=== PATIENT | female | born 1960 | race Caucasian/White ===

== ENCOUNTER 2021-11-09 22:10 | Emergency (ER) | payer MEDICARE, MEDICAID, SELFPAY ==
[2021-11-09 22:52] VITALS: BP 128/81; PULSE 89; RESP 18; TEMP 36.8; O2SAT 98; BMI 33.2
[2021-11-10 03:00] LABS: Basophils # 0.1 10^3/uL (0.0-0.1); Basophils % 0.5 %; Eosinophils # 0.4 10^3/uL (0.0-0.8); Eosinophils % 2.9 %; Hematocrit 42.2 % (37.0-47.0); Hemoglobin 14.5 g/dL (11.5-15.3); Lymphocytes # 2.4 10^3/uL (0.8-4.8); Lymphocytes % 19.8 %; Mean Corpuscular HGB Conc 34.4 g/dL (30.0-36.0); Mean Corpuscular Hemoglobin 29.5 pg (28.0-34.0); Mean Corpuscular Volume 85.9 fl (81-99); Mean Platelet Volume 11.4 fL (7.4-10.4); Monocytes # 1.9 10^3/uL (0.2-0.9); Monocytes % 15.4 %; Neutrophils # 7.43 10^3/uL (1.8-7.7); Neutrophils % 60.6 %; Nucleated Red Blood Cells % 0 %; Platelet Count 199 10^3/cmm (130-400); Red Blood Count 4.91 10^6/uL (4.1-5.3); Red Cell Distribution Width 12.2 % (12.1-15.1); White Blood Count 12.3 10^3/uL (4.0-10.0)
[2021-11-10 03:03] LABS: Specific Gravity, Urine 1.005 (1.005-1.030); Urine Appearance Turbid (CLEAR); Urine Color Dark Yellow (Yellow); pH Urine 5 (5-7)
[2021-11-10] MEDS: ondansetron 2 mg/ML SDV 2 mL 4 MG IVP (03:03)
[2021-11-10] MEDS: sodium chloride 0.9% 1,000 ML 999 ML IV ×2 (03:03→04:03)
[2021-11-10 03:04] LABS: Add Urine Microscopic? YES; Bilirubin Urine 1+ (Negative); Blood Urine Neg (Negative); Glucose Urine UA Norm (Normal); Ketones Urine Negative (Negative); Leukocyte Esterase Urine 1+ (Negative); Nitrate Urine Negative (Negative); Protein Urine Neg (Negative); Urobilinogen Urine 4 mg/dL (Negative)
[2021-11-10 03:10] LABS: RBC Urine 0-4 /hpf (0-2); Squamous Epithelial Cell Urine TOO NUMEROUS TO CNT /hpf (0-5); WBC Urine 25-40 /hpf (0-5)
[2021-11-10 03:11] LABS: Add Urine Culture? No; Bacteria Urine 4+ /hpf
[2021-11-10 03:19] LABS: Alanine Aminotransferase 82 U/L (0-33); Albumin Level 4.5 g/dL (3.5-5.2); Alkaline Phosphatase 99 IU/L (35-105); Anion Gap 20.8 (5-19); Aspartate Amino Transferase 68 U/L (0-32); Blood Urea Nitrogen 17 mg/dL (6-20); C Reactive Protein 72.1 mg/L (0.0-4.9); Calcium 9.4 mg/dL (8.5-10.5); Carbon Dioxide 24 mmol/L (22-29); Chloride 90 mmol/L (98-107); Globulin 3.6 g/dL (1.3-4.6); Glomerular Filtration Rate 64.1 mL/min (90-130); Glucose 117 mg/dL (65-115); Lipase 23 U/L (13-60); Osmolality Calculated 277 mOsm/kg (285-295); Sodium 132 mmol/L (136-145); Total Bilirubin 0.6 mg/dL (0.15-1.2); Total Protein 8.1 g/dL (6.6-8.7)
[2021-11-10 03:20] LABS: Lactate (Lactic Acid level) 1.3 mmol/L (0.5-2.2)
[2021-11-10 03:21] LABS: Potassium 2.8 mmol/L (3.5-5.1)
[2021-11-10 03:25] LABS: Procalcitonin 0.58 ng/mL (0-0.5)
[2021-11-10] MEDS: potassium chloride ER 20 mEq Tablet 40 MEQ PO (03:31)
[2021-11-10] MEDS: potassium chloride premix 100 ML 50 MEQ IV (03:31)
--- NOTE | 2021-11-10 03:33 | W.ED.NAVMDI ---
HPI - Nausea/Vomiting/Diarrhea General: Chief complaint: Nausea/Vomiting/Diarrhea Stated complaint: Rash Time Seen by Provider: 11/10/21 02:38 History of Present Illness: HPI Narrative: 61-year-old female presenting with 6 days of nausea, vomiting, some diarrhea, and cough. She has had a headache and body aches as well. Fever on and off. She was tested as an outpatient for COVID-19 and tested negative a couple of days ago. She has not been able to hold down liquids. No overt belly pain. MD elicited complaint: nausea, vomiting, diarrhea and other Onset (ago): day(s) (6) Associated nausea: Yes Location of pain: Diffuse Quality: cramping Exacerbating factors: none Associated symtoms: Reports cough, decreased urine output, fevers/chills, headache(s), anorexia, myalgias and nausea; Denies chest pain, diaphoresis or dysuria Review of Systems Const: Reports: fever(s), chills and body aches; Denies: diaphoresis Card: Denies: chest pain Resp: Reports: non-productive cough; Denies: dyspnea or productive cough GI: Reports: nausea, vomiting and diarrhea : Denies: dysuria Neuro: Reports: headache(s) Physical Exam Const: GENERAL APPEARANCE: cooperative and ill appearing (mildly) HENMT: COMMON NORMALS: normocephalic HEAD & SCALP: normocephalic Eye: COMMON NORMALS: Equal, round and reactive pupils present and EOMs intact bilaterally PUPIL: Yes Equal, round and reactive pupils present Chest: COMMONS NORMALS: normal inspection of the chest Resp: COMMON NORMALS: normal respiratory effort, No retractions, No use of accessory muscles and clear to auscultation bilaterally AUSCULTATION: clear to auscultation bilaterally Cardio: COMMON NORMALS: regular rate and regular rhythm RATE: regular rate RHYTHM: regular rhythm GI: COMMON NORMALS: Normal to inspection, nondistended, normoactive bowel sounds present, Soft to palpation and non-tender PALPATION: Yes Soft to palpation Extremity: COMMON NORMALS: normal to inspection Course Vital Signs: Vital signs: Vital Signs Temperature 98.3 F 11/09/21 22:52 Pulse Rate 75 11/10/21 08:20 Respiratory Rate 16 11/10/21 08:20 Blood Pressure 119/67 01/24/22 08:20 Pulse Oximetry 96 11/10/21 08:20 MDM - Nausea/Vomiting/Diarrhea MDM Narrative Medical decision making narrative: Patient with vomiting, diarrhea. White blood cell count is 12.3, without significant left shift. Hemoglobin 14.5. Her potassium is 2.8. She is hypochloremic. Indicates vomiting. Potassium is replaced. No vomiting since she has been here. The petechial rash she has on the lower extremities is unclear. Her coagulations studies are normal. She will be placed on steroids for this. She is COVID-19 negative. Her urinalysis is contaminated. Lab Data Result diagrams: 11/10/21 02:48 11/10/21 02:48 Labs: Lab Results 11/10/21 11/10/21 11/10/21 02:48 02:48 02:48 WBC 12.3 10^3/uL H 10^3/uL (4.0-10.0) RBC 4.91 10^6/uL 10^6/uL (4.1-5.3) Hgb 14.5 g/dL g/dL (11.5-15.3) Hct 42.2 % % (37.0-47.0) MCV 85.9 fl fl (81-99) MCH 29.5 pg pg (28.0-34.0) MCHC 34.4 g/dL g/dL (30.0-36.0) RDW 12.2 % % (12.1-15.1) Plt Count 199 10^3/cmm 10^3/cmm (130-400) MPV 11.4 fL H fL (7.4-10.4) Neut % (Auto) 60.6 % % Lymph % (Auto) 19.8 % % [place] % (Auto) 15.4 % % Eos % (Auto) 2.9 % % Baso % (Auto) 0.5 % % Neut # (Auto) 7.43 10^3/uL 10^3/uL (1.8-7.7) Lymph # (Auto) 2.4 10^3/uL 10^3/uL (0.8-4.8) [place] # (Auto) 1.9 10^3/uL H 10^3/uL (0.2-0.9) Eos # (Auto) 0.4 10^3/uL 10^3/uL (0.0-0.8) Baso # (Auto) 0.1 10^3/uL 10^3/uL (0.0-0.1) Nucleated RBC % (auto) 0 % % Nucleated RBCs # 0.0 /100WBC /100WBC PT INR APTT Sodium 132 mmol/L L mmol/L (136-145) Potassium 2.8 mmol/L L* mmol/L (3.5-5.1) Chloride 90 mmol/L L mmol/L (98-107) Carbon Dioxide 24 mmol/L mmol/L (22-29) Anion Gap 20.8 H (5-19) BUN 17 mg/dL mg/dL (6-20) Creatinine 0.9 mg/dL mg/dL (0.5-0.9) GFR Calculation 64.1 mL/min L mL/min (90-130) Glucose 117 mg/dL H mg/dL (65-115) Calculated Osmolality 277 mOsm/kg L mOsm/kg (285-295) Lactate 1.3 mmol/L mmol/L (0.5-2.2) Calcium 9.4 mg/dL mg/dL (8.5-10.5) Total Bilirubin 0.6 mg/dL mg/dL (0.15-1.2) AST 68 U/L H U/L (0-32) ALT 82 U/L H U/L (0-33) Alkaline Phosphatase 99 IU/L IU/L (35-105) C-Reactive Protein 72.1 mg/L H mg/L (0.0-4.9) Total Protein 8.1 g/dL g/dL (6.6-8.7) Albumin 4.5 g/dL g/dL (3.5-5.2) Globulin 3.6 g/dL g/dL (1.3-4.6) Lipase 23 U/L U/L (13-60) Procalcitonin 0.58 ng/mL H ng/mL (0-0.5) Urine Color Urine Appearance Urine pH Ur Specific [place] Urine Protein Urine Glucose (UA) Urine Ketones Urine Blood Urine Nitrate Urine Bilirubin Urine Urobilinogen Ur Leukocyte Esterase Urine RBC Urine WBC Ur Squamous Epith Cells Amorphous Sediment Urine Bacteria Coronavirus 229E (PCR) SARS-CoV-2 (PCR) 11/10/21 11/10/21 11/10/21 02:48 02:48 03:02 WBC RBC Hgb Hct MCV MCH MCHC RDW Plt Count MPV Neut % (Auto) Lymph % (Auto) [place] % (Auto) Eos % (Auto) Baso % (Auto) Neut # (Auto) Lymph # (Auto) [place] # (Auto) Eos # (Auto) Baso # (Auto) Nucleated RBC % (auto) Nucleated RBCs # PT 13.20 SECONDS SECONDS (12.1-14.9) INR 0.97 (0.8-1.2) APTT 36.3 SECONDS SECONDS (23.9-36.7) Sodium Potassium Chloride Carbon Dioxide Anion Gap BUN Creatinine GFR Calculation Glucose Calculated Osmolality Lactate Calcium Total Bilirubin AST ALT Alkaline Phosphatase C-Reactive Protein Total Protein Albumin Globulin Lipase Procalcitonin Urine Color Dark yellow (Yellow) Urine Appearance Turbid (CLEAR) Urine pH 5 (5-7) Ur Specific [place] 1.005 (1.005-1.030) Urine Protein Neg (Negative) Urine Glucose (UA) Norm (Normal) Urine Ketones Negative (Negative) Urine Blood Neg (Negative) Urine Nitrate Negative (Negative) Urine Bilirubin 1+ H (Negative) Urine Urobilinogen 4 mg/dL H mg/dL (Negative) Ur Leukocyte Esterase 1+ H (Negative) Urine RBC 0-4 /hpf H /hpf (0-2) Urine WBC 25-40 /hpf H /hpf (0-5) Ur Squamous Epith Cells Too numerous to cnt /hpf H /hpf (0-5) Amorphous Sediment Not Reportable Urine Bacteria 4+ /hpf H /hpf (NONE) Coronavirus 229E (PCR) Not detected (NOT DETECT) SARS-CoV-2 (PCR) Not detected (NOT DETECT) Discharge Plan Discharge Patient Disposition: Home Clinical Impression: Gastroenteritis, Petechiae Condition: Stable Prescriptions: New Zofran 4 mg tablet 4 mg PO Q6H PRN (Reason: nausea and vomiting) Qty: 10 0RF Medrol (Philip) 4 mg tablets,dose pack See Rx Instructions .ROUTE .COMPLEX Qty: 21 0RF Rx Instructions: orally per package directions Discharge Orders: Discharge ED (Routine); Ordered 11/10/21 Ordered By: Seven Amaral Referrals: [facility], [Staff Physician] - 1-3 days Patient Instructions: Gastroenteritis (ED), Purp[place] (ED) Activity Restrictions/Additional Instructions: Return for vomiting liquids or medications despite treatment, worsening rash, blood in the stool, increasing abdominal pain, fever greater than 100, any other concerning symptoms. Coding Level of Care Code ED Hr Clerk for Chg Fwd Exam Comprehensive
[2021-11-10 05:48] LABS: INR 0.97 (0.8-1.2)
[2021-11-10 05:49] LABS: Partial Thromboplastin Time 36.3 SECONDS (23.9-36.7)
[2021-11-10 06:50] LABS: Adenovirus Not Detected (NOT DETECT); Chlamydia Pneumoniae Not Detected (NOT DETECT); Coronavirus 229E,HKU1,NL63,OC4 Not Detected (NOT DETECT); Human Metapneumovirus Not Detected (NOT DETECT); Human Rhinovirus/Enterovirus Not Detected (NOT DETECT); Influenza A Not Detected (NOT DETECT); Influenza A H1 Not Detected (NOT DETECT); Influenza A H1-2009 Not Detected (NOT DETECT); Influenza A H3 Not Detected (NOT DETECT); Influenza B Not Detected (NOT DETECT); Mycoplasma Pneumoniae Not Detected (NOT DETECT); Parainfluenza Virus Type 1 Not Detected (NOT DETECT); Parainfluenza Virus Type 2 Not Detected (NOT DETECT); Parainfluenza Virus Type 3 Not Detected (NOT DETECT); Parainfluenza Virus Type 4 Not Detected (NOT DETECT); Respiratory Syncytial Virus A Not Detected (NOT DETECT); Respiratory Syncytial Virus B Not Detected (NOT DETECT); SARS-COV-2 Not Detected (NOT DETECT)
--- NOTE | 2021-11-10 07:30 | PC.NURSE ---
WHILE AT DOORWAY PT IS RESTING QUIETLY WITH EYES CLOSED WITH GOOD CHEST RISE AND FALL.
[2021-11-10 08:20] VITALS: BP 119/67; PULSE 75; RESP 16; O2SAT 96
== END 2021-11-10 08:54 | disposition home or self-care (01) ==
PROVIDERS: Emergency Provider Emergency Medicine
DX: K52.9 Noninfective gastroenteritis and colitis, unspecified (principal); R23.3 Spontaneous ecchymoses; Z20.822 Contact with and (suspected) exposure to COVID-19
CPT/HCPCS: 80053; 81001; 83605; 83690; 84145; 85025; 85610; 85730; 86140; 87635; 96365; 96366; 96375; 99284; J2405; J2930; J3480; J7030

== ENCOUNTER 2021-11-14 09:28 | Inpatient (IN) | payer MEDICARE, MEDICAID, SELFPAY ==
[2021-11-14] VITALS (59 sets, daily range): BP systolic 77–129; BP diastolic 51–79; PULSE 75–112; RESP 14–28; TEMP 36.9–38.7; O2SAT 79–99; BMI 33.3
--- NOTE | 2021-11-14 10:22 | CT_ITS ---
WS: [id number] CT ABDOMEN AND PELVIS WITH CONTRAST HISTORY: Abdominal pain. TECHNIQUE: Imaging performed of the abdomen and pelvis with IV contrast. Single phase imaging of the abdomen. Coronal and sagittal reformats are submitted. All CT scans at [facility] use at [address] one of these dose optimization techniques: automated exposure control; mA and/or kV adjustment per patient size (includes targeted exams where dose is matched to clinical indication); or iterative re construction. IV CONTRAST: Omnipaque 300; 95 mL IV. Oral contrast: No DLP: 1680.55 mGy.cm COMPARISON: None. Lower thorax: Benign 11 mm granuloma at the RIGHT lung base. Normal size heart. Moderate-sized hiatal hernia. Liver/biliary system: Normal size liver. Portal vein is normal. No mass identified. There is free air adjacent to the liver. Gallbladder: Normally distended gallbladder. Cholelithiasis. Pancreas: Normal size pancreas and pancreatic duct. No adjacent inflammation. Spleen: Normal size spleen with granulomata. Adrenal glands: Normal. Right kidney: Normal. Left kidney: Mild cortical scarring in the lower pole. There is an exophytic low-attenuation mass wit h a maximum diameter of 1.2 cm. Hounsfield units are elevated. Aorta: Mild atherosclerosis with no aneurysm. Numerous foci of free air identified within the peritoneal cavity. Lymphadenopathy: None. Free fluid: There is small amount of free fluid in the pelvis. GI tract: Appendix is normal. Mild diffuse constipation and fecal retention. Numerous diverticula beg inning in the descending and sigmoid colon. There is marked wall thickening with narrowing of the lum en throughout the sigmoid. There are numerous diverticula. There is a focal inflammatory collection i n the distal sigmoid just to the RIGHT of the uterus. This collection contains air and fecal material . Suspect this is site of perforation and free air. Favor pelvic abscess measuring 3.3 x 5.6 cm. Seen on the coronal images is a defect within the RIGHT lateral wall of the sigmoid with contiguous fecal material and air. This leads into the suspected abscess in the pelvis. Abdominal wall: Unremarkable abdominal wall. No hernia. Pelvis: Minimally distended urinary bladder. Uterus is atrophic. Again noted is inflammatory mass con sistent with an abscess containing fecal material in the RIGHT pelvis as described in the GI portion of the report. Bones: Unremarkable. CT/CT abdomen pelvis w con* [id number] IMPRESSION: 1. Moderate amount of free intraperitoneal air. 2. Favor the free air is coming from a perforation involving the distal sigmo id. There is inflammatory collection in the RIGHT pelvis which is probably an a bscess containing fecal material from a colonic perforation. Defect within the RIGHT lateral wall of the sigmoid is suspected as the site of the perforation. This may all be secondary to diverticulitis but neoplasm also needs to be exclu ded. Surgical evaluation necessary. 3. Small hiatal hernia. 4. Indeterminate LEFT renal mass. Recommend follow-up three-phase renal mass C T protocol in 3-6 months. 5. Cholelithiasis without acute cholecystitis. Notified Dr. Curtis at 11/14/2021 11:26 AM.
--- NOTE | 2021-11-14 10:22 | XRR_ITS ---
PROCEDURE INFORMATION: Exam: XR Chest Exam date and time: 11/14/2021 10:22 AM Age: 61 years old Clinical indication: Shortness of breath; Patient HX: SOB x 2 days; Additional info: Hypotensive TECHNIQUE: Imaging protocol: XR of the chest. Views: 1 view. COMPARISON: No relevant prior studies available. FINDINGS: Lungs: No focal airspace disease. Pleural spaces: Unremarkable. No pleural effusion. No pneumothorax. Heart/Mediastinum: Cardiomediastinal silhouette is within normal limits. Bones/joints: Unremarkable. XR/XR chest 1V portable [id number] IMPRESSION: No acute cardiopulmonary abnormality.
--- NOTE | 2021-11-14 10:24 | W.ED.ABDPA2 ---
Documented by User: GEOVANNA Simon 11/14/21 12:43 HPI - Abdominal Pain General: Chief Complaint: Abdominal Pain Stated Complaint: Coming back for a Stomach Flu in alot of pain Time Seen by Provider: 11/14/21 10:15 History of Present Illness: Patient complains of abdominal discomfort is been going on few days and a rash on her lower extremities. Patient also complained about low blood pressure and diaphoresis today. MD elicited complaint: abdominal pain Location: RLQ and LLQ Associated Symptoms: Reports nausea, poor appetite and other (Rash); Denies chills and fever(s) Review of Systems Narrative: Patient took hydrocodone yesterday for pain Const: Denies: fever(s), chills or body aches Eyes: Denies: change in vision or blurry vision ENMT: Denies: throat pain or nasal congestion Card: Denies: chest pain or dyspnea on exertion Resp: Denies: dyspnea, productive cough or non-productive cough GI: Reports: abdominal pain, nausea and other (Rash) : Reports: urinary hesitancy Musc: Denies: extremity pain Skin/Breast: Reports: rash (Both lower extremities go up to about knee area) Neuro: Denies: headache(s) Psych: Denies: anxiety or depression Eduin/Lymph: Denies: easy bruising PFSH ED PFSH: Medical History (Updated 11/17/21 @ 06:26 by Wan Curtis DO) Cholelithiasis Diabetes Diverticulitis Diverticulosis Hyperlipidemia Hypertension Surgical History History of bilateral inguinal hernia repair History of tonsillectomy History of tympanoplasty L eardrum rupture repair Family History Father Cancer Colon cancer Social History (Updated 11/14/21 @ 12:51 by Johnathan Zambrano MD) Smoking and tobacco status: current every day smoker Alcohol intake: former Year of sobriety/quit date alcohol: 2021 Former alcohol use details: Drank about 1/2 pint of vodka daily up until early October 2021 Physical Exam Const: COMMON NORMALS: no acute distress, average body habitus and patient oriented x3 HENMT: COMMON NORMALS: normocephalic HEAD & SCALP: normal to inspection and normocephalic FACE & SINUS: normal facial exam Eye: COMMON NORMALS: conjunctivae normal GENERAL EYE: appearance normal, both eyes and all related structures CONJUNCTIVA: Yes conjunctivae normal Neck/C-Spine: COMMON NORMALS: no JVD Chest: COMMONS NORMALS: normal inspection of the chest Resp: COMMON NORMALS: normal respiratory effort and clear to auscultation bilaterally AUSCULTATION: clear to auscultation bilaterally Cardio: COMMON NORMALS: no JVD, regular rate and regular rhythm RATE: regular rate RHYTHM: regular rhythm GI: INSPECTION: Yes normal to inspection AUSCULTATION: Yes Hypoactive bowel sounds present PALPATION: Yes Tenderness to palpation present (GI) Details: LLQ and RLQ PERCUSSION: normal to percussion Extremity: COMMON NORMALS: normal to inspection and full ROM Neuro: COMMON NORMALS: patient oriented x3 Skin: OTHER: Scattered purpura type rash from the knees down nonblanching, patient is diaphoretic Course Vital Signs: Vital signs: Vital Signs Temperature 100.2 F H 11/17/21 04:01 Pulse Rate 91 11/17/21 05:00 Respiratory Rate 19 H 11/17/21 05:00 Blood Pressure 123/73 11/17/21 05:00 Pulse Oximetry 89 L 11/17/21 05:00 MDM - Abdominal Pain Medical Decision Making Report given to Dr. Curtis and care transferred to him. Lab Data : 11/16/21 09:48 11/16/21 09:48 Labs/Radiology: Radiology Impressions Abdomen/Pelvis CT 11/14/21 10:22 IMPRESSION: 1. Moderate amount of free intraperitoneal air. 2. Favor the free air is coming from a perforation involving the distal sigmoid. There is inflammatory collection in the RIGHT pelvis which is probably an abscess containing fecal material from a colonic perforation. Defect within the RIGHT lateral wall of the sigmoid is suspected as the site of the perforation. This may all be secondary to diverticulitis but neoplasm also needs to be excluded. Surgical evaluation necessary. 3. Small hiatal hernia. 4. Indeterminate LEFT renal mass. Recommend follow-up three-phase renal mass CT protocol in 3-6 months. 5. Cholelithiasis without acute cholecystitis. Notified Dr. Curtis at 11/14/2021 11:26 AM. Chest X-Ray 11/14/21 10:22 IMPRESSION: No acute cardiopulmonary abnormality. Laboratory Results WBC 20.6 10^3/uL (4.0-10.0) H 11/14/21 10:29 RBC 4.51 10^6/uL (4.1-5.3) 11/14/21 10:29 Hgb 13.6 g/dL (11.5-15.3) 11/14/21 10:29 Hct 40.3 % (37.0-47.0) 11/14/21 10:29 MCV 89.4 fl (81-99) 11/14/21 10:29 MCH 30.2 pg (28.0-34.0) 11/14/21 10: MCHC 33.7 g/dL (30.0-36.0) 11/14/21 10: RDW 13.0 % (12.1-15.1) 11/14/21 10:29 Plt Count 232 10^3/cmm (130-400) 11/14/21 10:29 MPV 11.2 fL (7.4-10.4) H 11/14/21 10:29 Neut % (Auto) 93.2 % 11/14/21 10:29 Lymph % (Auto) 2.1 % 11/14/21 10:29 [place] % (Auto) 2.2 % 11/14/21 10:29 Eos % (Auto) 0.0 % 11/14/21 10:29 Baso % (Auto) 0.6 % 11/14/21 10:29 Neut # (Auto) 19.21 10^3/uL (1.8-7.7) H 11/14/21 10:29 Lymph # (Auto) 0.4 10^3/uL (0.8-4.8) L 11/14/21 10:29 [place] # (Auto) 0.5 10^3/uL (0.2-0.9) 11/14/21 10:29 Eos # (Auto) 0.0 10^3/uL (0.0-0.8) 11/14/21 10:29 Baso # (Auto) 0.1 10^3/uL (0.0-0.1) 11/14/21 10:29 Nucleated RBC % (auto) 0 % 11/14/21 10:29 Nucleated RBCs # 0.0 /100WBC 11/14/21 10:29 PT 15.10 SECONDS (12.1-14.9) H 11/14/21 10:29 INR 1.15 (0.8-1.2) 11/14/21 10:29 Sodium 133 mmol/L (136-145) L 11/14/21 11:10 Potassium 2.6 mmol/L (3.5-5.1) L* 11/14/21 11:10 Chloride 94 mmol/L (98-107) L 11/14/21 11:10 Carbon Dioxide 19 mmol/L (22-29) L 11/14/21 11:10 Anion Gap 22.6 (5-19) H 11/14/21 11:10 BUN 11 mg/dL (6-20) 11/14/21 11:10 Creatinine 0.9 mg/dL (0.5-0.9) 11/14/21 11:10 GFR Calculation 64.1 mL/min (90-130) L 11/14/21 11:10 Glucose 159 mg/dL (65-115) H 11/14/21 11:10 Calculated Osmolality 279 mOsm/kg (285-295) L 11/14/21 11:10 Lactate 3.5 mmol/L (0.5-2.2) H 11/14/21 11:00 Calcium 7.8 mg/dL (8.5-10.5) L 11/14/21 11:10 Magnesium 1.5 mg/dL (1.7-2.3) L 11/14/21 11:10 Total Bilirubin 1.0 mg/dL (0.15-1.2) 11/14/21 11:10 AST 43 U/L (0-32) H 11/14/21 11:10 ALT 59 U/L (0-33) H 11/14/21 11:10 Alkaline Phosphatase 146 IU/L (35-105) H 11/14/21 11:10 C-Reactive Protein 169.3 mg/L (0.0-4.9) H 11/14/21 11:10 Total Protein 5.7 g/dL (6.6-8.7) L 11/14/21 11:10 Albumin 2.6 g/dL (3.5-5.2) L 11/14/21 11:10 Globulin 3.1 g/dL (1.3-4.6) 11/14/21 11:10 Lipase 10 U/L (13-60) L 11/14/21 11:10 Carcinoembryonic Ag 2.7 ng/mL (0.0-4.7) 11/14/21 11:10 Coronavirus 229E (PCR) Not detected (NOT DETECT) 11/14/21 11:28 Hepatitis A IgM Ab Non-reactive (Nonreactive) 11/14/21 11:10 Hep Bs Antigen Non-reactive (Nonreactive) 11/14/21 11:10 Hep B Core IgM Ab Non-reactive (Nonreactive) 11/14/21 11:10 Hepatitis C Antibody Reactive (Nonreactive) H 11/14/21 11:10 SARS-CoV-2 (PCR) Not detected (NOT DETECT) 11/14/21 11:28 Discharge Plan Discharge Patient Disposition: Admitted As Inpatient Admit Provider: Johnathan Zambrano Clinical Impression: Perforation of sigmoid colon due to diverticulitis, Pelvic abscess, Sepsis Condition: Stable Sign Out Sign Out Data: Patient Sign Out occurred on 11/14/21 at 11:00. Patient's care was discussed, and care was transferred from to Wan Curtis DO. Coding Level of Care Code ED Electrician Journeyman Wireman for Chg Fwd Exam Comprehensive Documented by User: Wan Curtis DO 11/17/21 06:26 HPI - Abdominal Pain General: Chief Complaint: Abdominal Pain Stated Complaint: Coming back for a Stomach Flu in alot of pain Time Seen by Provider: 11/14/21 10:15 History of Present Illness: Patient complains of abdominal discomfort is been going on few days and a rash on her lower extremities. Patient also complained about low blood pressure and diaphoresis today. 61-year-old female presents emergency room with complaints of what she describes as stomach flu. States it began about 10 days ago and progressively is worsening. She describes nausea initially had some vomiting but that is resolved she is no longer having a bowel movement she has not attempted to eat in over 24 hours. She has had a low-grade fever at home. She is also been short of breath mostly because it is painful to take of breath. She localizes the pain to the left lower quadrant and pelvic area. She does have some mild dysuria but has noted decreased urine output as well. PFSH ED PFSH: Medical History (Updated 11/17/21 @ 06:26 by Wan Curtis DO) Cholelithiasis Diabetes Diverticulitis Diverticulosis Hyperlipidemia Hypertension Surgical History History of bilateral inguinal hernia repair History of tonsillectomy History of tympanoplasty L eardrum rupture repair Family History Father Cancer Colon cancer Social History (Updated 11/14/21 @ 12:51 by Johnathan Zambrano MD) Smoking and tobacco status: current every day smoker Alcohol intake: former Year of sobriety/quit date alcohol: 2021 Former alcohol use details: Drank about 1/2 pint of vodka daily up until early October 2021 Physical Exam Narrative: EXAM NARRATIVE: Initial exam by PA. His notes reviewed. HEENT: Head normocephalic and atraumatic TMs oromucosa pink and moist Cardiovascular: Heart regular rate and rhythm no murmur gallop rub or click Respiratory: chest clear to auscultation all wilkinson no wheezes rhonchi or rales Abdomen: Bowel sounds diminished with mild peritoneal signs focus of pain in the left lower quadrant. Extremities no clubbing cyanosis or edema Course Vital Signs: Vital signs: Vital Signs Temperature 100.2 F H 11/17/21 04:01 Pulse Rate 91 11/17/21 05:00 Respiratory Rate 19 H 11/17/21 05:00 Blood Pressure 123/73 11/17/21 05:00 Pulse Oximetry 89 L 11/17/21 05:00 MDM - Abdominal Pain Medical Decision Making Report given to Dr. Curtis and care transferred to him. Labs imaging and EKG reviewed. Patient is old low-grade fever. CT shows free air in the abdomen with the development of an abscess. Discussed with Dr. Carrington as well as with Dr. Means. Also discussed with hospitalist will admit orders written Lab Data : 11/16/21 09:48 11/16/21 09:48 Labs/Radiology: Radiology Impressions Abdomen/Pelvis CT 11/14/21 10:22 IMPRESSION: 1. Moderate amount of free intraperitoneal air. 2. Favor the free air is coming from a perforation involving the distal sigmoid. There is inflammatory collection in the RIGHT pelvis which is probably an abscess containing fecal material from a colonic perforation. Defect within the RIGHT lateral wall of the sigmoid is suspected as the site of the perforation. This may all be secondary to diverticulitis but neoplasm also needs to be excluded. Surgical evaluation necessary. 3. Small hiatal hernia. 4. Indeterminate LEFT renal mass. Recommend follow-up three-phase renal mass CT protocol in 3-6 months. 5. Cholelithiasis without acute cholecystitis. Notified Dr. Curtis at 11/14/2021 11:26 AM. Chest X-Ray 11/14/21 10:22 IMPRESSION: No acute cardiopulmonary abnormality. Laboratory Results WBC 20.6 10^3/uL (4.0-10.0) H 11/14/21 10:29 RBC 4.51 10^6/uL (4.1-5.3) 11/14/21 10:29 Hgb 13.6 g/dL (11.5-15.3) 11/14/21 10:29 Hct 40.3 % (37.0-47.0) 11/14/21 10:29 MCV 89.4 fl (81-99) 11/14/21 10:29 MCH 30.2 pg (28.0-34.0) 11/14/21 10:29 MCHC 33.7 g/dL (30.0-36.0) 11/14/21 10:29 RDW 13.0 % (12.1-15.1) 11/14/21 10:29 Plt Count 232 10^3/cmm (130-400) 11/14/21 10:29 MPV 11.2 fL (7.4-10.4) H 11/14/21 10:29 Neut % (Auto) 93.2 % 11/14/21 10:29 Lymph % (Auto) 2.1 % 11/14/21 10:29 [place] % (Auto) 2.2 % 11/14/21 10:29 Eos % (Auto) 0.0 % 11/14/21 10:29 Baso % (Auto) 0.6 % 11/14/21 10:29 Neut # (Auto) 19.21 10^3/uL (1.8-7.7) H 11/14/21 10:29 Lymph # (Auto) 0.4 10^3/uL (0.8-4.8) L 11/14/21 10:29 [place] # (Auto) 0.5 10^3/uL (0.2-0.9) 11/14/21 10:29 Eos # (Auto) 0.0 10^3/uL (0.0-0.8) 11/14/21 10:29 Baso # (Auto) 0.1 10^3/uL (0.0-0.1) 11/14/21 10:29 Nucleated RBC % (auto) 0 % 11/14/21 10: Nucleated RBCs # 0.0 /100WBC 11/14/21 10: PT 15.10 SECONDS (12.1-14.9) H 11/14/21 10:29 INR 1.15 (0.8-1.2) 11/14/21 10:29 Sodium 133 mmol/L (136-145) L 11/14/21 11:10 Potassium 2.6 mmol/L (3.5-5.1) L* 11/14/21 11:10 Chloride 94 mmol/L (98-107) L 11/14/21 11:10 Carbon Dioxide 19 mmol/L (22-29) L 11/14/21 11:10 Anion Gap 22.6 (5-19) H 11/14/21 11:10 BUN 11 mg/dL (6-20) 11/14/21 11:10 Creatinine 0.9 mg/dL (0.5-0.9) 11/14/21 11:10 GFR Calculation 64.1 mL/min (90-130) L 11/14/21 11:10 Glucose 159 mg/dL (65-115) H 11/14/21 11:10 Calculated Osmolality 279 mOsm/kg (285-295) L 11/14/21 11:10 Lactate 3.5 mmol/L (0.5-2.2) H 11/14/21 11:00 Calcium 7.8 mg/dL (8.5-10.5) L 11/14/21 11:10 Magnesium 1.5 mg/dL (1.7-2.3) L 11/14/21 11:10 Total Bilirubin 1.0 mg/dL (0.15-1.2) 11/14/21 11:10 AST 43 U/L (0-32) H 11/14/21 11:10 ALT 59 U/L (0-33) H 11/14/21 11:10 Alkaline Phosphatase 146 IU/L (35-105) H 11/14/21 11:10 C-Reactive Protein 169.3 mg/L (0.0-4.9) H 11/14/21 11:10 Total Protein 5.7 g/dL (6.6-8.7) L 11/14/21 11:10 Albumin 2.6 g/dL (3.5-5.2) L 11/14/21 11:10 Globulin 3.1 g/dL (1.3-4.6) 11/14/21 11:10 Lipase 10 U/L (13-60) L 11/14/21 11:10 Carcinoembryonic Ag 2.7 ng/mL (0.0-4.7) 11/14/21 11:10 Coronavirus 229E (PCR) Not detected (NOT DETECT) 11/14/21 11:28 Hepatitis A IgM Ab Non-reactive (Nonreactive) 11/14/21 11:10 Hep Bs Antigen Non-reactive (Nonreactive) 11/14/21 11:10 Hep B Core IgM Ab Non-reactive (Nonreactive) 11/14/21 11:10 Hepatitis C Antibody Reactive (Nonreactive) H 11/14/21 11:10 SARS-CoV-2 (PCR) Not detected (NOT DETECT) 11/14/21 11:28 Discharge Plan Discharge Patient Disposition: Admitted As Inpatient Admit Provider: Johnathan Zambrano Clinical Impression: Perforation of sigmoid colon due to diverticulitis, Pelvic abscess, Sepsis Condition: Stable Sign Out Sign Out Data: Patient Sign Out occurred on 11/14/21 at 11:00. Patient's care was discussed, and care was transferred from to Wan Curtis DO. Coding Level of Care Code ED Electrician Journeyman Wireman for g Fwd Exam Comprehensive
[2021-11-14 10:36] LABS: Basophils # 0.1 10^3/uL (0.0-0.1); Basophils % 0.6 %; Hematocrit 40.3 % (37.0-47.0); Hemoglobin 13.6 g/dL (11.5-15.3); Lymphocytes # 0.4 10^3/uL (0.8-4.8); Lymphocytes % 2.1 %; Mean Corpuscular HGB Conc 33.7 g/dL (30.0-36.0); Mean Corpuscular Hemoglobin 30.2 pg (28.0-34.0); Mean Corpuscular Volume 89.4 fl (81-99); Mean Platelet Volume 11.2 fL (7.4-10.4); Monocytes # 0.5 10^3/uL (0.2-0.9); Monocytes % 2.2 %; Neutrophils # 19.21 10^3/uL (1.8-7.7); Neutrophils % 93.2 %; Nucleated Red Blood Cells % 0 %; Platelet Count 232 10^3/cmm (130-400); Red Blood Count 4.51 10^6/uL (4.1-5.3); White Blood Count 20.6 10^3/uL (4.0-10.0)
[2021-11-14] MEDS: iohexol 300 mg/mL 100 mL Btl IV (10:55)
[2021-11-14] MEDS: sodium chloride 0.9% 1,000 ML 999 ML IV ×2 (11:00→13:47)
[2021-11-14 11:20] LABS: INR 1.15 (0.8-1.2)
[2021-11-14 11:26] LABS: Lactate (Lactic Acid level) 3.5 mmol/L (0.5-2.2)
[2021-11-14] MEDS: ondansetron 2 mg/ML SDV 2 mL 4 MG IVP (11:35)
[2021-11-14] MEDS: ketorolac 30 mg/mL INJ IVP (11:39)
[2021-11-14 11:50] LABS: Alanine Aminotransferase 59 U/L (0-33); Albumin Level 2.6 g/dL (3.5-5.2); Alkaline Phosphatase 146 IU/L (35-105); Anion Gap 22.6 (5-19); Aspartate Amino Transferase 43 U/L (0-32); Blood Urea Nitrogen 11 mg/dL (6-20); C Reactive Protein 169.3 mg/L (0.0-4.9); Calcium 7.8 mg/dL (8.5-10.5); Carbon Dioxide 19 mmol/L (22-29); Chloride 94 mmol/L (98-107); Creatinine Clr Calc Pharmacy 74.8927; Globulin 3.1 g/dL (1.3-4.6); Glomerular Filtration Rate 64.1 mL/min (90-130); Glucose 159 mg/dL (65-115); Lipase 10 U/L (13-60); Osmolality Calculated 279 mOsm/kg (285-295); Sodium 133 mmol/L (136-145); Total Protein 5.7 g/dL (6.6-8.7)
[2021-11-14] MEDS: morphine 4 mg/mL SDV 1 mL 2 MG IVP (11:50)
[2021-11-14] MEDS: piperacillin-tazobactam 4.5 GM in sodium chloride 0.9% (plus) 50 ML IV (11:51)
--- NOTE | 2021-11-14 11:51 | PC.PHAR ---
PT STATES SHE TAKES CARE OF HER OWN MEDICATIONS-PT HAD RX FILLED FOR METFORMIN ER 500MG DAILY ON 10/13/21 90D/S AT [facility] AND ANOTHER RX FILLED AT [facility] ON 10/13/21 AND PICKED UP FOR PLAIN 500MG DAILY-PT STATES SHE IS UNSURE WHICH ONE SHE IS TAKING PT STATES SHE MAY BE TAKING BOTH BUT IS UNSURE
[2021-11-14 11:57] LABS: Potassium 2.6 mmol/L (3.5-5.1)
[2021-11-14] MEDS: lidocaine 1% 5 ML in potassium chloride premix 100 ML 25 ML IV ×2 (12:12→16:14)
--- NOTE | 2021-11-14 12:33 | P.CONIM_ITS ---
Providers/Reason For Consult Consulting Physician/Specialty*: General Surgery Quinten Mukherjee MD Reason for Consult*: Suspected complicated diverticulitis. Attending Physician: Raúl Zambrano MD Primary Care Provider: Pamela Saab MD History of Present Illness History of Present Illness Tangela Mckeon is a 61 year old female who says she began getting some abdominal cramping about 10 days ago. She came to the emergency room and apparently was diagnosed with gastroenteritis and sent home. She said her discomfort never did get better and ended up getting worse over the past 10 d ays. She says yesterday it really started getting bad. She said she has been having chills for about 3 days at home but has not taken her temperature. She has had some nausea but no vomiting. It sounds like she has been somewhat anorexic. She has not had a normal bowel movement for about 10 days. She has had some very small bowel movements in the interim and says she is still passing some flatus now. Because of her worsening abdominal pain the patient came to the emergency room again today and a CAT scan revealed evidence of probable perforated diverticular disease with a pelvic abscess. The patient says she has been diagnosed with diverticulitis a couple of times in the past. The last episode was around 6 years ago. She says she had a colonoscopy perhaps 8 years ago in [place] and no problems were found other than maybe diverticulosis. She does mention that her father has a history of colon cancer. Medications/Allergies Home Medications Medication Instructions Recorded Confirmed Last Taken Type ondansetron HCl 4 mg tablet 4 mg PO Q6H PRN #10 tab 11/10/21 11/14/21 Unknown Rx (Zofran) albuterol sulfate 90 mcg/actuation 2 puff INHALATION Q4H PRN 11/14/21 11/14/21 Unknown History aerosol inhaler amlodipine 10 mg tablet 10 mg PO QAM 11/14/21 11/14/21 11/14/21 09:00 History atorvastatin 10 mg tablet 10 mg PO QAM 11/14/21 11/14/21 Unknown History buspirone 30 mg tablet 30 mg PO QAM 11/14/21 11/14/21 Unknown History cyanocobalamin (vitamin B-12) 250 250 mcg PO DAILY 11/14/21 11/14/21 Unknown History mcg tablet (Vitamin B-12) metformin 500 mg tablet 500 mg PO DAILY 11/14/21 11/14/21 Unknown History metformin 500 mg tablet,extended 500 mg PO DAILY 11/14/21 11/14/21 Unknown History release 24 hr methylprednisolone 4 mg tablets in See Rx Instructions .ROUTE .COMPLEX 11/14/21 11/14/21 11/14/21 History a dose pack (Timetricrol (Philip)) omeprazole 40 mg capsule,delayed 40 mg PO QAM 11/14/21 11/14/21 Unknown History release triamterene 37.5 1 cap PO BID 11/14/21 11/14/21 11/14/21 09:00 History mg-hydrochlorothiazide 25 mg capsule Allergies Allergy/AdvReac Type Severity Reaction Status Date / Time doxycycline Allergy ALGY-Anaphy Verified 11/14/21 10:06 laxis levofloxacin [From Levaquin] Allergy ALGY-Anaphy Verified 11/14/21 10:06 laxis Current Medications Generic Name Dose Route Start Last Admin Trade Name Freq PRN Reason Stop Dose Admin Lidocaine HCl 5 ml/ Potassium 105 mls @ 25 mls/hr 11/14/21 13:00 11/14/21 12:12 Chloride IV 11/14/21 20:59 25 mls/hr Q4H [id number] Administration PFSH Acute PFSH: Medical History (Updated 11/14/21 @ 12:44 by Quinten Mukherjee MD) Cholelithiasis Diabetes Diverticulitis Hypertension Surgical History (Updated 11/14/21 @ 12:35 by Quinten Mukherjee MD) History of bilateral inguinal hernia repair History of tonsillectomy History of tympanoplasty L eardrum rupture repair Family History (Updated 11/14/21 @ 12:35 by Quinten Mukherjee MD) Father Cancer Colon cancer Social History (Updated 11/14/21 @ 12:36 by Quinten Mukherjee MD) Smoking and tobacco status: never smoked Alcohol intake: former Year of sobriety/quit date alcohol: 2021 Former alcohol use details: Drank about 1/2 pint of vodka daily up until early October 2021 Vitals/I&O/Wt Last Vital Signs Temp 98.4 F 11/14/21 10:06 Pulse 83 11/14/21 12:26 Resp 14 11/14/21 12:26 BP 101/63 11/14/21 12:26 Pulse Ox 95 11/14/21 12:26 11/13/21 11/14/21 11/14/21 22:59 06:59 14:59 Intake Total 1050 / 1050 Balance 1050 / 1050 Weight last 48 hrs Weight 200 lb Physical Exam Narrative: EXAM NARRATIVE: The patient was encountered in her room in the emergency department. She does not appear to be in any acute distress. The pupils are equal. No carotid bruits are heard. The lungs are clear anteriorly. The heart is regular. The abdomen is moderately obese but does reveal some bowel sounds and is soft. The patient does have moderate tenderness diffusely across the lower abdomen. No obvious masses are palpated. The extremities reveal no edema but she does have a pink macular punctate rash across both lower legs diffusely. Neurologically the patient appears to be grossly intact. Data : 11/14/21 10:29 11/14/21 11:10 CT Abd/Pel: Radiologist's impression: CT abdomen/pelvis 11/14/2021 IMPRESSION: ? 1.? Moderate amount of free intraperitoneal air. 2.? Favor the free air is coming from a perforation? involving the distal sigmoid. There is inflammatory collection in the RIGHT pelvis which is probably an abscess containing fecal material from a colonic perforation. Defect within the RIGHT lateral wall of the sigmoid is suspected as the site of the perforation. This may all be secondary to diverticulitis but neoplasm also needs to be excluded. Surgical evaluation necessary. 3.? Small hiatal hernia. 4.? Indeterminate LEFT renal mass. Recommend follow-up three-phase renal mass CT protocol in 3-6 months. 5.? Cholelithiasis without acute cholecystitis. A&P Assessment and plan (1) Perforation of sigmoid colon due to diverticulitis: CT reviewed. I agree with the assessment of an inflammatory process in the pelvis but is difficult for me to tell how much of this area is actually abscess versus just inflammatory change. The patient certainly does have some tenderness on exam and has a leukocytosis. The moderate amount of free air as read by the radiologist seems to be a little bit of a generous estimate in my mind. I have discussed the patient's situation with her in some detail. I told her that if we make the assumption this is from diverticulitis, the treatment options are to hit her hard with antibiotics and hope that she experiences some improvement versus going to the operating room and exploring the area with probable plans for a sigmoid colectomy and colostomy formation. Currently the patient seems to be fairly stable. She would like to try to avoid a colostomy if at all possible, understandably. She would like to try some antibiotics first just to see if she experiences any improvement and if she does not then she seems to be willing to go to the operating room. Continue IV antibiotics. Close observation. N.p.o. Check a serum CEA level. Replace potassium. Status: Acute Consult Attestations Medical Necessity Statement: See admitting service's notation. Coding Level of Care Code Acute Artisan Plasterer for Cristy Donovan Diagnoses Perforation of sigmoid colon due to diverticulitis K57.20
--- NOTE | 2021-11-14 12:47 | PM.HP ---
Providers/Chief Complaint Admitting Physician: Johnathan Sun Chief Complaint: Coming back for a Stomach Flu in alot of pain History of Present Illness Tangela Mckeon is a 61 year old female that presents with history of abdominal pain for the last 10 days. She states has been achy, and has had some nausea with it. No real vomiting. Has not been having stools in the last couple of days. Eating less, drinking less. She was seen in the emergency department on November 10, for 6 days of nausea vomiting and diarrhea were described. At that point she was diagnosed with gastroenteritis and petechiae. She was given Medrol and some Zofran. Since that time she had continued discomfort that is worsened. She has had chills with no documented fever. She denies any blood in her stool or black or tarry stools. Last colonoscopy was around 8 years ago where a polyp was removed. She reports shortly after she had an abscess, where she stayed in the hospital for 3 days. She has known diverticulosis. In the emergency department she got some Zosyn, and a blood culture. She also received several fluid boluses for hypotension. Review of Systems General: Reports: 10 or more systems reviewed and unremarkable except in HPI and below Const: Reports: chills; Denies: fever(s) Eyes: Denies: change in vision ENMT: Denies: throat pain Card: Denies: chest pain Resp: Denies: dyspnea GI: Reports: abdominal pain and nausea; Denies: hematochezia or melena : Denies: flank pain Musc: Denies: neck pain Skin/Breast: Reports: rash Neuro: Denies: headache(s) Psych: Denies: anxiety Endo: Denies: polyuria Eduin/Lymph: Denies: easy bruising All/Imm: Denies: urticaria Medications/Allergies Home Medications Medication Instructions Recorded Confirmed Last Taken Type ondansetron HCl 4 mg tablet 4 mg PO Q6H PRN #10 tab 11/10/21 11/14/21 Unknown Rx (Zofran) albuterol sulfate 90 mcg/actuation 2 puff INHALATION Q4H PRN 11/14/21 11/14/21 Unknown History aerosol inhaler amlodipine 10 mg tablet 10 mg PO QAM 11/14/21 11/14/21 11/14/21 09:00 History atorvastatin 10 mg tablet 10 mg PO QAM 11/14/21 11/14/21 Unknown History buspirone 30 mg tablet 30 mg PO QAM 11/14/21 11/14/21 Unknown History cyanocobalamin (vitamin B-12) 250 250 mcg PO DAILY 11/14/21 11/14/21 Unknown History mcg tablet (Vitamin B-12) metformin 500 mg tablet 500 mg PO DAILY 11/14/21 11/14/21 Unknown History metformin 500 mg tablet,extended 500 mg PO DAILY 11/14/21 11/14/21 Unknown History release 24 hr methylprednisolone 4 mg tablets in See Rx Instructions .ROUTE .COMPLEX 11/14/21 11/14/21 11/14/21 History a dose pack (Medrol (Philip)) omeprazole 40 mg capsule,delayed 40 mg PO QAM 11/14/21 11/14/21 Unknown History release triamterene 37.5 1 cap PO BID 11/14/21 11/14/21 11/14/21 09:00 History mg-hydrochlorothiazide 25 mg capsule Allergies Allergy/AdvReac Type Severity Reaction Status Date / Time doxycycline Allergy ALGY-Anaphy Verified 11/14/21 13:00 laxis levofloxacin [From Levaquin] Allergy ALGY-Anaphy Verified 11/14/21 13:00 laxis PFSH Acute PFSH: Medical History (Updated 11/14/21 @ 13:00 by Johnathan Zambrano MD) Cholelithiasis Diabetes Diverticulitis Diverticulosis Hyperlipidemia Hypertension Surgical History History of bilateral inguinal hernia repair History of tonsillectomy History of tympanoplasty L eardrum rupture repair Family History Father Cancer Colon cancer Social History (Updated 11/14/21 @ 12:51 by Johnathan Zambrano MD) Smoking and tobacco status: current every day smoker Alcohol intake: former Year of sobriety/quit date alcohol: 2021 Former alcohol use details: Drank about 1/2 pint of vodka daily up until early October 2021 Vitals/I&O/Wt Last Vital Signs Temp 98.4 F 11/14/21 10:06 Pulse 83 11/14/21 12:26 Resp 14 11/14/21 12:26 BP 101/63 01/28/22 12:26 Pulse Ox 95 11/14/21 12:26 11/13/21 11/14/21 11/14/21 22:59 06:59 14:59 Intake Total 1050 / 1050 Balance 1050 / 1050 Weight last 48 hrs Weight 90.718 kg Physical Exam Narrative: EXAM NARRATIVE: General exam is a white female, reports pain is better after having morphine HEENT: Pupils equally round. Oropharynx clear. Neck is supple, no lymphadenopathy or thyromegaly Cardiovascular regular rate and rhythm, no murmur Lungs clear no wheezing or crackles Abdomen is soft. Tenderness is present. General tenderness is noted. Hypoactive bowel sounds. No obvious organomegaly. exam deferred Extremities no cyanosis clubbing or edema, cap refill brisk Skin with what appears to be a small petechial rash with red macules as well lower extremities below the knee only. Family reports this is fading. Neuro no focal deficits Sepsis: Is patient septic: Yes Focused sepsis exam performed: Yes Data : 11/14/21 10:29 11/14/21 11:10 Other Labs: LFTs demonstrated elevated AST of 43, ALT of 59, alk phos of 146. Albumin 2.6 Lactate 3.5 Calcium 7.8 Glucose 159 INR 1.15 Chest x-ray no infiltrate CT demonstrated moderate amount of free intraperitoneal air, inflammatory collection right pelvis possible abscess and concern of perforation of sigmoid. Indeterminate left renal mass, small hiatal hernia, cholelithiasis without cholecystitis. A&P Assessment and plan (1) Perforation of sigmoid colon due to diverticulitis: Free air noted on CT scan. Likely has perforated sigmoid colon with diverticulitis and abscess. Malignancy not excluded. CEA ordered per surgery Appreciate surgical consultation Secondary to severity of presentation will continue Zosyn and add vancomycin Await cultures May need surgical intervention. Surgery following closely currently. Morphine for pain N.p.o. Lactate elevated on admission. Presentation with elevated white count, hypotension, source of abscess, all consistent with sepsis. Reflex lactate has been triggered. She has received 1 L of fluid since arrival. We will give her 1 another liter. Blood pressure does seem to be responding and systolic is over 100. As she seems to be responding to fluid boluses she will be placed on maintenance fluids after this, but receive another bolus if hypotension is noted. As concern of elevation for ischemia of colon also exist will repeat lactate tomorrow. This was present on admission. Status: Acute (2) Pelvic abscess: See notations above. Likely diverticular abscess Status: Acute (3) Hypotension: Fluid resuscitated in the emergency department Continue fluids Norepinephrine if needed Status: Acute (4) Hypokalemia: Supplement potassium Check magnesium Status: Acute (5) Alcohol use: Significant alcohol use prior to coming in Thiamine given Ativan as needed If any significant withdrawal will need to institute CIWA protocol Status: Acute Plan Transaminitis. May be secondary to alcohol. Check hepatitis panel. Type 2 diabetes. Sliding scale insulin. Mild as she is n.p.o. History of hypertension. Hold medications currently she is hypotensive History of reflux. Protonix IV Hyperlipidemia Full code Heparin for DVT prophylaxis Attestations Medical Necessity Statement*: Will need greater than 2 midnight stay for evaluation and treatment of hypertension, perforated sigmoid diverticulum viscus, pelvic abscess with likely diverticulitis. Coding Level of Care Code Acute Freight Representative for [facility] Diagnoses Perforation of sigmoid colon due to diverticulitis K57.20 Pelvic abscess Hypotension I95.9 Hypokalemia E87.6 Alcohol use Z72.89 Comment Greater than 35 minutes spent in evaluation and treatment
--- NOTE | 2021-11-14 12:57 | ECG_ITS ---
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[id number] Requested By: Johnathan Scott Order Number: [id number] Reading MD: [employer] Measurements Intervals [place] Rate: 78 P: 29 SD: 169 QRS: -3 QRSD: 106 T: 20 QT: 387 QTc: 441 Interpretive Statements SINUS RHYTHM LOW QRS VOLTAGE IN PRECORDIAL LEADS [QRS DEFLECTION < 1.0 mV IN CHEST LEADS] POSSIBLE ANTERIOR MYOCARDIAL INFARCTION , OF INDETERMINATE AGE [30 ms Q WAVE IN V3/V4, OR R < 0.2 mV IN V4] No previous ECG available for comparison Electronically Signed On 11-15-2021 17:47:22 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
[2021-11-14 13:05] LABS: Magnesium 1.5 mg/dL (1.7-2.3)
[2021-11-14 13:15] LABS: Glucose Point of Care 201 mg/dL (70-110)
[2021-11-14 13:48] LABS: Adenovirus Not Detected (NOT DETECT); Chlamydia Pneumoniae Not Detected (NOT DETECT); Coronavirus 229E,HKU1,NL63,OC4 Not Detected (NOT DETECT); Human Metapneumovirus Not Detected (NOT DETECT); Human Rhinovirus/Enterovirus Not Detected (NOT DETECT); Influenza A Not Detected (NOT DETECT); Influenza A H1 Not Detected (NOT DETECT); Influenza A H1-2009 Not Detected (NOT DETECT); Influenza A H3 Not Detected (NOT DETECT); Influenza B Not Detected (NOT DETECT); Mycoplasma Pneumoniae Not Detected (NOT DETECT); Parainfluenza Virus Type 1 Not Detected (NOT DETECT); Parainfluenza Virus Type 2 Not Detected (NOT DETECT); Parainfluenza Virus Type 3 Not Detected (NOT DETECT); Parainfluenza Virus Type 4 Not Detected (NOT DETECT); Respiratory Syncytial Virus A Not Detected (NOT DETECT); Respiratory Syncytial Virus B Not Detected (NOT DETECT); SARS-COV-2 Not Detected (NOT DETECT)
[2021-11-14 13:56] LABS: Carcinoembryonic Antigen 2.7 ng/mL (0.0-4.7)
--- NOTE | 2021-11-14 14:02 | PC.NURSE ---
ATTEMPTED REPORT AT 0953
[2021-11-14 14:23] LABS: Bilirubin Urine Neg (Negative); Blood Urine Neg (Negative); Glucose Urine UA Norm (Normal); Ketones Urine Negative (Negative); Leukocyte Esterase Urine Negative (Negative); Nitrate Urine Negative (Negative); Protein Urine Trace (Negative); Urine Appearance Clear (CLEAR); Urine Color Yellow (Yellow); Urobilinogen Urine 1 mg/dL (Negative); pH Urine 7 (5-7)
[2021-11-14 14:24] LABS: Add Urine Culture? No; RBC Urine 0-4 /hpf (0-2); WBC Urine 0-4 /hpf (0-5)
[2021-11-14 15:22] LABS: Hepatitis B Core IgM Non-Reactive (Nonreactive); Hepatitis B Surface Antigen Non-Reactive (Nonreactive)
[2021-11-14 15:51] LABS: Hepatitis A Antibody IgM Non-Reactive (Nonreactive); Hepatitis C Virus Antibody Reactive (Nonreactive)
[2021-11-14] MEDS: vancomycin 1,500 MG/300 ML PIGGYBACK 200 MG IV (16:09)
[2021-11-14] MEDS: sodium chlor 0.9% + KCl 20 mEq 20 MEQ/1,000 ML BAG 100 MEQ IV (16:09)
--- NOTE | 2021-11-14 16:34 | PC.NURSE ---
1520 Pt admitted to ICU from ER. Pt able to ambulate from gurney to bed without assist. AAOx4, VSS. Answers all questions appropriately. Makes all needs known. Assessment completed as charted. C/o abd pain 03/27. SCDS placed on pt per orders. PIV to L AC with IVF and potassium infusing. Pt able to get up and use BSC with minimal assist. HOB elevated, CLWR. Will monitor.
[2021-11-14] MEDS: morphine 4 mg/mL SDV 1 mL IVP ×2 (16:50→21:05)
[2021-11-14] MEDS: heparin 5,000 unit/mL INJ 1 mL 5000 UNIT SUBCUT (17:23)
[2021-11-14] MEDS: insulin lispro 100 unit/1 mL SUBCUT (17:29)
[2021-11-14 17:39] LABS: Glucose Point of Care 200 mg/dL (70-110)
[2021-11-14] MEDS: piperacillin-tazobactam 3.375 GM in sodium chloride 0.9% (plus) 50 ML IV (17:47)
--- NOTE | 2021-11-14 17:55 | PC.NURSE ---
Pt resting in bed talking with boyfriend. Denies any needs, VSS. Makes all needs known. Uses BSC with minimal assist. IVF infusing per orders. Will monitor.
[2021-11-14 20:09] LABS: Glucose Point of Care 134 mg/dL (70-110)
--- NOTE | 2021-11-14 22:00 | PC.NURSE ---
Addendum entered by Meaghan Smith RN 11/14/21 23:18: Additionally, patient's oxygen saturation mid-high 80s on room air. Nasal cannula placed on patient at 3 L, oxygen saturation increased to 95% and maintaining. Original Note: Physician Communication On assessment, patient pale and shaking. Oral temperature 101.6F and HR ranging from 124-144. Dr. Weber notified of vitals; Order received for IV acetaminophen 1000 mg IV once and to alert him if fever does not break.
[2021-11-14] MEDS: acetaminophen 1,000 MG/100 ML PIGGYBACK 400 MG IV (23:03)
[2021-11-15] VITALS (55 sets, daily range): BP systolic 75–156; BP diastolic 48–102; PULSE 61–119; RESP 15–32; TEMP 36.8–37.1; O2SAT 75–95; BMI 32.1
[2021-11-15] MEDS: piperacillin-tazobactam 3.375 GM in sodium chloride 0.9% (plus) 50 ML IV ×3 (02:29→17:09)
[2021-11-15] MEDS: sodium chlor 0.9% + KCl 20 mEq 20 MEQ/1,000 ML BAG 100 MEQ IV ×2 (03:18→14:30)
[2021-11-15] MEDS: heparin 5,000 unit/mL INJ 1 mL 5000 UNIT SUBCUT ×2 (05:49→17:09)
[2021-11-15] MEDS: morphine 4 mg/mL SDV 1 mL IVP ×3 (05:49→21:17)
[2021-11-15 05:55] LABS: Basophils # 0.2 10^3/uL (0.0-0.1); Basophils % 0.8 %; Hematocrit 35.4 % (37.0-47.0); Hemoglobin 11.5 g/dL (11.5-15.3); Lymphocytes # 0.9 10^3/uL (0.8-4.8); Lymphocytes % 4.1 %; Mean Corpuscular HGB Conc 32.5 g/dL (30.0-36.0); Mean Corpuscular Hemoglobin 29.9 pg (28.0-34.0); Mean Corpuscular Volume 92.2 fl (81-99); Mean Platelet Volume 12.3 fL (7.4-10.4); Monocytes # 0.9 10^3/uL (0.2-0.9); Monocytes % 4.2 %; Neutrophils # 19.77 10^3/uL (1.8-7.7); Nucleated Red Blood Cells % 0 %; Platelet Count 180 10^3/cmm (130-400); Red Blood Count 3.84 10^6/uL (4.1-5.3); Red Cell Distribution Width 13.2 % (12.1-15.1)
[2021-11-15 06:26] LABS: Alanine Aminotransferase 57 U/L (0-33); Albumin Level 2.8 g/dL (3.5-5.2); Alkaline Phosphatase 103 IU/L (35-105); Anion Gap 18.2 (5-19); Aspartate Amino Transferase 43 U/L (0-32); Blood Urea Nitrogen 11 mg/dL (6-20); Calcium 8.4 mg/dL (8.5-10.5); Carbon Dioxide 20 mmol/L (22-29); Chloride 100 mmol/L (98-107); Glomerular Filtration Rate 126.3 mL/min (90-130); Glucose 184 mg/dL (65-115); Magnesium 1.9 mg/dL (1.7-2.3); Osmolality Calculated 284 mOsm/kg (285-295); Potassium 3.2 mmol/L (3.5-5.1); Sodium 135 mmol/L (136-145); Total Bilirubin 0.9 mg/dL (0.15-1.2); Total Protein 5.8 g/dL (6.6-8.7)
[2021-11-15 06:27] LABS: Lactate (Lactic Acid level) 1.7 mmol/L (0.5-2.2)
[2021-11-15 07:18] LABS: Glucose Point of Care 163 mg/dL (70-110)
[2021-11-15] MEDS: levalbuterol 0.63 mg/3 mL Neb INHALATION (07:45)
--- NOTE | 2021-11-15 07:59 | P.PN_ITS ---
Subjective Subjective: Interval history: The patient says she feels better today. She continues to pass some flatus. The patient apparently is refusing her breathing treatments. Vitals/I&O/Wt Last Vital Signs Temp 98.6 F 11/15/21 04:01 Pulse 84 11/15/21 07:40 Resp 16 11/15/21 07:40 BP 103/75 11/15/21 06:00 Pulse Ox 95 11/15/21 07:40 11/14/21 11/15/21 11/15/21 22:59 06:59 14:59 Intake Total 1555.833 / 3811.069 1205.236 / 3811.069 50 / 50 Output Total 475 / 875 400 / 875 Balance 1080.833 / 2936.069 805.236 / 2936.069 50 / 50 Weight last 48 hrs Weight 192 lb 14.4 oz Weight 200 lb 6 oz Weight 200 lb Physical Exam 2 Narrative: EXAM NARRATIVE: The patient ran a temperature of 101 degrees before midnight last night but has otherwise been afebrile. Blood pressure remains soft on minimal Levophed. Bowel sounds remain present. The patient seems less tender to me on exam today, both in intensity of discomfort and the area of her tenderness in the lower abdomen also seems to be smaller. Data : 11/15/21 05:00 11/15/21 05:00 Other Labs: Laboratory Tests 11/14/21 11:10 Carcinoembryonic Ag 2.7 Micro: Microbiology 11/14/21 12:27 Blood Culture - Preliminary Blood SPECIMEN COLLECTED 11/14/21 12:27 Blood Culture - Preliminary Blood SPECIMEN COLLECTED A&P Assessment and plan (1) Perforation of sigmoid colon due to diverticulitis: Presentation CT reviewed. I agree with the assessment of an inflammatory proc ess in the pelvis but is difficult for me to tell how much of this area is actually abscess versus just inflammatory change. The moderate amount of free air as read by the radiologist on the presentation CAT scan seems to be a little bit of a generous estimate in my mind. The patient has opted for medical management, at least to start. We had a discussion this morning regarding the patient's persistent mild hypotension, the persistent leukocytosis, etc. Subjectively, she is feeling better and I have to say her exam on palpation is not so concerning to me today. I made her aware that she still is not out of the bro. She understands. Since she is feeling better she would like to continue doing what we are doing. She says if she absolutely has to have a colostomy, she would be willing but obviously would like to try to avoid it. Continue current management for now. Status: Acute Attestations Medical Necessity Statement*: See admitting service's notation. Coding Level of Care Code Acute Assistant Professor Of Dietetics for [facility] Diagnoses Perforation of sigmoid colon due to diverticulitis K57.20
[2021-11-15] MEDS: pantoprazole 40 mg SDV IVP (08:22)
[2021-11-15] MEDS: insulin lispro 100 unit/1 mL SUBCUT (08:22)
--- NOTE | 2021-11-15 08:54 | P.PN_ITS ---
Subjective Subjective: Interval history: She states that she feels better this morning. She is continuing to pass flatus. She claims that her abdomen feels better. Medications: Reviewed: Yes Medication Review Details: She continues to be on Zosyn and vancomycin for her peritonitis. Vitals/I&O/Wt Last Vital Signs Temp 98.3 F 11/15/21 08:00 Pulse 86 11/15/21 08:00 Resp 22 H 11/15/21 08:00 BP 103/70 11/15/21 08:00 Pulse Ox 92 11/15/21 08:00 11/14/21 11/15/21 11/15/21 22:59 06:59 14:59 Intake Total 1555.833 / 2605.833 1205.236 / 3811.069 66.637 / 66.637 Output Total 475 / 475 400 / 875 250 / 250 Balance 1080.833 / 2130.833 805.236 / 2936.069 -183.363 / -183.363 Weight last 48 hrs Weight 192 lb 14.4 oz Weight 200 lb 6 oz Weight 200 lb Physical Exam Narrative: EXAM NARRATIVE: She is resting comfortably in bed Neck/C-Spine: COMMON NORMALS: no JVD Resp: COMMON NORMALS: normal respiratory effort, No retractions, No use of accessory muscles, clear to auscultation bilaterally and percussion normal AUSCULTATION: clear to auscultation bilaterally PERCUSSION: percussion normal Cardio: COMMON NORMALS: no JVD, regular rate, regular rhythm, S1 normal heart sound present, S2 normal heart sound present, No gallops present (Cardio), No clicks present (Cardio), No murmurs present (Cardio), No rub (Cardio) and Peripheral pulses 2+ throughout RATE: regular rate RHYTHM: regular rhythm HEART SOUNDS: S1 normal heart sound present and S2 normal heart sound present PERIPHERAL PULSES: Peripheral pulses 2+ throughout GI: OTHER: Her abdomen is fairly soft with bowel sounds. She does have some left lower quadrant pain tenderness. She reports this to be less. Data : 11/15/21 05:00 11/15/21 05:00 Micro: Microbiology 11/14/21 12:27 Blood Culture - Preliminary Blood SPECIMEN COLLECTED 11/14/21 12:27 Blood Culture - Preliminary Blood SPECIMEN COLLECTED A&P Assessment and plan (1) Alcohol use: She exhibits no sign of alcohol withdrawal at this point. Status: Acute (2) Perforation of sigmoid colon due to diverticulitis: She continues to improve with medical management only. Her blood pressure still a bit soft, and her white count is still fairly high. Status: Acute Attestations Medical Necessity Statement*: She still needs to be in the hospital for IV antibiotics Coding Level of Care Code Acute Tire Spotter for [facility] Diagnoses Alcohol use Z72.89 Perforation of sigmoid colon due to diverticulitis K57.20
[2021-11-15] MEDS: vancomycin 1,500 MG/300 ML PIGGYBACK 200 MG IV (09:53)
[2021-11-15 11:51] LABS: Glucose Point of Care 112 mg/dL (70-110)
[2021-11-15 16:39] LABS: Glucose Point of Care 103 mg/dL (70-110)
--- NOTE | 2021-11-15 17:54 | PC.NURSE ---
Pt resting in bed. VSS. AAOX4, makes all needs known. O2@2LNC d/t occasional desats. C/O mild to moderate abd pain intermittently. Able to get up to BSC without assistance. ABT infusing per orders. Levophed titrated off this AM. Denies any needs at this time. Will monitor.
[2021-11-15 20:08] LABS: Glucose Point of Care 100 mg/dL (70-110)
[2021-11-16] VITALS (49 sets, daily range): BP systolic 103–150; BP diastolic 64–99; PULSE 88–114; RESP 14–25; TEMP 37.4–38.6; O2SAT 86–95; BMI 33.7
[2021-11-16] MEDS: morphine 4 mg/mL SDV 1 mL IVP ×4 (02:41→21:25)
[2021-11-16] MEDS: piperacillin-tazobactam 3.375 GM in sodium chloride 0.9% (plus) 50 ML IV ×3 (02:42→18:37)
[2021-11-16 04:16] LABS: Vancomycin Trough 4.1 ug/mL (10-15)
[2021-11-16] MEDS: vancomycin 1,500 MG/300 ML PIGGYBACK 200 MG IV ×2 (04:35→15:36)
--- NOTE | 2021-11-16 04:49 | PC.NURSE ---
Shift Note Frequent safety and comfort rounds continue. Orders and/or nursing care completed as indicated. Patient monitored for response to intervention and treatment(s). Education provided includes oxygen and treatment goals. Patient verbalized understanding of teaching. Patient remains on 2LNC while sleeping due to decreased O2 sats. Ambulates to bedside commode without assistance. No wounds noted at this time but patient has a noticeable rash to bilateral lower legs. Vancomycin, NS with KCL, and Zosyn are infusing per protocol, please see MAR for infusion rates. Will continue to monitor.
[2021-11-16 08:44] LABS: Glucose Point of Care 88 mg/dL (70-110)
[2021-11-16 08:48] LABS: HEP C RNA Viral Load Quant <1.18 NOT DETECTED Log IU/mL (NOT DETECTED); HEP C RNA Viral Load Quant <15 NOT DETECTED IU/mL (NOT DETECTED)
[2021-11-16] MEDS: pantoprazole 40 mg SDV IVP (08:54)
[2021-11-16 10:12] LABS: Basophils # 0.1 10^3/uL (0.0-0.1); Basophils % 0.5 %; Eosinophils # 0.1 10^3/uL (0.0-0.8); Eosinophils % 0.3 %; Hematocrit 33.8 % (37.0-47.0); Hemoglobin 10.9 g/dL (11.5-15.3); Lymphocytes # 0.8 10^3/uL (0.8-4.8); Lymphocytes % 5.2 %; Mean Corpuscular HGB Conc 32.2 g/dL (30.0-36.0); Mean Corpuscular Hemoglobin 29.3 pg (28.0-34.0); Mean Corpuscular Volume 90.9 fl (81-99); Mean Platelet Volume 12.5 fL (7.4-10.4); Monocytes # 0.5 10^3/uL (0.2-0.9); Monocytes % 3.3 %; Neutrophils # 12.98 10^3/uL (1.8-7.7); Neutrophils % 88.7 %; Nucleated Red Blood Cells % 0 %; Platelet Count 129 10^3/cmm (130-400); Red Blood Count 3.72 10^6/uL (4.1-5.3); Red Cell Distribution Width 13.8 % (12.1-15.1); White Blood Count 14.7 10^3/uL (4.0-10.0)
--- NOTE | 2021-11-16 10:14 | PM.PN ---
Subjective Subjective: Interval history: The patient tells me that she is uncomfortable when she gets up. She is passing more flatus. She seems like she is anxious to get out of the hospital. Vitals/I&O/Wt Last Vital Signs Temp 100.8 F H 11/16/21 04:00 Pulse 92 11/16/21 08:22 Resp 23 H 11/16/21 08:54 BP 133/73 11/16/21 06:00 Pulse Ox 93 11/16/21 08:54 11/15/21 11/16/21 11/16/21 22:59 06:59 14:59 Intake Total 50 / 2466.637 1000 / 2466.637 Output Total 475 / 1125 400 / 1125 Balance -425 / 1341.637 600 / 1341.637 Weight last 48 hrs Weight 202 lb 8 oz Weight 192 lb 14.4 oz Weight 200 lb 6 oz Physical Exam Narrative: EXAM NARRATIVE: The patient was running a low-grade fever this morning. Her hemodynamics seem more stable. Blood pressure improved. Urine output appears adequate. Bowel sounds are improved. The patient has only mild tenderness remaining on my exam. Data : 11/16/21 09:48 11/15/21 05:00 Micro: Microbiology 11/14/21 12:27 Blood Culture - Preliminary Blood NEGATIVE TO DATE 11/14/21 12:27 Blood Culture - Preliminary Blood NEGATIVE TO DATE A&P Assessment and plan (1) Perforation of sigmoid colon due to diverticulitis: Presentation CT reviewed. I agree with the assessment of an inflammatory process in the pelvis but is difficult for me to tell how much of this area is actually abscess versus just inflammatory change. The moderate amount of free air as read by the radiologist on the presentation CAT scan seems to be a little bit of a generous estimate in my mind. The patient has opted for medical management, at least to start. Objectively, the patient seems to be improved. Hemodynamics are more stable and her white blood cell count is defervescing. Her exam also seems improved. She seems somewhat anxious about trying get out of the hospital, however. I have to wonder if she may be starting to show some subjective signs/symptoms of alcohol withdrawal. Status: Acute Attestations Medical Necessity Statement*: See admitting service's notation. Coding Level of Care Code Acute Reserve Officer for [facility] Diagnoses Perforation of sigmoid colon due to diverticulitis K57.20
[2021-11-16] MEDS: sodium chlor 0.9% + KCl 20 mEq 20 MEQ/1,000 ML BAG 100 MEQ IV ×3 (10:37→20:51)
--- NOTE | 2021-11-16 10:39 | P.PN_ITS ---
Subjective Subjective: Interval history: She feels pretty good. Her abdomen is minimally tender. Her blood pressure is okay Vitals/I&O/Wt Last Vital Signs Temp 100.8 F H 11/16/21 04:00 Pulse 92 11/16/21 08:22 Resp 23 H 11/16/21 08:54 BP 133/73 11/16/21 06:00 Pulse Ox 93 11/16/21 08:54 11/15/21 11/16/21 11/16/21 22:59 06:59 14:59 Intake Total 50 / 9973.839 2214 / 2466.637 1000 / 1000 Output Total 475 / 725 400 / 1125 Balance -425 / 741.637 600 / 2990.555 5709 / 1000 Weight last 48 hrs Weight 202 lb 8 oz Weight 192 lb 14.4 oz Weight 200 lb 6 oz Physical Exam Narrative: EXAM NARRATIVE: She is in absolutely no distress Resp: COMMON NORMALS: normal respiratory effort, No retractions, No use of accessory muscles, clear to auscultation bilaterally and percussion normal AUSCULTATION: clear to auscultation bilaterally PERCUSSION: percussion normal GI: OTHER: She is decent bowel sound. She is very minimally tender. Data : 11/16/21 09:48 11/15/21 05:00 Micro: Microbiology 11/14/21 12:27 Blood Culture - Preliminary Blood NEGATIVE TO DATE 11/14/21 12:27 Blood Culture - Preliminary Blood NEGATIVE TO DATE A&P Assessment and plan (1) Alcohol use: No signs of withdrawal at this point. Status: Acute (2) Pelvic abscess: Clinically improving. I will defer to Dr. Mukherjee when she can go home on p.o. antibiotics. I will transfer her out of the intensive care unit Status: Acute (3) Perforation of sigmoid colon due to diverticulitis: Status: Acute Attestations Medical Necessity Statement*: Is quite possible that she will go home in the next day or so. Coding Level of Care Code Acute Early Interventionist for Cristy Donovan Diagnoses Alcohol use Z72.89 Pelvic abscess Perforation of sigmoid colon due to diverticulitis K57.20
[2021-11-16 10:41] LABS: Alanine Aminotransferase 42 U/L (0-33); Albumin Level 2.6 g/dL (3.5-5.2); Alkaline Phosphatase 110 IU/L (35-105); Anion Gap 12.2 (5-19); Aspartate Amino Transferase 36 U/L (0-32); Blood Urea Nitrogen 10 mg/dL (6-20); Calcium 8.1 mg/dL (8.5-10.5); Carbon Dioxide 24 mmol/L (22-29); Chloride 104 mmol/L (98-107); Globulin 3.5 g/dL (1.3-4.6); Glomerular Filtration Rate 163.4 mL/min (90-130); Glucose 96 mg/dL (65-115); Osmolality Calculated 283 mOsm/kg (285-295); Potassium 3.2 mmol/L (3.5-5.1); Sodium 137 mmol/L (136-145); Total Bilirubin 0.8 mg/dL (0.15-1.2); Total Protein 6.1 g/dL (6.6-8.7)
[2021-11-16 11:47] LABS: Glucose Point of Care 89 mg/dL (70-110)
[2021-11-16] MEDS: ondansetron 2 mg/ML SDV 2 mL 4 MG IVP (15:36)
[2021-11-16 18:09] LABS: Glucose Point of Care 93 mg/dL (70-110)
[2021-11-16] MEDS: heparin 5,000 unit/mL INJ 1 mL 5000 UNIT SUBCUT (18:38)
[2021-11-16 21:23] LABS: Glucose Point of Care 87 mg/dL (70-110)
[2021-11-17] VITALS (55 sets, daily range): BP systolic 82–144; BP diastolic 46–99; PULSE 67–105; RESP 16–28; TEMP 37.6–37.9; O2SAT 88–100; BMI 26.2
[2021-11-17] MEDS: piperacillin-tazobactam 3.375 GM in sodium chloride 0.9% (plus) 50 ML IV ×3 (02:06→17:39)
[2021-11-17] MEDS: morphine 4 mg/mL SDV 1 mL IVP ×2 (02:51→07:16)
[2021-11-17] MEDS: vancomycin 1,500 MG/300 ML PIGGYBACK 200 MG IV ×2 (05:16→19:43)
[2021-11-17] MEDS: heparin 5,000 unit/mL INJ 1 mL 5000 UNIT SUBCUT ×2 (05:16→17:39)
[2021-11-17 06:18] LABS: Basophils # 0.1 10^3/uL (0.0-0.1); Basophils % 0.6 %; Eosinophils % 0.2 %; Hematocrit 33.6 % (37.0-47.0); Hemoglobin 10.9 g/dL (11.5-15.3); Lymphocytes # 1.3 10^3/uL (0.8-4.8); Lymphocytes % 7.6 %; Mean Corpuscular HGB Conc 32.4 g/dL (30.0-36.0); Mean Corpuscular Hemoglobin 29.5 pg (28.0-34.0); Mean Corpuscular Volume 90.8 fl (81-99); Mean Platelet Volume 12.1 fL (7.4-10.4); Monocytes # 0.9 10^3/uL (0.2-0.9); Neutrophils # 14.54 10^3/uL (1.8-7.7); Neutrophils % 84.8 %; Nucleated Red Blood Cells % 0 %; Platelet Count 149 10^3/cmm (130-400); Red Cell Distribution Width 14.1 % (12.1-15.1); White Blood Count 17.1 10^3/uL (4.0-10.0)
[2021-11-17 06:43] LABS: Anion Gap 16.4 (5-19); Blood Urea Nitrogen 11 mg/dL (6-20); Calcium 7.9 mg/dL (8.5-10.5); Carbon Dioxide 22 mmol/L (22-29); Chloride 100 mmol/L (98-107); Creatinine Clr Calc Pharmacy 150.1179; Glomerular Filtration Rate 163.4 mL/min (90-130); Glucose 96 mg/dL (65-115); Osmolality Calculated 279 mOsm/kg (285-295); Potassium 3.4 mmol/L (3.5-5.1); Sodium 135 mmol/L (136-145)
--- NOTE | 2021-11-17 06:53 | PC.NURSE ---
Shift Note Frequent safety and comfort rounds continue. Orders and/or nursing care completed as indicated. Patient monitored for response to intervention and treatment(s). Education provided includes medications. Patient verbalized understanding of teaching. Patient remains on room air, alert and oriented x4, and uses the bedside commode with assistance. She had 475 mls of urine out overnight. Patient reported pain in the abdomen overnight PRN medication was administered. No wounds noted at this time. Will continue to monitor.
[2021-11-17] MEDS: sodium chlor 0.9% + KCl 20 mEq 20 MEQ/1,000 ML BAG 100 MEQ IV ×2 (07:24→17:39)
--- NOTE | 2021-11-17 07:35 | CT_ITS ---
WS: [id number] CT ABDOMEN PELVIS TECHNIQUE: Noncontrast CT of the abdomen and contrast-enhanced CT of the abdomen and pelvis with serina nal and sagittal reformatted images. CLINICAL INFORMATION: Follow-up complicated sigmoid diverticulitis COMPARISON: November 14, 2021 DLP: 3446.[address] scans at [facility] use at least one of these dose optimization techniques: automated e xposure control; mA and/or kV adjustment per patient size (includes targeted exams where dose is matc hed to clinical indication); or iterative reconstruction. FINDINGS: Again seen are findings of complex acute diverticulitis with suspected sigmoid abscess. Collection ad jacent to the right aspect of the colon not significantly changed since the prior examination measuri ng approximately 4.7 x 5.1 x 2.9 CM. This is inseparable from the wall of the sigmoid colon. Perforat ed neoplasm should be excluded. Overall this is not significantly changed in appearance. Small amount of free fluid in the pelvis. Moderate amount of free intraperitoneal air appears progressed compared to the prior examination. Scattered locules of free intraperitoneal air in the left lower quadrant a nd layering under the diaphragm. New additional fluid collection with air-fluid level in the left lower pelvis cul-de-sac likely devel oping infection/abscess measuring 4.5 x 3.8 cm. A few dilated loops of fluid-filled small bowel in the midabdomen with air-fluid levels likely due to adynamic ileus. Mild mesenteric edema. Small amount of fluid in the pericolic gutters with mild body wall anasarca. Diffuse fatty infiltration of the liver. Cholelithiasis. Normal portal vein and splen ic vein. Normal spleen. Small esophageal hiatal hernia. Slight bibasilar atelectasis. Trace pleural f luid. Adrenal glands are normal. No hydronephrosis in either kidney. Normal caliber abdominal aorta. Stable 1.5 cm left renal cortical lesion. CT/CT abdomen pelvis wo/w [id number] IMPRESSION: 1. Again seen is complicated sigmoid diverticulitis with suspected sigmoid per foration and suspected adjacent abscess. Abscess measures 5.1 x 2.9 cm not sign ificantly changed compared to previous. 2. New additional fluid collection in the left lower pelvis cul-de-sac measuri ng 3.8 x 4.5 cm suspicious for additional developing area of infection/abscess 3. Progressed moderate free intraperitoneal air. 4. Bibasilar atelectasis with trace pleural fluid. 5. Dense cholelithiasis. 6. No other significant changes compared to previous. Discussed with Quinten Mukherjee MD at 11/17/2021 10:30 AM. Discussed with Raúl Zambrano M.D. 11/17/2021 10:31 AM
--- NOTE | 2021-11-17 07:36 | PM.PN ---
Subjective Subjective: Interval history: The patient still has some abdominal pain when she is moving around. She continues the pass flatus. Vitals/I&O/Wt Last Vital Signs Temp 100.2 F H 11/17/21 04:01 Pulse 93 11/17/21 06:00 Resp 28 H 11/17/21 07:16 BP 129/84 11/17/21 06:00 Pulse Ox 93 11/17/21 07:16 11/16/21 11/17/21 11/17/21 22:59 06:59 14:59 Intake Total 1350 / 4150 1750 / 4150 Output Total 400 / 1675 475 / 1675 100 / 100 Balance 950 / 2475 1275 / 2475 -100 / -100 Weight last 48 hrs Weight 157 lb 9.6 oz Weight 202 lb 8 oz Physical Exam Narrative: EXAM NARRATIVE: Bowel sounds are present. The patient still has some very mild lower abdominal tenderness on exam. Data : 11/17/21 05:41 11/17/21 05:41 A&P Assessment and plan (1) Perforation of sigmoid colon due to diverticulitis: The patient still has some pain when she moves around. Her white blood cell count bumped back up again. I am going repeat her abdominal CAT scan did see how things are looking. Further treatment will be based on the results. Status: Acute Attestations Medical Necessity Statement*: See admitting service's notation. Coding Level of Care Code Acute Customer Account Technician for Cristy Donovan Diagnoses Perforation of sigmoid colon due to diverticulitis K57.20
[2021-11-17 07:53] LABS: Glucose Point of Care 98 mg/dL (70-110)
--- NOTE | 2021-11-17 08:48 | PC.SOCIAL ---
IMM UPDATED IMM dated and initialed and copy given to patient
[2021-11-17] MEDS: lidocaine 1% 5 ML in potassium chloride premix 100 ML 50 ML IV (08:53)
[2021-11-17] MEDS: pantoprazole 40 mg SDV IVP (08:54)
--- NOTE | 2021-11-17 09:22 | PC.CHAP ---
Pastoral Care Encounter/Spiritual Assessment Type of Contact [] Declined driving teacher visit [] Patient/Family/Request visit [] Outpatient visit [] Follow-up visit [] Physician referral [] Code/Alert [x] Routine visit [] Staff referral [] Actively dying [] Patient sleeping [] Family support [] [] Out of room [] Palliative care [] [x] Receiving care in room [] Pre-surgical visit [] Trauma [] Long length of stay [x] ICU visit [] Other: Relational/Emotional Strength [] Patient feels connected with others/family/visitors/staff [] Distress [] Loneliness/isolation [] Abandonment Spirituality of Patient [] Person of Charo [] Attends Orthodox of their Charo [] Believes in Prayer [] Reads Bible or Orthodoxy materials [] There are Spiritual issues to be addressed Rehabilitation Manager Interventions [x] Prayer [] Active listening [] Non-anxious presence [] Spiritual/emotional support [] Crisis/trauma care [] Spiritual counseling [] Bereavement support [] Provided bereavement packet [] Provided Bible/devotional materials [] Provided toy/stuffed animal, coloring book to patient or family member [] Provided Communion [] Anointing/[place] [] Salvation [x] Completed spiritual assessment [] Other: Impact on Illness or Injury [] Angry [] Fearful [] Anxious [] Often cries [] Exhaustion [] Unable to work [] Unable to attend anabaptist [] Unable to walk/stand [] Unable to read [] Unable to drive [] Unable to eat/drink [] Unable to sleep [] Unable to be with family [] Patient intubated [] Other: Summary Time spent with patient
[2021-11-17] MEDS: iohexol 300 mg/mL 50 mL Btl IV (09:59)
[2021-11-17] MEDS: iohexol 300 mg/mL 100 mL Btl IV (09:59)
--- NOTE | 2021-11-17 10:15 | P.PN_ITS ---
Subjective Subjective: Interval history: Tangela reports her abdomen hurts more this morning. She had a significant temperature last night. She is still requiring some morphine for pain. She is passing some gas. Medications: Reviewed: Yes Medication Review Details: She continues to be on Zosyn and vancomycin for her peritonitis. Vitals/I&O/Wt Last Vital Signs Temp 100.2 F H 11/17/21 09:00 Pulse 96 11/17/21 09:00 Resp 19 H 11/17/21 09:00 BP 112/80 11/17/21 09:00 Pulse Ox 90 11/17/21 09:00 11/16/21 11/17/21 11/17/21 22:59 06:59 14:59 Intake Total 1350 / 2400 1750 / 4150 Output Total 400 / 1200 475 / 1675 100 / 100 Balance 950 / 1200 1275 / 2475 -100 / -100 Weight last 48 hrs Weight 71.486 kg Weight 91.852 kg Physical Exam Narrative: EXAM NARRATIVE: General exam appears to have some discomfort Neck is supple Cardiovascular regular rate and rhythm without murmur Lungs clear Abdomen slight distention. Hypoactive bowel sounds. Extremities no cyanosis clubbing or edema Data : 11/17/21 05:41 11/17/21 05:41 A&P Assessment and plan (1) Perforation of sigmoid colon due to diverticulitis: Free air noted on CT scan. Likely has perforated sigmoid colon with diverticulitis and abscess. Malignancy not excluded. CEA ordered per surgery. This was normal Appreciate surgical consultation Continue Zosyn and vancomycin Blood cultures negative to date May need surgical intervention. Surgery following closely currently. Secondary to recurrent fever last night, increasing white blood cell count CT abdomen and pelvis ordered to be repeated. Morphine for pain N.p.o. Sepsis, resolved Continue hydration Status: Acute (2) Pelvic abscess: See notations above. Likely diverticular abscess Status: Acute (3) Hypotension: Resolved Status: Acute (4) Hypokalemia: Supplement IV as she is n.p.o. Status: Acute (5) Alcohol use: Significant alcohol use prior to coming in Thiamine given Ativan as needed If any significant withdrawal will need to institute CIWA protocol. No obvious evidence for withdrawal currently. Status: Acute Plan Transaminitis. May be secondary to alcohol. Check hepatitis panel. Hepatitis C was positive. However, PCR HCVRNA not detected Type 2 diabetes. Sliding scale insulin. Mild as she is n.p.o. History of hypertension. Hold medications currently History of reflux. Protonix IV Hyperlipidemia. N.p.o. currently Full code Heparin for DVT prophylaxis Attestations Medical Necessity Statement*: Needs continued hospitalization for IV antibiotics secondary to colonic perforation and abscess. Coding Level of Care Code Acute Envelope Folding Machine Operator for g Fwd Diagnoses Perforation of sigmoid colon due to diverticulitis K57.20 Pelvic abscess Hypotension I95.9 Hypokalemia E87.6 Alcohol use Z72.89
[2021-11-17 11:34] LABS: Glucose Point of Care 105 mg/dL (70-110)
[2021-11-17] MEDS: lanolin oint 7 gm 1 APPLIC TOPICAL (12:15)
--- NOTE | 2021-11-17 12:35 | ANES.PREANE2 ---
Pre-Anesthetic Assessment Height/Weight: Height 1.65 m Weight 71.486 kg Temp Pulse Resp BP Pulse Ox 100.2 F H 96 19 H 112/80 90 11/17/21 09:00 11/17/21 09:00 11/17/21 09:00 11/17/21 09:00 11/17/21 09:00 Preop Diagnosis: ruptured diverticulum Operation Date: 11/17/21 13:00 Proposed Procedures p Pierre's Procedure(Not Applicable) - Quinten Mukherjee MD s Sigmoid Colectomy(Not Applicable) - Quinten Mukherjee MD Familial anesthetic complications: None Was Clonidine taken within 24 hours: N/A Last intake: MN Social Alcohol and Tobacco Severe alcoholism Exam alert, oriented x 3, clear to auscultation bilaterally and regular rate & rhythm Airway Submandibular: within normal limits Cervical ROM: within normal limits Mallampati: Class II Dentition: chipped History/ROS No significant history except as noted and No significant complaints Pulmonary Chronic Obstructive Pulmonary Disease and Shortness of Breath CV/HEM Hypertension None reported Hepatic None reported GI Gastroesophageal Reflux Disease Metabolic Diabetes Mellitus [facility] None reported Neuropsych Anxiety Anesthetic Plan ASA status: 3E Anesthesia: Anesthesia Evaluation and General Risk of > 500 ml blood loss (7ml/kg in children): No Medications/Allergies Home Medications Medication Instructions Recorded Confirmed Last Taken Type ondansetron HCl 4 mg tablet 4 mg PO Q6H PRN #10 tab 11/10/21 11/14/21 Unknown Rx (Zofran) albuterol sulfate 90 mcg/actuation 2 puff INHALATION Q4H PRN 11/14/21 11/14/21 Unknown History aerosol inhaler amlodipine 10 mg tablet 10 mg PO QAM 11/14/21 11/14/21 11/14/21 09:00 History atorvastatin 10 mg tablet 10 mg PO QAM 11/14/21 11/14/21 Unknown History buspirone 30 mg tablet 30 mg PO QAM 11/14/21 11/14/21 Unknown History cyanocobalamin (vitamin B-12) 250 250 mcg PO DAILY 11/14/21 11/14/21 Unknown History mcg tablet (Vitamin B-12) metformin 500 mg tablet 500 mg PO DAILY 11/14/21 11/14/21 Unknown History metformin 500 mg tablet,extended 500 mg PO DAILY 11/14/21 11/14/21 Unknown History release 24 hr methylprednisolone 4 mg tablets in See Rx Instructions .ROUTE .COMPLEX 11/14/21 11/14/21 11/14/21 History a dose pack (Medrol (Philip)) omeprazole 40 mg capsule,delayed 40 mg PO QAM 11/14/21 11/14/21 Unknown History release triamterene 37.5 1 cap PO BID 11/14/21 11/14/21 11/14/21 09:00 History mg-hydrochlorothiazide 25 mg capsule Allergies Allergy/AdvReac Type Severity Reaction Status Date / Time doxycycline Allergy ALGY-Anaphy Verified 11/14/21 13:00 laxis levofloxacin [From Levaquin] Allergy ALGY-Anaphy Verified 11/14/21 13:00 laxis Current Medications Generic Name Dose Route Start Last Admin Trade Name Freq PRN Reason Stop Dose Admin Heparin Sodium (Porcine) 5,000 unit 11/14/21 18:00 11/17/21 05:16 Heparin 5,000 Unit/Ml Inj 1 Ml SUBCUT 5,000 unit Q12H FAROOQ Administration Norepinephrine Bitartrate 4 mg 254 mls @ 0 mls/hr 11/14/21 12:00 11/16/21 05:33 / Dextrose IV Infused .Q0M FAROOQ Titration Protocol Per Protocol Piperacillin Sod/Tazobactam 50 mls @ 12.5 mls/hr 11/14/21 18:00 11/17/21 11:11 Sod 3.375 gm/ Sodium Chloride IV 12.5 mls/hr Q8H FAROOQ Administration Protocol Potassium Chloride/Sodium Chloride 20 meq in 1,000 mls @ 100 mls/hr 11/14/21 15:36 11/17/21 07:24 Sodium Chlor 0.9% + Kcl 20 Meq IV 100 mls/hr .Q10H FAROOQ Administration Vancomycin/PEG/NADA/Lysine/Water 1,500 mg in 300 mls @ 200 mls/hr 11/16/21 16:30 11/17/21 06:46 Vancocin IV Infused Q12H FAROOQ Infusion Insulin Human Lispro 0 unit 11/14/21 18:00 11/17/21 11:37 Insulin Lispro 100 Unit/1 Ml SUBCUT Not Given WM&BEDTIME FAROOQ Protocol Lanolin 1 applic 11/17/21 11:45 11/17/21 12:15 Lanolin Oint 7 Gm TOPICAL 1 applic PRN PRN Administration DRYNESS Levalbuterol HCl 0.63 mg 11/14/21 16:00 11/16/21 20:09 Levalbuterol 0.63 Mg/3 Ml Neb INHALATION Not Given Q4H.RESPIRATORY FAROOQ Morphine Sulfate 2 - 4 mg 11/14/21 15:36 11/17/21 07:16 Morphine 4 Mg/Ml Sdv 1 Ml IVP 4 mg Q4H PRN Administration SEVERE PAIN Ondansetron HCl 4 mg 11/14/21 15:36 11/16/21 15:36 Ondansetron 2 Mg/Ml Sdv 2 Ml IVP 4 mg Q4H PRN Administration NAUSEA AND VOMITING Pantoprazole Sodium 40 mg 11/15/21 09:00 11/17/21 08:54 Pantoprazole 40 Mg Sdv IVP 40 mg DAILY FAROOQ Administration Thiamine HCl 100 mg 11/15/21 09:00 11/17/21 08:54 Thiamine 100 Mg/Ml Sdv IVP 100 mg Q24H FAROOQ Administration PFSH Anesthesia Medical History (Updated 11/17/21 @ 06:26 by Wan Curtis DO) Cholelithiasis Diabetes Diverticulitis Diverticulosis Hyperlipidemia Hypertension Surgical History History of bilateral inguinal hernia repair History of tonsillectomy History of tympanoplasty L eardrum rupture repair Family History Father Cancer Colon cancer Social History (Updated 11/14/21 @ 12:51 by Johnathan Zambrano MD) Smoking and tobacco status: current every day smoker Alcohol intake: former Year of sobriety/quit date alcohol: 2021 Former alcohol use details: Drank about 1/2 pint of vodka daily up until early October 2021 Data Anesthesia : 11/17/21 05:41 11/17/21 05:41 Short CBC 11/16/21 11/17/21 Range/Units 09:48 05:41 WBC 14.7 H 17.1 H (4.0-10.0) 10^3/uL Hgb 10.9 L 10.9 L (11.5-15.3) g/dL Hct 33.8 L 33.6 L (37.0-47.0) % MCV 90.9 90.8 (81-99) fl Plt Count 129 L 149 (130-400) 10^3/cmm Neut % (Auto) 88.7 84.8 % Neut # (Auto) 12.98 H 14.54 H (1.8-7.7) 10^3/uL BMP 11/16/21 11/17/21 09:48 05:41 Sodium 137 135 L Potassium 3.2 L 3.4 L Chloride 104 100 Carbon Dioxide 24 22 BUN 10 11 Creatinine 0.4 L 0.4 L Glucose 96 96 Calcium 8.1 L 7.9 L Liver Function 11/16/21 Range/Units 09:48 Total Bilirubin 0.8 (0.15-1.2) mg/dL AST 36 H (0-32) U/L ALT 42 H (0-33) U/L Alkaline Phosphatase 110 H (35-105) IU/L Albumin 2.6 L (3.5-5.2) g/dL Cardiac Studies: No Data to Display
[2021-11-17] MEDS: metroNIDAZOLE IV 500 MG/100 ML PREMIX 100 MG IV (13:16)
--- NOTE | 2021-11-17 15:11 | PM.OP ---
Operative Report Date of procedure: November 17, 2021 Pre-op diagnosis: Preop Diagnosis Perforated sigmoid diverticulitis, failed medical management. Post-op diagnosis: Same. Procedure done: Exploratory laparotomy with distal sigmoid colectomy, incidental appendectomy, and colostomy formation. Specimens removed/disposition: See below. Pathology: 1. Distal sigmoid colon, staple line on proximal end, distal end open. 2. Appendix (incidental). 3. Intra-abdominal cultures of peritoneal fluid. Surgeon: General Surgery Quinten Mukherjee MD Estimated blood loss: 100 mL. Findings: The patient had inflammatory changes in the pelvis and an abscess that was situated primarily anteriorly into the right side of the colon. Procedure: The patient was brought in the operating room and was placed in a supine position on the operating room table. General endotracheal anesthesia was induced. A Redd catheter was inserted by nursing and a nasogastric tube was passed by anesthesia. The abdomen was prepped and draped in a sterile fashion. A midline incision was carried out from a level just above the umbilicus down towards the pubis. Cautery was used to divide the subcutaneous tissue and the midline fascia was opened. The peritoneal cavity was entered. Some cloudy fluid was immediately noted in the peritoneal cavity. Both aerobic and anaerobic cultures of the fluid in the pelvis were taken. Palpation revealed firm inflammatory changes at the distal sigmoid colon. There was quite a bit of inflammatory peel on the small bowel where the patient's bowel was trying to contain the perforation. The small bowel was somewhat distended and the contents were manipulated proximally into the stomach where they were suctioned out with a nasogastric tube and ordered a get more working space. The nasogastric tube was confirmed be in good position in the gastric lumen by palpation. The Bookwalter retractor was then used for exposure. The sigmoid colon was divided proximal to the diseased segment in the pelvis. The Voyant energy device was used to partially divide the colonic mesentery and then the proximal end of the sigmoid was tucked up underneath the retractors. The distal sigmoid was then grasped with a Juice clamp. The Voyant was used to divide the mesentery posteriorly into the presacral space. Dissection was carried out between the bladder and the distal sigmoid colon and an abscess cavity was entered. This seemed to extend to the right side into the pelvis. All of the material was suctioned out. The colon was then easily divided distal to the area of perforation with a pair of curved Salguero scissors and the specimen was removed with the staple line still intact proximally and the colon open on the distal end. The distal stump was then closed with a running suture of 0 Vicryl. The pelvis was extensively irrigated. The appendix was identified and appeared normal. The mesoappendix was divided using the Voyant energy device and then two separate ties of 2-0 Vicryl were placed at the appendiceal base. The appendix was excised and the mucosa at the stump was briefly cauterized. The abdomen was then extensively irrigated with saline in all quadrants until the irrigant all returned clear. The proximal sigmoid colon had been slightly mobilized by incising the peritoneal reflection up towards the descending colon. This allowed enough laxity that the colostomy could be formed. A circular piece of skin was removed from the left side of the abdominal wall after it was grasped with an Allis clamp. Cautery was used to remove some of the subcutaneous fat with the skin red cliff. The anterior rectus sheath was identified and a cruciate incision was carried out with cautery. The underlying rectus muscle was divided bluntly and the posterior rectus sheath was opened with a finger after a hemostat was used to break through. The opening was dilated with some fingers and then the mid sigmoid colon at the staple line was brought out through the site with a Juice clamp. The colon was sutured at the anterior rectus fascia with several sutures of 0 Vicryl. A final round of irrigation was carried out in the abdomen. A 19 Citizen [place] fluted Sam drain was placed into the pelvis and was brought out through a separate stab incision in the right lower quadrant. The drain was sewn in place at the skin with a suture of 2-0 silk. The small bowel was returned to the pelvis and the omentum was brought over the bowel. The midline fascia was then closed using a running looped suture of #1 PDS. The subcutaneous tissue was extensively irrigated and the skin was approximated loosely with skin chayo. The staple line on the mid sigmoid colon at the stoma site was then removed using a pair of Salguero scissors. The colostomy was matured using multiple interrupted sutures of 3-0 Vicryl. After the stoma was matured some surgical lube was applied at the stoma and a finger was easily passed through the lumen all the way into the peritoneal cavity. The stoma was clearly viable. A colostomy appliance was applied over the site and a midline dressing was applied. The patient was taken to the recovery area in stable condition postoperatively.
--- NOTE | 2021-11-17 15:40 | XRR_ITS ---
PROCEDURE INFORMATION: Exam: XR Chest Exam date and time: 11/17/2021 3:40 PM Age: 61 years old Clinical indication: Other: Aspiration TECHNIQUE: Imaging protocol: XR of the chest. Views: 1 view. COMPARISON: CR XR chest 1V portable [id number] 11/14/2021 10:29 AM FINDINGS: Tubes, catheters and devices: Endotracheal tube tip in place 2.1 cm above the jalyn. Lungs: Mild pulmonary vascular congestion. Right hilar to lower lobe atelectasis versus minimal infiltrate. Pleural spaces: Unremarkable. No pleural effusion. No pneumothorax. Heart/Mediastinum: Cardiomegaly. Bones/joints: Unremarkable. XR/XR chest 1V portable [id number] IMPRESSION: 1. Endotracheal tube tip in place 2.1 cm above the jalyn. 2. Cardiomegaly. 3. Mild pulmonary vascular congestion. 4. Right hilar to lower lobe atelectasis versus minimal infiltrate.
--- NOTE | 2021-11-17 16:08 | PM.MISC ---
Miscellaneous Note Purpose of Documentation: Aspiration Note: Upon removal of drapes, we noted green bilious fluid in ETT. ETT Suction catheter utilized until no return of bile. Limited fiberoptic bronch performed. Bile noted along tracheal surfaces, no clear evidence of bile seen in lungs. Suctioned applied during extubation to help clear trachea of any contents. Patient was placed on simple mask. However, she de-satted to upper 80s and was tachypneic, complaining of respiratory distress, and was visibly struggling using accessory muscles of inspiration. Therefore patient was reintubated. Lungs CTR upon reintubation. CXR ordered upon arrival in ICU for baseline.
[2021-11-17 17:17] LABS: Glucose Point of Care 138 mg/dL (70-110)
--- NOTE | 2021-11-17 17:34 | PC.NURSE ---
Confirm order with Dr. Mukherjee to give Heparin [address] Mukherjee confirmed yes, to give ordered dose.
[2021-11-17 18:16] LABS: ABG PCO2 30.8 mmHg (35-45); ABG PH Result 7.35 (7.35-7.45); Base Excess ABG -7.4 mmol/L (-2.0-2.0); Blood Gas Allen Test Pos; Blood Gas Operator Identificat PE; Blood Gas Sample Site Radial, right; Blood Gas Sample Type Arterial; HCO3 ABG 17.2 mmol/L (22-26); Oxygen Device VENT
[2021-11-17 18:17] LABS: Blood Gas Tidal Volume 0.45
[2021-11-17 18:23] LABS: Vancomycin Trough 6.7 ug/mL (10-15)
[2021-11-17 18:33] LABS: Anion Gap 16.9 (5-19); Blood Urea Nitrogen 11 mg/dL (6-20); Calcium 7.5 mg/dL (8.5-10.5); Carbon Dioxide 16 mmol/L (22-29); Chloride 106 mmol/L (98-107); Glomerular Filtration Rate 126.3 mL/min (90-130); Glucose 129 mg/dL (65-115); Magnesium 1.7 mg/dL (1.7-2.3); Osmolality Calculated 281 mOsm/kg (285-295); Potassium 3.9 mmol/L (3.5-5.1); Sodium 135 mmol/L (136-145); Thyroid Stimulating Hormone 0.59 uIU/mL (0.27-4.20)
[2021-11-17] MEDS: propofol 1,000 MG/100 ML INJ 21.45 MG IV (19:00)
--- NOTE | 2021-11-17 19:52 | PC.NURSE ---
[address] Zambrano. Discussed elevated temp, labs, and heart rhythm with multiple PVCs. Orders to replace potassium. 1715 Patient returned from surgery. Dr. Zambrano at bedside. Reviewed vital signs, heart rhythm, labs and plan of care. Orders for chest x ray and repeat labs.
[2021-11-17] MEDS: ipratropium-albuterol 3 mL Neb INHALATION (20:10)
[2021-11-17 20:58] LABS: Glucose Point of Care 132 mg/dL (70-110)
[2021-11-17] MEDS: propofol 1,000 MG/100 ML INJ 25.74 MG IV (23:56)
[2021-11-18] VITALS (51 sets, daily range): BP systolic 78–117; BP diastolic 43–69; PULSE 63–95; RESP 11–20; TEMP 36.9–38; O2SAT 93–100; BMI 36.4
[2021-11-18] MEDS: piperacillin-tazobactam 3.375 GM in sodium chloride 0.9% (plus) 50 ML IV ×3 (02:08→17:26)
[2021-11-18] MEDS: ipratropium-albuterol 3 mL Neb INHALATION ×3 (03:35→14:25)
[2021-11-18] MEDS: propofol 1,000 MG/100 ML INJ 25.74 MG IV (03:36)
[2021-11-18] MEDS: vancomycin 1,250 MG/250 ML PIGGYBACK 250 MG IV ×3 (03:37→20:45)
[2021-11-18 03:38] LABS: Basophils # 0.1 10^3/uL (0.0-0.1); Basophils % 0.4 %; Eosinophils % 0.2 %; Hematocrit 27.6 % (37.0-47.0); Hemoglobin 8.6 g/dL (11.5-15.3); Lymphocytes % 7.8 %; Mean Corpuscular HGB Conc 31.2 g/dL (30.0-36.0); Mean Corpuscular Hemoglobin 29.1 pg (28.0-34.0); Mean Corpuscular Volume 93.2 fl (81-99); Mean Platelet Volume 12.5 fL (7.4-10.4); Monocytes # 0.6 10^3/uL (0.2-0.9); Monocytes % 4.5 %; Neutrophils # 10.58 10^3/uL (1.8-7.7); Neutrophils % 85.6 %; Nucleated Red Blood Cells % 0 %; Platelet Count 112 10^3/cmm (130-400); Red Blood Count 2.96 10^6/uL (4.1-5.3); Red Cell Distribution Width 14.8 % (12.1-15.1); White Blood Count 12.4 10^3/uL (4.0-10.0)
[2021-11-18 04:02] LABS: Alanine Aminotransferase 18 U/L (0-33); Albumin Level 1.9 g/dL (3.5-5.2); Alkaline Phosphatase 80 IU/L (35-105); Blood Urea Nitrogen 10 mg/dL (6-20); Calcium 6.6 mg/dL (8.5-10.5); Carbon Dioxide 16 mmol/L (22-29); Chloride 108 mmol/L (98-107); Globulin 2.8 g/dL (1.3-4.6); Glomerular Filtration Rate 227.7 mL/min (90-130); Glucose 149 mg/dL (65-115); Osmolality Calculated 280 mOsm/kg (285-295); Sodium 134 mmol/L (136-145); Total Bilirubin 0.7 mg/dL (0.15-1.2); Total Protein 4.7 g/dL (6.6-8.7)
[2021-11-18 04:04] LABS: Anion Gap 14.2 (5-19); Potassium 4.2 mmol/L (3.5-5.1)
[2021-11-18 04:05] LABS: Aspartate Amino Transferase 22 U/L (0-32)
[2021-11-18] MEDS: sodium chlor 0.9% + KCl 20 mEq 20 MEQ/1,000 ML BAG 100 MEQ IV ×2 (04:27→14:36)
[2021-11-18] MEDS: heparin 5,000 unit/mL INJ 1 mL 5000 UNIT SUBCUT ×2 (05:12→17:26)
[2021-11-18 05:50] LABS: ABG PCO2 30.5 mmHg (35-45); ABG PH Result 7.39 (7.35-7.45); Arterial Blood Gas Hematocrit 28.3 % (37-47); Base Excess ABG -5.8 mmol/L (-2.0-2.0); Blood Gas Allen Test Pos; Blood Gas Sample Site Radial, right; Blood Gas Sample Type Arterial; Blood Gas Tidal Volume 0.45; HCO3 ABG 18.4 mmol/L (22-26); Oxygen Device VENT; PO2 ABG 69.8 mmHg (80.0-100.0)
--- NOTE | 2021-11-18 06:00 | USCV_ITS ---
Tangela Mckeon Age: 61 Gender: F : 1960 Exam Date: 11/18/2021 06:39 Ordering Phys: Johnathan Zambrano MD Technologist: RYANN Exam Location: [facility] [place] Indication: ARRHYTHMIA BP: 84 / 56 HR: 71 Rhythm: Sinus Technical Quality: Technically difficult study MEASUREMENTS (Male / Female) Normal Values 2D ECHO LV Diastolic Diameter PLAX 3.4 cm 4.2 - 5.9 / 3.9 - 5.3 cm LV Systolic Diameter PLAX 2.4 cm IVS Diastolic Thickness 1.2 cm 0.6 - 1.0 / 0.6 - 0.9 cm IVS Systolic Thickness 1.6 cm LVPW Diastolic Thickness 1.2 cm 0.6 - 1.0 / 0.6 - 0.9 cm LVPW Systolic Thickness 1.5 cm LVOT Diameter 2.0 cm LV Ejection Fraction 2D Teich 58.8 % LV Ejection Fraction MOD 2C 58.2 % LV Ejection Fraction 2C AL 56.2 % LA Diameter 3.7 cm Aorta at Sinotubular Diameter 2.6 cm M-MODE Aortic Annulus Diameter 3.2 cm LA Ao Ratio MM 1.3 MV E Point Septal Separation 0.7 cm DOPPLER AV Peak Velocity 119.0 cm/s LVOT Peak Velocity 89.0 cm/s AV Area Cont Eq vti 2.8 cm squared AV Area Cont Eq pk 2.4 cm squared MV Area PHT 3.1 cm squared Mitral E to A Ratio 0.8 MV E' Velocity 49.5 cm/s Mitral E to MV E' Ratio 10.3 Mitral E to LV E' Lateral Ratio 8.5 Mitral E to LV E' Septal Ratio 13.2 TR Peak Velocity 323.3 cm/s TR Peak Gradient 41.8 mmHg TV Peak E Velocity 45.0 cm/s PV Peak Velocity 87.0 cm/s RV Acceleration Time 0.2 s RV Ejection Time 0.4 s RV AcT/ET 0.4 FINDINGS Left Ventricle Normal left ventricular size. LV systolic function is normal with EF of 55-60%. No regional wall motion abnormalities. Grade 1 diastolic dysfunction Right Ventricle The right ventricle is normal in size and function. Right Atrium The right atrium is normal in size. Left Atrium Grossly normal in size Mitral Valve Structurally normal mitral valve without significant stenosis or prolapse. There is trace mitral regurgitation. Aortic Valve Structurally normal aortic valve without significant sclerosis or stenosis. There is no aortic regurgitation. Tricuspid Valve Structurally normal tricuspid valve without significant stenosis. Mild regurgitation. Insufficient TR jet to calculate RVSP Pulmonic Valve Structurally normal pulmonic valve without significant stenosis. There is no pulmonic regurgitation. Pericardium Normal pericardium without effusion. Aorta Mildly dilated asecnding aorta CONCLUSIONS LV systolic function is normal with EF of 55-60% Grade 1 diastolic dysfunction Trace mitral regurgitation Mild tricuspid regurgitation Midlly dilated ascending aorta No comparison studies are available Herrera Al MD (Electronically Signed) Final Date: 18 November 2021 14:08 S
--- NOTE | 2021-11-18 06:09 | PC.NURSE ---
Shift Note Frequent safety and comfort rounds continue. Orders and/or nursing care completed as indicated. Patient monitored for response to intervention and treatment(s). Education provided includes ventilator settings and sedation medications. Patient needs reinforcement teaching. Patient had an uneventful shift. Remains on the ventilator settings as follows; FiO2-35%, VT-450, rate-16, PEEP-6. Redd catheter drained 1050 mls of urine and MARY drain had 35 mls bright red blood out overnight. Fentanyl, Propofol, NS with KCL, and Zosyn are infusing per protocol please see MAR for infusion rates. NG tube is hooked to low intermittent wall suction. Patient has a rash noted to bilateral lower legs, no other skin issues noted. Will continue to monitor.
--- NOTE | 2021-11-18 07:00 | XRR_ITS ---
PROCEDURE INFORMATION: Exam: XR Chest Exam date and time: 11/18/2021 7:00 AM Age: 61 years old Clinical indication: Dyspnea; Patient HX: Intubated; Additional info: Resp failure TECHNIQUE: Imaging protocol: XR of the chest. Views: 1 view. COMPARISON: CR (CHEST, ) 11/17/2021 5:27 PM FINDINGS: Tubes, catheters and devices: There is an endotracheal tube with its tip 1.8 cm above the jalyn. This should be pulled back 2 cm. Lungs: Low lung volumes with atelectasis at the lung bases. There is dense consolidation at the left lung base. Pleural spaces: Probable moderate left pleural effusion. No pneumothoraces. Heart/Mediastinum: Stable cardiomegaly. There is atherosclerotic calcification in the aortic arch. Bones/joints: Unremarkable. XR/XR chest 1V portable [id number] IMPRESSION: Left lower lung consolidation and probable effusion. Endotracheal tube 1.8 cm above the jalyn should be pulled back 2 cm.
--- NOTE | 2021-11-18 07:18 | P.PN_ITS ---
Subjective Subjective: Interval history: Patient remains intubated following surgery yesterday. It is suspected she may have aspirated a small amount of bile during induction. Vitals/I&O/Wt Last Vital Signs Temp 100.4 F H 11/18/21 04:00 Pulse 75 11/18/21 06:00 Resp 18 11/18/21 06:09 BP 90/56 11/18/21 06:00 Pulse Ox 93 11/18/21 06:09 11/17/21 11/18/21 11/18/21 22:59 06:59 14:59 Intake Total 1461.277 / 3272.373 1496.096 / 3272.373 Output Total 90 / 1490 1100 / 1490 Balance 1371.277 / 1782.373 396.096 / 1782.373 Weight last 48 hrs Weight 219 lb 3 oz Weight 157 lb 9.6 oz Physical Exam Narrative: EXAM NARRATIVE: Bowel sounds are infrequent. The stoma is somewhat hemorrhagic but appears viable. Urinary Catheter Management: Redd: Cath Placed During This Visit: yes Reason for Continuing Indwelling Catheter: Accurate Measurement of Urinary Output in Critically Ill Patients Urinary Catheter Date of Insertion: 11/17/21 Urinary Catheter Time of Insertion: 13:10 Data : 11/18/21 02:53 11/18/21 02:53 A&P Assessment and plan (1) Perforation of sigmoid colon due to diverticulitis: Status post exploratory laparotomy with Pierre procedure on 11/17/2021. Status: Acute Attestations Medical Necessity Statement*: See admitting service's notation. Coding Level of Care Code Acute Business Process Coordinator for Cristy Donovan Diagnoses Perforation of sigmoid colon due to diverticulitis K57.20
[2021-11-18] MEDS: propofol 1,000 MG/100 ML INJ 21.6 MG IV (07:48)
[2021-11-18 08:51] LABS: Glucose Point of Care 152 mg/dL (70-110)
[2021-11-18] MEDS: pantoprazole 40 mg SDV IVP (09:37)
--- NOTE | 2021-11-18 11:22 | PC.RESP ---
RT Shift Note Frequent safety and respiratory rounds continue. Orders completed as indicated. Patient monitored pre and post treatments throughout shift. Patient [Did.] tolerate treatments appropriately. Condition [.DidNotChange]. Patient and/or technical support representative educated on respiratory treatment and medications. Patient and/or technical support representative [unable to comprehend]. Will continue to monitor patient progress.
[2021-11-18 11:25] LABS: Glucose Point of Care 146 mg/dL (70-110)
[2021-11-18] MEDS: propofol 1,000 MG/100 ML INJ 8.58 MG IV (12:53)
[2021-11-18] MEDS: ketorolac 30 mg/mL INJ IVP ×2 (13:22→23:23)
--- NOTE | 2021-11-18 13:37 | PM.PN ---
Subjective Subjective: Interval history: Tangela was sedated on the ventilator when I saw her earlier. There was concern of possible aspiration of bile yesterday following surgery. She has done well overnight, and currently she is awakening on the ventilator and able to follow directions. Medications: Reviewed: Yes Vitals/I&O/Wt Last Vital Signs Temp 98.5 F 11/18/21 11:00 Pulse 77 11/18/21 12:00 Resp 16 11/18/21 10:30 BP 96/57 11/18/21 12:00 Pulse Ox 97 11/18/21 12:00 11/17/21 11/18/21 11/18/21 22:59 06:59 14:59 Intake Total 1461.277 / 5735.900 0463.096 / 3272.373 301.350 / 301.350 Output Total 90 / 390 1100 / 1490 Balance 1371.277 / 1386.277 396.096 / 1782.373 301.350 / 301.350 Weight last 48 hrs Weight 99.422 kg Weight 71.486 kg Physical Exam Narrative: EXAM NARRATIVE: General exam sedated on ventilator. FiO2 35%, PEEP 6 Neck is supple Cardiovascular regular rate and rhythm without murmur Lungs clear Abdomen slight distention. Hypoactive bowel sounds. Extremities no cyanosis clubbing or edema Urinary Catheter Management: Redd: Cath Placed During This Visit: yes Reason for Continuing Indwelling Catheter: Accurate Measurement of Urinary Output in Critically Ill Patients Urinary Catheter Date of Insertion: 11/17/21 Urinary Catheter Time of Insertion: 13:10 Data : 11/18/21 02:53 11/18/21 02:53 Micro: Microbiology 11/17/21 13:32 Gram Stain - Final Abdomen Abscess Culture - Preliminary A&P Assessment and plan (1) Perforation of sigmoid colon due to diverticulitis: Free air noted on CT scan. Likely has perforated sigmoid colon with diverticulitis and abscess. Malignancy not excluded. CEA ordered per surgery. This was normal Appreciate surgical consultation Continue Zosyn and vancomycin Blood cultures negative to date Repeat CT performed November 17 with worsening. She was taken to the OR and received a colostomy, drainage of abscess fluid collections. Following surgery, concern of bile aspiration so was kept on the ventilator. Probable extubation today. Morphine for pain N.p.o. Sepsis, resolved Now postoperative day #1 status post exploratory laparotomy, distal sigmoid colectomy, incidental appendectomy, colostomy formation Status: Acute (2) Pelvic abscess: See notations above. Likely diverticular abscess Status: Acute (3) Hypotension: Resolved Status: Acute (4) Hypokalemia: Resolved Status: Acute (5) Alcohol use: Significant alcohol use prior to coming in Thiamine given Ativan as needed If any significant withdrawal will need to institute CIWA protocol. No obvious evidence for withdrawal currently. Status: Acute Plan Transaminitis. May be secondary to alcohol. Check hepatitis panel. Hepatitis C was positive. However, PCR HCVRNA not detected Type 2 diabetes. Sliding scale insulin. Mild as she is n.p.o. History of hypertension. Hold medications currently History of reflux. Protonix IV Hyperlipidemia. N.p.o. currently Full code Heparin for DVT prophylaxis Attestations Medical Necessity Statement*: Needs continued hospitalization secondary to ventilator status, postoperative exploratory laparotomy for colostomy Critical Care Time: The high probability of a clinically significant, sudden or life threatening deterioration of the patient's [GI, respiratory system(s) required my full and direct attention, intervention and personal management. The critical care time is as shown. This time is in addition to time spent performing any reported procedures but includes the following: [x] Data and vital sign review and interpretation [x] Patient assessment, examination and intervention [x] Documentation [x] Medication orders and management Critical Care Time (min): 33 Coding Level of Care Code Acute Director Dental Services for Cristy Fwd Diagnoses Perforation of sigmoid colon due to diverticulitis K57.20 Pelvic abscess Hypotension I95.9 Hypokalemia E87.6 Alcohol use Z72.89
--- NOTE | 2021-11-18 14:43 | PC.NURSE ---
Attempted to call Lamine Burrows listed contact for rounding. No answer and no voicemail is set up.
[2021-11-18] MEDS: FUROsemide 10 mg/mL SDV 4mL 40 MG IVP (15:42)
[2021-11-18] MEDS: morphine 4 mg/mL SDV 1 mL IVP (15:43)
[2021-11-18 17:14] LABS: Glucose Point of Care 145 mg/dL (70-110)
[2021-11-18 21:19] LABS: Glucose Point of Care 140 mg/dL (70-110)
[2021-11-19] VITALS (43 sets, daily range): BP systolic 95–139; BP diastolic 59–96; PULSE 67–99; RESP 14–24; TEMP 36.7–37.3; O2SAT 89–98; BMI 35.5
[2021-11-19] MEDS: sodium chlor 0.9% + KCl 20 mEq 20 MEQ/1,000 ML BAG 100 MEQ IV ×3 (00:09→23:25)
--- NOTE | 2021-11-19 02:31 | PC.NURSE ---
Addendum entered by Caitie Cuba RN 11/19/21 03:10: Witnessed waste Original Note: Waste Fentanyl Wasted 70 mls Fentanyl with CARI Blood.
[2021-11-19] MEDS: piperacillin-tazobactam 3.375 GM in sodium chloride 0.9% (plus) 50 ML IV ×3 (02:53→17:55)
[2021-11-19] MEDS: vancomycin 1,250 MG/250 ML PIGGYBACK 250 MG IV (02:53)
[2021-11-19 03:58] LABS: Basophils # 0.1 10^3/uL (0.0-0.1); Basophils % 0.3 %; Eosinophils # 0.1 10^3/uL (0.0-0.8); Eosinophils % 0.4 %; Hemoglobin 8.4 g/dL (11.5-15.3); Lymphocytes # 1.6 10^3/uL (0.8-4.8); Lymphocytes % 10.4 %; Mean Corpuscular HGB Conc 32.3 g/dL (30.0-36.0); Mean Corpuscular Hemoglobin 29.5 pg (28.0-34.0); Mean Corpuscular Volume 91.2 fl (81-99); Mean Platelet Volume 11.9 fL (7.4-10.4); Monocytes # 0.7 10^3/uL (0.2-0.9); Monocytes % 4.5 %; Neutrophils # 12.17 10^3/uL (1.8-7.7); Neutrophils % 79.7 %; Nucleated Red Blood Cells % 0 %; Platelet Count 168 10^3/cmm (130-400); Red Blood Count 2.85 10^6/uL (4.1-5.3); Red Cell Distribution Width 14.6 % (12.1-15.1); White Blood Count 15.3 10^3/uL (4.0-10.0)
[2021-11-19 04:27] LABS: Blood Urea Nitrogen 9 mg/dL (6-20); Carbon Dioxide 21 mmol/L (22-29); Chloride 109 mmol/L (98-107); Glomerular Filtration Rate 227.7 mL/min (90-130); Glucose 114 mg/dL (65-115); Osmolality Calculated 290 mOsm/kg (285-295); Sodium 140 mmol/L (136-145)
[2021-11-19 04:44] LABS: Anion Gap 13.8 (5-19); Potassium 3.8 mmol/L (3.5-5.1)
[2021-11-19] MEDS: morphine 4 mg/mL SDV 1 mL IVP (05:24)
[2021-11-19] MEDS: heparin 5,000 unit/mL INJ 1 mL 5000 UNIT SUBCUT ×2 (05:24→17:54)
[2021-11-19 05:38] LABS: Vancomycin Trough 33.3 ug/mL (10-15)
--- NOTE | 2021-11-19 06:23 | P.PN_ITS ---
Subjective Subjective: Interval history: The patient is now extubated. She says she is sore but is otherwise doing well. Vitals/I&O/Wt Last Vital Signs Temp 99.2 F 11/19/21 04:00 Pulse 85 11/19/21 04:00 Resp 24 H 11/19/21 05:24 BP 107/67 11/19/21 04:00 Pulse Ox 98 11/19/21 04:00 11/18/21 11/18/21 11/19/21 14:59 22:59 06:59 Intake Total 1352.351 / 3324.518 567.167 / 3324.518 1405 / 3324.518 Output Total 1690 / 3045 1355 / 3045 Balance 1352.351 / 279.518 -1122.833 / 279.518 50 / 279.518 Weight last 48 hrs Weight 219 lb 3 oz Physical Exam Narrative: EXAM NARRATIVE: Hemodynamics are improved. The nasogastric tube has minimal output. The midline incision looks good. She has a small amount of stool in the colostomy bag. The stoma itself looks very dark in color; it is hard tell if this is clot or if it is lacking some blood flow. As long as the colon is getting reasonable blood flow at and below the fascial level this should be okay. Urinary Catheter Management: Redd: Cath Placed During This Visit: yes Reason for Continuing Indwelling Catheter: Accurate Measurement of Urinary Output in Critically Ill Patients Urinary Catheter Date of Insertion: 11/17/21 Urinary Catheter Time of Insertion: 13:10 Data : 11/18/21 02:53 11/19/21 03:38 Micro: Microbiology 11/17/21 13:32 Gram Stain - Final Abdomen Anaerobic Culture - Preliminary Abscess Culture - Preliminary A&P Assessment and plan (1) Perforation of sigmoid colon due to diverticulitis: Status post exploratory laparotomy with Pierre procedure on 11/17/2021. Remove NG tube. Consistent carbohydrate clear liquid diet. Continue to watch stoma. Up in chair. Leave Redd for now. The patient appears to be mobilizing fluid. Status: Acute Attestations Medical Necessity Statement*: See admitting service's notation. Coding Level of Care Code Acute Personnel Research Scientist for Cristy Donovan Diagnoses Perforation of sigmoid colon due to diverticulitis K57.20
[2021-11-19 06:26] LABS: Slide Review Slide Review Perform
--- NOTE | 2021-11-19 07:20 | PC.NURSE ---
Shift Note Frequent safety and comfort rounds continue. Orders and/or nursing care completed as indicated. Patient monitored for response to intervention and treatment(s). Education provided includes medication and NG tube. Patient verbalizes understanding of teaching. Patient oriented to self but needs frequent orientation to surroundings. Redd catheter drained 1350 mls of urine overnight. MARY drain had 5 mls out. NS with KCL and Zosyn are infusing please see MAR for infusion rates. Patient had several reports of pain overnight, PRN medication was administered. Will continue to monitor.
--- NOTE | 2021-11-19 09:11 | PC.CHAP ---
Pastoral Care Encounter/Spiritual Assessment Type of Contact [] Declined clinical lab technologist visit [] Patient/Family/Request visit [] Outpatient visit [] Follow-up visit [] Physician referral [] Code/Alert [x] Routine visit [] Staff referral [] Actively dying [] Patient sleeping [] Family support [] [] Out of room [] Palliative care [] [x] Receiving care in room [] Pre-surgical visit [] Trauma [] Long length of stay [x] ICU visit [] Other: Relational/Emotional Strength [] Patient feels connected with others/family/visitors/staff [] Distress [] Loneliness/isolation [] Abandonment Spirituality of Patient [] Person of Charo [] Attends Pentecostal of their Charo [] Believes in Prayer [] Reads Bible or Hinduism materials [] There are Spiritual issues to be addressed Editor Managing Newspaper Interventions [x] Prayer [] Active listening [] Non-anxious presence [] Spiritual/emotional support [] Crisis/trauma care [] Spiritual counseling [] Bereavement support [] Provided bereavement packet [] Provided Bible/devotional materials [] Provided toy/stuffed animal, coloring book to patient or family member [] Provided Communion [] Anointing/[place] [] Salvation [x] Completed spiritual assessment [] Other: Impact on Illness or Injury [] Angry [] Fearful [] Anxious [] Often cries [] Exhaustion [] Unable to work [] Unable to attend rastafari [] Unable to walk/stand [] Unable to read [] Unable to drive [] Unable to eat/drink [] Unable to sleep [] Unable to be with family [] Patient intubated [] Other: Summary Time spent with patient
[2021-11-19 09:43] LABS: Glucose Point of Care 106 mg/dL (70-110)
[2021-11-19] MEDS: pantoprazole 40 mg SDV IVP (10:26)
[2021-11-19] MEDS: ondansetron 2 mg/ML SDV 2 mL 4 MG IVP (10:32)
--- NOTE | 2021-11-19 11:06 | PM.PN ---
Subjective Subjective: Interval history: Did well after extubation yesterday. No specific complaints other than a little sore today. Medications: Reviewed: Yes Medication Review Details: She continues to be on Zosyn and vancomycin for her peritonitis. Vitals/I&O/Wt Last Vital Signs Temp 99.2 F 11/19/21 04:00 Pulse 93 11/19/21 07:47 Resp 16 11/19/21 07:47 BP 131/76 11/19/21 06:00 Pulse Ox 96 11/19/21 07:47 11/18/21 11/19/21 11/19/21 22:59 06:59 14:59 Intake Total 567.167 / 4588.385 8214 / 3374.518 1000 / 1000 Output Total 1690 / 1690 1355 / 3045 Balance -1122.833 / 229.518 100 / 630.771 1501 / 1000 Weight last 48 hrs Weight 96.842 kg Weight 99.422 kg Physical Exam Narrative: EXAM NARRATIVE: General exam no distress on 2 L Neck is supple Cardiovascular regular rate and rhythm without murmur Lungs clear Abdomen hypoactive bowel sounds. Ostomy dusky. Extremities no cyanosis clubbing or edema Urinary Catheter Management: Redd: Cath Placed During This Visit: yes Reason for Continuing Indwelling Catheter: Accurate Measurement of Urinary Output in Critically Ill Patients Urinary Catheter Date of Insertion: 11/17/21 Urinary Catheter Time of Insertion: 13:10 Data : 11/19/21 03:38 11/19/21 03:38 Micro: Microbiology 11/17/21 13:32 Gram Stain - Final Abdomen Anaerobic Culture - Preliminary Abscess Culture - Preliminary A&P Assessment and plan (1) Perforation of sigmoid colon due to diverticulitis: Free air noted on CT scan. Likely has perforated sigmoid colon with diverticulitis and abscess. Malignancy not excluded. CEA ordered per surgery. This was normal Appreciate surgical consultation Continue Zosyn and vancomycin Blood cultures negative to date. Cultures of peritoneal fluid from surgery pending. Repeat CT performed November 17 with worsening. She was taken to the OR and received a colostomy, drainage of abscess fluid collections. Following surgery, concern of bile aspiration so was kept on the ventilator. She was extubated without complication. Left lower lobe atelectasis versus infiltrate was noted. Morphine for pain N.p.o. except ice chips. Surgery has removed with her NG Sepsis, resolved Now postoperative day #2 status post exploratory laparotomy, distal sigmoid colectomy, incidental appendectomy, colostomy formation Reduce fluids slightly Status: Acute (2) Pelvic abscess: See notations above. Likely diverticular abscess Status: Acute (3) Hypotension: Resolved Status: Acute (4) Hypokalemia: Resolved Status: Acute (5) Alcohol use: Significant alcohol use prior to coming in Thiamine given No significant withdrawal has been noted. Status: Acute Plan Transaminitis. May be secondary to alcohol. Check hepatitis panel. Hepatitis C was positive. However, PCR HCVRNA not detected Type 2 diabetes. Sliding scale insulin. Mild as she is n.p.o. History of hypertension. Hold medications currently History of reflux. Protonix IV Hyperlipidemia. N.p.o. currently Full code Heparin for DVT prophylaxis Attestations Medical Necessity Statement*: Needs continued hospitalization for IV antibiotics and close monitoring following colostomy, for resumption of bowel activity. Coding Level of Care Code Acute Boat Outboard Engine Mechanic for [facility] Fwd Diagnoses Perforation of sigmoid colon due to diverticulitis K57.20 Pelvic abscess Hypotension I95.9 Hypokalemia E87.6 Alcohol use Z72.89
[2021-11-19 11:39] LABS: Glucose Point of Care 98 mg/dL (70-110)
--- NOTE | 2021-11-19 12:33 | PC.SOCIAL ---
IMM update IMM updated with patient. Verbalized an understanding. Copy PG 2 provided. Initialled, dated, timed, and placed in chart.
[2021-11-19] MEDS: vancomycin 1,500 MG/300 ML PIGGYBACK 200 MG IV ×2 (13:48→20:55)
[2021-11-19 17:13] LABS: Glucose Point of Care 108 mg/dL (70-110)
[2021-11-19] MEDS: ketorolac 30 mg/mL INJ IVP (17:53)
--- NOTE | 2021-11-19 18:19 | PC.NURSE ---
Right lower abdomen MARY drain output 12ml.
--- NOTE | 2021-11-19 19:52 | PC.NURSE ---
Upon emptying cholostomy bag, pt appears upset about bag's appearance and smell. Gave pt encouragement and education. Pt requires additional teaching and care instruction.
[2021-11-19 21:03] LABS: Glucose Point of Care 142 mg/dL (70-110)
[2021-11-20] VITALS (30 sets, daily range): BP systolic 101–148; BP diastolic 65–89; PULSE 68–96; RESP 14–26; TEMP 36.7–36.9; O2SAT 89–96; BMI 35.9
[2021-11-20] MEDS: ketorolac 30 mg/mL INJ IVP ×2 (00:03→18:58)
[2021-11-20] MEDS: piperacillin-tazobactam 3.375 GM in sodium chloride 0.9% (plus) 50 ML IV ×3 (02:52→18:32)
[2021-11-20] MEDS: vancomycin 1,500 MG/300 ML PIGGYBACK 200 MG IV ×3 (03:54→22:38)
[2021-11-20] MEDS: heparin 5,000 unit/mL INJ 1 mL 5000 UNIT SUBCUT ×2 (05:18→18:32)
[2021-11-20] MEDS: BuSPIRONE 10 mg Tablet 30 MG PO (05:19)
[2021-11-20] MEDS: atorvastatin 40 mg Tablet 10 MG PO (05:19)
[2021-11-20] MEDS: morphine 4 mg/mL SDV 1 mL IVP ×2 (05:25→21:49)
[2021-11-20 05:35] LABS: Blood Urea Nitrogen 4 mg/dL (6-20); Calcium 7.4 mg/dL (8.5-10.5); Carbon Dioxide 21 mmol/L (22-29); Chloride 105 mmol/L (98-107); Glomerular Filtration Rate 363.6 mL/min (90-130); Glucose 130 mg/dL (65-115); Osmolality Calculated 285 mOsm/kg (285-295); Sodium 138 mmol/L (136-145)
[2021-11-20 05:47] LABS: Anion Gap 15.3 (5-19); Potassium 3.3 mmol/L (3.5-5.1)
[2021-11-20 06:39] LABS: Mean Corpuscular Hemoglobin 29.4 pg (28.0-34.0); Mean Corpuscular Volume 91.9 fl (81-99); Mean Platelet Volume 11.2 fL (7.4-10.4); Platelet Count 239 10^3/cmm (130-400); Red Blood Count 2.72 10^6/uL (4.1-5.3); Red Cell Distribution Width 14.6 % (12.1-15.1); White Blood Count 13.4 10^3/uL (4.0-10.0)
[2021-11-20 07:19] LABS: Slide Review Slide Review Perform
[2021-11-20 07:21] LABS: Absolute Eosinophils 0.2 10^3/cmm (0.0-0.7); Absolute Segmented Neutrophil 8.3 10/cmm (1.6-7.1); Band Neutrophils Absolute 2.8 10^3/cmm (0.0-1.2); Eosinophils 2 %; Lymphocytes 9 %; Monocytes Absolute 0.3 10^3/cmm (0.1-0.6); Segmented Neutrophils 62 %; Total Cells Counted 100 (0-100)
[2021-11-20 07:22] LABS: Absolute Neutrophil 11.1 10^3/cmm (1.4-6.5); Platelet Estimate Normal (Normal); Toxic Vacuolation TRACE
[2021-11-20 07:23] LABS: Lymphocytes Absolute 1.2 10^3/cmm (1.2-3.4)
[2021-11-20] MEDS: lidocaine 1% 5 ML in potassium chloride premix 100 ML 25 ML IV (07:29)
--- NOTE | 2021-11-20 07:38 | P.PN_ITS ---
Subjective Subjective: Interval history: Tangela reports she feels okay. Little bit nauseated this morning but no vomiting. Reports she has stool in her ostomy. Medications: Reviewed: Yes Medication Review Details: She continues to be on Zosyn and vancomycin for her peritonitis. Vitals/I&O/Wt Last Vital Signs Temp 98.4 F 11/20/21 03:30 Pulse 68 11/20/21 07:35 Resp 15 11/20/21 07:35 BP 121/71 11/20/21 05:30 Pulse Ox 93 11/20/21 07:35 11/19/21 11/20/21 11/20/21 22:59 06:59 14:59 Intake Total 2130 / 3300 500 / 3800 Output Total 1400 / 2250 1150 / 3400 Balance 730 / 1050 -650 / 400 Weight last 48 hrs Weight 97.976 kg Weight 96.842 kg Physical Exam Narrative: EXAM NARRATIVE: General exam no distress Neck is supple Cardiovascular regular rate and rhythm without murmur Lungs clear Abdomen hypoactive bowel sounds. Ostomy dark Extremities no cyanosis clubbing or edema Urinary Catheter Management: Redd: Cath Placed During This Visit: yes Reason for Continuing Indwelling Catheter: Accurate Measurement of Urinary Output in Critically Ill Patients Urinary Catheter Date of Insertion: 11/17/21 Urinary Catheter Time of Insertion: 13:10 Data : 11/20/21 06:04 11/20/21 04:37 Micro: Microbiology 11/17/21 13:32 Gram Stain - Final Abdomen Anaerobic Culture - Preliminary Abscess Culture - Preliminary Gram Negative Rods 11/14/21 12:27 Blood Culture - Final Blood NO GROWTH AFTER 5 DAYS 11/14/21 12:27 Blood Culture - Final Blood NO GROWTH AFTER 5 DAYS A&P Assessment and plan (1) Perforation of sigmoid colon due to diverticulitis: Free air noted on CT scan. Likely has perforated sigmoid colon with diverticulitis and abscess. Malignancy not excluded. CEA ordered per surgery. This was normal Appreciate surgical consultation Continue Zosyn and vancomycin Blood cultures negative to date. Cultures of peritoneal fluid from surgery pend ing, but growing gram-negative flynn Repeat CT performed November 17 with worsening. She was taken to the OR and received a colostomy, drainage of abscess fluid collections. Following surgery, concern of bile aspiration so was kept on the ventilator. She was extubated without complication. Left lower lobe atelectasis versus infiltrate was noted. Morphine for pain Clear liquid diet has now been started Sepsis, resolved Now postoperative day #3 status post exploratory laparotomy, distal sigmoid co lectomy, incidental appendectomy, colostomy formation Status: Acute (2) Pelvic abscess: See notations above. Likely diverticular abscess Status: Acute (3) Hypotension: Resolved Status: Acute (4) Hypokalemia: Resolved Status: Acute (5) Alcohol use: Significant alcohol use prior to coming in Thiamine given No significant withdrawal has been noted. Status: Acute Plan Postoperative acute blood loss anemia. Currently stable Transaminitis. May be secondary to alcohol. Check hepatitis panel. Hepatitis C was positive. However, PCR HCVRNA not detected Type 2 diabetes. Sliding scale insulin, mild History of hypertension. Hold medications currently History of reflux. Protonix IV Hyperlipidemia. Full code Heparin for DVT prophylaxis Attestations Medical Necessity Statement*: Needs continued hospitalization for close monitoring of ostomy site, advancement of diet. Coding Level of Care Code Acute Outreach Representative for g Fwd Diagnoses Perforation of sigmoid colon due to diverticulitis K57.20 Pelvic abscess Hypotension I95.9 Hypokalemia E87.6 Alcohol use Z72.89
[2021-11-20 07:45] LABS: Glucose Point of Care 120 mg/dL (70-110)
--- NOTE | 2021-11-20 08:10 | P.PN_ITS ---
Subjective Subjective: Interval history: The patient says she is feeling fairly well. She seems anxious to go home. She is tolerating clear liquids but does not have much of an appetite yet. Vitals/I&O/Wt Last Vital Signs Temp 98.4 F 11/20/21 03:30 Pulse 68 11/20/21 07:35 Resp 15 11/20/21 07:35 BP 121/71 11/20/21 05:30 Pulse Ox 93 11/20/21 07:35 11/19/21 11/20/21 11/20/21 22:59 06:59 14:59 Intake Total 2130 / 3800 500 / 3800 50 / 50 Output Total 1400 / 3400 1150 / 3400 150 / 150 Balance 730 / 400 -650 / 400 -100 / -100 Weight last 48 hrs Weight 216 lb Weight 213 lb 8 oz Physical Exam Narrative: EXAM NARRATIVE: The incision looks good. The stoma remains quite dusky in appearance but seems the be functioning well. Urinary Catheter Management: Redd: Cath Placed During This Visit: yes Reason for Continuing Indwelling Catheter: Accurate Measurement of Urinary Output in Critically Ill Patients Urinary Catheter Date of Insertion: 11/17/21 Urinary Catheter Time of Insertion: 13:10 Data : 11/20/21 06:04 11/20/21 04:37 Micro: Microbiology 11/17/21 13:32 Gram Stain - Final Abdomen Anaerobic Culture - Preliminary Abscess Culture - Preliminary Gram Negative Rods 11/14/21 12:27 Blood Culture - Final Blood NO GROWTH AFTER 5 DAYS 11/14/21 12:27 Blood Culture - Final Blood NO GROWTH AFTER 5 DAYS A&P Assessment and plan (1) Perforation of sigmoid colon due to diverticulitis: Status post exploratory laparotomy with Pierre procedure on 11/17/2021. Continue clear liquids until the patient's appetite improves. Oral pain medication. Continued keep an eye on the stoma. Again, as long as the colon has good blood flow up to the level of the fascia this should be okay. Status: Acute Attestations Medical Necessity Statement*: See admitting service's notation. Coding Level of Care Code Acute Computer Repair Engineer for Cristy Donovan Diagnoses Perforation of sigmoid colon due to diverticulitis K57.20
--- NOTE | 2021-11-20 09:42 | PC.CHAP ---
Pastoral Care Encounter/Spiritual Assessment Type of Contact [] Declined wood drill operator visit [] Patient/Family/Request visit [] Outpatient visit [] Follow-up visit [] Physician referral [] Code/Alert [x] Routine visit [] Staff referral [] Actively dying [x] Patient sleeping [] Family support [] [] Out of room [] Palliative care [] [] Receiving care in room [] Pre-surgical visit [] Trauma [] Long length of stay [x] ICU visit [] Other: Relational/Emotional Strength [] Patient feels connected with others/family/visitors/staff [] Distress [] Loneliness/isolation [] Abandonment Spirituality of Patient [] Person of Charo [] Attends Lutheran of their Charo [] Believes in Prayer [] Reads Bible or Taoist materials [] There are Spiritual issues to be addressed Supervisor Communications [employer] Signals Interventions [x] Prayer [] Active listening [] Non-anxious presence [] Spiritual/emotional support [] Crisis/trauma care [] Spiritual counseling [] Bereavement support [] Provided bereavement packet [] Provided Bible/devotional materials [] Provided toy/stuffed animal, coloring book to patient or family member [] Provided Communion [] Anointing/[place] [] Salvation [x] Completed spiritual assessment [] Other: Impact on Illness or Injury [] Angry [] Fearful [] Anxious [] Often cries [] Exhaustion [] Unable to work [] Unable to attend congregation [] Unable to walk/stand [] Unable to read [] Unable to drive [] Unable to eat/drink [] Unable to sleep [] Unable to be with family [] Patient intubated [] Other: Summary Time spent with patient
[2021-11-20] MEDS: thiamine 100 mg Tablet PO (10:13)
[2021-11-20] MEDS: pantoprazole DR 40 mg Tablet PO (10:13)
[2021-11-20 11:22] LABS: Glucose Point of Care 116 mg/dL (70-110)
[2021-11-20] MEDS: HYDROcodone-acetaminophen 5-325 mg Tablet PO ×2 (11:24→18:28)
[2021-11-20 11:41] LABS: Vancomycin Trough 12.3 ug/mL (10-15)
[2021-11-20] MEDS: sodium chlor 0.9% + KCl 20 mEq 20 MEQ/1,000 ML BAG 75 MEQ IV (12:40)
[2021-11-20 17:40] LABS: Glucose Point of Care 124 mg/dL (70-110)
--- NOTE | 2021-11-20 19:45 | PC.NURSE ---
1914- Report called to CARI Dailey 1942- Patient transported upstairs via wheelchair to room 259-1. All belongings (including phone, personalized living manager nurse, glasses, purse with contents, duffel bag with contents) sent with the patient. When we arrived in her new room, patient assisted to the bsc and then to bed. Patient tolerated activity and transport well.
[2021-11-20 21:27] LABS: Glucose Point of Care 103 mg/dL (70-110)
[2021-11-21] VITALS (11 sets, daily range): BP systolic 112–144; BP diastolic 76–85; PULSE 85–96; RESP 16–20; TEMP 36.6–37.8; O2SAT 88–95
[2021-11-21] MEDS: piperacillin-tazobactam 3.375 GM in sodium chloride 0.9% (plus) 50 ML IV ×3 (01:33→18:33)
[2021-11-21] MEDS: morphine 4 mg/mL SDV 1 mL IVP ×3 (02:36→23:33)
[2021-11-21] MEDS: atorvastatin 40 mg Tablet 10 MG PO (06:07)
[2021-11-21] MEDS: BuSPIRONE 10 mg Tablet 30 MG PO (06:08)
[2021-11-21] MEDS: heparin 5,000 unit/mL INJ 1 mL 5000 UNIT SUBCUT ×2 (06:09→18:34)
[2021-11-21] MEDS: vancomycin 1,500 MG/300 ML PIGGYBACK 200 MG IV ×2 (06:15→16:35)
--- NOTE | 2021-11-21 06:40 | P.PN_ITS ---
Subjective Subjective: Interval history: The patient says she feels well. She would like contrite eat some solid food. Vitals/I&O/Wt Last Vital Signs Temp 100.0 F H 11/21/21 04:00 Pulse 88 11/21/21 04:00 Resp 16 11/21/21 06:33 BP 123/79 11/21/21 04:00 Pulse Ox 92 11/21/21 04:00 11/20/21 11/20/21 11/21/21 14:59 22:59 06:59 Intake Total 1533.75 / 2583.75 650 / 2583.75 400 / 2583.75 Output Total 150 / 3230 3000 / 3230 80 / 3230 Balance 1383.75 / -646.25 -2350 / -646.25 320 / -646.25 Weight last 48 hrs Weight 216 lb Physical Exam Narrative: EXAM NARRATIVE: Patient has a low-grade fever this morning. Her hemodynamics appear stable. No new labs available yet. Bowel sounds are present. The stoma was examined with a test tube and light and it appears to be viable just below the surface. Urinary Catheter Management: Redd: Cath Placed During This Visit: yes, but has since been removed by the nurse Reason for Continuing Indwelling Catheter: Decision to DC Catheter Urinary Catheter Date of Insertion: 11/17/21 Urinary Catheter Time of Insertion: 13:10 Date Urinary Catheter Removed: 11/20/21 Time Urinary Catheter Discontinued: 18:47 Data : 11/20/21 06:04 11/20/21 04:37 Micro: Microbiology 11/17/21 13:32 Gram Stain - Final Abdomen Anaerobic Culture - Preliminary Abscess Culture - Final Escherichia coli Peritoneal fluid growing pansensitive E. coli. A&P Assessment and plan (1) Perforation of sigmoid colon due to diverticulitis: Status post exploratory laparotomy with Pierre procedure on 11/17/2021. Consistent carbohydrate diet. Status: Acute Attestations Medical Necessity Statement*: See admitting service's notation. Coding Level of Care Code Acute Clothing And Textiles Teacher for Cristy Donovan Diagnoses Perforation of sigmoid colon due to diverticulitis K57.20
[2021-11-21 06:49] LABS: Glucose Point of Care 107 mg/dL (70-110)
[2021-11-21 06:59] LABS: Basophils # 0.1 10^3/uL (0.0-0.1); Basophils % 0.3 %; Eosinophils # 0.1 10^3/uL (0.0-0.8); Eosinophils % 0.7 %; Hematocrit 25.1 % (37.0-47.0); Lymphocytes # 1.8 10^3/uL (0.8-4.8); Lymphocytes % 10.8 %; Mean Corpuscular HGB Conc 31.9 g/dL (30.0-36.0); Mean Corpuscular Hemoglobin 29.3 pg (28.0-34.0); Mean Corpuscular Volume 91.9 fl (81-99); Mean Platelet Volume 10.9 fL (7.4-10.4); Monocytes # 0.9 10^3/uL (0.2-0.9); Monocytes % 5.1 %; Neutrophils # 12.94 10^3/uL (1.8-7.7); Neutrophils % 77.1 %; Nucleated Red Blood Cells % 0 %; Platelet Count 318 10^3/cmm (130-400); Red Blood Count 2.73 10^6/uL (4.1-5.3); Red Cell Distribution Width 14.4 % (12.1-15.1); White Blood Count 16.8 10^3/uL (4.0-10.0)
[2021-11-21 07:15] LABS: Alanine Aminotransferase 21 U/L (0-33); Albumin Level 2.4 g/dL (3.5-5.2); Alkaline Phosphatase 70 IU/L (35-105); Anion Gap 16.1 (5-19); Aspartate Amino Transferase 26 U/L (0-32); Blood Urea Nitrogen 3 mg/dL (6-20); Calcium 7.6 mg/dL (8.5-10.5); Carbon Dioxide 22 mmol/L (22-29); Chloride 101 mmol/L (98-107); Globulin 2.6 g/dL (1.3-4.6); Glomerular Filtration Rate 363.6 mL/min (90-130); Glucose 94 mg/dL (65-115); Magnesium 1.3 mg/dL (1.7-2.3); Osmolality Calculated 278 mOsm/kg (285-295); Potassium 3.1 mmol/L (3.5-5.1); Sodium 136 mmol/L (136-145); Total Bilirubin 0.6 mg/dL (0.15-1.2)
[2021-11-21 07:48] LABS: Slide Review Slide Review Perform
[2021-11-21] MEDS: pantoprazole DR 40 mg Tablet PO (08:20)
[2021-11-21] MEDS: thiamine 100 mg Tablet PO (08:20)
[2021-11-21] MEDS: magnesium sulfate premix 2 GM/50 ML PIGGYBACK IV (08:43)
[2021-11-21] MEDS: potassium chloride ER 20 mEq Tablet 40 MEQ PO (08:43)
--- NOTE | 2021-11-21 08:51 | PC.SOCIAL ---
IMM UPDATED IMM dated and initialed and copy given to patient
[2021-11-21] MEDS: lidocaine 1% 5 ML in potassium chloride premix 100 ML 25 ML IV (09:03)
--- NOTE | 2021-11-21 10:49 | P.PN_ITS ---
Subjective Subjective: Interval history: Tangela feels like she is doing okay. No chest discomfort. Breathing is okay. Medications: Reviewed: Yes Medication Review Details: She continues to be on Zosyn and vancomycin for her peritonitis. Vitals/I&O/Wt Last Vital Signs Temp 100.0 F H 11/21/21 04:00 Pulse 93 11/21/21 08:00 Resp 20 H 11/21/21 08:00 BP 123/79 11/21/21 04:00 Pulse Ox 91 11/21/21 08:00 11/20/21 11/21/21 11/21/21 22:59 06:59 14:59 Intake Total 650 / 2183.75 400 / 2583.75 350 / 350 Output Total 3000 / 3150 80 / 3230 Balance -2350 / -966.25 320 / -646.25 350 / 350 Weight last 48 hrs Weight 97.976 kg Physical Exam Narrative: EXAM NARRATIVE: General exam no distress Neck is supple Cardiovascular regular rate and rhythm without murmur Lungs clear Abdomen hypoactive bowel sounds. Ostomy dark. Quite a bit of stool in her bag. Extremities no cyanosis clubbing or edema Urinary Catheter Management: Redd: Cath Placed During This Visit: yes, but has since been removed by the nurse Reason for Continuing Indwelling Catheter: Decision to DC Catheter Urinary Catheter Date of Insertion: 11/17/21 Urinary Catheter Time of Insertion: 13:10 Date Urinary Catheter Removed: 11/20/21 Time Urinary Catheter Discontinued: 18:47 Data : 11/21/21 06:21 11/21/21 06:21 Micro: Microbiology 11/17/21 13:32 Gram Stain - Final Abdomen Anaerobic Culture - Preliminary Abscess Culture - Final Escherichia coli A&P Assessment and plan (1) Perforation of sigmoid colon due to diverticulitis: Free air noted on CT scan. Likely has perforated sigmoid colon with diverticulitis and abscess. Malignancy not excluded. CEA ordered per surgery. This was normal Appreciate surgical consultation Continue Zosyn and vancomycin Blood cultures negative to date. Cultures of peritoneal fluid from surgery grew E. coli Repeat CT performed November 17 with worsening. She was taken to the OR and received a colostomy, drainage of abscess fluid collections. Following surgery, concern of bile aspiration so was kept on the ventilator. S he was extubated without complication. Left lower lobe atelectasis versus infiltrate was noted. Vancomycin and Zosyn continued. Morphine for pain Diet has been advanced, which she is tolerating Sepsis, resolved Now postoperative day #4 status post exploratory laparotomy, distal sigmoid colectomy, incidental appendectomy, colostomy formation Complains of weakness. Add physical therapy consultation. She has good oral intake. Discontinue fluids White blood cell count slightly higher. Repeat CBC tomorrow. If worsening, or any respiratory symptoms consider urinalysis, chest x-ray Status: Acute (2) Pelvic abscess: See notations above. Likely diverticular abscess Status: Acute (3) Hypotension: Resolved Status: Acute (4) Hypokalemia: Resolved Status: Acute (5) Alcohol use: Significant alcohol use prior to coming in Thiamine given No significant withdrawal has been noted. Status: Acute Plan Postoperative acute blood loss anemia. Currently stable Hypokalemia, supplement Hypomagnesemia, supplement Transaminitis. May be secondary to alcohol. Check hepatitis panel. Hepatitis C was positive. However, PCR HCVRNA not detected Type 2 diabetes. Sliding scale insulin, mild History of hypertension. Hold medications currently History of reflux. Protonix IV Hyperlipidemia. 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
[2021-11-21 12:20] LABS: Glucose Point of Care 158 mg/dL (70-110)
[2021-11-21] MEDS: insulin lispro 100 unit/1 mL SUBCUT ×2 (12:31→21:43)
[2021-11-21] MEDS: HYDROcodone-acetaminophen 5-325 mg Tablet PO (16:35)
[2021-11-21 21:40] LABS: Glucose Point of Care 164 mg/dL (70-110)
[2021-11-22 01:52] LABS: Basophils # 0.1 10^3/uL (0.0-0.1); Basophils % 0.3 %; Eosinophils # 0.2 10^3/uL (0.0-0.8); Eosinophils % 1.2 %; Hematocrit 25.6 % (37.0-47.0); Hemoglobin 8.2 g/dL (11.5-15.3); Lymphocytes % 12.8 %; Mean Corpuscular Hemoglobin 29.4 pg (28.0-34.0); Mean Corpuscular Volume 91.8 fl (81-99); Mean Platelet Volume 10.4 fL (7.4-10.4); Monocytes # 0.9 10^3/uL (0.2-0.9); Monocytes % 5.7 %; Neutrophils # 11.77 10^3/uL (1.8-7.7); Neutrophils % 74.1 %; Nucleated Red Blood Cells % 0 %; Platelet Count 392 10^3/cmm (130-400); Red Blood Count 2.79 10^6/uL (4.1-5.3); Red Cell Distribution Width 14.6 % (12.1-15.1); White Blood Count 15.9 10^3/uL (4.0-10.0)
[2021-11-22 02:20] LABS: Alanine Aminotransferase 18 U/L (0-33); Aspartate Amino Transferase 23 U/L (0-32); Blood Urea Nitrogen 3 mg/dL (6-20); Calcium 7.5 mg/dL (8.5-10.5); Carbon Dioxide 26 mmol/L (22-29); Chloride 102 mmol/L (98-107); Glomerular Filtration Rate 227.7 mL/min (90-130); Glucose 111 mg/dL (65-115); Magnesium 1.7 mg/dL (1.7-2.3); Osmolality Calculated 285 mOsm/kg (285-295); Sodium 139 mmol/L (136-145); Total Bilirubin 0.5 mg/dL (0.15-1.2); Total Protein 5.9 g/dL (6.6-8.7)
[2021-11-22 02:21] LABS: Albumin Level 2.5 g/dL (3.5-5.2); Alkaline Phosphatase 80 IU/L (35-105); Globulin 3.4 g/dL (1.3-4.6)
[2021-11-22 02:26] LABS: Procalcitonin 0.24 ng/mL (0-0.5)
[2021-11-22] MEDS: vancomycin 1,500 MG/300 ML PIGGYBACK 200 MG IV (02:26)
[2021-11-22 02:36] LABS: Slide Review Slide Review Perform
[2021-11-22] MEDS: piperacillin-tazobactam 3.375 GM in sodium chloride 0.9% (plus) 50 ML IV (03:55)
[2021-11-22] MEDS: HYDROcodone-acetaminophen 5-325 mg Tablet PO (04:01)
[2021-11-22 04:22] VITALS: BP 144/85; PULSE 90; RESP 20; TEMP 36.7; O2SAT 95
[2021-11-22] MEDS: BuSPIRONE 10 mg Tablet 30 MG PO (05:47)
[2021-11-22] MEDS: atorvastatin 40 mg Tablet 10 MG PO (05:47)
[2021-11-22] MEDS: heparin 5,000 unit/mL INJ 1 mL 5000 UNIT SUBCUT (05:47)
[2021-11-22 06:00] VITALS: PULSE 63
[2021-11-22 06:50] LABS: Glucose Point of Care 106 mg/dL (70-110)
[2021-11-22 08:00] VITALS: BP 124/74; PULSE 84; RESP 16; TEMP 36.9; O2SAT 94
[2021-11-22] MEDS: potassium chloride ER 20 mEq Tablet 40 MEQ PO (08:08)
[2021-11-22] MEDS: pantoprazole DR 40 mg Tablet PO (08:08)
[2021-11-22 08:33] LABS: Lactate (Lactic Acid level) 0.8 mmol/L (0.5-2.2)
[2021-11-22 08:38] LABS: Magnesium 1.7 mg/dL (1.7-2.3)
--- NOTE | 2021-11-22 08:47 | PM.PN ---
Subjective Subjective: Interval history: The patient says she feels well. She is tolerating solid food and is anxious to go home. Vitals/I&O/Wt Last Vital Signs Temp 98.4 F 11/22/21 08:00 Pulse 84 11/22/21 08:00 Resp 16 11/22/21 08:00 BP 124/74 11/22/21 08:00 Pulse Ox 94 11/22/21 08:00 11/21/21 11/22/21 11/22/21 22:59 06:59 14:59 Intake Total 300 / 2555 750 / 2555 50 / 50 Output Total 1340 / 3293 1953 / 3293 Balance -1040 / -738 -1203 / -738 50 / 50 Weight last 48 hrs Weight 220 lb Physical Exam Narrative: EXAM NARRATIVE: Bowel sounds are present. The stoma still appears dark to me but perhaps less though; and almost seems the have areas of pink coloration as I scrape some stool off of it. The Sam drain has had minimal serous output over the last 24 hours. This was removed and the site was dressed. Urinary Catheter Management: Redd: Cath Placed During This Visit: yes, but has since been removed by the nurse Reason for Continuing Indwelling Catheter: Decision to DC Catheter Urinary Catheter Date of Insertion: 11/17/21 Urinary Catheter Time of Insertion: 13:10 Date Urinary Catheter Removed: 11/20/21 Time Urinary Catheter Discontinued: 18:47 Data : 11/22/21 01:35 11/22/21 01:35 Micro: Microbiology 11/17/21 13:32 Gram Stain - Final Abdomen Anaerobic Culture - Preliminary Abscess Culture - Final Escherichia coli A&P Assessment and plan (1) Perforation of sigmoid colon due to diverticulitis: Status post exploratory laparotomy with Pierre procedure on 11/17/2021. The patient appears to be doing fairly well. I discussed her persistently elevated white blood cell count, the duskiness of her stoma, etc. I told her that I understand her desire did get out of the hospital, but she is going to have to keep a close eye on the stoma and let us know if there are any issues with abdominal pain, etc. I told her that we would keep her on some antibiotics as an outpatient. I will make arrangements for her to follow-up in my office. Status: Acute Attestations Medical Necessity Statement*: See admitting service's notation. 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
[2021-11-22 08:48] VITALS: PULSE 84; RESP 16; O2SAT 95
[2021-11-22 11:04] LABS: Adenovirus Not Detected (NOT DETECT); Chlamydia Pneumoniae Not Detected (NOT DETECT); Coronavirus 229E,HKU1,NL63,OC4 Not Detected (NOT DETECT); Human Metapneumovirus Not Detected (NOT DETECT); Human Rhinovirus/Enterovirus Not Detected (NOT DETECT); Influenza A Not Detected (NOT DETECT); Influenza A H1 Not Detected (NOT DETECT); Influenza A H1-2009 Not Detected (NOT DETECT); Influenza A H3 Not Detected (NOT DETECT); Influenza B Not Detected (NOT DETECT); Mycoplasma Pneumoniae Not Detected (NOT DETECT); Parainfluenza Virus Type 1 Not Detected (NOT DETECT); Parainfluenza Virus Type 2 Not Detected (NOT DETECT); Parainfluenza Virus Type 3 Not Detected (NOT DETECT); Parainfluenza Virus Type 4 Not Detected (NOT DETECT); Respiratory Syncytial Virus A Not Detected (NOT DETECT); Respiratory Syncytial Virus B Not Detected (NOT DETECT); SARS-COV-2 Not Detected (NOT DETECT)
[2021-11-22 11:15] LABS: Glucose Point of Care 150 mg/dL (70-110)
[2021-11-22 11:28] VITALS: BP 124/73; PULSE 84; RESP 16; TEMP 36.7; O2SAT 94
--- NOTE | 2021-11-22 12:42 | PM.DCS ---
Discharge Providers Date of Admission: 11/14/21 12:04 Date of Discharge: November 22, 2021 Attending Provider at Admission: Johnathan Zambrano MD Attending Provider at Discharge: Kathie Shah MD Diagnoses at Discharge Discharge Diagnosis (1) Perforation of sigmoid colon due to diverticulitis: Status: Acute Reason for Visit Reason for Visit: Coming back for a Stomach Flu in alot of pain Hospital Course Hospital Course Admitting note by Dr. Zambrano Tangela Mckeon is a 61 year old female that presents with history of abdominal pain for the last 10 days.? She states has been achy, and has had some nausea with it.? No real vomiting.? Has not been having stools in the last couple of days.? Eating less, drinking less.? She was seen in the emergency department on November 10, for 6 days of nausea vomiting and diarrhea were described.? At that point she was diagnosed with gastroenteritis and petechiae.? She was given Medrol and some Zofran.? Since that time she had continued discomfort that is worsened.? She has had chills with no documented fever.? She denies any blood in her stool or black or tarry stools.? Last colonoscopy was around 8 years ago where a polyp was removed.? She reports shortly after she had an abscess, where she stayed in the hospital for 3 days.? She has known diverticulosis. In the emergency department she got some Zosyn, and a blood culture.? She also received several fluid boluses for hypotension. Hospital course 11/17 exploratory laparotomy with distal sigmoid colectomy, abscess drainage, incidental appendectomy with colostomy, she was kept on ventilator for about 24 hours after the surgery for concern related to aspiration of bile. She was extubated on 11/18, did well after that, she was kept on vancomycin and Zosyn, blood cultures negative, she has persistent leukocytosis however remained afebrile, she'll be discharged on Augmentin after Dr. Mukherjee's evaluation today, colostomy care provided, will also arrange home health services for her colostomy care on Wednesday. Will provide her with supplies for next 2 to 3 days. Nurse updated. Her stoma has dark dusky appearance, Dr. Mukherjee will like to see her in next 7 days, patient instructed to keep an eye on it as well she is very motivated and eager to return home today. I will add folic acid and thiamine because of her alcohol abuse history. Opioids prescribed by Dr. Mukherjee as well. Electrolytes were replenished during this hospitalization White count at the time of discharge 15.9 hemoglobin 8.2, potassium 3.0, magnesium 1.7 specimen which was sent from the OR showed E. coli pansensitive Physical Exam Narrative: EXAM NARRATIVE: Patient was resting comfortably Poor attention span Nonfocal neuro exam Abdomen soft Active drainage of liquid stool content Stoma does not show any necrotic signs however dusky color noticed Nontender abdomen Awake and alert patient Alert oriented to time place and person Breathing well on room air Urinary Catheter Management: Redd: Cath Placed During This Visit: yes, but has since been removed by the nurse Reason for Continuing Indwelling Catheter: Decision to DC Catheter Urinary Catheter Date of Insertion: 11/17/21 Urinary Catheter Time of Insertion: 13:10 Date Urinary Catheter Removed: 11/20/21 Time Urinary Catheter Discontinued: 18:47 Discharge Data Studies Completed and Pending Completed Studies During Hospitalization Category Date Time Status CT abdomen pelvis w con* [id number] Stat Cat Scan 11/14/21 10:[address] abdomen pelvis wo/w [id number] Routine Cat Scan 11/17/21 07:35 Completed XR chest 1V portable [id number] Routine Exams 11/18/21 07:00 Completed XR chest 1V portable [id number] Stat Exams 11/17/21 15:40 Completed XR chest 1V portable [id number] Urgent Exams 11/14/21 10:22 Completed CV. echo complete* [id number] Routine Ultrasound 11/18/21 06:00 Completed Pending at discharge Category Date Time Status Abscess Culture and Gram Stain Routine Lab 11/17/21 13:32 Results Anaerobic Culture Routine Lab 11/17/21 13:32 Results Pathology: Surgical [PTH] Routine Pth 11/17/21 17:00 Received Radiology Impressions Abdomen/Pelvis CT 11/17/21 07:35 IMPRESSION: 1. Again seen is complicated sigmoid diverticulitis with suspected sigmoid perforation and suspected adjacent abscess. Abscess measures 5.1 x 2.9 cm not significantly changed compared to previous. 2. New additional fluid collection in the left lower pelvis cul-de-sac measuring 3.8 x 4.5 cm suspicious for additional developing area of infection/abscess 3. Progressed moderate free intraperitoneal air. 4. Bibasilar atelectasis with trace pleural fluid. 5. Dense cholelithiasis. 6. No other significant changes compared to previous. Discussed with Quinten Mukherjee MD at 11/17/2021 10:30 AM. Discussed with Raúl Zambrano M.D. 11/17/2021 10:31 AM Chest X-Ray 11/18/21 07:00 IMPRESSION: Left lower lung consolidation and probable effusion. Endotracheal tube 1.8 cm above the jalyn should be pulled back 2 cm. Laboratory Results WBC 15.9 10^3/uL (4.0-10.0) H 11/22/21 01:35 Corrected WBC Cancelled 11/20/21 04:37 RBC 2.79 10^6/uL (4.1-5.3) L 11/22/21 01:35 Hgb 8.2 g/dL (11.5-15.3) L 11/22/21 01:35 Hct 25.6 % (37.0-47.0) L 11/22/21 01:35 MCV 91.8 fl (81-99) 11/22/21 01:35 MCH 29.4 pg (28.0-34.0) 11/22/21 01:35 MCHC 32.0 g/dL (30.0-36.0) 11/22/21 01:35 RDW 14.6 % (12.1-15.1) 11/22/21 01:35 Plt Count 392 10^3/cmm (130-400) 11/22/21 01:35 MPV 10.4 fL (7.4-10.4) 11/22/21 01:35 Gran % Cancelled 11/20/21 04:37 Neut % (Auto) 74.1 % 11/22/21 01:35 Lymph % (Auto) 12.8 % 11/22/21 01:35 [place] % (Auto) 5.7 % 11/22/21 01:35 Eos % (Auto) 1.2 % 11/22/21 01:35 Baso % (Auto) 0.3 % 11/22/21 01:35 Neut # (Auto) 11.77 10^3/uL (1.8-7.7) H 11/22/21 01:35 Lymph # (Auto) 2.0 10^3/uL (0.8-4.8) 11/22/21 01:35 [place] # (Auto) 0.9 10^3/uL (0.2-0.9) 11/22/21 01:35 Eos # (Auto) 0.2 10^3/uL (0.0-0.8) 11/22/21 01:35 Baso # (Auto) 0.1 10^3/uL (0.0-0.1) 11/22/21 01:35 Absolute Gran (auto) Cancelled 11/20/21 04:37 Nucleated RBC % (auto) 0 % 11/22/21 01:35 Total Counted 100 (0-100) 11/20/21 06:04 Atypical Lymphs % 0.0 % (0-5) 11/20/21 06:04 Absolute Neutrophils 11.1 10^3/cmm (1.4-6.5) H 11/20/21 06:04 Segmented Neutrophils 62 % 11/20/21 06:04 Abs Segm Neuts (Man) 8.3 10/cmm (1.6-7.1) H 11/20/21 06:04 Band Neutrophils 21.0 % 11/20/21 06:04 Abs Band Neuts (Man) 2.8 10^3/cmm (0.0-1.2) H 11/20/21 06:04 Absolute Lymphocytes 1.2 10^3/cmm (1.2-3.4) 11/20/21 06:04 Lymphocytes (Manual) 9 % 11/20/21 06:04 Monocytes (Manual) 2.0 % 11/20/21 06:04 Absolute Monocytes 0.3 10^3/cmm (0.1-0.6) 11/20/21 06:04 Eosinophils (Manual) 2 % 11/20/21 06:04 Absolute Eosinophils 0.2 10^3/cmm (0.0-0.7) 11/20/21 06:04 Basophils (Manual) 0.0 % 11/20/21 06:04 Absolute Basophils 0.0 10^3/cmm (0.0-0.2) 11/20/21 06:04 Metamyelocytes 2.0 % 11/20/21 06:04 Myelocytes 2.0 % 11/20/21 06:04 Nucleated RBCs # 0.0 /100WBC 11/22/21 01:35 Toxic Vacuolation Trace 11/20/21 06:04 Platelet Estimate Normal (Normal) 11/20/21 06:04 PT 15.10 SECONDS (12.1-14.9) H 11/14/21 10:29 INR 1.15 (0.8-1.2) 11/14/21 10:29 Specimen Type Arterial 11/18/21 04:00 Sample Site Radial, right 11/18/21 04:00 ABG pH 7.39 (7.35-7.45) 11/18/21 04:00 ABG pCO2 30.5 mmHg (35-45) L 11/18/21 04:00 ABG pO2 69.8 mmHg (80.0-100.0) L 11/18/21 04:00 ABG HCO3 18.4 mmol/L (22-26) L 11/18/21 04:00 ABG Base Excess -5.8 mmol/L (-2.0-2.0) L 11/18/21 04:00 Maikol Test Pos 11/18/21 04:00 Hematocrit 28.3 % (37-47) L 11/18/21 04:00 O2 Delivery Device Vent 11/18/21 04:00 FiO2 35.0 % 11/18/21 04:00 Tidal Volume 0.45 11/18/21 04:00 PEEP 6.0 cmH20 11/18/21 04:00 Soaking Pits Supervisor ID [email or web address] 11/18/21 04:00 Sodium 139 mmol/L (136-145) 11/22/21 01:35 Potassium 3.0 mmol/L (3.5-5.1) L 11/22/21 01:35 Chloride 102 mmol/L (98-107) 11/22/21 01:35 Carbon Dioxide 26 mmol/L (22-29) 11/22/21 01:35 Anion Gap 14.0 (5-19) 11/22/21 01:35 BUN 3 mg/dL (6-20) L 11/22/21 01:35 Creatinine 0.3 mg/dL (0.5-0.9) L 11/22/21 01:35 GFR Calculation 227.7 mL/min (90-130) H 11/22/21 01:35 Glucose 111 mg/dL (65-115) 11/22/21 01:35 POC Glucose 150 mg/dL (70-110) H 11/22/21 11:05 Calculated Osmolality 285 mOsm/kg (285-295) 11/22/21 01:35 Lactate 0.8 mmol/L (0.5-2.2) 11/22/21 07:55 Calcium 7.5 mg/dL (8.5-10.5) L 11/22/21 01:35 Magnesium 1.7 mg/dL (1.7-2.3) 11/22/21 07:55 Total Bilirubin 0.5 mg/dL (0.15-1.2) 11/22/21 01:35 AST 23 U/L (0-32) 11/22/21 01:35 ALT 18 U/L (0-33) 11/22/21 01:35 Alkaline Phosphatase 80 IU/L (35-105) 11/22/21 01:35 C-Reactive Protein 169.3 mg/L (0.0-4.9) H 11/14/21 11:10 Total Protein 5.9 g/dL (6.6-8.7) L 11/22/21 01:35 Albumin 2.5 g/dL (3.5-5.2) L 11/22/21 01:35 Globulin 3.4 g/dL (1.3-4.6) 11/22/21 01:35 Lipase 10 U/L (13-60) L 11/14/21 11:10 Carcinoembryonic Ag 2.7 ng/mL (0.0-4.7) 11/14/21 11:10 Procalcitonin 0.24 ng/mL (0-0.5) 11/22/21 01:35 Procalcitonin Cancelled 11/22/21 01:35 TSH 0.59 uIU/mL (0.27-4.20) 11/17/21 17:40 Urine Color Yellow (Yellow) 11/14/21 13:50 Urine Appearance Clear (CLEAR) 11/14/21 13:50 Urine pH 7 (5-7) 11/14/21 13:50 Ur Specific [place] 1.000 (1.005-1.030) L 11/14/21 13:50 Urine Protein Trace (Negative) 11/14/21 13:50 Urine Glucose (UA) Norm (Normal) 11/14/21 13:50 Urine Ketones Negative (Negative) 11/14/21 13:50 Urine Blood Neg (Negative) 11/14/21 13:50 Urine Nitrate Negative (Negative) 11/14/21 13:50 Urine Bilirubin Neg (Negative) 11/14/21 13:50 Urine Urobilinogen 1 mg/dL (Negative) H 11/14/21 13:50 Ur Leukocyte Esterase Negative (Negative) 11/14/21 13:50 Ur Microscopic Indic Cancelled 11/14/21 13:50 Urine RBC 0-4 /hpf (0-2) H 11/14/21 13:50 Urine WBC 0-4 /hpf (0-5) H 11/14/21 13:50 Ur Squamous Epith Cells 5-10 /hpf (0-5) H 11/14/21 13:50 Amorphous Sediment Not Reportable 11/14/21 13:50 Urine Bacteria None /hpf (NONE) 11/14/21 13:50 Vancomycin Trough 12.0 ug/mL (10-15) 11/22/21 01:35 Coronavirus 229E (PCR) Not detected (NOT DETECT) 11/22/21 08:15 Hepatitis A IgM Ab Non-reactive (Nonreactive) 11/14/21 11:10 Hep Bs Antigen Non-reactive (Nonreactive) 11/14/21 11:10 Hep B Core IgM Ab Non-reactive (Nonreactive) 11/14/21 11:10 Hepatitis C Antibody Reactive (Nonreactive) H 11/14/21 11:10 HCV RNA (PCR) IUs/ml <1.18 not detected Log IU/mL (NOT DETECTED) 11/14/21 15:51 HCV RNA (PCR) IU log10 <15 not detected IU/mL (NOT DETECTED) 11/14/21 15:51 SARS-CoV-2 (PCR) Not detected (NOT DETECT) 11/22/21 08:15 Vitals Last Vital Signs Temp 98.1 F 11/22/21 11:28 Pulse 84 11/22/21 11:28 Resp 16 11/22/21 11:28 BP 124/73 11/22/21 11:28 Pulse Ox 94 11/22/21 11:28 Discharge Plan Discharge Patient Disposition: Home Condition: Stable Prescriptions: New hydrocodone-acetaminophen 5-325 mg tablet 1 - 2 tab PO Q5H PRN (Reason: pain) Qty: 30 0RF Augmentin 875-125 mg tablet 1 tab PO BID Qty: 15 0RF Vitamin B-1 (mononitrate) 100 mg Tablet 100 mg PO DAILY Qty: 30 0RF folic acid 1 mg tablet 1 mg PO DAILY Qty: 30 0RF potassium chloride 10 mEq capsule, extended release 10 meq PO DAILY Qty: 30 1RF magnesium 200 mg tablet 200 mg PO DAILY Qty: 30 3RF Continued ondansetron HCl [Zofran] 4 mg tablet 4 mg PO Q6H PRN (Reason: nausea and vomiting) Qty: 10 0RF metformin 500 mg tablet 500 mg PO DAILY 0RF Rx Instructions: RX FILLED 11/13/21 NOT PICKED UP YET RX LAST PICKED UP 10/13/21 PT STATES SHE IS UNSURE IF SHE IS TAKING THIS PLAIN OR IF SHE IS TAKING THE ER FILLED ON 10/13/21 90D/S atorvastatin 10 mg tablet 10 mg PO QAM 0RF Vitamin B-12 250 mcg Tablet 250 mcg PO DAILY 0RF omeprazole 40 mg capsule,delayed release(DR/EC) 40 mg PO QAM 0RF triamterene-hydrochlorothiazid 37.5-25 mg capsule 1 cap PO BID 0RF amlodipine 10 mg tablet 10 mg PO QAM 0RF buspirone 30 mg tablet 30 mg PO QAM 0RF albuterol sulfate 90 mcg/actuation HFA aerosol inhaler 2 puff INHALATION Q4H PRN (Reason: Shortness Of Breath) 0RF metformin 500 mg tablet extended release 24 hr 500 mg PO DAILY 0RF Rx Instructions: RX FILLED 10/13/21 90D/S PT STATES SHE IS UNSURE IF SHE IS TAKING THE ER OR THE PLAIN PT STATES SHE MAYBE TAKING BOTH Medrol (Philip) 4 mg tablets,dose pack See Rx Instructions .ROUTE .COMPLEX 0RF Rx Instructions: orally per package directions Discharge Orders: Discharge Order (Routine); Ordered 11/22/21 Ordered By: Kathie Shah Referrals: Quinten Mukherjee MD [Physician] - 7-10 days (Nursing: Please have the patient / family call Dr. Mukherjee's office on Wednesday ([phone]) and make an appointment for the patient to be seen in 7-10 days.) Discharge Diet: Advance as tolerated Discharge Activity: Limit activity as instructed Patient Instructions: Opioid Safety Activity Restrictions/Additional Instructions: 1. Appointment to see Dr. Mukherjee in 7? days as above. 2. May shower at home as discussed. 4. [place] 5/325 1-2 tablets by mouth every 5 hours as needed for pain. #30, no refills. 4. Augmenting 875/125 1 tablet by mouth twice daily until gone. #15, no refills. No lifting over 20 pounds, no repetitive bending or twisting, no strenuous pushing / pulling or other heavy activity. Ambulate regularly. May go up and down steps if needed. Discharge Attestations Time Spent in Discharge Care*: less than 30 min Quality Metrics Clinical Quality Measures [ No reported AMI, CVA or VTE this stay] Coding Level of Care Code Acute g FW DC note Diagnoses Perforation of sigmoid colon due to diverticulitis K57.20
--- NOTE | 2021-11-22 15:24 | PC.NURSE ---
PT STATED I WILL GET HOME HEALTH WHEN I GET OUT OF HERE, I WILL CALL MY INSURANCE AND GET IT ALL SET UP. PT WAS EDUC AND DEMONSTRATED CHANGING HER COLOSTOMY APPLIANCE.
[2021-11-22 15:30] VITALS: BP 124/73; PULSE 84; RESP 16; TEMP 36.7; O2SAT 94
== END 2021-11-22 15:05 | disposition home health service (06) | DRG 853 ==
LOC: ER 11:43 → ICU 14:01 → MEDSURG 11-20 20:35
PROVIDERS: Internal Medicine; Nurse Practitioner Family; Surgery; Admitting Provider Internal Medicine; Emergency Provider Family Medicine; Visit Provider Internal Medicine
PROC: 0DBN0ZZ Excision of Sigmoid Colon, Open Approach (ICD-10-PCS; CPT 44143; principal; 2021-11-17 13:00)
PROC: 0DBN0ZZ Excision of Sigmoid Colon, Open Approach (ICD-10-PCS; 2021-11-17 13:00)
PROC: 0DBN0ZZ Excision of Sigmoid Colon, Open Approach (ICD-10-PCS; CPT 44950; 2021-11-17 13:00)
DX: A41.9 Sepsis, unspecified organism (principal); K65.9 Peritonitis, unspecified; K57.20 Diverticulitis of large intestine with perforation and abscess without bleeding; D62 Acute posthemorrhagic anemia; E11.9 Type 2 diabetes mellitus without complications; E78.5 Hyperlipidemia, unspecified; I10 Essential (primary) hypertension; F17.210 Nicotine dependence, cigarettes, uncomplicated; F10.10 Alcohol abuse, uncomplicated; I95.9 Hypotension, unspecified; E87.6 Hypokalemia; B19.20 Unspecified viral hepatitis C without hepatic coma; E83.42 Hypomagnesemia
CPT/HCPCS: 36415; 36416; 36600; 51702; 71045; 74177; 74178; 80048; 80053; 80074; 80202; 81001; 82378; 82803; 82962; 83605; 83690; 83735; 84145; 84443; 85007; 85025; 85610; 86140; 87040; 87070; 87075; 87077; 87186; 87205; 87522; 87635; 88304; 88309; 93005; 93306; 94002; 94003; 94640; 94799; 96365; 96366; 96367; 96372; 96375; 97110; 97161; 97530; 99285; A4570; C9113; J0330; J0690; J1100; J1644; J1815; J1885; J1940; J2250; J2270; J2370; J2405; J2543; J2704; J2710; J3010; J3370; J3411; J3475; J3480; J3490; J7030; J7050; J7614; P9041; Q9967; S0030

== ENCOUNTER 2021-12-06 12:04 | Inpatient (IN) | payer MEDICARE, MEDICAID, SELFPAY ==
[2021-12-06] VITALS (13 sets, daily range): BP systolic 89–119; BP diastolic 67–84; PULSE 94–116; RESP 13–20; TEMP 36.3–37.4; O2SAT 91–98; BMI 29.0
--- NOTE | 2021-12-06 13:58 | W.ED.WOUNDLC ---
HPI - Wound/Laceration General: Chief Complaint: Wound/Laceration Stated Complaint: Ad[place]omen Situation Time Seen by Provider: 12/06/21 12:40 Source: patient and family Mode of arrival: ambulatory Limitations: no limitations History of Present Illness: This patient is approximately 1 month out from a colon resection with a diverting colostomy which the patient states is due to diverticulitis. She was sent to the emergency department by her home health nurse who was concerned about the appearance of her incision today. Apparently there was some bleeding and drainage from the incision. Patient states she is not any fevers or chills and has been eating and drinking normally. She states she has been emptying her colostomy bag approximately once daily. There is been no change in the effluent from her colostomy. Associated symptoms: Denies chills or fever(s) Review of Systems Const: Denies: fever(s), chills or body aches Eyes: Denies: change in vision ENMT: Denies: throat pain or odynophagia Card: Denies: chest pain, palpitations or irregular heart rhythm Resp: Denies: dyspnea, productive cough or non-productive cough : Denies: flank pain, difficulty voiding or dysuria Skin/Breast: Denies: rash, pruritus or erythema Neuro: Denies: headache(s), numbness in extremities or weakness in extremities Endo: Denies: polyuria or polydipsia Eduin/Lymph: Denies: easy bruising or easy bleeding PFS ED PFSH: Medical History Alcohol use Cholelithiasis Diabetes Diverticulitis Diverticulosis Hyperlipidemia Hypertension Hypokalemia Hypotension Pelvic abscess Perforation of sigmoid colon due to diverticulitis Surgical History History of bilateral inguinal hernia repair History of tonsillectomy History of tympanoplasty L eardrum rupture repair Family History Father Cancer Colon cancer Social History Smoking and tobacco status: current every day smoker Alcohol intake: former Year of sobriety/quit date alcohol: 2021 Former alcohol use details: Drank about 1/2 pint of vodka daily up until early October 2021 Current occupation: Pt on disability for 2.5 years due to fallen arches. Physical Exam Narrative: EXAM NARRATIVE: Patient is alert cooperative makes good eye contact. Const: COMMON NORMALS: no acute distress and patient oriented x3 HENMT: COMMON NORMALS: normocephalic, atraumatic and Normal external nose present HEAD & SCALP: normocephalic and atraumatic NOSE: Normal external nose present MOUTH: Normal oral and palatal mucosa present Eye: COMMON NORMALS: Equal, round and reactive pupils present, EOMs intact bilaterally and no scleral icterus PUPIL: Yes Equal, round and reactive pupils present Neck/C-Spine: COMMON NORMALS: full ROM, no lymphadenopathy and no JVD Lymph: LYMPHATIC: no lymphadenopathy noted Chest: COMMONS NORMALS: normal inspection of the chest Resp: COMMON NORMALS: normal respiratory effort, No retractions and clear to auscultation bilaterally AUSCULTATION: clear to auscultation bilaterally Cardio: COMMON NORMALS: no JVD, regular rate, regular rhythm and No murmurs present (Cardio) RATE: regular rate RHYTHM: regular rhythm GI: OTHER: Abdominal examination reveals a ostomy to the left paramedian region with ostomy apparatus and appliance in situ. Drinking normally without any evidence of bleeding or other abnormal color effluent. Midline surgical incision below the umbilicus is notable that it has an area of wound separation in the midportion of the wound which measures approximately 3 to 4 cm in length. It appears to extend down into the subcutaneous fat but not past the fat. There is some serosanguineous and somewhat purulent appearing drainage. No erythema. No active bleeding. I removed the appliance from her stoma and it has an atypical appearance to my eye. The it appears that there is a significant breakdown of the bowel skin interface. Back/Pelvis: COMMON NORMALS: thoracic and lumbar spine normal to inspection and no thoracic nor lumbar tenderness Extremity: COMMON NORMALS: normal to inspection, full ROM, no joint enlargement and no pedal edema Neuro: COMMON NORMALS: patient oriented x3, no focal motor deficits and no sensory deficits noted Course ED course: The patient CT scan and was reviewed. She does have leukocytosis as well as some other minor electrolyte abnormalities. I have some asiya discussions with the patient regarding her ability to care for self and was not left with a reassuring feeling that she would be able to care for this wound at home and I am concerned there would continue to deteriorate and become progressive problem. I think the best plan of care at this point is to admit her to the hospital, get wound culture, start IV antibiotics and have the inpatient team do aggressive wound management and teaching for this patient. The patient acknowledged this and was agreeable to the plan. Consultations: Consultation #1: I talked with Dr. Kendall briefly reviewed the case. He asked me to call Dr. Mukherjee first to ensure that he did not want to see this patient. We will going proceed with imaging at this time. Time: 14:15 Consultation #2: I was able to speak with Dr. Mukherjee. He said that he would be happy to be involved in her care after her imaging was done. Time: : Consultation #3: Spoke with hospitalist, Dr. Muniz as well as Dr. Mukherjee again. The patient will be admitted to surgery service with medicine consultation Time: 17:00 Vital Signs: Vital signs: Vital Signs Temperature 99.4 F 12/06/21 12:31 Pulse Rate 116 H 12/06/21 12:31 Respiratory Rate 18 12/06/21 12:31 Blood Pressure 119/76 12/06/21 12:31 Pulse Oximetry 98 12/06/21 12:31 MDM - Wound/Laceration Medical Decision Making Patient with comorbidities of diabetes as well as concerned about ability to properly treat her wound effectively at home in addition she has a leukocytosis today with a history of changing wound appearance and concerns about possible developing infection. No evidence of abscess or other concerns on CT scan at this time. Both general surgery and hospitalist service was consulted and agreed with the plan. Lab Data : 12/06/21 14:21 12/06/21 14:21 Radiology Impressions Abdomen/Pelvis CT 12/06/21 14:17 IMPRESSION: 1. Recent placement of a diverting left lower abdominal colostomy with some peristomal fat herniation. There is soft tissue inflammation and trace fluid surrounding the ostomy without a walled-off fluid collection/abscess. 2. Cholelithiasis. Laboratory Results WBC 16.7 10^3/uL (4.0-10.0) H 12/06/21 14:21 RBC 3.53 10^6/uL (4.1-5.3) L 12/06/21 14:21 Hgb 10.1 g/dL (11.5-15.3) L 12/06/21 14:21 Hct 31.6 % (37.0-47.0) L 12/06/21 14:21 MCV 89.5 fl (81-99) 12/06/21 14:21 MCH 28.6 pg (28.0-34.0) 12/06/21 14:21 MCHC 32.0 g/dL (30.0-36.0) 12/06/21 14:21 RDW 13.9 % (12.1-15.1) 12/06/21 14:21 Plt Count 483 10^3/cmm (130-400) H 12/06/21 14:21 MPV 10.3 fL (7.4-10.4) 12/06/21 14:21 Neut % (Auto) 78.6 % 12/06/21 14:21 Lymph % (Auto) 11.0 % 12/06/21 14:21 [place] % (Auto) 9.3 % 12/06/21 14:21 Eos % (Auto) 0.8 % 12/06/21 14:21 Baso % (Auto) 0.3 % 12/06/21 14:21 Neut # (Auto) 12.24 10^3/uL (1.8-7.7) H 12/06/21 14:21 Lymph # (Auto) 1.8 10^3/uL (0.8-4.8) 12/06/21 14:21 [place] # (Auto) 1.6 10^3/uL (0.2-0.9) H 12/06/21 14:21 Eos # (Auto) 0.1 10^3/uL (0.0-0.8) 12/06/21 14:21 Baso # (Auto) 0.1 10^3/uL (0.0-0.1) 12/06/21 14: Nucleated RBC % (auto) 0 % 12/06/21 14: Nucleated RBCs # 0.0 /100WBC 12/06/21 14:21 Sodium 128 mmol/L (136-145) L 12/06/21 14:21 Potassium 3.6 mmol/L (3.5-5.1) 12/06/21 14:21 Chloride 90 mmol/L (98-107) L 12/06/21 14:21 Carbon Dioxide 23 mmol/L (22-29) 12/06/21 14:21 Anion Gap 18.6 (5-19) 12/06/21 14:21 BUN 15 mg/dL (6-20) 12/06/21 14:21 Creatinine 0.6 mg/dL (0.5-0.9) 12/06/21 14:21 GFR Calculation 102.3 mL/min (90-130) 12/06/21 14:21 Glucose 145 mg/dL (65-115) H 12/06/21 14:21 Calculated Osmolality 269 mOsm/kg (285-295) L 12/06/21 14:21 Calcium 9.8 mg/dL (8.5-10.5) 12/06/21 14:21 Total Bilirubin 0.4 mg/dL (0.15-1.2) 12/06/21 14:21 AST 93 U/L (0-32) H 12/06/21 14:21 ALT 62 U/L (0-33) H 12/06/21 14:21 Alkaline Phosphatase 117 IU/L (35-105) H 12/06/21 14:21 Total Protein 8.0 g/dL (6.6-8.7) 12/06/21 14:21 Albumin 3.7 g/dL (3.5-5.2) 12/06/21 14:21 Globulin 4.3 g/dL (1.3-4.6) 12/06/21 14:21 SARS-CoV-2 Ag (Rapid) Negative (Negative) 12/06/21 14:29 Discharge Plan Discharge Patient Disposition: Admitted As Inpatient Clinical Impression: Postoperative wound dehiscence, Diabetes, Hyponatremia Condition: Stable Coding Level of Care Code ED [place] [employer] Buffer for Chg Fwd Exam Comprehensive
--- NOTE | 2021-12-06 14:17 | CTR_ITS ---
PROCEDURE INFORMATION: Exam: CT Abdomen And Pelvis With Contrast Exam date and time: 12/06/2021 2:17 PM Age: 61 years old Clinical indication: Abdominal pain; Localized; Lower; Prior surgery; Surgery date: <1 month; Surgery type: Colostomy. Bowel is coming out of the whole; Additional info: Post op wound TECHNIQUE: Imaging protocol: Computed tomography of the abdomen and pelvis with contrast. Radiation optimization: All CT scans at this facility use at least one of these dose optimization techniques: automated exposure control; mA and/or kV adjustment per patient size (includes targeted exams where dose is matched to clinical indication); or iterative reconstruction. Contrast material: OMNI 300; Contrast volume: 95 ml; Contrast route: INTRAVENOUS (IV); COMPARISON: CT abdomen pelvis wo/w [id number] 11/17/2021 9:44 AM RADIATION DOSE METRICS: Total DLP (mGy-cm): 1799.56 FINDINGS: Lungs: Calcified granuloma at the posterior right lung base. Liver: Normal. No mass. Gallbladder and bile ducts: Gallstone filled gallbladder. No wall thickening or distention. No ductal dilation. Pancreas: Normal. No ductal dilation. Spleen: A few punctate calcified granulomas noted. No splenomegaly. Adrenal glands: Normal. No mass. Kidneys and ureters: 1.7 cm simple exophytic cyst noted along the mid/lower aspect of the left kidney. No hydronephrosis. Stomach and bowel: Left lower abdominal colostomy noted. No obstruction. Colonic diverticula noted within the descending colon. Appendix: No evidence of appendicitis. Intraperitoneal space: Unremarkable. No free air. No significant fluid collection. Vasculature: Unremarkable. No abdominal aortic aneurysm. Lymph nodes: Unremarkable. No enlarged lymph nodes. Urinary bladder: Unremarkable as visualized. Reproductive: Unremarkable as visualized. Bones/joints: No acute fracture. Soft tissues: Diverting left lower abdominal colostomy noted with some peristomal fat herniation. Soft tissue inflammation and trace fluid noted surrounding the ostomy. No walled-off fluid collection/abscess is appreciated. Trace air within the midline incision noted. CT/CT abdomen pelvis w con* [id number] IMPRESSION: 1. Recent placement of a diverting left lower abdominal colostomy with some peristomal fat herniation. There is soft tissue inflammation and trace fluid surrounding the ostomy without a walled-off fluid collection/abscess. 2. Cholelithiasis.
[2021-12-06 14:34] LABS: Basophils # 0.1 10^3/uL (0.0-0.1); Basophils % 0.3 %; Eosinophils # 0.1 10^3/uL (0.0-0.8); Eosinophils % 0.8 %; Hematocrit 31.6 % (37.0-47.0); Hemoglobin 10.1 g/dL (11.5-15.3); Lymphocytes # 1.8 10^3/uL (0.8-4.8); Mean Corpuscular Hemoglobin 28.6 pg (28.0-34.0); Mean Corpuscular Volume 89.5 fl (81-99); Mean Platelet Volume 10.3 fL (7.4-10.4); Monocytes # 1.6 10^3/uL (0.2-0.9); Monocytes % 9.3 %; Neutrophils # 12.24 10^3/uL (1.8-7.7); Nucleated Red Blood Cells % 0 %; Platelet Count 483 10^3/cmm (130-400); Red Blood Count 3.53 10^6/uL (4.1-5.3); Red Cell Distribution Width 13.9 % (12.1-15.1); White Blood Count 16.7 10^3/uL (4.0-10.0)
[2021-12-06 14:45] LABS: Neutrophils % 78.6 %
[2021-12-06] MEDS: iohexol 300 mg/mL 100 mL Btl IV (14:46)
[2021-12-06 14:54] LABS: Alanine Aminotransferase 62 U/L (0-33); Albumin Level 3.7 g/dL (3.5-5.2); Alkaline Phosphatase 117 IU/L (35-105); Anion Gap 18.6 (5-19); Aspartate Amino Transferase 93 U/L (0-32); Blood Urea Nitrogen 15 mg/dL (6-20); Calcium 9.8 mg/dL (8.5-10.5); Carbon Dioxide 23 mmol/L (22-29); Chloride 90 mmol/L (98-107); Globulin 4.3 g/dL (1.3-4.6); Glomerular Filtration Rate 102.3 mL/min (90-130); Glucose 145 mg/dL (65-115); Osmolality Calculated 269 mOsm/kg (285-295); Potassium 3.6 mmol/L (3.5-5.1); Sodium 128 mmol/L (136-145); Total Bilirubin 0.4 mg/dL (0.15-1.2)
[2021-12-06 15:04] LABS: SARS Covid-2 Antigen Negative (Negative)
--- NOTE | 2021-12-06 17:07 | PM.CONSULT ---
Providers/Reason For Consult Consulting Physician/Specialty*: MD Te[facility]/ Internal Medicine Reason for Consult*: Medical co-morbidities Requesting Physician: ER Physician Primary Care Provider: Ingrid Santiago MD History of Present Illness History of Present Illness Tangela Mckeon is a 61 year old female with past medical history of hypertension, type 2 diabetes mellitus who was recently discharged 2 weeks ago when she was admitted for perforated diverticulitis abscess. During that hospitalization on 11/17 she underwent exploratory laparotomy with distal sigmoid colectomy, abscess drainage, incidental appendectomy with colostomy, she was kept on ventilator for about 24 hours after the surgery for concern related to aspiration of bile.? She was extubated on 11/18, did well after that, she was kept on vancomycin and Zosyn, blood cultures negative, she has persistent leukocytosis however remained afebrile, and so was discharged on Augmentin. On review of culture results patient's abdominal cultures grew E. coli which was pansensitive. She was sent into the ER today by her home health nurse with concerns on how her surgical incision looked. As per the patient her surgical wound has been having on and off bleeding and drainage which on occasion has been foul-smelling and purulent as well. Patient denies any subjective feels of fever but does agree with occasional chills. States her appetite has been appropriate and at her baseline. States she was draining the ostomy bag at least once a day. Denies any change in the drainage through the ostomy tube. In the ER she was found to be having a low-grade fever of 99.4 with a tachycardia of 116 with labs showing leukocytosis, hyponatremia. CT abdomen was done with results as below. Medicine was consulted to take care of medical comorbidities. In ER Tylenol patient has received IV Zosyn. Review of Systems General: Reports: 10 or more systems reviewed and unremarkable except in HPI and below Const: Denies: fever(s), chills, body aches, change in appetite, change in weight, malaise, night sweats, diaphoresis, change in sleep pattern, daytime sleepiness or snoring Eyes: Denies: change in vision, blurry vision, photophobia, eye discomfort or eye discharge ENMT: Denies: throat pain, enlarged tonsils, hoarseness, mouth pain, oral sores, dry mouth, tinnitus, nasal congestion or post nasal drip Card: Denies: chest pain, palpitations, irregular heart rhythm, edema, swelling of feet/ankles, lightheadedness, syncope, pre-syncope, dyspnea on exertion, orthopnea, leg pain with exertion or acrocyanosis Resp: Denies: dyspnea, productive cough, non-productive cough, wheezing, stridor, pain on inspiration, change in phlegm color, hemoptysis or chest congestion GI: Denies: abdominal pain, nausea, vomiting, hematemesis, coffee ground emesis, dysphagia, heartburn, diarrhea, constipation, bloating, GI cramping, change in bowel habits, pain on defecation, hematochezia or melena : Denies: flank pain, dysuria, urinary frequency, urinary urgency, urinary hesitancy, nocturia or hematuria Musc: Denies: neck pain, back pain, extremity pain, joint pain, joint swelling, joint redness, joint stiffness or limited range of motion Neuro: Denies: headache(s), numbness in extremities, weakness in extremities, sensory changes, lack of coordination, difficulty walking, frequent falls, dizziness, vertigo, confusion, Slurred speech present, difficulty communicating thoughts or seizure-like activity Psych: Denies: anxiety, depression, mood swings, panic attacks, hopelessness or irritability Endo: Denies: polyuria, polydipsia, tired all the time, cold intolerance, excessive sweating, flushing or heat intolerance Eduin/Lymph: Denies: easy bruising or easy bleeding All/Imm: Denies: tongue swelling, facial swelling or acute wheezing Medications/Allergies Home Medications Medication Instructions Recorded Confirmed Last Taken Type albuterol sulfate 90 mcg/actuation 2 puff INHALATION Q4H PRN 11/14/21 12/06/21 Unknown History aerosol inhaler amlodipine 10 mg tablet 10 mg PO DAILY 11/14/21 12/06/21 12/05/21 History atorvastatin 10 mg tablet 10 mg PO DAILY 11/14/21 12/06/21 12/05/21 History buspirone 30 mg tablet 30 mg PO QAM 11/14/21 12/06/21 12/05/21 History cyanocobalamin (vitamin B-12) 250 250 mcg PO DAILY 11/14/21 12/06/21 12/05/21 History mcg tablet (Vitamin B-12) metformin 500 mg tablet 500 mg PO DAILY 11/14/21 12/06/21 Unknown History omeprazole 40 mg capsule,delayed 40 mg PO DAILY 11/14/21 12/06/21 12/05/21 History release triamterene 37.5 1 cap PO BID 11/14/21 12/06/21 12/05/21 History mg-hydrochlorothiazide 25 mg capsule potassium chloride 10 mEq 10 meq PO DAILY #30 cap 11/22/21 12/06/21 12/05/21 Rx capsule,extended release trazodone 100 mg tablet 100 mg PO BEDTIME 12/06/21 12/06/21 12/05/21 History Allergies Allergy/AdvReac Type Severity Reaction Status Date / Time doxycycline Allergy ALGY-Anaphy Verified 12/06/21 12:31 laxis levofloxacin [From Levaquin] Allergy ALGY-Anaphy Verified 12/06/21 12:31 laxis PFSH Acute PFSH: Medical History Alcohol use Cholelithiasis Colostomy in place Diabetes Diverticulitis Diverticulosis Hyperlipidemia Hypertension Hypokalemia Pelvic abscess Perforation of sigmoid colon due to diverticulitis Surgical History H/O exploratory laparotomy History of bilateral inguinal hernia repair History of tonsillectomy History of tympanoplasty L eardrum rupture repair Status post colectomy Family History Father Cancer Colon cancer Social History Smoking and tobacco status: current every day smoker Alcohol intake: current Alcohol type: hard liquor Alcohol use comment: [place] Current occupation: Pt on disability for 2.5 years due to fallen arches. Vitals/I&O/Wt Last Vital Signs Temp 99.4 F 12/06/21 12:31 Pulse 116 H 12/06/21 12:31 Resp 18 12/06/21 12:31 BP 119/76 12/06/21 12:31 Pulse Ox 98 12/06/21 12:31 Weight last 48 hrs Weight 79.152 kg Physical Exam Narrative: General: No acute distress, AO x3 HEENT: PERRLA, pupils bilaterally equal and reactive Chest: Normal vesicular breath sounds, no added sounds, equal good air entry bilaterally CVS: S1-S2 regular, no murmurs, no tachycardia, no gallops, no rubs Abdomen: Soft, nontender, no organomegaly, bowel sounds present but sluggish Saturated bandage over the lower midline wound. Upon removing this she has probably a 4 cm opening at the incision with fluid that does appear do be somewhat purulent and it is somewhat malodorous, as well. Neuro: No focal deficits, no facial deformity, AO x3, power 5/5 in all limbs Data : 12/06/21 14:21 12/06/21 14:21 Other Labs: Radiology Impressions Abdomen/Pelvis CT 12/06/21 14:17 IMPRESSION: 1. Recent placement of a diverting left lower abdominal colostomy with some peristomal fat herniation. There is soft tissue inflammation and trace fluid surrounding the ostomy without a walled-off fluid collection/abscess. 2. Cholelithiasis. Laboratory Results WBC 16.7 10^3/uL (4.0-10.0) H 12/06/21 14:21 RBC 3.53 10^6/uL (4.1-5.3) L 12/06/21 14:21 Hgb 10.1 g/dL (11.5-15.3) L 12/06/21 14:21 Hct 31.6 % (37.0-47.0) L 12/06/21 14:21 MCV 89.5 fl (81-99) 12/06/21 14:21 MCH 28.6 pg (28.0-34.0) 12/06/21 14:21 MCHC 32.0 g/dL (30.0-36.0) 12/06/21 14:21 RDW 13.9 % (12.1-15.1) 12/06/21 14:21 Plt Count 483 10^3/cmm (130-400) H 12/06/21 14:21 MPV 10.3 fL (7.4-10.4) 12/06/21 14:21 Neut % (Auto) 78.6 % 12/06/21 14:21 Lymph % (Auto) 11.0 % 12/06/21 14:21 [place] % (Auto) 9.3 % 12/06/21 14:21 Eos % (Auto) 0.8 % 12/06/21 14:21 Baso % (Auto) 0.3 % 12/06/21 14:21 Neut # (Auto) 12.24 10^3/uL (1.8-7.7) H 12/06/21 14:21 Lymph # (Auto) 1.8 10^3/uL (0.8-4.8) 12/06/21 14:21 [place] # (Auto) 1.6 10^3/uL (0.2-0.9) H 12/06/21 14:21 Eos # (Auto) 0.1 10^3/uL (0.0-0.8) 12/06/21 14:21 Baso # (Auto) 0.1 10^3/uL (0.0-0.1) 12/06/21 14:21 Nucleated RBC % (auto) 0 % 12/06/21 14:21 Nucleated RBCs # 0.0 /100WBC 12/06/21 14:21 Sodium 128 mmol/L (136-145) L 12/06/21 14:21 Potassium 3.6 mmol/L (3.5-5.1) 12/06/21 14:21 Chloride 90 mmol/L (98-107) L 12/06/21 14:21 Carbon Dioxide 23 mmol/L (22-29) 12/06/21 14:21 Anion Gap 18.6 (5-19) 12/06/21 14:21 BUN 15 mg/dL (6-20) 12/06/21 14:21 Creatinine 0.6 mg/dL (0.5-0.9) 12/06/21 14:21 GFR Calculation 102.3 mL/min (90-130) 12/06/21 14:21 Glucose 145 mg/dL (65-115) H 12/06/21 14:21 Calculated Osmolality 269 mOsm/kg (285-295) L 12/06/21 14:21 Calcium 9.8 mg/dL (8.5-10.5) 12/06/21 14:21 Total Bilirubin 0.4 mg/dL (0.15-1.2) 12/06/21 14:21 AST 93 U/L (0-32) H 12/06/21 14:21 ALT 62 U/L (0-33) H 12/06/21 14:21 Alkaline Phosphatase 117 IU/L (35-105) H 12/06/21 14:21 Total Protein 8.0 g/dL (6.6-8.7) 12/06/21 14:21 Albumin 3.7 g/dL (3.5-5.2) 12/06/21 14:21 Globulin 4.3 g/dL (1.3-4.6) 12/06/21 14:21 SARS-CoV-2 Ag (Rapid) Negative (Negative) 12/06/21 14:29 A&P Assessment and plan (1) Postoperative wound infection: Status: Acute (2) Colostomy in place: Status: Acute (3) Diabetes: Status: Acute Plan 61-year-old female with recent discharge from the hospital post exploratory laparotomy and sigmoid resection with colostomy for 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 Sepsis: Present on admission. Ruled in with tachycardia, leukocytosis, low-grade fever. Lactate pending. Check blood culture, local wound culture, urinalysis, urine culture, procalcitonin, MRSA swab. Previous cultures from recent OR positive for E. coli which was pansensitive and anaerobes. For now start patient on vancomycin and Zosyn. Will de-escalate antibiotics as per culture results. Keep mean arterial pressure over 65. For now start patient on normal saline at 75 cc/h. Wound dehiscence: Treatment of a possible infection as above. Surgical correction as per surgical team. Local wound care as per surgical team. [place] 5 mg every 8 hours as needed for pain. Anticoagulation, diet as per surgical team. Hyponatremia: Check urinalysis, urine lites. Most likely secondary to excessive fluid loss from surgical wound and ostomy. IV fluids as above. We will monitor BMP daily for now. Type 2 diabetes mellitus: Insulin sliding scale. Stop OHA's. Check HbA1c. When able to eat will start on carb consistent diet. Hypertension: Goal blood pressure less than 140/90 mmHg. Continue with home dose of amlodipine. Check iron panel, TSH, lipid panel, A1c. Full code. SCDs for DVT prophylaxis. Pharmacological prophylaxis as per surgical team. Out of bed to chair. Protonix for PUD prophylaxis Consult Attestations Medical Necessity Statement: Needs admission most likely for more than 2 midnights for wound dehiscence with recent history of colostomy, sepsis Time Spent in Patient Care: Greater than 35 minutes Coding Level of Care Code Acute Disc Pad Plate Filler for Chg Fwd Diagnoses Colostomy in place Z93.3 Diabetes E11.9 Postoperative wound infection T81.49XA
--- NOTE | 2021-12-06 17:28 | PM.HP ---
Providers/Chief Complaint Admitting Physician: General Surgery Quinten Mukherjee MD Primary Care Provider: Ingrid Santiago MD Chief Complaint: Abdominal wound History of Present Illness Tangela Mckeon is a 61 year old female who underwent a Pierre procedure nearly 3 weeks ago following failed medical management of perforated sigmoid diverticulitis. Her colostomy was dusky and probably somewhat necrotic above the level of the fascia postoperatively but appeared to remain viable up to that point and has not required revision up to this point. She did have somewhat of a mild persistent leukocytosis after growing pansensitive E. coli from her peritoneal fluid during her hospitalization so she was eventually discharged on Augmentin. Arrangements for home health were made. The patient apparently was visited by home health several days later and told them that she did not need their help. I just found out about this 4 days ago when I saw her in the office. At that time she had separation of the lower aspect of her wound and had some serosanguineous drainage which was not being tended to. I cleaned the wound and packed it in the office and we made arrangements for home health to start seeing her again on a daily basis. She says the first time they came back was today and after seeing the open wound the home health care nurse sent the patient to the emergency department. The drainage was described to be more purulent than what I saw several days ago. The patient has diabetes; when I asked her if she been checking her blood sugars herself at home, she told me that she has no way to do that. The patient says she has not been running fevers. She is having some difficulty with her colostomy, as she doesn't have any help at home (after sending home health away) and continues to drink alcohol, smoke cigarettes, and has overall somewhat poor hygiene. A CAT scan was done in the emergency department to day which did not reveal any obvious intraperitoneal problems, but arrangements were made for the patient to be admitted for treatment for a probable wound infection. Review of Systems General: Reports: 10 or more systems reviewed and unremarkable except in HPI and below Const: Denies: fever(s) GI: Reports: abdominal pain Medications/Allergies Home Medications Medication Instructions Recorded Confirmed Last Taken Type albuterol sulfate 90 mcg/actuation 2 puff INHALATION Q4H PRN 11/14/21 12/06/21 Unknown History aerosol inhaler amlodipine 10 mg tablet 10 mg PO DAILY 11/14/21 12/06/21 12/05/21 History atorvastatin 10 mg tablet 10 mg PO DAILY 11/14/21 12/06/21 12/05/21 History buspirone 30 mg tablet 30 mg PO QAM 11/14/21 12/06/21 12/05/21 History cyanocobalamin (vitamin B-12) 250 250 mcg PO DAILY 11/14/21 12/06/21 12/05/21 History mcg tablet (Vitamin B-12) metformin 500 mg tablet 500 mg PO DAILY 11/14/21 12/06/21 Unknown History omeprazole 40 mg capsule,delayed 40 mg PO DAILY 11/14/21 12/06/21 12/05/21 History release triamterene 37.5 1 cap PO BID 11/14/21 12/06/21 12/05/21 History mg-hydrochlorothiazide 25 mg capsule potassium chloride 10 mEq 10 meq PO DAILY #30 cap 11/22/21 12/06/21 12/05/21 Rx capsule,extended release trazodone 100 mg tablet 100 mg PO BEDTIME 12/06/21 12/06/21 12/05/21 History Allergies Allergy/AdvReac Type Severity Reaction Status Date / Time doxycycline Allergy ALGY-Anaphy Verified 12/06/21 12:31 laxis levofloxacin [From Levaquin] Allergy ALGY-Anaphy Verified 12/06/21 12:31 laxis PFSH Acute PFSH: Medical History Alcohol use Cholelithiasis Colostomy in place Diabetes Diverticulitis Diverticulosis Hyperlipidemia Hypertension Hypokalemia Pelvic abscess Perforation of sigmoid colon due to diverticulitis Surgical History H/O exploratory laparotomy History of bilateral inguinal hernia repair History of tonsillectomy History of tympanoplasty L eardrum rupture repair Status post colectomy Family History Father Cancer Colon cancer Social History (Updated 12/06/21 @ 17:36 by Quinten Mukherjee MD) Smoking and tobacco status: current every day smoker Alcohol intake: current Alcohol type: hard liquor Alcohol use comment: Sendy Current occupation: Pt on disability for 2.5 years due to fallen arches. Vitals/I&O/Wt Last Vital Signs Temp 99.4 F 12/06/21 12:31 Pulse 116 H 12/06/21 12:31 Resp 18 12/06/21 12:31 BP 119/76 12/06/21 12:31 Pulse Ox 98 12/06/21 12:31 Weight last 48 hrs Weight 174 lb 8 oz Physical Exam Narrative: The patient was encountered in her room in the emergency department. She does not appear to be in any distress. The pupils are equal. The lungs seem clear anteriorly. The heart is regular. The abdomen is obese. The colostomy bag is in place in the left lower quadrant. The patient has a somewhat saturated bandage over the lower midline wound. Upon removing this she has probably a 4 cm opening at the incision with fluid that does appear do be somewhat purulent and it is somewhat malodorous, as well. The extremities reveal no edema. Neurologically the patient appears to be grossly intact. Data : 12/06/21 14:21 12/06/21 14:21 CT Abd/Pel: Radiologist's impression: CT abdomen/pelvis December 06 2021 impression: IMPRESSION: 1. Recent placement of a diverting left lower abdominal colostomy with some peristomal fat herniation. There is soft tissue inflammation and trace fluid surrounding the ostomy without a walled-off fluid collection/abscess. 2. Cholelithiasis. A&P Assessment and plan (1) Postoperative wound infection: The patient's wound does appear do be infected. I told her that I think she needs a be in the hospital given the fact that she is having difficulty trying a deal with this by herself at home. It does not help that she discontinued home health at her own discretion after only one visit. She has multiple risk factors including alcohol and ongoing tobacco use, obesity, poor hygiene, diabetes, etc. The patient is agreeable with the being in the hospital for at least a short time. I am going make arrangements to go irrigate the wound out today so that we can get ahead of this sooner than later. I will likely be discussing placement with her in the next couple of days, as I don't think she is going do do well at home by herself. Status: Acute Attestations Medical Necessity Statement*: Based on my medical assessment, presenting symptoms, medical accuity and consideration of surgical therapy, I expect this patient will require treatment in the hospital for a period spanning at least 2 midnights. Coding Level of Care Code Acute Senior Sales Manager for Cristy Donovan Diagnoses Postoperative wound infection T81.49XA
--- NOTE | 2021-12-06 18:07 | ANES.PREANE2 ---
Pre-Anesthetic Assessment Height/Weight: Height 1.65 m Weight 79.152 kg Temp Pulse Resp BP Pulse Ox 99.4 F 116 H 18 119/76 98 12/06/21 12:31 12/06/21 12:31 12/06/21 12:31 12/06/21 12:31 12/06/21 12:31 Preop Diagnosis: ruptured diverticulum Familial anesthetic complications: None Was Beta Mike taken within 24 hours: N/A Was Clonidine taken within 24 hours: N/A Social No alcohol and No tobacco Exam alert, oriented x 3, clear to auscultation bilaterally and regular rate & rhythm Airway Submandibular: within normal limits Cervical ROM: within normal limits Mallampati: Class II Dentition: chipped History/ROS No significant complaints Pulmonary Exertional Dyspnea CV/HEM Hypertension and None reported TTE 11/2021 CONCLUSIONS ?LV systolic function is normal with EF of 55-60% ?Grade 1 diastolic dysfunction ?Trace mitral regurgitation ?Mild tricuspid regurgitation ?Midlly dilated ascending aorta ?No comparison studies are available Hepatic Elevated LFTS ETOH abuse GI Gastroesophageal Reflux Disease Metabolic Diabetes Mellitus [facility] Post op wound dehiscence Neuropsych None reported Anesthetic Plan ASA status: 3 Anesthesia: Anesthesia Evaluation and General Other: We discussed risk and benefits of general anesthesia including PONV, sore throat (sometimes severe), corneal abrasion, positioning and peripheral nerve injuries, life threatening allergic reaction, post operative ICU admission requiring prolonged intubation, stroke, heart attack, , and rare incidences of recall. Patient consents to proceed with general anesthesia. Plan RSI, GETA, awake extubation Risk of > 500 ml blood loss (7ml/kg in children): No Other Pertinent Information Bile aspiration with prior anesthetic. Medications/Allergies Home Medications Medication Instructions Recorded Confirmed Last Taken Type albuterol sulfate 90 mcg/actuation 2 puff INHALATION Q4H PRN 11/14/21 12/06/21 Unknown History aerosol inhaler amlodipine 10 mg tablet 10 mg PO DAILY 11/14/21 12/06/21 12/05/21 History atorvastatin 10 mg tablet 10 mg PO DAILY 11/14/21 12/06/21 12/05/21 History buspirone 30 mg tablet 30 mg PO QAM 11/14/21 12/06/21 12/05/21 History cyanocobalamin (vitamin B-12) 250 250 mcg PO DAILY 01/12/06/21 12/05/21 History mcg tablet (Vitamin B-12) metformin 500 mg tablet 500 mg PO DAILY 11/14/21 12/06/21 Unknown History omeprazole 40 mg capsule,delayed 40 mg PO DAILY 11/14/21 12/06/21 12/05/21 History release triamterene 37.5 1 cap PO BID 11/14/21 12/06/21 12/05/21 History mg-hydrochlorothiazide 25 mg capsule potassium chloride 10 mEq 10 meq PO DAILY #30 cap 11/22/21 12/06/21 12/05/21 Rx capsule,extended release trazodone 100 mg tablet 100 mg PO BEDTIME 12/06/21 12/06/21 12/05/21 History Allergies Allergy/AdvReac Type Severity Reaction Status Date / Time doxycycline Allergy ALGY-Anaphy Verified 12/06/21 12:31 laxis levofloxacin [From Levaquin] Allergy ALGY-Anaphy Verified 12/06/21 12:31 laxis [facility] Anesthesia Medical History Alcohol use Cholelithiasis Colostomy in place Diabetes Diverticulitis Diverticulosis Hyperlipidemia Hypertension Hypokalemia Pelvic abscess Perforation of sigmoid colon due to diverticulitis Surgical History H/O exploratory laparotomy History of bilateral inguinal hernia repair History of tonsillectomy History of tympanoplasty L eardrum rupture repair Status post colectomy Family History Father Cancer Colon cancer Social History Smoking and tobacco status: current every day smoker Alcohol intake: current Alcohol type: hard liquor Alcohol use comment: Sendy Current occupation: Pt on disability for 2.5 years due to fallen arches. Data Anesthesia : 12/06/21 14:21 12/06/21 14:21 Short CBC 12/06/21 Range/Units 14:21 WBC 16.7 H (4.0-10.0) 10^3/uL Hgb 10.1 L (11.5-15.3) g/dL Hct 31.6 L (37.0-47.0) % MCV 89.5 (81-99) fl Plt Count 483 H (130-400) 10^3/cmm Neut % (Auto) 78.6 % Neut # (Auto) 12.24 H (1.8-7.7) 10^3/uL BMP 12/06/21 14:21 Sodium 128 L Potassium 3.6 Chloride 90 L Carbon Dioxide 23 BUN 15 Creatinine 0.6 Glucose 145 H Calcium 9.8 Liver Function 12/06/21 Range/Units 14:21 Total Bilirubin 0.4 (0.15-1.2) mg/dL AST 93 H (0-32) U/L ALT 62 H (0-33) U/L Alkaline Phosphatase 117 H (35-105) IU/L Albumin 3.7 (3.5-5.2) g/dL COVID Results 12/06/21 14:29 SARS-CoV-2 Ag (Rapid) Negative Cardiac Studies: Echocardiogram 11/18/21
[2021-12-06 18:09] LABS: Add Urine Microscopic? YES; Bilirubin Urine Neg (Negative); Blood Urine 3+ (Negative); Glucose Urine UA Norm (Normal); Ketones Urine Negative (Negative); Leukocyte Esterase Urine 1+ (Negative); Nitrate Urine Negative (Negative); Protein Urine Trace (Negative); Urine Appearance Clear (CLEAR); Urine Color Yellow (Yellow); Urobilinogen Urine Norm (Negative); pH Urine 7 (5-7)
[2021-12-06 18:13] LABS: Bacteria Urine TRACE /hpf; Mucus Urine TRACE /hpf; RBC Urine 0-4 /hpf (0-2); Squamous Epithelial Cell Urine 0-4 /hpf (0-5)
[2021-12-06 18:14] LABS: Add Urine Culture? Yes
[2021-12-06] MEDS: piperacillin-tazobactam 3.375 GM in sodium chloride 0.9% (plus) 50 ML IV (18:37)
[2021-12-06] MEDS: vancomycin 1,250 MG/250 ML PIGGYBACK 250 MG IV (18:58)
--- NOTE | 2021-12-06 19:06 | PM.OP ---
Operative Report Date of procedure: December 06, 2021 Pre-op diagnosis: Preop Diagnosis postoperative abdominal wound infection. Post-op diagnosis: Same. Procedure done: Wound irrigation. Attention to colostomy. Specimens removed/disposition: Aerobic and anaerobic cultures of lower midline wound (see dictation). Surgeon: General Surgery Quinten Mukherjee MD Estimated blood loss: Less than 5 mL. Complications: None. Brief History: This is a 61-year-old white female who underwent a Pierre procedure nearly 3 weeks ago. She was sent home on some oral antibiotics. Home health was arranged, but she apparently told them that she did not need them the, after their first visit. Her wound started breaking down and was draining some serosanguineous fluid earlier this week. I found out that she had canceled her home health and reinstituted it. The home health care nurse just came for the first time again today and thought the wound looks somewhat purulent and so she sent the patient to the emergency department. A CAT scan showed no problems in the peritoneal cavity, but clinically she has a lower midline wound infection. Procedure: The patient was brought in the operating room and was placed in a supine position on the operating room table. General endotracheal anesthesia was induced. The colostomy bag was removed and the abdomen was prepped and draped in a sterile fashion. The Pulsavac irrigation system was used to irrigate the open wound at the inferior aspect of the midline incision. This measured about 3 to 4 cm in greatest diameter vertically. After irrigation had already begun, I began the wonder if the wound cultures that I had asked for in the emergency department had been done. Some aerobic and anaerobic cultures were taken of the wound by myself in the operating room, but as mentioned, irrigation had already significantly begun. By finger dissection the wound seemed a track superiorly on top of the fascia. A significant fluid collection was never found. The wound was packed with Kerlix. A superficial dressing was applied. Attention was then directed towards the colostomy. It was known that some of the tissue had necrosed postoperatively and pulled away from the edges but the colostomy was able be cleaned up nicely so that I could get a good look at its condition. The colon was still viable but had pulled away from almost every edge. The tissue was fairly good, however, and so to keep the colostomy open and hopefully obliterate some of the space between the skin and the colon, several sutures of to 0 Vicryl were placed on the inferior aspect and brought some of the redundant colon back to the skin edge. A new appliance was placed. The patient was subsequently taken to the recovery room in stable condition postoperatively.
--- NOTE | 2021-12-06 19:08 | ANE.PACU2 ---
Inpatient post-anesthesia follow up: Vital signs: Temperature 99.4 F Pulse Rate 106 Respiratory Rate 13 Blood Pressure 115/81 Pulse Oximetry 93 Oxygen Delivery Me thod Room Air Oxygen Flow Rate Fraction of Inspir ed Oxygen
[2021-12-06 19:59] LABS: Glucose Point of Care 135 mg/dL (70-110)
[2021-12-06] MEDS: sodium chloride 0.9% 1,000 ML 75 ML IV (20:16)
[2021-12-06] MEDS: pantoprazole 40 mg SDV IVP (20:24)
[2021-12-06] MEDS: trazodone 100 mg Tablet PO (20:24)
[2021-12-06] MEDS: ondansetron 2 mg/ML SDV 2 mL 4 MG IVP (20:24)
[2021-12-06 21:20] LABS: Lactic Sepsis W/Reflex 1.6 mmol/L (0.5-2.2)
[2021-12-06 21:31] LABS: Thyroid Stimulating Hormone 0.69 uIU/mL (0.27-4.20)
[2021-12-06 21:42] LABS: Iron 28 ug/dL (37-145)
[2021-12-06 21:48] LABS: Percent Saturation 11.5 % (20-50); Total Iron Binding Capacity 242 mcg/dl; Unsaturated Iron Binding 214 ug/dL (112-347)
[2021-12-06 23:55] LABS: Glucose Point of Care 140 mg/dL (70-110)
[2021-12-07] VITALS (11 sets, daily range): BP systolic 103–124; BP diastolic 65–79; PULSE 82–99; RESP 16–18; TEMP 36.6–37.9; O2SAT 93–95
[2021-12-07] MEDS: piperacillin-tazobactam 3.375 GM in sodium chloride 0.9% (plus) 50 ML IV ×3 (03:00→19:33)
[2021-12-07] MEDS: lanolin oint 7 gm 1 APPLIC TOPICAL (03:14)
[2021-12-07] MEDS: HYDROcodone-acetaminophen 5-325 mg Tablet 1 TAB PO ×3 (04:11→20:33)
[2021-12-07 05:00] LABS: Basophils % 0.3 %; Eosinophils # 0.3 10^3/uL (0.0-0.8); Eosinophils % 2.3 %; Hematocrit 28.3 % (37.0-47.0); Hemoglobin 8.6 g/dL (11.5-15.3); Lymphocytes # 2.2 10^3/uL (0.8-4.8); Lymphocytes % 18.7 %; Mean Corpuscular HGB Conc 30.4 g/dL (30.0-36.0); Mean Corpuscular Hemoglobin 28.3 pg (28.0-34.0); Mean Corpuscular Volume 93.1 fl (81-99); Mean Platelet Volume 10.1 fL (7.4-10.4); Monocytes # 1.5 10^3/uL (0.2-0.9); Monocytes % 12.2 %; Neutrophils # 7.07 10^3/uL (1.8-7.7); Neutrophils % 59.4 %; Nucleated Red Blood Cells % 0.2 %; Platelet Count 433 10^3/cmm (130-400); Red Blood Count 3.04 10^6/uL (4.1-5.3); Red Cell Distribution Width 14.2 % (12.1-15.1); White Blood Count 11.9 10^3/uL (4.0-10.0)
[2021-12-07 05:15] LABS: Alanine Aminotransferase 51 U/L (0-33); Alkaline Phosphatase 104 IU/L (35-105); Anion Gap 15.3 (5-19); Aspartate Amino Transferase 64 U/L (0-32); Blood Urea Nitrogen 11 mg/dL (6-20); Calcium 8.9 mg/dL (8.5-10.5); Carbon Dioxide 22 mmol/L (22-29); Chloride 96 mmol/L (98-107); Chol HDL Ratio 4.77 mg/dL (0.0-4.40); Cholesterol 124 mg/dL (0-200); Globulin 4.3 g/dL (1.3-4.6); Glomerular Filtration Rate 126.3 mL/min (90-130); Glucose 135 mg/dL (65-115); HDL Cholesterol 26 mg/dL (60-100); LDL Cholesterol Calculated 61 mg/dL (50-129); LDL HDL Ratio 2.35 RATIO (0.00-3.22); Magnesium 1.9 mg/dL (1.7-2.3); Osmolality Calculated 271 mOsm/kg (285-295); Phosphorus 3.4 mg/dL (2.5-4.5); Potassium 3.3 mmol/L (3.5-5.1); Sodium 130 mmol/L (136-145); Total Bilirubin 0.3 mg/dL (0.15-1.2); Total Protein 7.3 g/dL (6.6-8.7); Triglycerides 185 mg/dL (0-150)
[2021-12-07 05:20] LABS: Estmated Average Glucose 120; Hemoglobin A1C 5.8 % (4.0-6.0)
[2021-12-07 05:32] LABS: Slide Review Slide Review Perform
[2021-12-07] MEDS: BuSPIRONE 10 mg Tablet 30 MG PO (05:39)
[2021-12-07] MEDS: vancomycin 1,250 MG/250 ML PIGGYBACK 250 MG IV ×2 (05:39→18:12)
[2021-12-07] MEDS: sodium chloride 0.9% 1,000 ML 75 ML IV (05:40)
[2021-12-07 06:36] LABS: Glucose Point of Care 130 mg/dL (70-110)
--- NOTE | 2021-12-07 07:47 | ANE.PACU2 ---
Inpatient post-anesthesia follow up: Airway intact: Yes Vital signs: Temperature 98.2 F Pulse Rate 82 Respiratory Rate 17 Blood Pressure 103/70 Pulse Oximetry 94 Oxygen Delivery Me thod Room Air Oxygen Flow Rate 6 Fraction of Inspir ed Oxygen Hydration adequate: Yes Nausea and vomiting: No Pain level: 1 Mental status: Baseline
--- NOTE | 2021-12-07 09:19 | P.PN_ITS ---
Subjective Subjective: The patient says her abdomen already feels better today. She admits that she will not able to take care of this herself at home, as already evidenced by the last several weeks. She states she would be willing to go to a different facility for further convalescence/rehabilitation, if needed. I have already asked case management to get involved in her case. Vitals/I&O/Wt Last Vital Signs Temp 98.9 F 12/07/21 08:00 Pulse 95 12/07/21 08:58 Resp 18 12/07/21 08:58 BP 109/65 12/07/21 08:00 Pulse Ox 94 12/07/21 08:58 12/06/21 12/07/21 12/07/21 22:59 06:59 14:59 Intake Total 660 / 1615 955 / 1615 290 / 290 Output Total 5 / 405 400 / 405 Balance 655 / 1210 555 / 1210 290 / 290 Weight last 48 hrs Weight 174 lb 8 oz Physical Exam Narrative: The patient is afebrile. The colostomy is functioning. The wound packing was removed and the nurses getting ready repacked the wound. Data : 12/07/21 04:17 12/07/21 04:17 Micro: Microbiology 12/06/21 17:44 Bacterial Antigens - Final Urine Kidney 12/06/21 20:55 Blood Culture - Preliminary Blood SPECIMEN COLLECTED 12/06/21 20:55 Blood Culture - Preliminary Blood SPECIMEN COLLECTED A&P Assessment and plan (1) Postoperative wound infection: Status post wound exploration/irrigation and attention to colostomy on to 2021. I could not appreciate an obvious connection between the retracted colostomy and the patient's midline wound at the time of exploration, but this remains a p ossibility if the colon has not affixed itself to the muscular layer well. We will have to see how the midline wound does with local wound care. In the interim, the patient says she is willing to go to a different facility while this continues to heal, if necessary. It is clear that she is not going be able do this herself at home without a tremendous amount of help, and she says the home health care nurses only told her they could come once or twice a week previously. I already asked case management get involved as of yesterday. Status: Acute Attestations Medical Necessity Statement*: The patient requires continued inpatient care for intravenous antibiotics and wound care for now. Coding Level of Care Code Acute Organ Pipe Finisher for [facility] Fwd Diagnoses Postoperative wound infection T81.49XA
[2021-12-07] MEDS: atorvastatin 40 mg Tablet 20 MG PO (09:41)
[2021-12-07] MEDS: amlodipine 10 mg Tablet PO (09:41)
[2021-12-07] MEDS: heparin 5,000 unit/mL INJ 1 mL 5000 UNIT SUBCUT ×2 (10:14→20:34)
[2021-12-07] MEDS: potassium chloride ER 20 mEq Tablet 40 MEQ PO (11:29)
[2021-12-07 11:49] LABS: Glucose Point of Care 207 mg/dL (70-110)
[2021-12-07] MEDS: insulin lispro 100 unit/1 mL SUBCUT ×2 (12:08→20:34)
--- NOTE | 2021-12-07 12:29 | P.PN_ITS ---
Subjective Subjective: No acute events overnight. Today morning on examination patient sitting comfortably in bed. Yesterday evening patient underwent wound irrigation, attention to colostomy in OR with surgical team. Patient tolerated the procedure well. Overnight has remained hemodynamically stable and afebrile. Continues to remain on room air. Continues to pass stool through stoma. Vitals/I&O/Wt Last Vital Signs Temp 99.2 F 12/07/21 11:27 Pulse 89 12/07/21 11:27 Resp 18 12/07/21 11:27 BP 110/69 12/07/21 11:27 Pulse Ox 95 12/07/21 11:27 12/06/21 12/07/21 12/07/21 22:59 06:59 14:59 Intake Total 660 / 660 955 / 1615 290 / 290 Output Total 5 / 5 400 / 405 Balance 655 / 655 555 / 1210 290 / 290 Weight last 48 hrs Weight 79.152 kg Physical Exam Narrative: General: No acute distress, AO x3 HEENT: PERRLA, pupils bilaterally equal and reactive Chest: Normal vesicular breath sounds, no added sounds, equal good air entry bilaterally CVS: S1-S2 regular, no murmurs, no tachycardia, no gallops, no rubs Abdomen: Soft, nontender, no organomegaly, bowel sounds present but sluggish Surgical dressing present. Clear and clean. Neuro: No focal deficits, no facial deformity, AO x3, power 5/5 in all limbs Data : 12/07/21 04:17 12/07/21 04:17 Micro: Microbiology 12/06/21 20:00 MRSA Culture - Final Nose 12/06/21 18:45 Gram Stain - Final Abdomen 12/06/21 17:44 Bacterial Antigens - Final Urine Kidney 12/06/21 20:55 Blood Culture - Preliminary Blood SPECIMEN COLLECTED 12/06/21 20:55 Blood Culture - Preliminary Blood SPECIMEN COLLECTED A&P Assessment and plan (1) Postoperative wound infection: Status: Acute (2) Colostomy in place: Status: Acute (3) Diabetes: Status: Acute Plan 61-year-old female with recent discharge from the hospital post exploratory laparotomy and sigmoid resection with colostomy for 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 Sepsis: Present on admission. Ruled in with tachycardia, leukocytosis, low-grade fever. Resolving. Follow-up culture results. For now continue with vancomycin and Zosyn. Previous cultures from recent OR positive for E. coli which was pansensitive and anaerobes. Keep mean artery pressure over 65. As patient is tolerating oral diet well will stop IV fluids. Wound dehiscence: Post wound irrigation day 0. [place] 5 mg every 8 hours as needed for pain. Started on diet and anticoagulation as per surgical team. Hyponatremia: Resolving. Most likely secondary to excessive fluid loss from surgical wound and ostomy. IV fluids as above. We will monitor BMP daily for now. Type 2 diabetes mellitus: HbA1c 5.8. Carb consistent diet. Insulin sliding scale at low-dose protocol. Hypertension: Goal blood pressure less than 140/90 mmHg. Continue with home dose of amlodipine. Continue other chronic oral medications. Start on oral iron supplementation. Full code. SCDs for DVT prophylaxis. Heparin for DVT prophylaxis. Out of bed to chair. Protonix for PUD prophylaxis. Replete potassium. Case management consult. Patient would require placement to SNF as it seems she is unable to take care of herself at home leading to wound dehiscence in view of recent expiratory laparotomy for pelvic abscess. Attestations Medical Necessity Statement*: As per primary team Time Spent in Patient Care: 16 - 35 minutes Coding Level of Care Code Acute Audio Visual Director for Cristy Donovan Diagnoses Postoperative wound infection T81.49XA Colostomy in place Z93.3 Diabetes E11.9
--- NOTE | 2021-12-07 16:48 | PC.NURSE ---
positive blood culture messaged to Dr. Reagan, repeat blood cultures ordered.
[2021-12-07 17:12] LABS: Glucose Point of Care 115 mg/dL (70-110)
[2021-12-07] MEDS: pantoprazole 40 mg SDV IVP (18:00)
[2021-12-07] MEDS: ferrous gluconate 324 mg Tablet PO (18:00)
[2021-12-07 19:45] LABS: Glucose Point of Care 171 mg/dL (70-110)
[2021-12-07] MEDS: trazodone 100 mg Tablet PO (20:34)
[2021-12-08] VITALS (10 sets, daily range): BP systolic 109–128; BP diastolic 71–78; PULSE 90–101; RESP 13–18; TEMP 36.6–37.4; O2SAT 89–95
[2021-12-08] MEDS: piperacillin-tazobactam 3.375 GM in sodium chloride 0.9% (plus) 50 ML IV ×2 (02:05→11:23)
[2021-12-08] MEDS: BuSPIRONE 10 mg Tablet 30 MG PO (05:45)
[2021-12-08] MEDS: vancomycin 1,250 MG/250 ML PIGGYBACK 250 MG IV (05:46)
[2021-12-08 06:30] LABS: Glucose Point of Care 131 mg/dL (70-110)
[2021-12-08] MEDS: heparin 5,000 unit/mL INJ 1 mL 5000 UNIT SUBCUT ×2 (08:23→20:18)
[2021-12-08] MEDS: amlodipine 10 mg Tablet PO (08:23)
[2021-12-08] MEDS: ferrous gluconate 324 mg Tablet PO ×2 (08:23→17:47)
[2021-12-08] MEDS: atorvastatin 40 mg Tablet 20 MG PO (08:23)
[2021-12-08 11:07] LABS: Hematocrit 26.5 % (37.0-47.0); Hemoglobin 8.2 g/dL (11.5-15.3); Mean Corpuscular HGB Conc 30.9 g/dL (30.0-36.0); Mean Corpuscular Hemoglobin 28.6 pg (28.0-34.0); Mean Corpuscular Volume 92.3 fl (81-99); Mean Platelet Volume 9.7 fL (7.4-10.4); Platelet Count 382 10^3/cmm (130-400); Red Blood Count 2.87 10^6/uL (4.1-5.3); Red Cell Distribution Width 13.9 % (12.1-15.1); White Blood Count 11.7 10^3/uL (4.0-10.0)
[2021-12-08 11:26] LABS: Glucose Point of Care 133 mg/dL (70-110)
[2021-12-08 11:39] LABS: Slide Review Slide Review Perform
[2021-12-08 11:43] LABS: Absolute Eosinophils 0.3 10^3/cmm (0.0-0.7); Absolute Neutrophil 8.8 10^3/cmm (1.4-6.5); Absolute Segmented Neutrophil 7.3 10/cmm (1.6-7.1); Band Neutrophils Absolute 1.5 10^3/cmm (0.0-1.2); Eosinophils 3 %; Lymphocytes 17 %; Monocytes Absolute 0.2 10^3/cmm (0.1-0.6); Platelet Estimate Normal (Normal); Segmented Neutrophils 62 %; Total Cells Counted 100 (0-100)
--- NOTE | 2021-12-08 12:26 | PM.PN ---
Subjective Subjective: The patient says she feels well. She tells me her colostomy bag got so full last night that it fell off when she got up to go the bathroom. Vitals/I&O/Wt Last Vital Signs Temp 99.3 F 12/08/21 04:00 Pulse 94 12/08/21 11:45 Resp 13 12/08/21 11:45 BP 124/76 12/08/21 11:45 Pulse Ox 94 12/08/21 11:45 12/07/21 12/08/21 12/08/21 22:59 06:59 14:59 Intake Total 780 / 2205 350 / 2205 Output Total 370 / 870 500 / 870 200 / 200 Balance 410 / 1335 -150 / 1335 -200 / -200 Weight last 48 hrs Weight 174 lb 8 oz Physical Exam Narrative: The patient's bandage has a little bit of dark brown saturation at the very bottom. As I remove this the packing does not seem to have the same material on it, however. Data : 12/08/21 10:53 12/07/21 04:17 Micro: Microbiology 12/06/21 20:55 Blood Culture - Preliminary Blood Staphylococcus sp coag neg 12/06/21 20:55 Blood Culture - Preliminary Blood 12/06/21 18:45 Gram Stain - Final Abdomen Wound Culture - Preliminary Gram Negative Rods Gram Negative Rods#2 12/06/21 17:28 Wound Culture - Preliminary Abdomen Gram Negative Rods Gram Negative Rods#2 12/06/21 17:44 Urine Culture - Final Urine,Clean Catch 12/08/21 04:44 Blood Culture - Preliminary Blood SPECIMEN COLLECTED 12/08/21 04:40 Blood Culture - Preliminary Blood SPECIMEN COLLECTED 12/06/21 20:00 MRSA Culture - Final Nose 12/06/21 17:44 Bacterial Antigens - Final Urine Kidney A&P Assessment and plan (1) Postoperative wound infection: Status post wound exploration/irrigation and attention to colostomy on to 2021. The patient has some dark brown saturation of the inferior portion of the dressing over her midline wound. Her packing does not seem that show the same discoloration, and with her colostomy mishap last night, I am not sure what the make of this. I am concerned that she may have some type of fistulous tract through the subcutaneous tissue at her colostomy that is contributing to this wound. I told her that because it is difficult for me to tell what's going on here with any certainty today, I am going to reevaluate this tomorrow. If she does have a fistula, unfortunately she is going have to have a revision of her colostomy done or this will never heal, and she cannot continue to deal with this until a time when she could consider a colostomy takedown. She seems to understand. Status: Acute Attestations Medical Necessity Statement*: Patient requires continued inpatient care for intravenous antibiotics and wound care until placement can be established. Coding Level of Care Code Acute Dispatcher Automobile Rental for Cristy Donovan Diagnoses Postoperative wound infection T81.49XA
[2021-12-08] MEDS: vancomycin 1,000 MG in sodium chloride 0.9% 250 ML 250 MG IV ×2 (14:52→21:16)
--- NOTE | 2021-12-08 16:09 | P.PN_ITS ---
Subjective Subjective: No acute events overnight. On examination today patient is lying comfortably in bed. Asking for dressing to be changed. On examination patient dressing in the inferior region is brownish in color. States overnight her colostomy bag also hold back when she woke up it fell off. Has remained hem odynamically stable, on room air. T-max last 24 hours 100.3 Fahrenheit Vitals/I&O/Wt Last Vital Signs Temp 98.9 F 12/08/21 16:00 Pulse 93 12/08/21 16:00 Resp 15 12/08/21 16:00 BP 122/73 12/08/21 16:00 Pulse Ox 95 12/08/21 16:00 12/08/21 12/08/21 12/08/21 06:59 14:59 22:59 Intake Total 350 / 2205 50 / 50 Output Total 500 / 870 200 / 200 Balance -150 / 1335 -200 / -200 50 / -150 Physical Exam Narrative: General: No acute distress, AO x3 HEENT: PERRLA, pupils bilaterally equal and reactive Chest: Normal vesicular breath sounds, no added sounds, equal good air entry bilaterally CVS: S1-S2 regular, no murmurs, no tachycardia, no gallops, no rubs Abdomen: Soft, nontender, no organomegaly, bowel sounds present but sluggish Surgical dressing present. Brownish discoloration in the inferior region. Colostomy present with fecal material in colostomy bag Neuro: No focal deficits, no facial deformity, AO x3, power 5/5 in all limbs Data : 12/08/21 10:53 12/07/21 04:17 Micro: Microbiology 12/06/21 18:45 Gram Stain - Final Abdomen Anaerobic Culture - Preliminary Wound Culture - Preliminary Gram Negative Rods Gram Negative Rods#2 12/06/21 20:55 Blood Culture - Preliminary Blood Staphylococcus sp coag neg 12/06/21 20:55 Blood Culture - Preliminary Blood 12/06/21 17:28 Wound Culture - Preliminary Abdomen Gram Negative Rods Gram Negative Rods#2 12/06/21 17:44 Urine Culture - Final Urine,Clean Catch 12/08/21 04:44 Blood Culture - Preliminary Blood SPECIMEN COLLECTED 12/08/21 04:40 Blood Culture - Preliminary Blood SPECIMEN COLLECTED 12/06/21 20:00 MRSA Culture - Final Nose A&P Assessment and plan (1) Postoperative wound infection: Status: Acute (2) Colostomy in place: Status: Acute (3) Diabetes: Status: Acute Plan 61-year-old female with recent discharge from the hospital post exploratory laparotomy and sigmoid resection with colostomy for 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 Sepsis: Present on admission. Ruled in with tachycardia, leukocytosis, low-grade fever. Resolving. Wound culture results growing gram-negative rods. For now continue with vancomycin. MRSA negative. Given to different creatinine gram-negative rods in wound culture and persistent leukocytosis when few spikes of fever for now we will switch from Zosyn to imipenem for better pseudomonal coverage. Previous cultures from recent OR positive for E. coli which was pansensitive and anaerobes. Keep mean artery pressure over 65. Coag negative bacteremia: 1 out of 4 bottles from admission positive. Most like ly contaminant. Repeat blood cultures sent today. Patient already on vancomycin. If repeat blood cultures remain negative can stop vancomycin as MRSA is also negative. Wound dehiscence/surgical wound infection: Post wound irrigation day 1. [place] 5 mg every 8 hours as needed for pain. Started on diet and anticoagulation as per surgical team. Dressing change as per surgical team. Hyponatremia: Resolving. Most likely secondary to excessive fluid loss from surgical wound and ostomy. IV fluids as above. We will monitor BMP daily for now. Type 2 diabetes mellitus: HbA1c 5.8. Carb consistent diet. Insulin sliding scale at low-dose protocol. Hypertension: Goal blood pressure less than 140/90 mmHg. Continue with home dose of amlodipine. Continue other chronic oral medications. Start on oral iron supplementation. Full code. SCDs for DVT prophylaxis. Heparin for DVT prophylaxis. Out of bed to chair. Protonix for PUD prophylaxis. Replete potassium. Case management consult. Patient would require placement to SNF as it seems she is unable to take care of herself at home leading to wound dehiscence in view of recent expiratory laparotomy for pelvic abscess. Attestations Medical Necessity Statement*: Needs further hospitalization for management of sepsis with antibiotics, possible repeat or revision of colostomy in setting of wound dehiscence from surgical wound infection, coag negative bacteremia Time Spent in Patient Care: Greater than 35 minutes Coding Level of Care Code Acute Client Experience Consultant for [facility] Fwd Diagnoses Postoperative wound infection T81.49XA Colostomy in place Z93.3 Diabetes E11.9
[2021-12-08] MEDS: pantoprazole 40 mg SDV IVP (16:52)
[2021-12-08 17:00] LABS: Glucose Point of Care 130 mg/dL (70-110)
[2021-12-08] MEDS: trazodone 100 mg Tablet PO (20:18)
[2021-12-08 20:30] LABS: Glucose Point of Care 149 mg/dL (70-110)
[2021-12-09] VITALS (17 sets, daily range): BP systolic 116–142; BP diastolic 75–86; PULSE 83–100; RESP 14–18; TEMP 36.6–37.8; O2SAT 91–97
[2021-12-09] MEDS: vancomycin 1,000 MG in sodium chloride 0.9% 250 ML 250 MG IV ×3 (04:52→21:19)
[2021-12-09] MEDS: BuSPIRONE 10 mg Tablet 30 MG PO (04:53)
[2021-12-09 05:41] LABS: Basophils # 0.1 10^3/uL (0.0-0.1); Basophils % 0.7 %; Eosinophils # 0.4 10^3/uL (0.0-0.8); Eosinophils % 4.6 %; Hemoglobin 7.8 g/dL (11.5-15.3); Lymphocytes # 1.9 10^3/uL (0.8-4.8); Mean Corpuscular Hemoglobin 28.8 pg (28.0-34.0); Mean Corpuscular Volume 95.9 fl (81-99); Mean Platelet Volume 9.9 fL (7.4-10.4); Monocytes # 0.9 10^3/uL (0.2-0.9); Monocytes % 11.5 %; Neutrophils # 4.16 10^3/uL (1.8-7.7); Neutrophils % 51.5 %; Nucleated Red Blood Cells % 0 %; Platelet Count 402 10^3/cmm (130-400); Red Blood Count 2.71 10^6/uL (4.1-5.3); Red Cell Distribution Width 14.1 % (12.1-15.1); White Blood Count 8.1 10^3/uL (4.0-10.0)
[2021-12-09 05:55] LABS: Alanine Aminotransferase 45 U/L (0-33); Albumin Level 2.8 g/dL (3.5-5.2); Alkaline Phosphatase 93 IU/L (35-105); Anion Gap 14.1 (5-19); Aspartate Amino Transferase 54 U/L (0-32); Blood Urea Nitrogen 4 mg/dL (6-20); Calcium 8.4 mg/dL (8.5-10.5); Carbon Dioxide 24 mmol/L (22-29); Chloride 103 mmol/L (98-107); Globulin 3.6 g/dL (1.3-4.6); Glomerular Filtration Rate 227.7 mL/min (90-130); Glucose 138 mg/dL (65-115); Osmolality Calculated 285 mOsm/kg (285-295); Potassium 3.1 mmol/L (3.5-5.1); Sodium 138 mmol/L (136-145); Total Bilirubin 0.2 mg/dL (0.15-1.2); Total Protein 6.4 g/dL (6.6-8.7)
[2021-12-09 05:57] LABS: Slide Review Slide Review Perform
[2021-12-09 06:25] LABS: Glucose Point of Care 195 mg/dL (70-110)
--- NOTE | 2021-12-09 07:40 | PM.PN ---
Subjective Subjective: The patient continues to feel well. Her only complaint this morning is a dry mouth. Vitals/I&O/Wt Last Vital Signs Temp 98.1 F 12/09/21 07:29 Pulse 83 12/09/21 07:35 Resp 16 12/09/21 07:35 BP 125/76 12/09/21 07:29 Pulse Ox 93 12/09/21 07:35 12/08/21 12/09/21 12/09/21 22:59 06:59 14:59 Intake Total 800 / 1250 450 / 1250 Output Total 500 / 700 Balance 800 / 550 -50 / 550 Physical Exam Narrative: The patient's wound packing is light brown in color. Data : 12/09/21 04:30 12/09/21 04:30 Micro: Microbiology 12/08/21 04:44 Blood Culture - Preliminary Blood NEGATIVE TO DATE 12/08/21 04:40 Blood Culture - Preliminary Blood NEGATIVE TO DATE 12/06/21 18:45 Gram Stain - Final Abdomen Anaerobic Culture - Preliminary Wound Culture - Preliminary Gram Negative Rods Gram Negative Rods#2 12/06/21 20:55 Blood Culture - Preliminary Blood Staphylococcus sp coag neg 12/06/21 20:55 Blood Culture - Preliminary Blood 12/06/21 17:28 Wound Culture - Preliminary Abdomen Gram Negative Rods Gram Negative Rods#2 12/06/21 17:44 Urine Culture - Final Urine,Clean Catch A&P Assessment and plan (1) Postoperative wound infection: Status post wound exploration/irrigation and attention to colostomy on12/06/2021. I am convinced that the patient does have a subcutaneous fistula from the stoma site to the midline wound. I made her aware this will likely never heal by itself unless the colostomy is revised. We also discussed her ongoing anemia and a blood transfusion and make sure she has adequate oxygen carrying capacity given the fact that her stoma became ischemic after the last operation. She seems agreeable to all of the above. I am going arrange a colostomy revision for tomorrow morning. Status: Acute Attestations Medical Necessity Statement*: Patient retires continued inpatient care pending further surgery tomorrow. Coding Level of Care Code Acute Cloth Desizing Range Operator Chief for [facility] Diagnoses Postoperative wound infection T81.49XA
--- NOTE | 2021-12-09 08:28 | PC.SOCIAL ---
IMM update IMM updated with patient. Verbalized an understanding. Copy Pg 2 provided. Initialled, dated, timed, and placed in chart.
[2021-12-09] MEDS: insulin lispro 100 unit/1 mL SUBCUT ×2 (08:59→13:22)
[2021-12-09] MEDS: amlodipine 10 mg Tablet PO (09:00)
[2021-12-09] MEDS: atorvastatin 40 mg Tablet 20 MG PO (09:00)
[2021-12-09] MEDS: ferrous gluconate 324 mg Tablet PO ×2 (09:00→17:27)
[2021-12-09 11:01] LABS: Glucose Point of Care 172 mg/dL (70-110)
--- NOTE | 2021-12-09 11:57 | PC.OT ---
OT EVALUATION HELD PER PATIENT REQUEST; WOULD LIKE TO WAIT UNTIL AFTER SURGERY. SURGERY SCHEDULED FOR TOMORROW MORNING.
--- NOTE | 2021-12-09 13:06 | PM.PN ---
Subjective Subjective: No acute vents overnight. Patient has remained hemodynamically stable and afebrile. Continues to have occasional drainage of possibly feculent material from the surgical incision. Possibility of fistulization from stoma. Plan for OR for colostomy revision tomorrow. Vitals/I&O/Wt Last Vital Signs Temp 98.2 F 12/09/21 12:49 Pulse 99 12/09/21 12:49 Resp 16 12/09/21 12:49 BP 135/76 12/09/21 12:49 Pulse Ox 97 12/09/21 12:49 12/08/21 12/09/21 12/09/21 22:59 06:59 14:59 Intake Total 800 / 800 450 / 1250 520 / 520 Output Total 500 / 700 Balance 800 / 600 -50 / 550 520 / 520 Physical Exam Narrative: General: No acute distress, AO x3, anxious and occasionally tearful regarding surgery tomorrow. HEENT: PERRLA, pupils bilaterally equal and reactive Chest: Normal vesicular breath sounds, no added sounds, equal good air entry bilaterally CVS: S1-S2 regular, no murmurs, no tachycardia, no gallops, no rubs Abdomen: Soft, nontender, no organomegaly, bowel sounds present but sluggish Surgical dressing present. Surgical dressing and clear today. Change today morning. Colostomy present with fecal material in colostomy bag Neuro: No focal deficits, no facial deformity, AO x3, power 5/5 in all limbs Data : 12/09/21 04:30 12/09/21 04:30 Micro: Microbiology 12/06/21 17:28 Wound Culture - Preliminary Abdomen Escherichia coli Proteus mirabilis 12/06/21 20:55 Blood Culture - Preliminary Blood Staphylococcus hominis 12/06/21 18:45 Gram Stain - Final Abdomen Anaerobic Culture - Preliminary Wound Culture - Preliminary Gram Negative Rods Gram Negative Rods#2 12/08/21 04:44 Blood Culture - Preliminary Blood NEGATIVE TO DATE 12/08/21 04:40 Blood Culture - Preliminary Blood NEGATIVE TO DATE 12/06/21 20:55 Blood Culture - Preliminary Blood 12/06/21 17:44 Urine Culture - Final Urine,Clean Catch A&P Assessment and plan (1) Postoperative wound infection: Status: Acute (2) Colostomy in place: Status: Acute (3) Diabetes: Status: Acute Plan 61-year-old female with recent discharge from the hospital post exploratory laparotomy and sigmoid resection with colostomy for 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 Sepsis: Resolved. Present on admission. Ruled in with tachycardia, leukocytosis, low-grade fever. Wound culture results growing E. coli and Proteus. For now continue with vancomycin. Switch from imipenem to ceftriaxone. Previous cultures from recent OR positive for E. coli which was pansensitive and anaerobes. Keep mean artery pressure over 65. Staph hominis bacteremia: 1 out of 4 bottles from admission positive. Most likely contaminant. Repeat blood cultures so far negative. If repeat blood cultures remain negative can stop vancomycin as MRSA is also negative. Wound dehiscence/surgical wound infection: Post wound irrigation day 2. [place] 5 mg every 8 hours as needed for pain. Possibility of fistulization between the surgical wound and colostomy. Plan for colostomy revision tomorrow. Anticoagulation diet as per surgical team. Anemia: Baseline hemoglobin around 8. Currently 7.8. Iron deficiency anemia. Continue with oral iron supplementation. Transfusion ordered by surgical team. Hyponatremia: Resolved. Most likely secondary to excessive fluid loss from surgical wound and ostomy. IV fluids as above. We will monitor BMP daily for now. Type 2 diabetes mellitus: HbA1c 5.8. Carb consistent diet. Insulin sliding scale at low-dose protocol. Hypertension: Goal blood pressure less than 140/90 mmHg. Continue with home dose of amlodipine. Continue other chronic oral medications. Start on oral iron supplementation. Full code. SCDs for DVT prophylaxis. Heparin for DVT prophylaxis. Out of bed to chair. Protonix for PUD prophylaxis. Replete potassium. Case management consult. Patient would require placement to SNF as it seems she is unable to take care of herself at home leading to wound dehiscence in view of recent expiratory laparotomy for pelvic abscess. Attestations Medical Necessity Statement*: Requires further hospitalization for wound VAC and secondary to surgical wound infection, fistulization, need for colostomy revision Time Spent in Patient Care: Greater than 35 minutes Coding Level of Care Code Acute [employer] Planner for [facility] Diagnoses Postoperative wound infection T81.49XA Colostomy in place Z93.3 Diabetes E11.9
[2021-12-09] MEDS: sodium chloride 0.9% (100 ml) 100 ML (13:51)
[2021-12-09] MEDS: acetaminophen 325 mg Tablet 650 MG PO (14:14)
[2021-12-09] MEDS: diphenhydrAMINE 25 mg Capsule PO (14:21)
[2021-12-09] MEDS: cefTRIAXone 1,000 MG in sodium chloride 0.9% (plus) 50 ML 100 MG IV (15:53)
[2021-12-09 17:16] LABS: Glucose Point of Care 111 mg/dL (70-110)
[2021-12-09] MEDS: pantoprazole 40 mg SDV IVP (17:25)
[2021-12-09 20:30] LABS: Glucose Point of Care 148 mg/dL (70-110)
[2021-12-09] MEDS: trazodone 100 mg Tablet PO (20:42)
[2021-12-09 21:04] LABS: Vancomycin Trough 15.6 ug/mL (10-15)
[2021-12-10] VITALS (25 sets, daily range): BP systolic 108–132; BP diastolic 68–81; PULSE 69–101; RESP 13–92; TEMP 36.2–37.7; O2SAT 90–98
--- NOTE | 2021-12-10 02:26 | PC.NURSE ---
Packing changed and completed chlorhexidine bath in preperation for surgery.
[2021-12-10 05:12] LABS: Basophils # 0.1 10^3/uL (0.0-0.1); Basophils % 0.9 %; Eosinophils # 0.4 10^3/uL (0.0-0.8); Eosinophils % 3.5 %; Hematocrit 28.7 % (37.0-47.0); Hemoglobin 9.5 g/dL (11.5-15.3); Lymphocytes # 2.3 10^3/uL (0.8-4.8); Lymphocytes % 20.5 %; Mean Corpuscular HGB Conc 33.1 g/dL (30.0-36.0); Mean Corpuscular Hemoglobin 29.3 pg (28.0-34.0); Mean Corpuscular Volume 88.6 fl (81-99); Mean Platelet Volume 9.8 fL (7.4-10.4); Monocytes % 9.1 %; Neutrophils # 6.55 10^3/uL (1.8-7.7); Neutrophils % 59.4 %; Nucleated Red Blood Cells % 0 %; Platelet Count 361 10^3/cmm (130-400); Red Blood Count 3.24 10^6/uL (4.1-5.3); Red Cell Distribution Width 13.8 % (12.1-15.1); White Blood Count 11.1 10^3/uL (4.0-10.0)
[2021-12-10] MEDS: vancomycin 1,000 MG in sodium chloride 0.9% 250 ML 250 MG IV ×3 (05:18→22:11)
[2021-12-10 05:24] LABS: Slide Review Slide Review Perform
[2021-12-10 05:27] LABS: Alanine Aminotransferase 41 U/L (0-33); Albumin Level 2.9 g/dL (3.5-5.2); Alkaline Phosphatase 128 IU/L (35-105); Anion Gap 15.3 (5-19); Aspartate Amino Transferase 50 U/L (0-32); Blood Urea Nitrogen 3 mg/dL (6-20); Calcium 8.8 mg/dL (8.5-10.5); Carbon Dioxide 27 mmol/L (22-29); Chloride 100 mmol/L (98-107); Globulin 3.5 g/dL (1.3-4.6); Glomerular Filtration Rate 163.4 mL/min (90-130); Glucose 111 mg/dL (65-115); Osmolality Calculated 285 mOsm/kg (285-295); Potassium 3.3 mmol/L (3.5-5.1); Sodium 139 mmol/L (136-145); Total Bilirubin 0.3 mg/dL (0.15-1.2); Total Protein 6.4 g/dL (6.6-8.7)
[2021-12-10 06:45] LABS: Glucose Point of Care 145 mg/dL (70-110)
--- NOTE | 2021-12-10 07:18 | PM.PN ---
Subjective Subjective: The patient has no complaints this morning. She says she is ready for proceed with surgery. Surgical plans and details were once again gone over. Vitals/I&O/Wt Last Vital Signs Temp 99.0 F 12/10/21 04:00 Pulse 86 12/10/21 04:00 Resp 17 12/10/21 04:00 BP 120/78 12/10/21 04:00 Pulse Ox 93 12/10/21 04:00 12/09/21 12/10/21 12/10/21 22:59 06:59 14:59 Intake Total 890 / 1900 Output Total 150 / 1390 1240 / 1390 Balance 740 / 510 -1240 / 510 Physical Exam Narrative: No significant change. Data : 12/10/21 04:30 12/10/21 04:30 Micro: Microbiology 12/06/21 18:45 Gram Stain - Final Abdomen Anaerobic Culture - Preliminary Wound Culture - Preliminary Gram Negative Rods Gram Negative Rods#2 12/06/21 17:28 Wound Culture - Preliminary Abdomen Escherichia coli Proteus mirabilis 12/06/21 20:55 Blood Culture - Preliminary Blood Staphylococcus hominis 12/08/21 04:44 Blood Culture - Preliminary Blood NEGATIVE TO DATE 12/08/21 04:40 Blood Culture - Preliminary Blood NEGATIVE TO DATE A&P Assessment and plan (1) Postoperative wound infection: Status post wound exploration/irrigation and attention to colostomy on 12/06/2021. It has been discovered that the patient has a subcutaneous fistula between the ostomy site and her midline wound. Colostomy revision planned for today. Status: Acute Attestations Medical Necessity Statement*: Patient requires continued inpatient care. Colostomy revision planned for today. Coding Level of Care Code Acute Human Intelligence for [facility] Diagnoses Postoperative wound infection T81.49XA
--- NOTE | 2021-12-10 07:58 | ANES.PREANE2 ---
Pre-Anesthetic Assessment Height/Weight: Height 1.65 m Weight 79.152 kg Temp Pulse Resp BP Pulse Ox 98.3 F 90 18 131/81 93 12/10/21 07:18 12/10/21 07:30 12/10/21 07:30 12/10/21 07:18 12/10/21 07:49 Preop Diagnosis: ruptured diverticulum Operation Date: 12/06/21 18:25 Proposed Procedures p Incision And Drainage(Not Applicable) - Quinten Mukherjee MD Operation Date: 12/10/21 08:30 Proposed Procedures p Colostomy Revision(Not Applicable) - Quinten Mukherjee MD Familial anesthetic complications: aspiration Was Beta Mike taken within 24 hours: N/A Was Clonidine taken within 24 hours: N/A Last intake: Intake Last Solid Date 12/10/21 Last Solid Time 23:30 Social Alcohol and No alcohol Exam alert, oriented x 3, clear to auscultation bilaterally and regular rate & rhythm Airway Mallampati: Class II Dentition: chipped and other (multiple missing) Pulmonary Exertional Dyspnea CV/HEM Anemia and Hypertension Metabolic Diabetes Mellitus ETOH abuse Anesthetic Plan ASA status: 4 Anesthesia: General Other: RSI for hx aspiration upon induction with first anesthesia and for large gastric volume (OG placed for suction) while adequately NPO with second anesthetic Risk of > 500 ml blood loss (7ml/kg in children): No Medications/Allergies Home Medications Medication Instructions Recorded Confirmed Last Taken Type albuterol sulfate 90 mcg/actuation 2 puff INHALATION Q4H PRN 11/14/21 12/06/21 Unknown History aerosol inhaler amlodipine 10 mg tablet 10 mg PO DAILY 11/14/21 12/06/21 12/05/21 History atorvastatin 10 mg tablet 10 mg PO DAILY 11/14/21 12/06/21 12/05/21 History buspirone 30 mg tablet 30 mg PO QAM 11/14/21 12/06/21 12/05/21 History cyanocobalamin (vitamin B-12) 250 250 mcg PO DAILY 11/14/21 12/06/21 12/05/21 History mcg tablet (Vitamin B-12) metformin 500 mg tablet 500 mg PO DAILY 11/14/21 12/06/21 Unknown History omeprazole 40 mg capsule,delayed 40 mg PO DAILY 11/14/21 12/06/21 12/05/21 History release triamterene 37.5 1 cap PO BID 11/14/21 12/06/21 12/05/21 History mg-hydrochlorothiazide 25 mg capsule potassium chloride 10 mEq 10 meq PO DAILY #30 cap 11/22/21 12/06/21 12/05/21 Rx capsule,extended release trazodone 100 mg tablet 100 mg PO BEDTIME 12/06/21 12/06/21 12/05/21 History Allergies Allergy/AdvReac Type Severity Reaction Status Date / Time doxycycline Allergy ALGY-Anaphy Verified 12/06/21 12:31 laxis levofloxacin [From Levaquin] Allergy ALGY-Anaphy Verified 12/06/21 12:31 laxis Current Medications Generic Name Dose Route Start Last Admin Trade Name Freq PRN Reason Stop Dose Admin Acetaminophen 650 mg 12/06/21 16:59 12/09/21 14:14 Acetaminophen 325 Mg Tablet PO 650 mg Q6H PRN Administration Mild/Mod Pain Or Temp >/= 101 Hydrocodone Bitart/Acetaminophen 1 tab 12/06/21 17:31 12/07/21 20:33 Hydrocodone-Acetaminophen 5-325 Mg Tablet PO 1 tab Q8H PRN Administration MODERATE PAIN Amlodipine Besylate 10 mg 12/07/21 09:00 12/09/21 09:00 Amlodipine 10 Mg Tablet PO 10 mg DAILY FAROOQ Administration Atorvastatin Calcium 20 mg 12/07/21 09:00 12/09/21 09:00 Atorvastatin 40 Mg Tablet PO 20 mg DAILY FAROOQ Administration Buspirone HCl 30 mg 12/07/21 06:00 12/10/21 05:19 Buspirone 10 Mg Tablet PO Not Given QAM FAROOQ Ferrous Gluconate 324 mg 12/07/21 18:00 12/09/21 17:27 Ferrous Gluconate 324 Mg Tablet PO 324 mg BIDWM FAROOQ Administration Vancomycin HCl 1,000 mg/ 250 mls @ 250 mls/hr 12/08/21 14:00 12/10/21 05:18 Sodium Chloride IV 250 mls/hr Q8H FAROOQ Administration Ceftriaxone Sodium 1,000 mg/ 50 mls @ 100 mls/hr 12/09/21 13:30 12/09/21 16:43 Sodium Chloride IV Infused Q24H FAROOQ Infusion Protocol Insulin Human Lispro 0 unit 12/07/21 18:00 12/09/21 20:41 Insulin Lispro 100 Unit/1 Ml SUBCUT Not Given WM&BEDTIME FAROOQ Protocol Lanolin 1 applic 12/07/21 02:42 12/07/21 03:14 Lanolin Oint 7 Gm TOPICAL 1 tube PRN PRN Administration DRYNESS Non-Formulary Medication 250 mcg 12/07/21 09:00 12/09/21 09:02 Cyanocobalamin (Vitamin B-12) [Vitamin B-12] PO Not Given DAILY FAROOQ Ondansetron HCl 4 mg 12/06/21 16:59 12/06/21 20:24 Ondansetron 2 Mg/Ml Sdv 2 Ml IVP 4 mg Q8H PRN Administration vomiting, or N/V if npo Pantoprazole Sodium 40 mg 12/06/21 17:00 12/09/21 17:25 Pantoprazole 40 Mg Sdv IVP 40 mg Q24H FAROOQ Administration Trazodone HCl 100 mg 12/06/21 21:00 12/09/21 20:42 Trazodone 100 Mg Tablet PO 100 mg BEDTIME FAROOQ Administration PFSH Anesthesia Medical History Alcohol use Cholelithiasis Colostomy in place Diabetes Diverticulitis Diverticulosis Hyperlipidemia Hypertension Hypokalemia Pelvic abscess Perforation of sigmoid colon due to diverticulitis Surgical History H/O exploratory laparotomy History of bilateral inguinal hernia repair History of tonsillectomy History of tympanoplasty L eardrum rupture repair Status post colectomy Family History Father Cancer Colon cancer Social History Smoking and tobacco status: current every day smoker Alcohol intake: current Alcohol type: hard liquor Alcohol use comment: [employer] Current occupation: Pt on disability for 2.5 years due to fallen arches. Data Anesthesia : 12/10/21 04:30 12/10/21 04:30 Short CBC 12/08/21 12/09/21 12/10/21 Range/Units 10:53 04:30 04:30 WBC 11.7 H 8.1 11.1 H (4.0-10.0) 10^3/uL Hgb 8.2 L 7.8 L 9.5 L (11.5-15.3) g/dL Hct 26.5 L 26.0 L 28.7 L (37.0-47.0) % MCV 92.3 95.9 88.6 D (81-99) fl Plt Count 382 402 H 361 (130-400) 10^3/cmm Neut % (Auto) 51.5 59.4 % Neut # (Auto) 4.16 6.55 (1.8-7.7) 10^3/uL BMP 12/09/21 12/10/21 04:30 04:30 Sodium 138 139 Potassium 3.1 L 3.3 L Chloride 103 100 Carbon Dioxide 24 27 BUN 4 L 3 L Creatinine 0.3 L 0.4 L Glucose 138 H 111 Calcium 8.4 L 8.8 Liver Function 12/09/21 12/10/21 Range/Units 04:30 04:30 Total Bilirubin 0.2 0.3 (0.15-1.2) mg/dL AST 54 H 50 H (0-32) U/L ALT 45 H 41 H (0-33) U/L Alkaline Phosphatase 93 128 H (35-105) IU/L Albumin 2.8 L 2.9 L (3.5-5.2) g/dL Blood Bank 12/09/21 09:30 Blood Type O Positive Rho(D) Type Positive Antibody Screen Negative Microbiology 12/06/21 18:45 Gram Stain - Final Abdomen Anaerobic Culture - Preliminary Wound Culture - Preliminary Gram Negative Rods Gram Negative Rods#2 12/06/21 17:28 Wound Culture - Preliminary Abdomen Escherichia coli Proteus mirabilis 12/06/21 20:55 Blood Culture - Preliminary Blood Staphylococcus hominis 12/08/21 04:44 Blood Culture - Preliminary Blood NEGATIVE TO DATE 12/08/21 04:40 Blood Culture - Preliminary Blood NEGATIVE TO DATE Cardiac Studies: Echocardiogram 11/18/21
[2021-12-10] MEDS: sodium chloride 0.9% 1,000 ML 30 ML IV (08:47)
--- NOTE | 2021-12-10 11:12 | PM.OP ---
Operative Report Date of procedure: December 10, 2021 Pre-op diagnosis: 1. Subcutaneous fistula from colostomy site to midline wound. 2. Cholelithiasis, mildly elevated LFTs. Post-op diagnosis: Same. Procedure done: 1. Laparotomy with repositioning of colostomy. 2. Cholecystectomy. Specimens removed/disposition: Gallbladder. Surgeon: General Surgery Quinten Mukherjee MD Anesthesia: General Estimated blood loss: 150 IV fluids: 1000 Complications: None. Brief History: This is a 61-year-old white female who underwent a Pierre procedure little over 3 weeks ago for a ruptured sigmoid diverticulum that failed medical management. Postoperatively she had some retraction of her colostomy and came back in several weeks later with a midline wound infection. She was taken of the operating room where this was irrigated out. Upon doing dressing changes subsequently it became apparent that the patient had a subcutaneous fistula from her retracted stoma site to the midline wound. Procedure: The patient was brought in the operating room and was placed in a supine position on the operating room table. General endotracheal anesthesia was induced. A Redd catheter was inserted by nursing. The retracted colostomy was closed with a pursestring suture of Vicryl. The abdomen was prepped and draped in a sterile fashion. A midline incision was carried out from the mid epigastrium down along the previous incision. Eventually the entire previous midline incision was opened all the way down to where the open wound had been formed by the fistula. Cautery was used to divide the subcutaneous tissue, the midline fascia, and the peritoneal cavity was entered. The patient had some light adhesions which were taken down to get exposure to the entire abdomen. The retracted colostomy site was then transversely elliptically excised. Cautery was used to free the colon and the surrounding tissue from the surrounding abdominal wall and eventually the colon was completely freed from the abdominal wall. JJ 55 stapler was used to remove the retracted end of the stoma. The colon was further mobilized proximally by incising the peritoneal reflection laterally. The LigaSure was used to divide some loose mesenteric attachments so that the colon had plenty of room to be used for a colostomy a little bit more superiorly. The posterior rectus sheath at the previous colostomy site was closed from within using a running suture of #1 PDS. The anterior rectus sheath was closed from the anterior direction using the same, irrigated in between. The previous subcutaneous fistulous tract was debrided using cautery. The entire abdomen and subcutaneous layers were then extensively irrigated with saline. Palpation around the upper abdomen revealed that the patient had some very large gallstones in the gallbladder. Upon inspection the gallbladder had some adhesions to it, although these appeared do be chronic. The patient had some mildly elevated LFTs preoperatively and it was decided the go ahead and perform an open cholecystectomy given the findings. The Bookwalter retractor was used for exposure. The gallbladder was grasped with a ring forceps and cautery was used to divide the adhesions to the gallbladder including those loose adhesions to the duodenum. A right angle clamp was used to dissect the tissue in the infundibular region and eventually the cystic duct and cystic artery were identified. These were clipped with a laparoscopic clipper and the gallbladder was then removed. Inspection of the liver bed revealed no ongoing bleeding, bile leaks, etc. Attention was directed back to reformation of the colostomy. An Allis clamp was used to grasp some skin in the left upper quadrant. Cautery was used to excise a circular piece of skin and was also used to remove some of the subcutaneous tissue with the skin. Dissection was carried out to the anterior rectus sheath which was opened with a cruciate incision. A hemostat was used to penetrate the rectus muscle and the posterior rectus sheath and the hole was dilated with some fingers. The closed end of the proximal sigmoid colon was then easily brought out through the incision. This was sutured at the posterior rectus sheath with a couple sutures of 3-0 Vicryl. A final look around the abdomen revealed no ongoing problems. A final round of irrigation was carried out. The midline fascia was then closed using a running looped suture of #1 PDS. Some wide internal retention sutures of #1 PDS were also used in the midline closure. The subcutaneous tissue was extensively irrigated and then the midline incision and at the previous colostomy site at the skin were closed with widely spaced vertical mattress sutures of to 2-0 nylon. The close incisions were covered with a sterile towel and then attention was directed towards maturation of the colostomy. The staple line on the colon was removed using a pair of Salguero scissors. There was excellent blood flow to the colon. The colon was attached to the anterior rectus sheath with several sutures of 3-0 Vicryl and then the colostomy was matured using multiple sutures of 3-0 Vicryl. A colostomy appliance was placed over the new stoma. A sterile dressing was placed over the closed incisions. The patient was eventually taken to the recovery area in stable condition postoperatively.
--- NOTE | 2021-12-10 11:39 | P.PN_ITS ---
Subjective Subjective: No current overnight. Patient has remained medically stable and afebrile. Plan for OR today for colostomy revision for possible fistulization between colostomy and laparotomy wound. Received monitor blood transfusion yesterday. Vitals/I&O/Wt Last Vital Signs Temp 97.6 F 12/10/21 08:02 Pulse 94 12/10/21 08:02 Resp 15 12/10/21 08:02 BP 109/77 12/10/21 08:02 Pulse Ox 93 12/10/21 08:02 12/09/21 12/10/21 12/10/21 22:59 06:59 14:59 Intake Total 890 / 1900 1060 / 1060 Output Total 150 / 150 1240 / 1390 Balance 740 / 1750 -1240 / 510 1060 / 1060 Physical Exam Narrative: General: No acute distress, AO x3, anxious and occasionally tearful regarding surgery tomorrow. HEENT: PERRLA, pupils bilaterally equal and reactive Chest: Normal vesicular breath sounds, no added sounds, equal good air entry bilaterally CVS: S1-S2 regular, no murmurs, no tachycardia, no gallops, no rubs Abdomen: Soft, nontender, no organomegaly, bowel sounds present but sluggish Surgical dressing present. Surgical dressing and clear today. Change today morning. Colostomy present with fecal material in colostomy bag Neuro: No focal deficits, no facial deformity, AO x3, power 5/5 in all limbs Urinary Catheter Management: Redd: Cath Placed During This Visit: yes Urinary Catheter Date of Insertion: 12/10/21 Urinary Catheter Time of Insertion: 08:45 Data : 12/10/21 04:30 12/10/21 04:30 Micro: Microbiology 12/06/21 18:45 Gram Stain - Final Abdomen Anaerobic Culture - Preliminary Wound Culture - Final Escherichia coli Proteus mirabilis 12/06/21 17:28 Wound Culture - Final Abdomen Escherichia coli Proteus mirabilis 12/06/21 20:55 Blood Culture - Preliminary Blood Staphylococcus hominis A&P Assessment and plan (1) Postoperative wound infection: Status: Acute (2) Colostomy in place: Status: Acute (3) Diabetes: Status: Acute Plan 61-year-old female with recent discharge from the hospital post exploratory laparotomy and sigmoid resection with colostomy for 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 Staph hominis bacteremia: 1 out of 4 bottles from admission positive. Most likely contaminant. Repeat blood cultures so far negative. If repeat blood cultures remain negative can stop vancomycin as MRSA is also negative. Wound dehiscence/surgical wound infection: Post wound irrigation day 3. Plan for colostomy revision today. Wound culture results growing E. coli and Proteus. For now continue with vancomycin and ceftriaxone. Will stop vancomycin once repeat blood culture sent on 12/08 come back negative. [place] 5 mg every 8 hours as needed for pain. Anticoagulation diet as per surgical team. Anemia: Baseline hemoglobin around 8. Hemoglobin up appropriately. Post monitor blood transfusion. Iron deficiency anemia. Continue with oral iron supplementation. Hyponatremia: Resolved. Most likely secondary to excessive fluid loss from surgical wound and ostomy. IV fluids as above. We will monitor BMP daily for now. Type 2 diabetes mellitus: HbA1c 5.8. Carb consistent diet. Insulin sliding scale at low-dose protocol. Hypertension: Goal blood pressure less than 140/90 mmHg. Continue with home dose of amlodipine. Continue other chronic oral medications. Start on oral iron supplementation. Full code. SCDs for DVT prophylaxis. Heparin for DVT prophylaxis. Out of bed to chair. Protonix for PUD prophylaxis. Replete potassium. Case management consult. Patient would require placement to SNF as it seems she is unable to take care of herself at home leading to wound dehiscence in view of recent expiratory laparotomy for pelvic abscess. Attestations Medical Necessity Statement*: As per primary team. Time Spent in Patient Care: Greater than 35 minutes Coding Level of Care Code Acute Interventional Pain Physician for Crist[facility] Diagnoses Postoperative wound infection T81.49XA Colostomy in place Z93.3 Diabetes E11.9
[2021-12-10] MEDS: meperidine 50 mg/mL INJ 12.5 MG IVP (11:40)
--- NOTE | 2021-12-10 12:56 | ANE.PACU2 ---
Inpatient post-anesthesia follow up: Airway intact: Yes Vital signs: Temperature 97.2 F Pulse Rate 80 Respiratory Rate 18 Blood Pressure 118/72 Pulse Oximetry 98 Oxygen Delivery Me thod Room Air Oxygen Flow Rate 6 Fraction of Inspir ed Oxygen Hydration adequate: Yes Nausea and vomiting: No Pain level: 1 Mental status: Baseline
[2021-12-10] MEDS: morphine 4 mg/mL SDV 1 mL IVP ×2 (15:27→20:14)
[2021-12-10] MEDS: cefTRIAXone 1,000 MG in sodium chloride 0.9% (plus) 50 ML 50 MG IV (15:41)
[2021-12-10] MEDS: sodium chlor 0.9% + KCl 20 mEq 20 MEQ/1,000 ML BAG 100 MEQ IV (15:42)
[2021-12-10] MEDS: BuSPIRONE 10 mg Tablet 30 MG PO (15:50)
[2021-12-10] MEDS: amlodipine 10 mg Tablet PO (15:50)
[2021-12-10] MEDS: atorvastatin 40 mg Tablet 20 MG PO (15:50)
[2021-12-10] MEDS: ketorolac 30 mg/mL INJ 15 MG IVP (15:59)
[2021-12-10 16:56] LABS: Glucose Point of Care 184 mg/dL (70-110)
[2021-12-10] MEDS: insulin lispro 100 unit/1 mL SUBCUT ×2 (18:22→22:05)
[2021-12-10] MEDS: pantoprazole 40 mg SDV IVP (18:22)
[2021-12-10 21:09] LABS: Glucose Point of Care 141 mg/dL (70-110)
[2021-12-10] MEDS: trazodone 100 mg Tablet PO (22:06)
[2021-12-11] VITALS (8 sets, daily range): BP systolic 110–117; BP diastolic 71–77; PULSE 87–94; RESP 15–22; TEMP 36.6–37.3; O2SAT 90–95
[2021-12-11] MEDS: ketorolac 30 mg/mL INJ 15 MG IVP (00:17)
[2021-12-11] MEDS: heparin 5,000 unit/mL INJ 1 mL 5000 UNIT SUBCUT ×2 (01:24→14:10)
[2021-12-11] MEDS: sodium chlor 0.9% + KCl 20 mEq 20 MEQ/1,000 ML BAG 100 MEQ IV ×3 (01:25→21:25)
[2021-12-11] MEDS: morphine 4 mg/mL SDV 1 mL IVP (01:35)
[2021-12-11 02:54] LABS: Basophils # 0.1 10^3/uL (0.0-0.1); Basophils % 0.4 %; Hematocrit 26.2 % (37.0-47.0); Hemoglobin 8.5 g/dL (11.5-15.3); Lymphocytes # 1.6 10^3/uL (0.8-4.8); Lymphocytes % 6.5 %; Mean Corpuscular HGB Conc 32.4 g/dL (30.0-36.0); Mean Corpuscular Volume 89.4 fl (81-99); Mean Platelet Volume 9.9 fL (7.4-10.4); Monocytes # 1.4 10^3/uL (0.2-0.9); Monocytes % 5.9 %; Neutrophils # 20.55 10^3/uL (1.8-7.7); Neutrophils % 84.9 %; Nucleated Red Blood Cells % 0 %; Platelet Count 322 10^3/cmm (130-400); Red Blood Count 2.93 10^6/uL (4.1-5.3); Red Cell Distribution Width 14.3 % (12.1-15.1); White Blood Count 24.2 10^3/uL (4.0-10.0)
[2021-12-11 03:17] LABS: Alanine Aminotransferase 35 U/L (0-33); Albumin Level 2.8 g/dL (3.5-5.2); Alkaline Phosphatase 70 IU/L (35-105); Anion Gap 15.1 (5-19); Aspartate Amino Transferase 44 U/L (0-32); Blood Urea Nitrogen 5 mg/dL (6-20); Calcium 7.9 mg/dL (8.5-10.5); Carbon Dioxide 24 mmol/L (22-29); Chloride 104 mmol/L (98-107); Globulin 3.3 g/dL (1.3-4.6); Glomerular Filtration Rate 163.4 mL/min (90-130); Glucose 112 mg/dL (65-115); Osmolality Calculated 288 mOsm/kg (285-295); Potassium 3.1 mmol/L (3.5-5.1); Sodium 140 mmol/L (136-145); Total Bilirubin 0.4 mg/dL (0.15-1.2); Total Protein 6.1 g/dL (6.6-8.7)
[2021-12-11 06:32] LABS: Glucose Point of Care 162 mg/dL (70-110)
[2021-12-11] MEDS: vancomycin 1,000 MG in sodium chloride 0.9% 250 ML 250 MG IV ×3 (06:53→22:07)
--- NOTE | 2021-12-11 06:53 | PM.PN ---
Subjective Subjective: The patient says she feels surprisingly well this morning. Her colostomy is already functioning (she passed flatus through her stoma while I was talking her this morning). She is not really hungry as yet, but would like to sip on some liquids. Vitals/I&O/Wt Last Vital Signs Temp 98.4 F 12/11/21 03:51 Pulse 92 12/11/21 03:51 Resp 17 12/11/21 03:51 BP 114/71 12/11/21 03:51 Pulse Ox 90 12/11/21 03:51 12/10/21 12/10/21 12/11/21 14:59 22:59 06:59 Intake Total 2360 / 3991.667 300 / 3991.667 1331.667 / 3991.667 Output Total 150 / 1700 850 / 1700 700 / 1700 Balance 2210 / 2291.667 -550 / 2291.667 631.667 / 2291.667 Weight last 48 hrs Weight 188 lb Physical Exam Narrative: The patient has some bowel dressings are intact. The stoma is clearly viable. Urinary Catheter Management: Redd: Cath Placed During This Visit: yes Reason for Continuing Indwelling Catheter: Other Urinary Catheter Date of Insertion: 12/10/21 Urinary Catheter Time of Insertion: 08:45 Data : 12/11/21 01:45 12/11/21 01:45 Micro: Microbiology 12/06/21 18:45 Gram Stain - Final Abdomen Anaerobic Culture - Preliminary Bacteroides distasonis Bacteroides thetaiotaomicron Wound Culture - Final Escherichia coli Proteus mirabilis 12/06/21 20:55 Blood Culture - Preliminary Blood Staphylococcus hominis 12/06/21 20:55 Blood Culture - Preliminary Blood Staphylococcus hominis 12/06/21 17:28 Wound Culture - Final Abdomen Escherichia coli Proteus mirabilis A&P Assessment and plan (1) Postoperative wound infection: Status post colostomy revision subcutaneous fistula and cholecystectomy on 12/10/2021. Up in chair today. Consistent carbohydrate clear liquids. Suspect the patient's white count is reactive from her surgery yesterday. Continue antibiotics. Status: Acute Attestations Medical Necessity Statement*: Patient requires continued inpatient care following revision of colostomy. Coding Level of Care Code Acute Manufacturer'S Service Representative for [facility] Diagnoses Postoperative wound infection T81.49XA
[2021-12-11] MEDS: HYDROcodone-acetaminophen 5-325 mg Tablet PO ×4 (08:19→22:41)
[2021-12-11] MEDS: atorvastatin 40 mg Tablet 20 MG PO (08:19)
[2021-12-11] MEDS: ferrous gluconate 324 mg Tablet PO ×2 (08:21→18:21)
[2021-12-11] MEDS: amlodipine 10 mg Tablet PO (08:22)
[2021-12-11] MEDS: insulin lispro 100 unit/1 mL SUBCUT (08:27)
[2021-12-11] MEDS: BuSPIRONE 10 mg Tablet 30 MG PO (08:45)
[2021-12-11 11:38] LABS: Glucose Point of Care 118 mg/dL (70-110)
[2021-12-11] MEDS: potassium chloride ER 20 mEq Tablet 40 MEQ PO (11:38)
[2021-12-11] MEDS: piperacillin-tazobactam 3.375 GM in sodium chloride 0.9% (plus) 50 ML IV ×2 (11:38→18:18)
--- NOTE | 2021-12-11 11:46 | PM.PN ---
Subjective Subjective: No events overnight. Underwent ORIF today. Tolerated well. Today morning states she is feeling a lot better. Passing flatus to self stoma. Working well with physical therapy. Has remained afebrile and hemodynamically stable. Vitals/I&O/Wt Last Vital Signs Temp 99.2 F 12/11/21 08:00 Pulse 88 12/11/21 08:00 Resp 15 12/11/21 08:00 BP 116/75 12/11/21 08:00 Pulse Ox 91 12/11/21 08:00 12/10/21 12/11/21 12/11/21 22:59 06:59 14:59 Intake Total 300 / 2660 1331.667 / 3991.667 1250 / 1250 Output Total 850 / 1000 700 / 1700 Balance -550 / 1660 631.667 / 2291.667 1250 / 1250 Weight last 48 hrs Weight 85.275 kg Physical Exam Narrative: General: No acute distress, AO x3, in good spirits. HEENT: PERRLA, pupils bilaterally equal and reactive Chest: Normal vesicular breath sounds, no added sounds, equal good air entry bilaterally CVS: S1-S2 regular, no murmurs, no tachycardia, no gallops, no rubs Abdomen: Soft, nontender, no organomegaly, bowel sounds present but sluggish Surgical dressing clean and clear. Neuro: No focal deficits, no facial deformity, AO x3, power 5/5 in all limbs Urinary Catheter Management: Redd: Cath Placed During This Visit: yes Reason for Continuing Indwelling Catheter: Other Urinary Catheter Date of Insertion: 12/10/21 Urinary Catheter Time of Insertion: 08:45 Data : 12/11/21 01:45 12/11/21 01:45 Micro: Microbiology 12/06/21 18:45 Gram Stain - Final Abdomen Anaerobic Culture - Preliminary Bacteroides distasonis Bacteroides thetaiotaomicron Wound Culture - Final Escherichia coli Proteus mirabilis 12/06/21 20:55 Blood Culture - Preliminary Blood Staphylococcus hominis 12/06/21 20:55 Blood Culture - Preliminary Blood Staphylococcus hominis 12/06/21 17:28 Wound Culture - Final Abdomen Escherichia coli Proteus mirabilis A&P Assessment and plan (1) Postoperative wound infection: Status: Acute (2) Colostomy in place: Status: Acute (3) Diabetes: Status: Acute Plan 61-year-old female with recent discharge from the hospital post exploratory laparotomy and sigmoid resection with colostomy for 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 Staph hominis bacteremia: 2 out of 4 bottles from admission positive. Most likely contaminant. Repeat blood cultures so far negative. If repeat blood cultures remain negative can stop vancomycin as MRSA is also negative. Wound dehiscence/surgical wound infection: Post wound irrigation day 3. Plan for colostomy revision today. Wound culture results growing E. coli and Proteus. Patient does have mild leukocytosis today. Could be reactive secondary to surgery yesterday. For now we will switch over to Zosyn. Continue with vancomycin. [place] 5 mg every 8 hours as needed for pain. Anticoagulation diet as per surgical team. Anemia: Baseline hemoglobin around 8. Hemoglobin up appropriately. Post monitor blood transfusion. Iron deficiency anemia. Continue with oral iron supplementation. Hyponatremia: Resolved. Most likely secondary to excessive fluid loss from surgical wound and ostomy. IV fluids as above. We will monitor BMP daily for now. Type 2 diabetes mellitus: HbA1c 5.8. Carb consistent diet. Insulin sliding scale at low-dose protocol. Hypertension: Goal blood pressure less than 140/90 mmHg. Continue with home dose of amlodipine. Continue other chronic oral medications. Start on oral iron supplementation. Full code. SCDs for DVT prophylaxis. Heparin for DVT prophylaxis. Out of bed to chair. Protonix for PUD prophylaxis. Replete potassium. Case management consult. Patient would require placement to SNF as it seems she is unable to take care of herself at home leading to wound dehiscence in view of recent expiratory laparotomy for pelvic abscess. Attestations Medical Necessity Statement*: As per primary team. Awaiting placement to long term. Time Spent in Patient Care: Greater than 35 minutes Coding Level of Care Code Acute Auto Travel Counselor for [facility] [employer] Diagnoses Postoperative wound infection T81.49XA Colostomy in place Z93.3 Diabetes E11.9
--- NOTE | 2021-12-11 12:31 | PC.SOCIAL ---
IMM Updated Updated pt on IMM. No questions voiced. Provided pt a copy. Initialed, dated, & timed copy in chart.
--- NOTE | 2021-12-11 16:11 | PC.RESP ---
Patient refusing all treatments and IS from respiratory, states they make her more sob.
[2021-12-11 17:31] LABS: Glucose Point of Care 123 mg/dL (70-110)
[2021-12-11] MEDS: pantoprazole 40 mg SDV IVP (18:19)
[2021-12-11] MEDS: trazodone 100 mg Tablet PO (21:25)
[2021-12-11 21:32] LABS: Glucose Point of Care 96 mg/dL (70-110)
[2021-12-12] VITALS (9 sets, daily range): BP systolic 107–129; BP diastolic 72–81; PULSE 90–105; RESP 16–20; TEMP 36.8–37.3; O2SAT 90–93
[2021-12-12] MEDS: heparin 5,000 unit/mL INJ 1 mL 5000 UNIT SUBCUT (01:53)
[2021-12-12] MEDS: piperacillin-tazobactam 3.375 GM in sodium chloride 0.9% (plus) 50 ML IV ×2 (01:53→17:56)
[2021-12-12] MEDS: BuSPIRONE 10 mg Tablet 30 MG PO (05:58)
[2021-12-12] MEDS: vancomycin 1,000 MG in sodium chloride 0.9% 250 ML 250 MG IV ×2 (05:58→17:48)
[2021-12-12] MEDS: HYDROcodone-acetaminophen 5-325 mg Tablet PO ×4 (06:03→22:02)
[2021-12-12 06:12] LABS: Glucose Point of Care 140 mg/dL (70-110)
[2021-12-12 07:34] LABS: Basophils # 0.1 10^3/uL (0.0-0.1); Basophils % 0.3 %; Eosinophils # 0.2 10^3/uL (0.0-0.8); Eosinophils % 1.2 %; Hematocrit 26.2 % (37.0-47.0); Hemoglobin 7.8 g/dL (11.5-15.3); Lymphocytes # 1.6 10^3/uL (0.8-4.8); Lymphocytes % 10.5 %; Mean Corpuscular HGB Conc 29.8 g/dL (30.0-36.0); Mean Corpuscular Hemoglobin 28.7 pg (28.0-34.0); Mean Corpuscular Volume 96.3 fl (81-99); Mean Platelet Volume 9.6 fL (7.4-10.4); Monocytes % 6.2 %; Neutrophils # 12.24 10^3/uL (1.8-7.7); Neutrophils % 80.1 %; Nucleated Red Blood Cells % 0 %; Platelet Count 288 10^3/cmm (130-400); Red Blood Count 2.72 10^6/uL (4.1-5.3); Red Cell Distribution Width 14.8 % (12.1-15.1); White Blood Count 15.3 10^3/uL (4.0-10.0)
[2021-12-12 07:56] LABS: Anion Gap 13.2 (5-19); Blood Urea Nitrogen 5 mg/dL (6-20); Calcium 8.1 mg/dL (8.5-10.5); Carbon Dioxide 22 mmol/L (22-29); Chloride 105 mmol/L (98-107); Glomerular Filtration Rate 163.4 mL/min (90-130); Glucose 99 mg/dL (65-115); Osmolality Calculated 281 mOsm/kg (285-295); Potassium 3.2 mmol/L (3.5-5.1); Sodium 137 mmol/L (136-145)
--- NOTE | 2021-12-12 08:35 | PM.PN ---
Subjective Subjective: The patient's feeling well. She says she is starting get a little bit of an appetite back. She has been up ambulating. Vitals/I&O/Wt Last Vital Signs Temp 98.2 F 12/12/21 04:00 Pulse 95 12/12/21 08:24 Resp 16 12/12/21 08:24 BP 129/80 12/12/21 04:00 Pulse Ox 93 12/12/21 08:24 12/11/21 12/12/21 12/12/21 22:59 06:59 14:59 Intake Total 1383 / 3943 1070 / 3943 250 / 250 Output Total 200 / 200 Balance 1383 / 3743 870 / 3743 250 / 250 Weight last 48 hrs Weight 193 lb 8 oz Weight 188 lb Physical Exam Narrative: The patient's new colostomy is clearly viable but somewhat edematous. The dressings were all still intact. I am going to leave these on until tomorrow. There is no saturation. Urinary Catheter Management: Redd: Cath Placed During This Visit: yes Reason for Continuing Indwelling Catheter: Other Urinary Catheter Date of Insertion: 12/10/21 Urinary Catheter Time of Insertion: 08:45 Data : 12/12/21 07:22 12/12/21 07:22 Micro: Microbiology 12/06/21 18:45 Gram Stain - Final Abdomen Anaerobic Culture - Preliminary Bacteroides distasonis Bacteroides thetaiotaomicron Wound Culture - Final Escherichia coli Proteus mirabilis A&P Assessment and plan (1) Postoperative wound infection: Status post colostomy revision subcutaneous fistula and cholecystectomy on 12/10/2021. Continue liquid diet for now. I like the see the colostomy edema decreased slightly before we push solid food. The patient is not terribly hungry at the moment anyway. Status: Acute Attestations Medical Necessity Statement*: Patient requires continued inpatient care following colostomy revision. Case management is still working on placement. Coding Level of Care Code Acute Mortgage Loan Reviewer for Cristy Donovan Diagnoses Postoperative wound infection T81.49XA
[2021-12-12] MEDS: sodium chlor 0.9% + KCl 20 mEq 20 MEQ/1,000 ML BAG 100 MEQ IV ×2 (08:58→17:51)
[2021-12-12] MEDS: ferrous gluconate 324 mg Tablet PO ×2 (09:02→17:59)
[2021-12-12] MEDS: amlodipine 10 mg Tablet PO (09:02)
[2021-12-12] MEDS: atorvastatin 40 mg Tablet 20 MG PO (09:02)
[2021-12-12] MEDS: lidocaine 1% 5 ML in potassium chloride premix 100 ML 25 ML IV (09:04)
[2021-12-12 11:26] LABS: Glucose Point of Care 94 mg/dL (70-110)
--- NOTE | 2021-12-12 12:52 | P.PN_ITS ---
Subjective Subjective: No events overnight. Feels better, WBC count is trending down, hemoglobin has also trended down to 7.8, No active bleeding, serum potassium was 3.2 today. She was complaining of some abdominal pain. Medications: Medication Review Details: Generic Name Dose Route Start Last Admin Trade Name Freq PRN Reason Stop Dose Admin Acetaminophen 650 mg 12/06/21 16:59 12/09/21 14:14 Acetaminophen 32 5 Mg Tablet PO 650 mg Q6H PRN Administration Mild/Mod Pain Or Temp >/= 101 Hydrocodone Bitart /Acetaminophen 1 - 2 tab 12/11/21 06:51 12/12/21 09:45 Hydrocodone-Acet aminophen 5-325 Mg Tablet PO 1 tab Q4H PRN Administration MODERATE TO SEVER E PAIN Amlodipine Besylat e 10 mg 12/07/21 09:00 12/12/21 09:02 Amlodipine 10 Mg Tablet PO 10 mg DAILY FAROOQ Administration Atorvastatin Calci um 20 mg 12/07/21 09:00 12/12/21 09:02 Atorvastatin 40 Mg Tablet PO 20 mg DAILY FAROOQ Administration Buspirone HCl 30 mg 12/11/21 09:00 12/12/21 05:58 Buspirone 10 Mg Tablet PO 30 mg QAM FAROOQ Administration Ferrous Gluconate 324 mg 12/07/21 18:00 12/12/21 09:02 Ferrous Gluconat e 324 Mg Tablet PO 324 mg BIDWM FAROOQ Administration Vancomycin HCl 1,0 00 mg/ 250 mls @ 250 mls /hr 12/08/21 14:00 12/12/21 07:17 Sodium Chloride IV Infused Q8H FAROOQ Infusion Potassium Chloride /Sodium Chloride 20 meq in 1,000 m ls @ 100 mls/hr 12/10/21 12:33 12/12/21 08:59 Sodium Chlor 0.9 % + Kcl 20 Meq IV 0 mls/hr .Q10H FAROOQ Infusion Piperacillin Sod/T azobactam 50 mls @ 12.5 mls /hr 12/11/21 10:30 12/12/21 06:09 Sod 3.375 gm/ So dium Chloride IV Infused Q8H FAROOQ Infusion Insulin Human Lisp ro 0 unit 12/07/21 18:00 12/12/21 13:10 Insulin Lispro 1 00 Unit/1 Ml SUBCUT Not Given WM&BEDTIME [facility] Protocol Ketorolac Trometha mine 15 mg 12/10/21 12:33 12/11/21 00:17 Ketorolac 30 Mg/ Ml Inj IVP 12/15/21 12:32 15 mg Q6H PRN Administration MODERATE PAIN Lanolin 1 applic 12/07/21 02:42 12/07/21 03:14 Lanolin Oint 7 G m TOPICAL 1 tube PRN PRN Administration DRYNESS Levalbuterol HCl 0.63 mg 12/10/21 12:33 12/12/21 15:07 Levalbuterol 0.6 3 Mg/3 Ml Neb INHALATION Not Given Q4H.RESPIRATORY S CH Morphine Sulfate 2 - 4 mg 12/10/21 12:33 12/11/21 01:35 Morphine 4 Mg/Ml Sdv 1 Ml IVP 4 mg Q4H PRN Administration SEVERE PAIN Non-Formulary Medi cation 250 mcg 12/07/21 09:00 12/12/21 09:20 Cyanocobalamin ( Vitamin B-12) [Vit duong B-12] PO Not Given DAILY [facility] Pantoprazole Sodiu m 40 mg 12/06/21 17:00 12/11/21 18:19 Pantoprazole 40 Mg Sdv IVP 40 mg Q24H FAROOQ Administration Trazodone HCl 100 mg 12/06/21 21:00 12/11/21 21:25 Trazodone 100 Mg Tablet PO 100 mg BEDTIME FAROOQ Administration Vitals/I&O/Wt Last Vital Signs Temp 98.8 F 12/12/21 12:00 Pulse 96 12/12/21 12:00 Resp 18 12/12/21 12:00 BP 117/74 12/12/21 12:00 Pulse Ox 93 12/12/21 12:00 12/11/21 12/12/21 12/12/21 22:59 06:59 14:59 Intake Total 1383 / 2873 1070 / 3943 780.000 / 780.000 Output Total 200 / 200 Balance 1383 / 2873 870 / 3743 780.000 / 780.000 Weight last 48 hrs Weight 87.77 kg Weight 85.275 kg Physical Exam Const: COMMON NORMALS: patient oriented x3 HENMT: COMMON NORMALS: normocephalic and atraumatic HEAD & SCALP: normocephalic and atraumatic Eye: COMMON NORMALS: no scleral icterus GENERAL EYE: appearance normal, both eyes and all related structures Chest: COMMONS NORMALS: normal inspection of the chest and normal palpation of entire chest wall CHEST: Yes Symmetrical chest wall rise Resp: COMMON NORMALS: normal respiratory effort, No retractions, No use of accessory muscles and clear to auscultation bilaterally EFFORT & INSPECTION: Yes symmetric chest movement AUSCULTATION: clear to auscultation bilaterally Cardio: COMMON NORMALS: regular rate, regular rhythm, S1 normal heart sound present, S2 normal heart sound present, No gallops present (Cardio), No murmurs present (Cardio), No rub (Cardio) and Peripheral pulses 2+ throughout RATE: regular rate RHYTHM: regular rhythm HEART SOUNDS: S1 normal heart sound present and S2 normal heart sound present PERIPHERAL PULSES: Peripheral pulses 2+ throughout GI: COMMON NORMALS: Normal to inspection, nondistended, normoactive bowel sounds present, Soft to palpation, non-tender, No hepatosplenomegaly present and no masses AUSCULTATION: Yes normoactive bowel sounds PALPATION: Yes Soft to palpation and Yes No hepatosplenomegaly present RECTAL EXAM: deferred OTHER: Colostomy site clean and intact Extremity: COMMON NORMALS: no clubbing, cyanosis or edema and no pedal edema Neuro: COMMON NORMALS: patient oriented x3 Urinary Catheter Management: Redd: Cath Placed During This Visit: yes Reason for Continuing Indwelling Catheter: Other Urinary Catheter Date of Insertion: 12/10/21 Urinary Catheter Time of Insertion: 08:45 Data : 12/12/21 07:22 12/12/21 07:22 Micro: Microbiology 12/06/21 18:45 Gram Stain - Final Abdomen Anaerobic Culture - Preliminary Bacteroides distasonis Bacteroides thetaiotaomicron Wound Culture - Final Escherichia coli Proteus mirabilis 12/06/21 20:55 Blood Culture - Final Blood Staphylococcus hominis 12/06/21 20:55 Blood Culture - Final Blood Staphylococcus hominis A&P Assessment and plan (1) Postoperative wound infection: Status: Acute (2) Colostomy in place: Status: Acute (3) Diabetes: Status: Acute Plan 61-year-old female with recent discharge from the hospital post exploratory laparotomy and sigmoid resection with colostomy for 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 Staph hominis bacteremia: 2 out of 4 bottles from admission positive. Most likely contaminant. Repeat blood cultures so far negative. If repeat blood cultures remain negative can stop vancomycin as MRSA is also negative. Wound dehiscence/surgical wound infection: Post wound irrigation day 3. Plan for colostomy revision today. Wound culture results growing E. coli and Proteus. Patient does have mild leukocytosis today. Could be reactive secondary to surgery yesterday. For now we will switch over to Zosyn. Continue with vancomycin. [place] 5 mg every 8 hours as needed for pain. Anticoagulation diet as per surgical team. Anemia: Baseline hemoglobin around 8. Hemoglobin up appropriately. Post monitor blood transfusion. Iron deficiency anemia. Continue with oral iron supplementation. Hyponatremia: Resolved. Most likely secondary to excessive fluid loss from surgical wound and ostomy. IV fluids as above. We will monitor BMP daily for now. Type 2 diabetes mellitus: HbA1c 5.8. Carb consistent diet. Insulin sliding scale at low-dose protocol. Hypertension: Goal blood pressure less than 140/90 mmHg. Continue with home dose of amlodipine. Continue other chronic oral medications. Start on oral iron supplementation. Full code. SCDs for DVT prophylaxis. Heparin for DVT prophylaxis. Out of bed to chair. Protonix for PUD prophylaxis. Replete potassium. Case management consult. Patient would require placement to SNF as it seems she is unable to take care of herself at home leading to wound dehiscence in view of recent expiratory laparotomy for pelvic abscess. Attestations Medical Necessity Statement*: Per primary team. Coding Level of Care Code Acute Tree Expert for Cristy Fwd Exam Comprehensive Diagnoses Postoperative wound infection T81.49XA Colostomy in place Z93.3 Diabetes E11.9
--- NOTE | 2021-12-12 15:30 | PC.OT ---
OT tx attempted at this time. Pt has IV potassium running and refuses to move as she reports it villanueva if I move . Therapist demonstrating LE dressing devices (scalloper and sock aide) to pt. Pt is agreeable to participate in hands on training with devices tomorrow.
[2021-12-12 17:25] LABS: Glucose Point of Care 88 mg/dL (70-110)
[2021-12-12] MEDS: pantoprazole 40 mg SDV IVP (18:07)
[2021-12-12 20:45] LABS: Glucose Point of Care 150 mg/dL (70-110)
--- NOTE | 2021-12-12 21:38 | PC.NURSE ---
Vancomycin trough 27 /pharmacist notified/ instructed to hold 2200 dose.
[2021-12-12] MEDS: trazodone 100 mg Tablet PO (22:02)
[2021-12-12] MEDS: insulin lispro 100 unit/1 mL SUBCUT (22:03)
[2021-12-13] VITALS (9 sets, daily range): BP systolic 116–143; BP diastolic 72–84; PULSE 89–106; RESP 16–19; TEMP 36.7–37.6; O2SAT 91–96
[2021-12-13] MEDS: vancomycin 1,000 MG in sodium chloride 0.9% 250 ML 250 MG IV (01:41)
[2021-12-13] MEDS: piperacillin-tazobactam 3.375 GM in sodium chloride 0.9% (plus) 50 ML IV ×3 (02:30→17:48)
[2021-12-13] MEDS: BuSPIRONE 10 mg Tablet 30 MG PO (05:59)
[2021-12-13] MEDS: HYDROcodone-acetaminophen 5-325 mg Tablet PO ×3 (06:08→20:33)
[2021-12-13 06:22] LABS: Basophils % 0.2 %; Eosinophils # 0.2 10^3/uL (0.0-0.8); Eosinophils % 1.6 %; Hematocrit 25.9 % (37.0-47.0); Lymphocytes # 1.8 10^3/uL (0.8-4.8); Lymphocytes % 13.1 %; Mean Corpuscular HGB Conc 30.9 g/dL (30.0-36.0); Mean Corpuscular Hemoglobin 28.8 pg (28.0-34.0); Mean Corpuscular Volume 93.2 fl (81-99); Mean Platelet Volume 9.5 fL (7.4-10.4); Monocytes # 0.9 10^3/uL (0.2-0.9); Monocytes % 6.4 %; Neutrophils # 10.63 10^3/uL (1.8-7.7); Neutrophils % 77.7 %; Nucleated Red Blood Cells % 0 %; Platelet Count 316 10^3/cmm (130-400); Red Blood Count 2.78 10^6/uL (4.1-5.3); Red Cell Distribution Width 14.6 % (12.1-15.1); White Blood Count 13.7 10^3/uL (4.0-10.0)
[2021-12-13 06:35] LABS: Glucose Point of Care 104 mg/dL (70-110)
[2021-12-13 06:55] LABS: Anion Gap 15.1 (5-19); Blood Urea Nitrogen 4 mg/dL (6-20); Calcium 8.3 mg/dL (8.5-10.5); Carbon Dioxide 23 mmol/L (22-29); Chloride 104 mmol/L (98-107); Glomerular Filtration Rate 126.3 mL/min (90-130); Glucose 100 mg/dL (65-115); Osmolality Calculated 285 mOsm/kg (285-295); Potassium 3.1 mmol/L (3.5-5.1); Sodium 139 mmol/L (136-145)
--- NOTE | 2021-12-13 08:36 | P.PN_ITS ---
Subjective Subjective: The patient has no complaints this morning. Her IV apparently went bad and they have been trying the restart another one, however. She got hungry last night and wanted to eat some solid food so I started a low residue diet. She is tolerating that well. Vitals/I&O/Wt Last Vital Signs Temp 98.6 F 12/13/21 07:54 Pulse 89 12/13/21 07:54 Resp 16 12/13/21 07:54 BP 119/72 12/13/21 07:54 Pulse Ox 93 12/13/21 07:54 12/12/21 12/13/21 12/13/21 22:59 06:59 14:59 Intake Total 300 / 2315.000 650 / 2315.000 Output Total 1100 / 1950 850 / 1950 Balance -800 / 365.000 -200 / 365.000 Weight last 48 hrs Weight 193 lb 8 oz Physical Exam Narrative: The patient remains afebrile. The dressings were removed. I closed the skin with some fairly wide spaced nylon sutures and she has a little bit of serous fluid coming out of a few areas, but otherwise the wound looks good. The wounds were redressed. She actually has some solid stool in her colostomy bag but the stoma remains somewhat edematous. Urinary Catheter Management: Redd: Cath Placed During This Visit: yes Reason for Continuing Indwelling Catheter: Other Urinary Catheter Date of Insertion: 12/10/21 Urinary Catheter Time of Insertion: 08:45 Data : 12/13/21 05:47 12/13/21 05:47 Micro: Microbiology 12/08/21 04:44 Blood Culture - Final Blood NO GROWTH AFTER 5 DAYS 12/08/21 04:40 Blood Culture - Final Blood NO GROWTH AFTER 5 DAYS 12/06/21 18:45 Gram Stain - Final Abdomen Anaerobic Culture - Preliminary Bacteroides distasonis Bacteroides thetaiotaomicron Wound Culture - Final Escherichia coli Proteus mirabilis 12/06/21 20:55 Blood Culture - Final Blood Staphylococcus hominis 12/06/21 20:55 Blood Culture - Final Blood Staphylococcus hominis A&P Assessment and plan (1) Postoperative wound infection: Status post colostomy revision subcutaneous fistula and cholecystectomy on 12/10/2021. The patient is tolerating a low residue diet. Awaiting SNF placement. Continue IV antibiotics for now. Remove Redd catheter. Continue activity. Status: Acute Attestations Medical Necessity Statement*: Patient requires continued inpatient care following revision of colostomy and cholecystectomy. Awaiting placement. Coding Level of Care Code Acute Logging Tractor Operator for Niyag Fwd Diagnoses Postoperative wound infection T81.49XA
[2021-12-13] MEDS: ferrous gluconate 324 mg Tablet PO ×2 (10:00→17:49)
[2021-12-13] MEDS: atorvastatin 40 mg Tablet 20 MG PO (10:00)
[2021-12-13] MEDS: amlodipine 10 mg Tablet PO (10:01)
--- NOTE | 2021-12-13 10:33 | PC.SOCIAL ---
IMM update IMM updated with patient. Verbalized an understanding. Copy Pg 2 provided. Initialled, dated, timed, and placed in chart.
--- NOTE | 2021-12-13 12:03 | PC.CHAP ---
Pastoral Care Encounter/Spiritual Assessment Type of Contact [] Declined records management assistant visit [] Patient/Family/Request visit [] Outpatient visit [] Follow-up visit [] Physician referral [] Code/Alert [X] Routine visit [] Staff referral [] Actively dying [] Patient sleeping [] Family support [] [X] Out of room [] Palliative care [] [] Receiving care in room [] Pre-surgical visit [] Trauma [] Long length of stay [] ICU visit [] Other: Relational/Emotional Strength [] Patient feels connected with others/family/visitors/staff [] Distress [] Loneliness/isolation [] Abandonment Spirituality of Patient [] Person of Charo [] Attends Church of their Charo [] Believes in Prayer [] Reads Bible or Faith materials [] There are Spiritual issues to be addressed Roll Hauler Interventions [] Prayer [] Active listening [] Non-anxious presence [] Spiritual/emotional support [] Crisis/trauma care [] Spiritual counseling [] Bereavement support [] Provided bereavement packet [] Provided Bible/devotional materials [] Provided toy/stuffed animal, coloring book to patient or family member [] Provided Communion [] Anointing/[place] [] Salvation [] Completed spiritual assessment [] Other: Impact on Illness or Injury [] Angry [] Fearful [] Anxious [] Often cries [] Exhaustion [] Unable to work [] Unable to attend alevism [] Unable to walk/stand [] Unable to read [] Unable to drive [] Unable to eat/drink [] Unable to sleep [] Unable to be with family [] Patient intubated [] Other: Summary Time spent with patient
[2021-12-13 12:16] LABS: Glucose Point of Care 144 mg/dL (70-110)
[2021-12-13] MEDS: lidocaine 1% 5 ML in potassium chloride premix 100 ML 25 ML IV (13:25)
--- NOTE | 2021-12-13 15:36 | PM.PN ---
Subjective Subjective: Patient was seen and examined this morning, overall she is doing good, participating well with physical therapy, pain is better controlled, WBC count is appropriately trending down. Has continued to remain afebrile. Her other vitals and labs have been reviewed. Medications: Medication Review Details: Generic Name Dose Route Start Last Admin Trade Name Freq PRN Reason Stop Dose Admin Acetaminophen 650 mg 12/06/21 16:59 12/09/21 14:14 Acetaminophen 32 5 Mg Tablet PO 650 mg Q6H PRN Administration Mild/Mod Pain Or Temp >/= 101 Hydrocodone Bitart /Acetaminophen 1 - 2 tab 12/11/21 06:51 12/12/21 09:45 Hydrocodone-Acet aminophen 5-325 Mg Tablet PO 1 tab Q4H PRN Administration MODERATE TO SEVER E PAIN Amlodipine Besylat e 10 mg 12/07/21 09:00 12/12/21 09:02 Amlodipine 10 Mg Tablet PO 10 mg DAILY FAROOQ Administration Atorvastatin Calci um 20 mg 12/07/21 09:00 12/12/21 09:02 Atorvastatin 40 Mg Tablet PO 20 mg DAILY FAROOQ Administration Buspirone HCl 30 mg 12/11/21 09:00 12/12/21 05:58 Buspirone 10 Mg Tablet PO 30 mg QAM FAROOQ Administration Ferrous Gluconate 324 mg 12/07/21 18:00 12/12/21 09:02 Ferrous Gluconat e 324 Mg Tablet PO 324 mg BIDWM FAROOQ Administration Vancomycin HCl 1,0 00 mg/ 250 mls @ 250 mls /hr 12/08/21 14:00 12/12/21 07:17 Sodium Chloride IV Infused Q8H FAROOQ Infusion Potassium Chloride /Sodium Chloride 20 meq in 1,000 m ls @ 100 mls/hr 12/10/21 12:33 12/12/21 08:59 Sodium Chlor 0.9 % + Kcl 20 Meq IV 0 mls/hr .Q10H FAROOQ Infusion Piperacillin Sod/T azobactam 50 mls @ 12.5 mls /hr 12/11/21 10:30 12/12/21 06:09 Sod 3.375 gm/ So dium Chloride IV Infused Q8H FAROOQ Infusion Insulin Human Lisp ro 0 unit 12/07/21 18:00 12/12/21 13:10 Insulin Lispro 1 00 Unit/1 Ml SUBCUT Not Given WM&BEDTIME FAROOQ Protocol Ketorolac Trometha mine 15 mg 12/10/21 12:33 12/11/21 00:17 Ketorolac 30 Mg/ Ml Inj IVP 12/15/21 12:32 15 mg Q6H PRN Administration MODERATE PAIN Lanolin 1 applic 12/07/21 02:42 12/07/21 03:14 Lanolin Oint 7 G m TOPICAL 1 tube PRN PRN Administration DRYNESS Levalbuterol HCl 0.63 mg 12/10/21 12:33 12/12/21 15:07 Levalbuterol 0.6 3 Mg/3 Ml Neb INHALATION Not Given Q4H.RESPIRATORY S CH Morphine Sulfate 2 - 4 mg 12/10/21 12:33 12/11/21 01:35 Morphine 4 Mg/Ml Sdv 1 Ml IVP 4 mg Q4H PRN Administration SEVERE PAIN Non-Formulary Medi cation 250 mcg 12/07/21 09:00 12/12/21 09:20 Cyanocobalamin ( Vitamin B-12) [Vit duong B-12] PO Not Given DAILY [facility] Pantoprazole Sodiu m 40 mg 12/06/21 17:00 12/11/21 18:19 Pantoprazole 40 Mg Sdv IVP 40 mg Q24H FAROOQ Administration Trazodone HCl 100 mg 12/06/21 21:00 12/11/21 21:25 Trazodone 100 Mg Tablet PO 100 mg BEDTIME FAROOQ Administration Vitals/I&O/Wt Last Vital Signs Temp 98.4 F 12/13/21 15:31 Pulse 97 12/13/21 15:31 Resp 16 12/13/21 15:31 BP 117/76 12/13/21 15:31 Pulse Ox 94 12/13/21 15:31 12/13/21 12/13/21 12/13/21 06:59 14:59 22:59 Intake Total 700 / 2365.000 200 / 200 Output Total 850 / 1950 Balance -150 / 415.000 200 / 200 Weight last 48 hrs Weight 87.77 kg Physical Exam Const: COMMON NORMALS: patient oriented x3 HENMT: COMMON NORMALS: normocephalic and atraumatic HEAD & SCALP: normocephalic and atraumatic Eye: COMMON NORMALS: no scleral icterus GENERAL EYE: appearance normal, both eyes and all related structures Chest: COMMONS NORMALS: normal inspection of the chest and normal palpation of entire chest wall CHEST: Yes Symmetrical chest wall rise Resp: COMMON NORMALS: normal respiratory effort, No retractions, No use of accessory muscles and clear to auscultation bilaterally EFFORT & INSPECTION: Yes symmetric chest movement AUSCULTATION: clear to auscultation bilaterally Cardio: COMMON NORMALS: regular rate, regular rhythm, S1 normal heart sound present, S2 normal heart sound present, No gallops present (Cardio), No murmurs present (Cardio), No rub (Cardio) and Peripheral pulses 2+ throughout RATE: regular rate RHYTHM: regular rhythm HEART SOUNDS: S1 normal heart sound present and S2 normal heart sound present PERIPHERAL PULSES: Peripheral pulses 2+ throughout GI: COMMON NORMALS: Normal to inspection, nondistended, normoactive bowel sounds present, Soft to palpation, non-tender, No hepatosplenomegaly present and no masses AUSCULTATION: Yes normoactive bowel sounds PALPATION: Yes Soft to palpation and Yes No hepatosplenomegaly present RECTAL EXAM: deferred OTHER: Colostomy site clean and intact Extremity: COMMON NORMALS: no clubbing, cyanosis or edema and no pedal edema Neuro: COMMON NORMALS: patient oriented x3 Urinary Catheter Management: Redd: Cath Placed During This Visit: yes Reason for Continuing Indwelling Catheter: Other Urinary Catheter Date of Insertion: 12/10/21 Urinary Catheter Time of Insertion: 08:45 Data : 12/13/21 05:47 12/13/21 05:47 Micro: Microbiology 12/06/21 18:45 Gram Stain - Final Abdomen Anaerobic Culture - Preliminary Bacteroides distasonis Bacteroides thetaiotaomicron Wound Culture - Final Escherichia coli Proteus mirabilis 12/08/21 04:44 Blood Culture - Final Blood NO GROWTH AFTER 5 DAYS 12/08/21 04:40 Blood Culture - Final Blood NO GROWTH AFTER 5 DAYS A&P Assessment and plan (1) Postoperative wound infection: Status: Acute (2) Colostomy in place: Status: Acute (3) Diabetes: Status: Acute Plan 61-year-old female with recent discharge from the hospital post exploratory laparotomy and sigmoid resection with colostomy for 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 Staph hominis bacteremia: 2 out of 4 bottles from admission positive. Most likely contaminant. Repeat blood cultures so far negative. Repeat blood cultures:Negative MRSA is also negative. vancomycin has been stopped. Wound dehiscence/surgical wound infection: Post wound irrigation day 3. Plan for colostomy revision today. Wound culture results growing E. coli and Proteus. Patient does have mild leukocytosis today. Could be reactive secondary to surgery yesterday. For now we will switch over to Zosyn. [place] 5 mg every 8 hours as needed for pain. Anticoagulation diet as per surgical team. Anemia: Baseline hemoglobin around 8. Hemoglobin up appropriately. Post monitor blood transfusion. Iron deficiency anemia. Continue with oral iron supplementation. Hyponatremia: Resolved. Most likely secondary to excessive fluid loss from surgical wound and ostomy. IV fluids as above. We will monitor BMP daily for now. Type 2 diabetes mellitus: HbA1c 5.8. Carb consistent diet. Insulin sliding scale at low-dose protocol. Hypertension: Goal blood pressure less than 140/90 mmHg. Continue with home dose of amlodipine. Continue other chronic oral medications. Start on oral iron supplementation. Full code. SCDs for DVT prophylaxis. Heparin for DVT prophylaxis. Out of bed to chair. Protonix for PUD prophylaxis. Replete potassium. Case management consult. Patient would require placement to SNF as it seems she is unable to take care of herself at home leading to wound dehiscence in view of recent expiratory laparotomy for pelvic abscess. Attestations Medical Necessity Statement*: Per primary team. Coding Level of Care Code Acute Automotive Software Engineer for Cristy Donovan Diagnoses Postoperative wound infection T81.49XA Colostomy in place Z93.3 Diabetes E11.9
[2021-12-13 17:14] LABS: Glucose Point of Care 120 mg/dL (70-110)
[2021-12-13] MEDS: pantoprazole 40 mg SDV IVP (17:49)
[2021-12-13] MEDS: sodium chlor 0.9% + KCl 20 mEq 20 MEQ/1,000 ML BAG 100 MEQ IV (17:56)
[2021-12-13] MEDS: trazodone 100 mg Tablet PO (20:38)
[2021-12-13 20:47] LABS: Glucose Point of Care 123 mg/dL (70-110)
[2021-12-14] VITALS (8 sets, daily range): BP systolic 127–157; BP diastolic 67–87; PULSE 89–101; RESP 12–17; TEMP 36.8–37.5; O2SAT 91–97
[2021-12-14] MEDS: piperacillin-tazobactam 3.375 GM in sodium chloride 0.9% (plus) 50 ML IV ×3 (01:57→18:41)
[2021-12-14] MEDS: HYDROcodone-acetaminophen 5-325 mg Tablet PO ×3 (03:43→17:09)
[2021-12-14] MEDS: sodium chlor 0.9% + KCl 20 mEq 20 MEQ/1,000 ML BAG 100 MEQ IV ×2 (03:53→12:06)
[2021-12-14 05:52] LABS: Basophils % 0.2 %; Eosinophils # 0.2 10^3/uL (0.0-0.8); Eosinophils % 1.4 %; Hematocrit 27.2 % (37.0-47.0); Hemoglobin 8.3 g/dL (11.5-15.3); Lymphocytes # 1.8 10^3/uL (0.8-4.8); Lymphocytes % 12.9 %; Mean Corpuscular HGB Conc 30.5 g/dL (30.0-36.0); Mean Corpuscular Hemoglobin 29.4 pg (28.0-34.0); Mean Corpuscular Volume 96.5 fl (81-99); Mean Platelet Volume 9.5 fL (7.4-10.4); Monocytes # 0.9 10^3/uL (0.2-0.9); Monocytes % 6.6 %; Nucleated Red Blood Cells % 0 %; Platelet Count 336 10^3/cmm (130-400); Red Blood Count 2.82 10^6/uL (4.1-5.3); Red Cell Distribution Width 14.6 % (12.1-15.1); White Blood Count 13.8 10^3/uL (4.0-10.0)
[2021-12-14] MEDS: BuSPIRONE 10 mg Tablet 30 MG PO (06:17)
[2021-12-14 06:31] LABS: Anion Gap 17.2 (5-19); Blood Urea Nitrogen 3 mg/dL (6-20); Calcium 8.4 mg/dL (8.5-10.5); Carbon Dioxide 21 mmol/L (22-29); Chloride 104 mmol/L (98-107); Glomerular Filtration Rate 126.3 mL/min (90-130); Glucose 114 mg/dL (65-115); Osmolality Calculated 285 mOsm/kg (285-295); Potassium 3.2 mmol/L (3.5-5.1); Sodium 139 mmol/L (136-145)
[2021-12-14 06:41] LABS: Glucose Point of Care 113 mg/dL (70-110)
--- NOTE | 2021-12-14 09:12 | P.PN_ITS ---
Subjective Subjective: Patient feels well. She states she is ready to try to get out of the hospital soon. I told her that we are still working on placement. She told me this morning that if somebody would teach her how to work with her colostomy a little bit better she thinks she might be able go home. I still think temporary placement in a SNF would be best as I do not think her home situation is the best. She is tolerating a GI soft diet and her colostomy is functioning. Vitals/I&O/Wt Last Vital Signs Temp 98.7 F 12/14/21 07:41 Pulse 92 12/14/21 07:41 Resp 12 12/14/21 07:41 BP 134/81 12/14/21 07:41 Pulse Ox 93 12/14/21 07:41 12/13/21 12/14/21 12/14/21 22:59 06:59 14:59 Intake Total 445 / 1690 1045 / 1690 Balance 445 / 1690 1045 / 1690 Weight last 48 hrs Weight 194 lb 3.2 oz Physical Exam Narrative: There is some stool in the colostomy bag. The colostomy is viable but remains somewhat edematous. The midline wound seems the be drying up somewhat. I looked at the very bottom of it and I am going to leave the dressing on for 1 more day. Urinary Catheter Management: Redd: Cath Placed During This Visit: yes, but has since been removed by the nurse Reason for Continuing Indwelling Catheter: Decision to DC Catheter Urinary Catheter Date of Insertion: 12/10/21 Urinary Catheter Time of Insertion: 08:45 Date Urinary Catheter Removed: 12/13/21 Time Urinary Catheter Discontinued: 11:00 Data : 12/14/21 04:35 12/14/21 04:35 Micro: Microbiology 12/06/21 18:45 Gram Stain - Final Abdomen Anaerobic Culture - Preliminary Bacteroides distasonis Bacteroides thetaiotaomicron Wound Culture - Final Escherichia coli Proteus mirabilis 12/08/21 04:44 Blood Culture - Final Blood NO GROWTH AFTER 5 DAYS 12/08/21 04:40 Blood Culture - Final Blood NO GROWTH AFTER 5 DAYS A&P Assessment and plan (1) Postoperative wound infection: Status post colostomy revision subcutaneous fistula and cholecystectomy on 12/10/2021. The patient is tolerating a low residue diet. Awaiting SNF placement. Continue IV antibiotics. I am hoping I discontinue all antibiotics at the time of the patient's discharge. Status: Acute Attestations Medical Necessity Statement*: Patient requires continued inpatient care follow ing colostomy revision and cholecystectomy. Still awaiting placement options. Coding Level of Care Code Acute Second Ride Fare Collector for Cristy Donovan Diagnoses Postoperative wound infection T81.49XA
[2021-12-14] MEDS: amlodipine 10 mg Tablet PO (09:13)
[2021-12-14] MEDS: ferrous gluconate 324 mg Tablet PO ×2 (09:18→17:04)
[2021-12-14] MEDS: atorvastatin 40 mg Tablet 20 MG PO (09:18)
[2021-12-14] MEDS: lidocaine 1% 5 ML in potassium chloride premix 100 ML 25 ML IV (09:19)
[2021-12-14 11:13] LABS: Glucose Point of Care 165 mg/dL (70-110)
[2021-12-14] MEDS: insulin lispro 100 unit/1 mL SUBCUT ×2 (12:05→21:16)
--- NOTE | 2021-12-14 14:31 | PM.PN ---
Subjective Subjective: Patient was seen and examined this morning,no acute events overnight, continue to show promising improvements,on G/I Soft diet. Medications: Medication Review Details: Generic Name Dose Route Start Last Admin Trade Name Greg PRN Reason Stop Dose Admin Acetaminophen 650 mg 12/06/21 16:59 12/09/21 14:14 Acetaminophen 32 5 Mg Tablet PO 650 mg Q6H PRN Administration Mild/Mod Pain Or Temp >/= 101 Hydrocodone Bitart /Acetaminophen 1 - 2 tab 12/11/21 06:51 12/12/21 09:45 Hydrocodone-Acet aminophen 5-325 Mg Tablet PO 1 tab Q4H PRN Administration MODERATE TO SEVER E PAIN Amlodipine Besylat e 10 mg 12/07/21 09:00 12/12/21 09:02 Amlodipine 10 Mg Tablet PO 10 mg DAILY FAROOQ Administration Atorvastatin Calci um 20 mg 12/07/21 09:00 12/12/21 09:02 Atorvastatin 40 Mg Tablet PO 20 mg DAILY FAROOQ Administration Buspirone HCl 30 mg 12/11/21 09:00 12/12/21 05:58 Buspirone 10 Mg Tablet PO 30 mg QAM FAROOQ Administration Ferrous Gluconate 324 mg 12/07/21 18:00 12/12/21 09:02 Ferrous Gluconat e 324 Mg Tablet PO 324 mg BIDWM FAROOQ Administration Vancomycin HCl 1,0 00 mg/ 250 mls @ 250 mls /hr 12/08/21 14:00 12/12/21 07:17 Sodium Chloride IV Infused Q8H FAROOQ Infusion Potassium Chloride /Sodium Chloride 20 meq in 1,000 m ls @ 100 mls/hr 12/10/21 12:33 12/12/21 08:59 Sodium Chlor 0.9 % + Kcl 20 Meq IV 0 mls/hr .Q10H FAROOQ Infusion Piperacillin Sod/T azobactam 50 mls @ 12.5 mls /hr 12/11/21 10:30 12/12/21 06:09 Sod 3.375 gm/ So dium Chloride IV Infused Q8H FAROOQ Infusion Insulin Human Lisp ro 0 unit 12/07/21 18:00 12/12/21 13:10 Insulin Lispro 1 00 Unit/1 Ml SUBCUT Not Given WM&BEDTIME FAROOQ Protocol Ketorolac Trometha mine 15 mg 12/10/21 12:33 12/11/21 00:17 Ketorolac 30 Mg/ Ml Inj IVP 12/15/21 12:32 15 mg Q6H PRN Administration MODERATE PAIN Lanolin 1 applic 12/07/21 02:42 12/07/21 03:14 Lanolin Oint 7 G m TOPICAL 1 tube PRN PRN Administration DRYNESS Levalbuterol HCl 0.63 mg 12/10/21 12:33 12/12/21 15:07 Levalbuterol 0.6 3 Mg/3 Ml Neb INHALATION Not Given Q4H.RESPIRATORY S CH Morphine Sulfate 2 - 4 mg 12/10/21 12:33 12/11/21 01:35 Morphine 4 Mg/Ml Sdv 1 Ml IVP 4 mg Q4H PRN Administration SEVERE PAIN Non-Formulary Medi cation 250 mcg 12/07/21 09:00 12/12/21 09:20 Cyanocobalamin ( Vitamin B-12) [Vit duong B-12] PO Not Given DAILY FAROOQ Pantoprazole Sodiu m 40 mg 12/06/21 17:00 12/11/21 18:19 Pantoprazole 40 Mg Sdv IVP 40 mg Q24H FAROOQ Administration Trazodone HCl 100 mg 12/06/21 21:00 12/11/21 21:25 Trazodone 100 Mg Tablet PO 100 mg BEDTIME FAROOQ Administration Vitals/I&O/Wt Last Vital Signs Temp 98.9 F 12/14/21 12:00 Pulse 96 12/14/21 12:00 Resp 15 12/14/21 12:00 BP 142/87 12/14/21 12:00 Pulse Ox 94 12/14/21 12:00 12/13/21 12/14/21 12/14/21 22:59 06:59 14:59 Intake Total 445 / 645 1045 / 1690 1181.667 / 1181.667 Balance 445 / 645 1045 / 1690 1181.667 / 1181.667 Weight last 48 hrs Weight 88.088 kg Physical Exam Const: COMMON NORMALS: patient oriented x3 HENMT: COMMON NORMALS: normocephalic and atraumatic HEAD & SCALP: normocephalic and atraumatic Eye: COMMON NORMALS: no scleral icterus GENERAL EYE: appearance normal, both eyes and all related structures Chest: COMMONS NORMALS: normal inspection of the chest and normal palpation of entire chest wall CHEST: Yes Symmetrical chest wall rise Resp: COMMON NORMALS: normal respiratory effort, No retractions, No use of accessory muscles and clear to auscultation bilaterally EFFORT & INSPECTION: Yes symmetric chest movement AUSCULTATION: clear to auscultation bilaterally Cardio: COMMON NORMALS: regular rate, regular rhythm, S1 normal heart sound present, S2 normal heart sound present, No gallops present (Cardio), No murmurs present (Cardio), No rub (Cardio) and Peripheral pulses 2+ throughout RATE: regular rate RHYTHM: regular rhythm HEART SOUNDS: S1 normal heart sound present and S2 normal heart sound present PERIPHERAL PULSES: Peripheral pulses 2+ throughout GI: COMMON NORMALS: Normal to inspection, nondistended, normoactive bowel sounds present, Soft to palpation, non-tender, No hepatosplenomegaly present and no masses AUSCULTATION: Yes normoactive bowel sounds PALPATION: Yes Soft to palpation and Yes No hepatosplenomegaly present RECTAL EXAM: deferred OTHER: Colostomy site clean and intact Extremity: COMMON NORMALS: no clubbing, cyanosis or edema and no pedal edema Neuro: COMMON NORMALS: patient oriented x3 Urinary Catheter Management: Redd: Cath Placed During This Visit: yes, but has since been removed by the nurse Reason for Continuing Indwelling Catheter: Decision to DC Catheter Urinary Catheter Date of Insertion: 12/10/21 Urinary Catheter Time of Insertion: 08:45 Date Urinary Catheter Removed: 12/13/21 Time Urinary Catheter Discontinued: 11:00 Data : 12/14/21 04:35 12/14/21 04:35 Micro: Microbiology 12/06/21 18:45 Gram Stain - Final Abdomen Anaerobic Culture - Final Bacteroides distasonis Bacteroides thetaiotaomicron Wound Culture - Final Escherichia coli Proteus mirabilis A&P Assessment and plan (1) Postoperative wound infection: Status: Acute (2) Colostomy in place: Status: Acute (3) Diabetes: Status: Acute Plan 61-year-old female with recent discharge from the hospital post exploratory laparotomy and sigmoid resection with colostomy for 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 Staph hominis bacteremia: 2 out of 4 bottles from admission positive. Most likely contaminant. Repeat blood cultures so far negative. Repeat blood cultures:Negative MRSA is also negative. vancomycin has been stopped. Wound dehiscence/surgical wound infection: Post wound irrigation day 3. Plan for colostomy revision today. Wound culture results growing E. coli and Proteus. Patient does have mild leukocytosis today. Could be reactive secondary to surgery yesterday. For now we will switch over to Zosyn. [place] 5 mg every 8 hours as needed for pain. Anticoagulation diet as per surgical team. Anemia: Baseline hemoglobin around 8. Hemoglobin up appropriately. Post monitor blood transfusion. Iron deficiency anemia. Continue with oral iron supplementation. Hyponatremia: Resolved. Most likely secondary to excessive fluid loss from surgical wound and ostomy. IV fluids as above. We will monitor BMP daily for now. Type 2 diabetes mellitus: HbA1c 5.8. Carb consistent diet. Insulin sliding scale at low-dose protocol. Hypertension: Goal blood pressure less than 140/90 mmHg. Continue with home dose of amlodipine. Continue other chronic oral medications. Start on oral iron supplementation. Full code. SCDs for DVT prophylaxis. Heparin for DVT prophylaxis. Out of bed to chair. Protonix for PUD prophylaxis. Replete potassium. Case management consult. Patient would require placement to SNF as it seems she is unable to take care of herself at home leading to wound dehiscence in view of recent expiratory laparotomy for pelvic abscess. Attestations Medical Necessity Statement*: Awaiting Placement to SNF. Coding Level of Care Code Acute Confidential Secretary for Cristy Donovan Diagnoses Postoperative wound infection T81.49XA Colostomy in place Z93.3 Diabetes E11.9
[2021-12-14 16:49] LABS: Glucose Point of Care 112 mg/dL (70-110)
[2021-12-14] MEDS: pantoprazole 40 mg SDV IVP (17:04)
[2021-12-14 20:38] LABS: Glucose Point of Care 162 mg/dL (70-110)
[2021-12-14] MEDS: sodium chlor 0.9% + KCl 20 mEq 20 MEQ/1,000 ML BAG 50 MEQ IV (21:15)
[2021-12-14] MEDS: trazodone 100 mg Tablet PO (21:16)
[2021-12-15] VITALS (10 sets, daily range): BP systolic 121–165; BP diastolic 67–88; PULSE 86–103; RESP 16–18; TEMP 36.4–37.7; O2SAT 90–95
[2021-12-15] MEDS: HYDROcodone-acetaminophen 5-325 mg Tablet PO ×4 (02:15→20:41)
[2021-12-15] MEDS: piperacillin-tazobactam 3.375 GM in sodium chloride 0.9% (plus) 50 ML IV ×2 (02:17→10:26)
[2021-12-15] MEDS: BuSPIRONE 10 mg Tablet 30 MG PO (06:19)
[2021-12-15] MEDS: sodium chlor 0.9% + KCl 20 mEq 20 MEQ/1,000 ML BAG 50 MEQ IV (06:19)
[2021-12-15 06:35] LABS: Glucose Point of Care 97 mg/dL (70-110)
[2021-12-15] MEDS: ferrous gluconate 324 mg Tablet PO ×2 (08:39→17:07)
[2021-12-15] MEDS: atorvastatin 40 mg Tablet 20 MG PO (08:39)
[2021-12-15] MEDS: amlodipine 10 mg Tablet PO (08:39)
[2021-12-15] MEDS: ketorolac 30 mg/mL INJ 15 MG IVP (08:48)
--- NOTE | 2021-12-15 09:30 | PC.SOCIAL ---
IMM update IMM updated with patient. Verbalized an understanding. Copy Pg 2 provided. Initialled, dated, timed, and placed in chart.
[2021-12-15 11:07] LABS: Glucose Point of Care 129 mg/dL (70-110)
--- NOTE | 2021-12-15 11:09 | PM.PN ---
Subjective Subjective: Patient was seen and examined this morning,no acute events overnight. Medications: Medication Review Details: Generic Name Dose Route Start Last Admin Trade Name Freq PRN Reason Stop Dose Admin Acetaminophen 650 mg 12/06/21 16:59 12/09/21 14:14 Acetaminophen 32 5 Mg Tablet PO 650 mg Q6H PRN Administration Mild/Mod Pain Or Temp >/= 101 Hydrocodone Bitart /Acetaminophen 1 - 2 tab 12/11/21 06:51 12/12/21 09:45 Hydrocodone-Acet aminophen 5-325 Mg Tablet PO 1 tab Q4H PRN Administration MODERATE TO SEVER E PAIN Amlodipine Besylat e 10 mg 12/07/21 09:00 12/12/21 09:02 Amlodipine 10 Mg Tablet PO 10 mg DAILY FAROOQ Administration Atorvastatin Calci um 20 mg 12/07/21 09:00 12/12/21 09:02 Atorvastatin 40 Mg Tablet PO 20 mg DAILY FAROOQ Administration Buspirone HCl 30 mg 12/11/21 09:00 12/12/21 05:58 Buspirone 10 Mg Tablet PO 30 mg QAM FAROOQ Administration Ferrous Gluconate 324 mg 12/07/21 18:00 12/12/21 09:02 Ferrous Gluconat e 324 Mg Tablet PO 324 mg BIDWM FAROOQ Administration Vancomycin HCl 1,0 00 mg/ 250 mls @ 250 mls /hr 12/08/21 14:00 12/12/21 07:17 Sodium Chloride IV Infused Q8H FAROOQ Infusion Potassium Chloride /Sodium Chloride 20 meq in 1,000 m ls @ 100 mls/hr 12/10/21 12:33 12/12/21 08:59 Sodium Chlor 0.9 % + Kcl 20 Meq IV 0 mls/hr .Q10H FAROOQ Infusion Piperacillin Sod/T azobactam 50 mls @ 12.5 mls /hr 12/11/21 10:30 12/12/21 06:09 Sod 3.375 gm/ So dium Chloride IV Infused Q8H FAROOQ Infusion Insulin Human Lisp ro 0 unit 12/07/21 18:00 12/12/21 13:10 Insulin Lispro 1 00 Unit/1 Ml SUBCUT Not Given WM&BEDTIME FAROOQ Protocol Ketorolac Trometha mine 15 mg 12/10/21 12:33 12/11/21 00:17 Ketorolac 30 Mg/ Ml Inj IVP 12/15/21 12:32 15 mg Q6H PRN Administration MODERATE PAIN Lanolin 1 applic 12/07/21 02:42 12/07/21 03:14 Lanolin Oint 7 G m TOPICAL 1 tube PRN PRN Administration DRYNESS Levalbuterol HCl 0.63 mg 12/10/21 12:33 12/12/21 15:07 Levalbuterol 0.6 3 Mg/3 Ml Neb INHALATION Not Given Q4H.RESPIRATORY S CH Morphine Sulfate 2 - 4 mg 12/10/21 12:33 12/11/21 01:35 Morphine 4 Mg/Ml Sdv 1 Ml IVP 4 mg Q4H PRN Administration SEVERE PAIN Non-Formulary Medi cation 250 mcg 12/07/21 09:00 12/12/21 09:20 Cyanocobalamin ( Vitamin B-12) [Vit duong B-12] PO Not Given DAILY FAROOQ Pantoprazole Sodiu m 40 mg 12/06/21 17:00 12/11/21 18:19 Pantoprazole 40 Mg Sdv IVP 40 mg Q24H FAROOQ Administration Trazodone HCl 100 mg 12/06/21 21:00 12/11/21 21:25 Trazodone 100 Mg Tablet PO 100 mg BEDTIME FAROOQ Administration Vitals/I&O/Wt Last Vital Signs Temp 98.5 F 12/15/21 08:00 Pulse 98 12/15/21 08:00 Resp 18 12/15/21 08:00 BP 128/77 12/15/21 08:00 Pulse Ox 95 12/15/21 08:00 12/14/21 12/15/21 12/15/21 22:59 06:59 14:59 Intake Total 1020 / 2251.667 503.333 / 2755.000 290 / 290 Output Total Balance 1010 / 2241.667 503.333 / 2745.000 290 / 290 Weight last 48 hrs Weight 87.498 kg Weight 88.088 kg Physical Exam Const: COMMON NORMALS: patient oriented x3 HENMT: COMMON NORMALS: normocephalic and atraumatic HEAD & SCALP: normocephalic and atraumatic Eye: COMMON NORMALS: no scleral icterus GENERAL EYE: appearance normal, both eyes and all related structures Chest: COMMONS NORMALS: normal inspection of the chest and normal palpation of entire chest wall CHEST: Yes Symmetrical chest wall rise Resp: COMMON NORMALS: normal respiratory effort, No retractions, No use of accessory muscles and clear to auscultation bilaterally EFFORT & INSPECTION: Yes symmetric chest movement AUSCULTATION: clear to auscultation bilaterally Cardio: COMMON NORMALS: regular rate, regular rhythm, S1 normal heart sound present, S2 normal heart sound present, No gallops present (Cardio), No murmurs present (Cardio), No rub (Cardio) and Peripheral pulses 2+ throughout RATE: regular rate RHYTHM: regular rhythm HEART SOUNDS: S1 normal heart sound present and S2 normal heart sound present PERIPHERAL PULSES: Peripheral pulses 2+ throughout GI: COMMON NORMALS: Normal to inspection, nondistended, normoactive bowel sounds present, Soft to palpation, non-tender, No hepatosplenomegaly present and no masses AUSCULTATION: Yes normoactive bowel sounds PALPATION: Yes Soft to palpation and Yes No hepatosplenomegaly present RECTAL EXAM: deferred OTHER: Colostomy site clean and intact Extremity: COMMON NORMALS: no clubbing, cyanosis or edema and no pedal edema Neuro: COMMON NORMALS: patient oriented x3 Urinary Catheter Management: Redd: Cath Placed During This Visit: yes, but has since been removed by the nurse Reason for Continuing Indwelling Catheter: Decision to DC Catheter Urinary Catheter Date of Insertion: 12/10/21 Urinary Catheter Time of Insertion: 08:45 Date Urinary Catheter Removed: 12/13/21 Time Urinary Catheter Discontinued: 11:00 Data : 12/14/21 04:35 12/14/21 04:35 Micro: Microbiology 12/06/21 18:45 Gram Stain - Final Abdomen Anaerobic Culture - Final Bacteroides distasonis Bacteroides thetaiotaomicron Wound Culture - Final Escherichia coli Proteus mirabilis A&P Assessment and plan (1) Postoperative wound infection: Status: Acute (2) Colostomy in place: Status: Acute (3) Diabetes: Status: Acute Plan 61-year-old female with recent discharge from the hospital post exploratory laparotomy and sigmoid resection with colostomy for 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 Staph hominis bacteremia: 2 out of 4 bottles from admission positive. Most likely contaminant. Repeat blood cultures so far negative. Repeat blood cultures:Negative MRSA is also negative. vancomycin has been stopped. Wound dehiscence/surgical wound infection: Post wound irrigation day 3. Plan for colostomy revision today. Wound culture results growing E. coli and Proteus. Patient does have mild leukocytosis today. Could be reactive secondary to surgery yesterday. Was on Zosyn.She has been switched to Bactrim and metronidazole. Can be discharged on both for another 7 days [place] 5 mg every 8 hours as needed for pain. Anticoagulation diet as per surgical team. Anemia: Baseline hemoglobin around 8. Hemoglobin up appropriately. Post monitor blood transfusion. Iron deficiency anemia. Continue with oral iron supplementation. Hyponatremia: Resolved. Most likely secondary to excessive fluid loss from surgical wound and ostomy. IV fluids as above. We will monitor BMP daily for now. Type 2 diabetes mellitus: HbA1c 5.8. Carb consistent diet. Insulin sliding scale at low-dose protocol. Hypertension: Goal blood pressure less than 140/90 mmHg. Continue with home dose of amlodipine. Continue other chronic oral medications. Start on oral iron supplementation. Full code. SCDs for DVT prophylaxis. Heparin for DVT prophylaxis. Out of bed to chair. Protonix for PUD prophylaxis. Replete potassium. Case management consult. Patient would require placement to SNF as it seems she is unable to take care of herself at home leading to wound dehiscence in view of recent expiratory laparotomy for pelvic abscess. Attestations Medical Necessity Statement*: Per Primary Team. Awaiting Placement. Coding Level of Care Code Acute Cut Off Machine Helper for [facility] Fwd Exam Comprehensive Diagnoses Postoperative wound infection T81.49XA Colostomy in place Z93.3 Diabetes E11.9
--- NOTE | 2021-12-15 12:12 | PM.PN ---
Subjective Subjective: The patient feels well. She has not heard anything new about discharge arrangements. Vitals/I&O/Wt Last Vital Signs Temp 97.6 F 12/15/21 11:33 Pulse 90 12/15/21 11:33 Resp 18 12/15/21 11:33 BP 121/67 12/15/21 11:33 Pulse Ox 91 12/15/21 11:33 12/14/21 12/15/21 12/15/21 22:59 06:59 14:59 Intake Total 1020 / 2755.000 503.333 / 2755.000 290 / 290 Output Total Balance 1010 / 2745.000 503.333 / 2745.000 290 / 290 Weight last 48 hrs Weight 192 lb 14.4 oz Weight 194 lb 3.2 oz Physical Exam Narrative: The dressings were removed. The incisions all actually look quite good. There does not appear to be any ongoing drainage. The colostomy is viable and less edematous. Urinary Catheter Management: Redd: Cath Placed During This Visit: yes, but has since been removed by the nurse Reason for Continuing Indwelling Catheter: Decision to DC Catheter Urinary Catheter Date of Insertion: 12/10/21 Urinary Catheter Time of Insertion: 08:45 Date Urinary Catheter Removed: 12/13/21 Time Urinary Catheter Discontinued: 11:00 Data : 12/14/21 04:35 12/14/21 04:35 Micro: Microbiology 12/06/21 18:45 Gram Stain - Final Abdomen Anaerobic Culture - Final Bacteroides distasonis Bacteroides thetaiotaomicron Wound Culture - Final Escherichia coli Proteus mirabilis A&P Assessment and plan (1) Postoperative wound infection: Status post colostomy revision subcutaneous fistula and cholecystectomy on 12/10/2021. Case management still has to requests out for [facility] placement. They are hoping they hear something by later today. I am going to try to leave the abdominal dressing off and keep an eye on the wounds. Discontinue Zosyn and convert to oral antibiotics. Status: Acute Attestations Medical Necessity Statement*: Patient requires continued inpatient care following revision of colostomy. Awaiting placement. Coding Level of Care Code Acute Counselling Psychologist for Cristy Donovan Diagnoses Postoperative wound infection T81.49XA
--- NOTE | 2021-12-15 16:05 | PC.NURSE ---
pt was just up using BSC before VS.
[2021-12-15] MEDS: metroNIDAZOLE 500 MG Tablet PO ×2 (16:27→20:38)
[2021-12-15] MEDS: pantoprazole 40 mg SDV IVP (16:32)
[2021-12-15 17:01] LABS: Glucose Point of Care 109 mg/dL (70-110)
[2021-12-15] MEDS: sulfamethoxazole-trimeth DS 160-800 mg Tablet 1 TAB PO (17:07)
--- NOTE | 2021-12-15 17:31 | PC.NURSE ---
Patient educated on care of ostomy bag and how often to change system. Patient stated she understood the instructions but has yet to perform self care with bag. Patient requesting this nurse change out system, this nurse encouraged patient to change out herself. WIll reattempt later.
--- NOTE | 2021-12-15 19:18 | PC.NURSE ---
Patient assisted in changing ostomy system.
[2021-12-15] MEDS: trazodone 100 mg Tablet PO (20:38)
[2021-12-15 21:01] LABS: Glucose Point of Care 114 mg/dL (70-110)
[2021-12-16] VITALS (9 sets, daily range): BP systolic 127–156; BP diastolic 62–86; PULSE 80–98; RESP 16–18; TEMP 36.6–37.4; O2SAT 91–96
[2021-12-16] MEDS: HYDROcodone-acetaminophen 5-325 mg Tablet PO ×4 (02:29→20:29)
[2021-12-16] MEDS: sodium chlor 0.9% + KCl 20 mEq 20 MEQ/1,000 ML BAG 50 MEQ IV ×3 (02:29→23:52)
[2021-12-16 02:44] LABS: Basophils % 0.3 %; Eosinophils # 0.3 10^3/uL (0.0-0.8); Eosinophils % 2.5 %; Hematocrit 25.5 % (37.0-47.0); Hemoglobin 7.9 g/dL (11.5-15.3); Lymphocytes # 1.8 10^3/uL (0.8-4.8); Lymphocytes % 17.2 %; Mean Corpuscular Hemoglobin 29.2 pg (28.0-34.0); Mean Corpuscular Volume 94.1 fl (81-99); Mean Platelet Volume 9.7 fL (7.4-10.4); Monocytes % 9.3 %; Neutrophils # 7.26 10^3/uL (1.8-7.7); Neutrophils % 70.1 %; Nucleated Red Blood Cells % 0 %; Platelet Count 338 10^3/cmm (130-400); Red Blood Count 2.71 10^6/uL (4.1-5.3); Red Cell Distribution Width 14.8 % (12.1-15.1); White Blood Count 10.4 10^3/uL (4.0-10.0)
[2021-12-16 03:05] LABS: Anion Gap 14.5 (5-19); Blood Urea Nitrogen 3 mg/dL (6-20); Calcium 8.5 mg/dL (8.5-10.5); Carbon Dioxide 26 mmol/L (22-29); Chloride 104 mmol/L (98-107); Glomerular Filtration Rate 126.3 mL/min (90-130); Glucose 104 mg/dL (65-115); Osmolality Calculated 291 mOsm/kg (285-295); Sodium 142 mmol/L (136-145)
[2021-12-16 03:21] LABS: Potassium 2.5 mmol/L (3.5-5.1)
[2021-12-16] MEDS: potassium chloride ER 20 mEq Tablet 40 MEQ PO (04:46)
[2021-12-16] MEDS: BuSPIRONE 10 mg Tablet 30 MG PO (05:02)
[2021-12-16 06:23] LABS: Glucose Point of Care 111 mg/dL (70-110)
--- NOTE | 2021-12-16 07:30 | PM.PN ---
Subjective Subjective: The patient feels well. We received word yesterday that she has been accepted to [facility], but it is going to take them a few days to get the transfer completed. Vitals/I&O/Wt Last Vital Signs Temp 98 F 12/16/21 04:00 Pulse 83 12/16/21 06:00 Resp 16 12/16/21 04:00 BP 127/81 12/16/21 04:00 Pulse Ox 91 12/16/21 04:00 12/15/21 12/16/21 12/16/21 22:59 06:59 14:59 Intake Total 840 / 2420 1000 / 2420 Output Total 550 / 550 Balance 290 / 1870 1000 / 1870 Weight last 48 hrs Weight 189 lb 11.2 oz Weight 192 lb 14.4 oz Physical Exam Narrative: The patient has some continued drainage from the lower aspect of her incision. The dressing was removed and one of the nylon sutures was also removed. She did have a pocket of light brown-colored fluid in the wound. This was all evacuated and the wound was packed with some gauze. Urinary Catheter Management: Redd: Cath Placed During This Visit: yes, but has since been removed by the nurse Reason for Continuing Indwelling Catheter: Decision to DC Catheter Urinary Catheter Date of Insertion: 12/10/21 Urinary Catheter Time of Insertion: 08:45 Date Urinary Catheter Removed: 12/13/21 Time Urinary Catheter Discontinued: 11:00 Data : 12/16/21 01:38 12/16/21 01:38 A&P Assessment and plan (1) Postoperative wound infection: Status post colostomy revision subcutaneous fistula and cholecystectomy on 12/10/2021. Daily wet-to-dry wound packing at the inferior aspect of the midline wound. Transfer to [facility] later this week. Status: Acute Attestations Medical Necessity Statement*: Patient requires continued inpatient care following colostomy revision. Coding Level of Care Code Acute Health Information Internship for Cristy Donovan Diagnoses Postoperative wound infection T81.49XA
[2021-12-16] MEDS: atorvastatin 40 mg Tablet 20 MG PO (09:11)
[2021-12-16] MEDS: amlodipine 10 mg Tablet PO (09:11)
[2021-12-16] MEDS: sulfamethoxazole-trimeth DS 160-800 mg Tablet 1 TAB PO ×2 (09:11→17:13)
[2021-12-16] MEDS: pantoprazole DR 40 mg Tablet PO (09:11)
[2021-12-16] MEDS: metroNIDAZOLE 500 MG Tablet PO ×3 (09:11→20:28)
[2021-12-16] MEDS: ferrous gluconate 324 mg Tablet PO ×2 (09:11→17:13)
--- NOTE | 2021-12-16 10:45 | PC.CHAP ---
Pastoral Care Encounter/Spiritual Assessment Type of Contact [] Declined copier technician visit [] Patient/Family/Request visit [] Outpatient visit [] Follow-up visit [] Physician referral [] Code/Alert [x] Routine visit [] Staff referral [] Actively dying [] Patient sleeping [] Family support [] [] Out of room [] Palliative care [] [] Receiving care in room [] Pre-surgical visit [] Trauma [] Long length of stay [] ICU visit [] Other: Relational/Emotional Strength [x] Patient feels connected with others/family/visitors/staff [] Distress [] Loneliness/isolation [] Abandonment Spirituality of Patient [x] Person of Charo [] Attends Roman Catholic of their Charo [x] Believes in Prayer [] Reads Bible or Worship materials [] There are Spiritual issues to be addressed Associate Director Regulatory Affairs Interventions [x] Prayer [x] Active listening [x] Non-anxious presence [x] Spiritual/emotional support [] Crisis/trauma care [] Spiritual counseling [] Bereavement support [] Provided bereavement packet [] Provided Bible/devotional materials [] Provided toy/stuffed animal, coloring book to patient or family member [] Provided Communion [] Anointing/[place] [] Salvation [x] Completed spiritual assessment [] Other: Impact on Illness or Injury [] Angry [] Fearful [] Anxious [] Often cries [] Exhaustion [] Unable to work [] Unable to attend mu-ism [] Unable to walk/stand [] Unable to read [] Unable to drive [] Unable to eat/drink [] Unable to sleep [] Unable to be with family [] Patient intubated [] Other: Summary Pt has had a very difficult time the past two years. She and her SO lost their jobs and their home due to Covid shut downs. They went for a time to live with her SO's brother in law in [place]. Her SO was able to obtain disability and with the money purchased an RV which they pulled to [place] and were living [place] of . A home next to her SO's mother became available so they recently moved there. Pt says she has been ill for some time but things just finally became bad enough she went to the doctor. She has had surgery and will go to a rehab center for a time until she is able to medically care for herself. Pt has one son who lives in [place]. They have a good relationship and he has sent her money. 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 Time spent with patient 15m
[2021-12-16 11:05] LABS: Glucose Point of Care 143 mg/dL (70-110)
--- NOTE | 2021-12-16 13:24 | P.PN_ITS ---
Subjective Subjective: Patient was seen and examined this morning,fells better Medications: Medication Review Details: Generic Name Dose Route Start Last Admin Trade Name Lorenzoq PRN Reason Stop Dose Admin Acetaminophen 650 mg 12/06/21 16:59 12/09/21 14:14 Acetaminophen 32 5 Mg Tablet PO 650 mg Q6H PRN Administration Mild/Mod Pain Or Temp >/= 101 Hydrocodone Bitart /Acetaminophen 1 - 2 tab 12/11/21 06:51 12/12/21 09:45 Hydrocodone-Acet aminophen 5-325 Mg Tablet PO 1 tab Q4H PRN Administration MODERATE TO SEVER E PAIN Amlodipine Besylat e 10 mg 12/07/21 09:00 12/12/21 09:02 Amlodipine 10 Mg Tablet PO 10 mg DAILY FAROOQ Administration Atorvastatin Calci um 20 mg 12/07/21 09:00 12/12/21 09:02 Atorvastatin 40 Mg Tablet PO 20 mg DAILY FAROOQ Administration Buspirone HCl 30 mg 12/11/21 09:00 12/12/21 05:58 Buspirone 10 Mg Tablet PO 30 mg QAM FAROOQ Administration Ferrous Gluconate 324 mg 12/07/21 18:00 12/12/21 09:02 Ferrous Gluconat e 324 Mg Tablet PO 324 mg BIDWM FAROOQ Administration Vancomycin HCl 1,0 00 mg/ 250 mls @ 250 mls /hr 12/08/21 14:00 12/12/21 07:17 Sodium Chloride IV Infused Q8H FAROOQ Infusion Potassium Chloride /Sodium Chloride 20 meq in 1,000 m ls @ 100 mls/hr 12/10/21 12:33 12/12/21 08:59 Sodium Chlor 0.9 % + Kcl 20 Meq IV 0 mls/hr .Q10H FAROOQ Infusion Piperacillin Sod/T azobactam 50 mls @ 12.5 mls /hr 12/11/21 10:30 12/12/21 06:09 Sod 3.375 gm/ So dium Chloride IV Infused Q8H FAROOQ Infusion Insulin Human Lisp ro 0 unit 12/07/21 18:00 12/12/21 13:10 Insulin Lispro 1 00 Unit/1 Ml SUBCUT Not Given WM&BEDTIME [facility] Protocol Ketorolac Trometha mine 15 mg 12/10/21 12:33 12/11/21 00:17 Ketorolac 30 Mg/ Ml Inj IVP 12/15/21 12:32 15 mg Q6H PRN Administration MODERATE PAIN Lanolin 1 applic 12/07/21 02:42 12/07/21 03:14 Lanolin Oint 7 G m TOPICAL 1 tube PRN PRN Administration DRYNESS Levalbuterol HCl 0.63 mg 12/10/21 12:33 12/12/21 15:07 Levalbuterol 0.6 3 Mg/3 Ml Neb INHALATION Not Given Q4H.RESPIRATORY S CH Morphine Sulfate 2 - 4 mg 12/10/21 12:33 12/11/21 01:35 Morphine 4 Mg/Ml Sdv 1 Ml IVP 4 mg Q4H PRN Administration SEVERE PAIN Non-Formulary Medi cation 250 mcg 12/07/21 09:00 12/12/21 09:20 Cyanocobalamin ( Vitamin B-12) [Vit duong B-12] PO Not Given DAILY FAROOQ Pantoprazole Sodiu m 40 mg 12/06/21 17:00 12/11/21 18:19 Pantoprazole 40 Mg Sdv IVP 40 mg Q24H FAROOQ Administration Trazodone HCl 100 mg 12/06/21 21:00 12/11/21 21:25 Trazodone 100 Mg Tablet PO 100 mg BEDTIME FAROOQ Administration Vitals/I&O/Wt Last Vital Signs Temp 98.2 F 12/16/21 11:44 Pulse 80 12/16/21 11:44 Resp 18 12/16/21 07:42 BP 132/74 12/16/21 11:44 Pulse Ox 96 12/16/21 11:44 12/15/21 12/16/21 12/16/21 22:59 06:59 14:59 Intake Total 840 / 1420 1000 / 2420 842.5 / 842.5 Output Total 550 / 550 550 / 550 Balance 290 / 870 1000 / 1870 292.5 / 292.5 Weight last 48 hrs Weight 86.046 kg Weight 87.498 kg Physical Exam Const: COMMON NORMALS: patient oriented x3 HENMT: COMMON NORMALS: normocephalic and atraumatic HEAD & SCALP: normocephalic and atraumatic Eye: COMMON NORMALS: no scleral icterus GENERAL EYE: appearance normal, both eyes and all related structures Chest: COMMONS NORMALS: normal inspection of the chest and normal palpation of entire chest wall CHEST: Yes Symmetrical chest wall rise Resp: COMMON NORMALS: normal respiratory effort, No retractions, No use of accessory muscles and clear to auscultation bilaterally EFFORT & INSPECTION: Yes symmetric chest movement AUSCULTATION: clear to auscultation bilaterally Cardio: COMMON NORMALS: regular rate, regular rhythm, S1 normal heart sound present, S2 normal heart sound present, No gallops present (Cardio), No murmurs present (Cardio), No rub (Cardio) and Peripheral pulses 2+ throughout RATE: regular rate RHYTHM: regular rhythm HEART SOUNDS: S1 normal heart sound present and S2 normal heart sound present PERIPHERAL PULSES: Peripheral pulses 2+ throughout GI: COMMON NORMALS: Normal to inspection, nondistended, normoactive bowel sounds present, Soft to palpation, non-tender, No hepatosplenomegaly present and no masses AUSCULTATION: Yes normoactive bowel sounds PALPATION: Yes Soft to palpation and Yes No hepatosplenomegaly present RECTAL EXAM: deferred OTHER: Colostomy site clean and intact Extremity: COMMON NORMALS: no clubbing, cyanosis or edema and no pedal edema Neuro: COMMON NORMALS: patient oriented x3 Urinary Catheter Management: Redd: Cath Placed During This Visit: yes, but has since been removed by the nurse Reason for Continuing Indwelling Catheter: Decision to DC Catheter Urinary Catheter Date of Insertion: 12/10/21 Urinary Catheter Time of Insertion: 08:45 Date Urinary Catheter Removed: 12/13/21 Time Urinary Catheter Discontinued: 11:00 Data : 12/16/21 01:38 12/16/21 01:38 A&P Assessment and plan (1) Postoperative wound infection: Status: Acute (2) Colostomy in place: Status: Acute (3) Diabetes: Status: Acute Plan 61-year-old female with recent discharge from the hospital post exploratory laparotomy and sigmoid resection with colostomy for 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 Staph hominis bacteremia: 2 out of 4 bottles from admission positive. Most likely contaminant. Repeat blood cultures so far negative. Repeat blood cultures:Negative MRSA is also negative. vancomycin has been stopped. Wound dehiscence/surgical wound infection: Post wound irrigation day 3. Plan for colostomy revision today. Wound culture results growing E. coli and Proteus. Patient does have mild leukocytosis today. Could be reactive secondary to surgery yesterday. Was on Zosyn.She has been switched to Bactrim and metronidazole. Can be discharged on both for another 7 days [place] 5 mg every 8 hours as needed for pain. Anticoagulation diet as per surgical team. Anemia: Baseline hemoglobin around 8. Hemoglobin up appropriately. Post monitor blood transfusion. Iron deficiency anemia. Continue with oral iron supplementation. Hyponatremia: Resolved. Most likely secondary to excessive fluid loss from surgical wound and ostomy. IV fluids as above. We will monitor BMP daily for now. Type 2 diabetes mellitus: HbA1c 5.8. Carb consistent diet. Insulin sliding scale at low-dose protocol. Hypertension: Goal blood pressure less than 140/90 mmHg. Continue with home dose of amlodipine. Continue other chronic oral medications. Start on oral iron supplementation. Full code. SCDs for DVT prophylaxis. Heparin for DVT prophylaxis. Out of bed to chair. Protonix for PUD prophylaxis. Replete potassium. Case management consult. Patient would require placement to SNF as it seems she is unable to take care of herself at home leading to wound dehiscence in view of recent expiratory laparotomy for pelvic abscess. Attestations Medical Necessity Statement*: Per Primary Team. Awaiting Placement. Coding Level of Care Code Acute Blood Bank Technologist for [facility] Fwd Diagnoses Postoperative wound infection T81.49XA Colostomy in place Z93.3 Diabetes E11.9
[2021-12-16] MEDS: lidocaine 1% 5 ML in potassium chloride premix 100 ML 25 ML IV (15:25)
[2021-12-16 16:59] LABS: Glucose Point of Care 105 mg/dL (70-110)
--- NOTE | 2021-12-16 18:22 | PC.NURSE ---
Patient AOx4, minimal c/o pain during shift and resolved with medication per DEC. No new events during shift. Packing to dressing is dry and intact. Patient OOBTC during shift and walking little further. No needs at this time. WIll handoff to oncoming nurse at bedside report.
[2021-12-16] MEDS: trazodone 100 mg Tablet PO (20:28)
[2021-12-16 21:10] LABS: Glucose Point of Care 116 mg/dL (70-110)
[2021-12-17] VITALS (14 sets, daily range): BP systolic 92–153; BP diastolic 56–80; PULSE 69–98; RESP 13–18; TEMP 36.6–37.4; O2SAT 90–98
[2021-12-17 02:17] LABS: Basophils % 0.4 %; Eosinophils # 0.2 10^3/uL (0.0-0.8); Eosinophils % 1.8 %; Hematocrit 25.5 % (37.0-47.0); Hemoglobin 7.8 g/dL (11.5-15.3); Lymphocytes # 1.9 10^3/uL (0.8-4.8); Lymphocytes % 20.7 %; Mean Corpuscular HGB Conc 30.6 g/dL (30.0-36.0); Mean Corpuscular Hemoglobin 28.7 pg (28.0-34.0); Mean Corpuscular Volume 93.8 fl (81-99); Mean Platelet Volume 9.7 fL (7.4-10.4); Monocytes % 10.1 %; Neutrophils # 6.22 10^3/uL (1.8-7.7); Neutrophils % 66.6 %; Nucleated Red Blood Cells % 0 %; Platelet Count 351 10^3/cmm (130-400); Red Blood Count 2.72 10^6/uL (4.1-5.3); Red Cell Distribution Width 14.8 % (12.1-15.1); White Blood Count 9.4 10^3/uL (4.0-10.0)
[2021-12-17 02:46] LABS: Anion Gap 16.2 (5-19); Blood Urea Nitrogen 4 mg/dL (6-20); Calcium 8.1 mg/dL (8.5-10.5); Carbon Dioxide 25 mmol/L (22-29); Chloride 103 mmol/L (98-107); Glomerular Filtration Rate 126.3 mL/min (90-130); Glucose 103 mg/dL (65-115); Osmolality Calculated 289 mOsm/kg (285-295); Potassium 3.2 mmol/L (3.5-5.1); Sodium 141 mmol/L (136-145)
[2021-12-17 02:47] LABS: Magnesium 1.4 mg/dL (1.7-2.3)
[2021-12-17] MEDS: ondansetron 2 mg/ML SDV 2 mL 4 MG IVP (04:26)
[2021-12-17] MEDS: HYDROcodone-acetaminophen 5-325 mg Tablet PO ×3 (05:25→20:27)
[2021-12-17] MEDS: BuSPIRONE 10 mg Tablet 30 MG PO (05:25)
[2021-12-17 06:27] LABS: Glucose Point of Care 111 mg/dL (70-110)
--- NOTE | 2021-12-17 06:48 | PM.PN ---
Subjective Subjective: The patient feels well. She has no complaints. She is anxious to get to her SNF facility. Vitals/I&O/Wt Last Vital Signs Temp 97.9 F 12/17/21 04:46 Pulse 92 12/17/21 06:00 Resp 16 12/17/21 04:46 BP 92/56 12/17/21 04:46 Pulse Ox 96 12/17/21 04:46 12/16/21 12/16/21 12/17/21 14:59 22:59 06:59 Intake Total 842.5 / 1960.0 682.5 / 1960.0 435 / 1960.0 Output Total 550 / 2400 1550 / 2400 300 / 2400 Balance 292.5 / -440.0 -867.5 / -440.0 135 / -440.0 Weight last 48 hrs Weight 190 lb 3.2 oz Weight 189 lb 11.2 oz Physical Exam Narrative: Colostomy is functioning well. The lower abdominal wound is bandaged. Urinary Catheter Management: Redd: Cath Placed During This Visit: yes, but has since been removed by the nurse Reason for Continuing Indwelling Catheter: Decision to DC Catheter Urinary Catheter Date of Insertion: 12/10/21 Urinary Catheter Time of Insertion: 08:45 Date Urinary Catheter Removed: 12/13/21 Time Urinary Catheter Discontinued: 11:00 Data : 12/17/21 01:41 12/17/21 01:41 A&P Assessment and plan (1) Postoperative wound infection: Status post colostomy revision subcutaneous fistula and cholecystectomy on 12/10/2021. Daily wet-to-dry wound packing at the inferior aspect of the midline wound. Transfer to [facility] later this week. I agree with leaving the patient on antibiotics for 5 days 7 days following discharge. Status: Acute Attestations Medical Necessity Statement*: Patient requires continued inpatient care until SNF placement is achieved. Coding Level of Care Code Acute Java Swing Developer for [facility] Diagnoses Postoperative wound infection T81.49XA
[2021-12-17] MEDS: metroNIDAZOLE 500 MG Tablet PO ×3 (09:43→20:22)
[2021-12-17] MEDS: sulfamethoxazole-trimeth DS 160-800 mg Tablet 1 TAB PO ×2 (09:43→17:24)
[2021-12-17] MEDS: amlodipine 10 mg Tablet PO (09:44)
[2021-12-17] MEDS: ferrous gluconate 324 mg Tablet PO ×2 (09:44→17:24)
[2021-12-17] MEDS: atorvastatin 40 mg Tablet 20 MG PO (09:44)
[2021-12-17] MEDS: pantoprazole DR 40 mg Tablet PO (09:44)
--- NOTE | 2021-12-17 10:38 | PM.PN ---
Subjective Subjective: Patient was seen and examined this morning, no acute events. Medications: Medication Review Details: Generic Name Dose Route Start Last Admin Trade Name Freq PRN Reason Stop Dose Admin Acetaminophen 650 mg 12/06/21 16:59 12/09/21 14:14 Acetaminophen 32 5 Mg Tablet PO 650 mg Q6H PRN Administration Mild/Mod Pain Or Temp >/= 101 Hydrocodone Bitart /Acetaminophen 1 - 2 tab 12/11/21 06:51 12/12/21 09:45 Hydrocodone-Acet aminophen 5-325 Mg Tablet PO 1 tab Q4H PRN Administration MODERATE TO SEVER E PAIN Amlodipine Besylat e 10 mg 12/07/21 09:00 12/12/21 09:02 Amlodipine 10 Mg Tablet PO 10 mg DAILY FAROOQ Administration Atorvastatin Calci um 20 mg 12/07/21 09:00 12/12/21 09:02 Atorvastatin 40 Mg Tablet PO 20 mg DAILY FAROOQ Administration Buspirone HCl 30 mg 12/11/21 09:00 12/12/21 05:58 Buspirone 10 Mg Tablet PO 30 mg QAM FAROOQ Administration Ferrous Gluconate 324 mg 12/07/21 18:00 12/12/21 09:02 Ferrous Gluconat e 324 Mg Tablet PO 324 mg BIDWM FAROOQ Administration Vancomycin HCl 1,0 00 mg/ 250 mls @ 250 mls /hr 12/08/21 14:00 12/12/21 07:17 Sodium Chloride IV Infused Q8H FAROOQ Infusion Potassium Chloride /Sodium Chloride 20 meq in 1,000 m ls @ 100 mls/hr 12/10/21 12:33 12/12/21 08:59 Sodium Chlor 0.9 % + Kcl 20 Meq IV 0 mls/hr .Q10H FAROOQ Infusion Piperacillin Sod/T azobactam 50 mls @ 12.5 mls /hr 12/11/21 10:30 12/12/21 06:09 Sod 3.375 gm/ So dium Chloride IV Infused Q8H FAROOQ Infusion Insulin Human Lisp ro 0 unit 12/07/21 18:00 12/12/21 13:10 Insulin Lispro 1 00 Unit/1 Ml SUBCUT Not Given WM&BEDTIME FAROOQ Protocol Ketorolac Trometha mine 15 mg 12/10/21 12:33 12/11/21 00:17 Ketorolac 30 Mg/ Ml Inj IVP 12/15/21 12:32 15 mg Q6H PRN Administration MODERATE PAIN Lanolin 1 applic 12/07/21 02:42 12/07/21 03:14 Lanolin Oint 7 G m TOPICAL 1 tube PRN PRN Administration DRYNESS Levalbuterol HCl 0.63 mg 12/10/21 12:33 12/12/21 15:07 Levalbuterol 0.6 3 Mg/3 Ml Neb INHALATION Not Given Q4H.RESPIRATORY S CH Morphine Sulfate 2 - 4 mg 12/10/21 12:33 12/11/21 01:35 Morphine 4 Mg/Ml Sdv 1 Ml IVP 4 mg Q4H PRN Administration SEVERE PAIN Non-Formulary Medi cation 250 mcg 12/07/21 09:00 12/12/21 09:20 Cyanocobalamin ( Vitamin B-12) [Vit duong B-12] PO Not Given DAILY FAROOQ Pantoprazole Sodiu m 40 mg 12/06/21 17:00 12/11/21 18:19 Pantoprazole 40 Mg Sdv IVP 40 mg Q24H FAROOQ Administration Trazodone HCl 100 mg 12/06/21 21:00 12/11/21 21:25 Trazodone 100 Mg Tablet PO 100 mg BEDTIME FAROOQ Administration Vitals/I&O/Wt Last Vital Signs Temp 98.3 F 12/17/21 08:00 Pulse 80 12/17/21 08:11 Resp 16 12/17/21 08:11 BP 122/78 12/17/21 08:00 Pulse Ox 92 12/17/21 08:11 12/16/21 12/17/21 12/17/21 22:59 06:59 14:59 Intake Total 682.5 / 1525.0 435 / 1960.0 220 / 220 Output Total 1550 / 2100 300 / 2400 Balance -867.5 / -575.0 135 / -440.0 220 / 220 Weight last 48 hrs Weight 86.273 kg Weight 86.046 kg Physical Exam Const: COMMON NORMALS: patient oriented x3 HENMT: COMMON NORMALS: normocephalic and atraumatic HEAD & SCALP: normocephalic and atraumatic Eye: COMMON NORMALS: no scleral icterus GENERAL EYE: appearance normal, both eyes and all related structures Chest: COMMONS NORMALS: normal inspection of the chest and normal palpation of entire chest wall CHEST: Yes Symmetrical chest wall rise Resp: COMMON NORMALS: normal respiratory effort, No retractions, No use of accessory muscles and clear to auscultation bilaterally EFFORT & INSPECTION: Yes symmetric chest movement AUSCULTATION: clear to auscultation bilaterally Cardio: COMMON NORMALS: regular rate, regular rhythm, S1 normal heart sound present, S2 normal heart sound present, No gallops present (Cardio), No murmurs present (Cardio), No rub (Cardio) and Peripheral pulses 2+ throughout RATE: regular rate RHYTHM: regular rhythm HEART SOUNDS: S1 normal heart sound present and S2 normal heart sound present PERIPHERAL PULSES: Peripheral pulses 2+ throughout GI: COMMON NORMALS: Normal to inspection, nondistended, normoactive bowel sounds present, Soft to palpation, non-tender, No hepatosplenomegaly present and no masses AUSCULTATION: Yes normoactive bowel sounds PALPATION: Yes Soft to palpation and Yes No hepatosplenomegaly present RECTAL EXAM: deferred OTHER: Colostomy site clean and intact Extremity: COMMON NORMALS: no clubbing, cyanosis or edema and no pedal edema Neuro: COMMON NORMALS: patient oriented x3 Urinary Catheter Management: Redd: Cath Placed During This Visit: yes, but has since been removed by the nurse Reason for Continuing Indwelling Catheter: Decision to DC Catheter Urinary Catheter Date of Insertion: 12/10/21 Urinary Catheter Time of Insertion: 08:45 Date Urinary Catheter Removed: 12/13/21 Time Urinary Catheter Discontinued: 11:00 Data : 12/17/21 01:41 12/17/21 01:41 A&P Assessment and plan (1) Postoperative wound infection: Status: Acute (2) Colostomy in place: Status: Acute (3) Diabetes: Status: Acute Plan 61-year-old female with recent discharge from the hospital post exploratory laparotomy and sigmoid resection with colostomy for 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 Staph hominis bacteremia: 2 out of 4 bottles from admission positive. Most likely contaminant. Repeat blood cultures so far negative. Repeat blood cultures:Negative MRSA is also negative. vancomycin has been stopped. Wound dehiscence/surgical wound infection: Post wound irrigation day 3. Plan for colostomy revision today. Wound culture results growing E. coli and Proteus. Patient does have mild leukocytosis today. Could be reactive secondary to surgery yesterday. Was on Zosyn.She has been switched to Bactrim and metronidazole. Can be discharged on both for another 7 days [place] 5 mg every 8 hours as needed for pain. Anticoagulation diet as per surgical team. Anemia: Baseline hemoglobin around 8. Hemoglobin up appropriately. Post monitor blood transfusion. Iron deficiency anemia. Continue with oral iron supplementation. Hyponatremia: Resolved. Most likely secondary to excessive fluid loss from surgical wound and ostomy. IV fluids as above. We will monitor BMP daily for now. Type 2 diabetes mellitus: HbA1c 5.8. Carb consistent diet. Insulin sliding scale at low-dose protocol. Hypertension: Goal blood pressure less than 140/90 mmHg. Continue with home dose of amlodipine. Continue other chronic oral medications. Start on oral iron supplementation. Full code. SCDs for DVT prophylaxis. Heparin for DVT prophylaxis. Out of bed to chair. Protonix for PUD prophylaxis. Replete potassium. Case management consult. Patient would require placement to SNF as it seems she is unable to take care of herself at home leading to wound dehiscence in view of recent expiratory laparotomy for pelvic abscess. Attestations Medical Necessity Statement*: Per primary team Coding Level of Care Code Acute Lining Presser for [facility] Fwd Exam Comprehensive Diagnoses Postoperative wound infection T81.49XA Colostomy in place Z93.3 Diabetes E11.9
--- NOTE | 2021-12-17 10:45 | PC.SOCIAL ---
IMM update IMM updated with patient. Verbalized an understanding. Copy Pg 2 provided. Initialled, dated, timed, and placed in chart.
[2021-12-17 11:00] LABS: Glucose Point of Care 127 mg/dL (70-110)
[2021-12-17 17:13] LABS: Glucose Point of Care 115 mg/dL (70-110)
--- NOTE | 2021-12-17 17:58 | PC.NURSE ---
Patient AAOx4, OOBTC and to bedside commode throughout shift. Educated and assisted in take down and applying ostomy system. Mid-abdomen dressing changed in AM with WTD, NS, ABD pad and tape. Patient tolerated well and has had minimal pain throughout shift relieved with oral pain meds per DEC.
[2021-12-17] MEDS: sodium chlor 0.9% + KCl 20 mEq 20 MEQ/1,000 ML BAG 50 MEQ IV (20:22)
[2021-12-17] MEDS: trazodone 100 mg Tablet PO (20:22)
[2021-12-17 20:35] LABS: Glucose Point of Care 118 mg/dL (70-110)
[2021-12-18] MEDS: HYDROcodone-acetaminophen 5-325 mg Tablet PO ×2 (02:20→08:33)
[2021-12-18 04:00] VITALS: BP 130/66; PULSE 78; RESP 17; TEMP 36.8; O2SAT 92
[2021-12-18] MEDS: BuSPIRONE 10 mg Tablet 30 MG PO (05:35)
[2021-12-18 06:00] VITALS: PULSE 84
--- NOTE | 2021-12-18 06:13 | P.PN_ITS ---
Subjective Subjective: The patient has no complaints this morning. She is anxious to get to [facility]. Vitals/I&O/Wt Last Vital Signs Temp 98.3 F 12/18/21 04:00 Pulse 84 12/18/21 06:00 Resp 17 12/18/21 04:00 BP 130/66 12/18/21 04:00 Pulse Ox 92 12/18/21 04:00 12/17/21 12/17/21 12/18/21 14:59 22:59 06:59 Intake Total 220 / 2300.000 1300.000 / 2300.000 780 / 2300.000 Output Total 600 / 1060 460 / 1060 Balance 220 / 1240.000 700.000 / 1240.000 320 / 1240.000 Weight last 48 hrs Weight 190 lb 3.2 oz Physical Exam Narrative: Colostomy looks good. Lower midline dressing is intact. Urinary Catheter Management: Redd: Cath Placed During This Visit: yes, but has since been removed by the nurse Reason for Continuing Indwelling Catheter: Decision to DC Catheter Urinary Catheter Date of Insertion: 12/10/21 Urinary Catheter Time of Insertion: 08:45 Date Urinary Catheter Removed: 12/13/21 Time Urinary Catheter Discontinued: 11:00 Data : 12/17/21 01:41 12/17/21 01:41 A&P Assessment and plan (1) Postoperative wound infection: Status post colostomy revision subcutaneous fistula and cholecystectomy on 12/10/2021. Daily wet-to-dry wound packing at the inferior aspect of the midline wound. Transfer to [facility] hopefully any day now. I agree with leaving the patient on antibiotics for 5 days 7 days following discharge. Status: Acute Attestations Medical Necessity Statement*: Patient requires continued inpatient status until transfer to [facility]. Coding Level of Care Code Acute [employer] Worker for [facility] Diagnoses Postoperative wound infection T81.49XA
[2021-12-18 06:19] LABS: Glucose Point of Care 113 mg/dL (70-110)
[2021-12-18 07:19] VITALS: BP 135/81; PULSE 85; RESP 13; TEMP 36.6; O2SAT 95
[2021-12-18 07:48] VITALS: PULSE 76; RESP 16; O2SAT 92
[2021-12-18] MEDS: sulfamethoxazole-trimeth DS 160-800 mg Tablet 1 TAB PO (08:30)
[2021-12-18] MEDS: metroNIDAZOLE 500 MG Tablet PO (08:30)
[2021-12-18] MEDS: amlodipine 10 mg Tablet PO (08:30)
[2021-12-18] MEDS: ferrous gluconate 324 mg Tablet PO (08:30)
[2021-12-18] MEDS: pantoprazole DR 40 mg Tablet PO (08:30)
[2021-12-18] MEDS: atorvastatin 40 mg Tablet 20 MG PO (08:31)
[2021-12-18 10:48] LABS: SARS Covid-2 Antigen Negative (Negative)
[2021-12-18 11:55] LABS: Glucose Point of Care 126 mg/dL (70-110)
[2021-12-18 12:00] VITALS: BP 113/67; PULSE 73; RESP 13; O2SAT 93
--- NOTE | 2021-12-18 14:01 | P.PN_ITS ---
Subjective Subjective: Patient was seen and examined this morning, no complaints right now, has been accepted at [place] Likely discharge today. Medications: Medication Review Details: Generic Name Dose Route Start Last Admin Trade Name Greg PRN Reason Stop Dose Admin Acetaminophen 650 mg 12/06/21 16:59 12/09/21 14:14 Acetaminophen 32 5 Mg Tablet PO 650 mg Q6H PRN Administration Mild/Mod Pain Or Temp >/= 101 Hydrocodone Bitart /Acetaminophen 1 - 2 tab 12/11/21 06:51 12/12/21 09:45 Hydrocodone-Acet aminophen 5-325 Mg Tablet PO 1 tab Q4H PRN Administration MODERATE TO SEVER E PAIN Amlodipine Besylat e 10 mg 12/07/21 09:00 12/12/21 09:02 Amlodipine 10 Mg Tablet PO 10 mg DAILY FAROOQ Administration Atorvastatin Calci um 20 mg 12/07/21 09:00 12/12/21 09:02 Atorvastatin 40 Mg Tablet PO 20 mg DAILY FAROOQ Administration Buspirone HCl 30 mg 12/11/21 09:00 12/12/21 05:58 Buspirone 10 Mg Tablet PO 30 mg QAM FAROOQ Administration Ferrous Gluconate 324 mg 12/07/21 18:00 12/12/21 09:02 Ferrous Gluconat e 324 Mg Tablet PO 324 mg BIDWM FAROOQ Administration Vancomycin HCl 1,0 00 mg/ 250 mls @ 250 mls /hr 12/08/21 14:00 12/12/21 07:17 Sodium Chloride IV Infused Q8H FAROOQ Infusion Potassium Chloride /Sodium Chloride 20 meq in 1,000 m ls @ 100 mls/hr 12/10/21 12:33 12/12/21 08:59 Sodium Chlor 0.9 % + Kcl 20 Meq IV 0 mls/hr .Q10H FAROOQ Infusion Piperacillin Sod/T azobactam 50 mls @ 12.5 mls /hr 12/11/21 10:30 12/12/21 06:09 Sod 3.375 gm/ So dium Chloride IV Infused Q8H FAROOQ Infusion Insulin Human Lisp ro 0 unit 12/07/21 18:00 12/12/21 13:10 Insulin Lispro 1 00 Unit/1 Ml SUBCUT Not Given WM&BEDTIME FAROOQ Protocol Ketorolac Trometha mine 15 mg 12/10/21 12:33 12/11/21 00:17 Ketorolac 30 Mg/ Ml Inj IVP 12/15/21 12:32 15 mg Q6H PRN Administration MODERATE PAIN Lanolin 1 applic 12/07/21 02:42 12/07/21 03:14 Lanolin Oint 7 G m TOPICAL 1 tube PRN PRN Administration DRYNESS Levalbuterol HCl 0.63 mg 12/10/21 12:33 12/12/21 15:07 Levalbuterol 0.6 3 Mg/3 Ml Neb INHALATION Not Given Q4H.RESPIRATORY S CH Morphine Sulfate 2 - 4 mg 12/10/21 12:33 12/11/21 01:35 Morphine 4 Mg/Ml Sdv 1 Ml IVP 4 mg Q4H PRN Administration SEVERE PAIN Non-Formulary Medi cation 250 mcg 12/07/21 09:00 12/12/21 09:20 Cyanocobalamin ( Vitamin B-12) [Vit duong B-12] PO Not Given DAILY FAROOQ Pantoprazole Sodiu m 40 mg 12/06/21 17:00 12/11/21 18:19 Pantoprazole 40 Mg Sdv IVP 40 mg Q24H FAROOQ Administration Trazodone HCl 100 mg 12/06/21 21:00 12/11/21 21:25 Trazodone 100 Mg Tablet PO 100 mg BEDTIME FAROOQ Administration Vitals/I&O/Wt Last Vital Signs Temp 98 F 12/18/21 07:19 Pulse 73 12/18/21 12:00 Resp 13 12/18/21 12:00 BP 113/67 12/18/21 12:00 Pulse Ox 93 12/18/21 12:00 12/17/21 12/18/21 12/18/21 22:59 06:59 14:59 Intake Total 1300.000 / 1520.000 780 / 2300.000 240 / 240 Output Total 600 / 600 460 / 1060 Balance 700.000 / 920.000 320 / 1240.000 240 / 240 Weight last 48 hrs Weight 86.273 kg Physical Exam Const: COMMON NORMALS: patient oriented x3 HENMT: COMMON NORMALS: normocephalic and atraumatic HEAD & SCALP: normocephalic and atraumatic Eye: COMMON NORMALS: no scleral icterus GENERAL EYE: appearance normal, both eyes and all related structures Chest: COMMONS NORMALS: normal inspection of the chest and normal palpation of entire chest wall CHEST: Yes Symmetrical chest wall rise Resp: COMMON NORMALS: normal respiratory effort, No retractions, No use of accessory muscles and clear to auscultation bilaterally EFFORT & INSPECTION: Yes symmetric chest movement AUSCULTATION: clear to auscultation bilaterally Cardio: COMMON NORMALS: regular rate, regular rhythm, S1 normal heart sound present, S2 normal heart sound present, No gallops present (Cardio), No murmurs present (Cardio), No rub (Cardio) and Peripheral pulses 2+ throughout RATE: regular rate RHYTHM: regular rhythm HEART SOUNDS: S1 normal heart sound present and S2 normal heart sound present PERIPHERAL PULSES: Peripheral pulses 2+ throughout GI: COMMON NORMALS: Normal to inspection, nondistended, normoactive bowel sounds present, Soft to palpation, non-tender, No hepatosplenomegaly present and no masses AUSCULTATION: Yes normoactive bowel sounds PALPATION: Yes Soft to palpation and Yes No hepatosplenomegaly present RECTAL EXAM: deferred OTHER: Colostomy site clean and intact Extremity: COMMON NORMALS: no clubbing, cyanosis or edema and no pedal edema Neuro: COMMON NORMALS: patient oriented x3 Urinary Catheter Management: Redd: Cath Placed During This Visit: yes, but has since been removed by the nurse Reason for Continuing Indwelling Catheter: Decision to DC Catheter Urinary Catheter Date of Insertion: 12/10/21 Urinary Catheter Time of Insertion: 08:45 Date Urinary Catheter Removed: 12/13/21 Time Urinary Catheter Discontinued: 11:00 Data : 12/17/21 01:41 12/17/21 01:41 A&P Assessment and plan (1) Postoperative wound infection: Status: Acute (2) Colostomy in place: Status: Acute (3) Diabetes: Status: Acute Plan 61-year-old female with recent discharge from the hospital post exploratory laparotomy and sigmoid resection with colostomy for 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 Staph hominis bacteremia: 2 out of 4 bottles from admission positive. Most likely contaminant. Repeat blood cultures so far negative. Repeat blood cultures:Negative MRSA is also negative. vancomycin has been stopped. Wound dehiscence/surgical wound infection: Post wound irrigation day 3. Plan for colostomy revision today. Wound culture results growing E. coli and Proteus. Patient does have mild leukocytosis today. Could be reactive secondary to surgery yesterday. Was on Zosyn.She has been switched to Bactrim and metronidazole. Can be discharged on both for another 7 days [place] 5 mg every 8 hours as needed for pain. Anticoagulation diet as per surgical team. Anemia: Baseline hemoglobin around 8. Hemoglobin up appropriately. Post monitor blood transfusion. Iron deficiency anemia. Continue with oral iron supplementation. Hyponatremia: Resolved. Most likely secondary to excessive fluid loss from surgical wound and ostomy. IV fluids as above. We will monitor BMP daily for now. Type 2 diabetes mellitus: HbA1c 5.8. Carb consistent diet. Insulin sliding scale at low-dose protocol. Hypertension: Goal blood pressure less than 140/90 mmHg. Continue with home dose of amlodipine. Continue other chronic oral medications. Start on oral iron supplementation. Full code. SCDs for DVT prophylaxis. Heparin for DVT prophylaxis. Out of bed to chair. Protonix for PUD prophylaxis. Replete potassium. Case management consult. Patient would require placement to SNF as it seems she is unable to take care of herself at home leading to wound dehiscence in view of recent expiratory laparotomy for pelvic abscess. Attestations Medical Necessity Statement*: Patient is being discharged today. Coding Level of Care Code Acute [facility] Postoperative wound infection T81.49XA Colostomy in place Z93.3 Diabetes E11.9
[2021-12-18 14:29] VITALS: BP 113/67; PULSE 73; RESP 13; O2SAT 93
--- NOTE | 2021-12-18 14:30 | PC.NURSE ---
Discharge Note Patient discharged to [place] [facility] via [facility] accompanied by transportation planning technician. Discharge instructions reviewed with patient and/or manufacturer representative. Mobile pharmacy medications and/or prescriptions provided. Belongings/home medications returned.
--- NOTE | 2021-12-20 11:31 | PM.DCS ---
Discharge Providers Date of Admission: 12/06/21 19:00 Date of Discharge: December 18, 2021 Attending Provider at Admission: Quinten Mukherjee MD Attending Provider at Discharge: Quinten Mukherjee MD Consults: Hospitalist team. Primary Care Provider: Ingrid Santiago MD Diagnoses at Discharge Discharge Diagnosis (1) Postoperative wound infection: Details from hospital stay: Status post revision of colostomy/debridement of subcutaneous fistula. Status: Acute (2) Colostomy in place: Details from hospital stay: Status post revision of colostomy. Status: Acute (3) Diabetes: Reason for Visit Reason for Visit: Abdominal wound Brief History: See below. Hospital Course Hospital Course This is a 61-year-old white female who had undergone a Pierre procedure nearly 3 weeks prior to presentation for perforated sigmoid diverticulitis which failed medical management. Postoperatively her only issue was that the colostomy retracted from the skin but was still functioning well. Home healthcare had been arranged for her for colostomy care and development of a suspected lower midline wound infection. She was sent to the emergency room after home health had seen her for only the second time (they apparently weren't coming any more than once weekly). The lower midline wound was having some significant drainage. The patient was admitted after undergoing wound irrigation in the operating room and was started on broad-spectrum antibiotics and wound care. The hospitalist team was consulted for medical management throughout her hospital stay. Over the next couple of days it became increasingly apparent that following retraction of her stoma, she had developed a fistula through the subcutaneous tissue from her stoma site to the midline incision, resulting in the open wound that had developed. She was counseled regarding debridement of the fistula and colostomy revision to a different site. She agreed to proceed. She was transfused two units of pRBCs the day prior to surgery due to her significant anemia. The following day her colostomy was moved to the left upper quadrant and the fistulous track was debrided. The skin was closed loosely at all incisions. The patient's wound eventually grew some coliforms as expected. She was kept on broad-spectrum antibiotics which were eventually tapered following identification and sensitivities. Her new colostomy functioned well and remained viable. She ended up developing some ongoing light brown drainage from the lower aspect of her wound once again, evidence of a residual infection which was not unexpected. Local wound care was initiated. Case management had been working on SNF placement for the patient since her admission. She felt as if she was unable to take care of herself at home, given the fact that she apparently only qualified for home health visits once or twice weekly. She was eventually accepted at [facility], and they were ready to accept her on 12/18/2021. The patient was discharged to [facility] on that day. Arrangements were made for colostomy care and local wound care. Discharge medications were arranged by the hospitalist service. She will be kept on oral antibiotics for 7-14 more days. She will follow up in my office as an outpatient. Physical Exam Narrative: At the time of discharge the patient's colostomy looked excellent. White blood cell count was normal. She had a small opening in the lower midline wound measuring perhaps 2.5 cm in greatest diameter. This had been packed daily with gauze. Urinary Catheter Management: Redd: Cath Placed During This Visit: yes, but has since been removed by the nurse Reason for Continuing Indwelling Catheter: Decision to DC Catheter Urinary Catheter Date of Insertion: 12/10/21 Urinary Catheter Time of Insertion: 08:45 Date Urinary Catheter Removed: 12/13/21 Time Urinary Catheter Discontinued: 11:00 Discharge Data Studies Completed and Pending Completed Studies During Hospitalization Category Date Time Status CT abdomen pelvis w con* [id number] Urgent Cat Scan 12/06/21 14:17 Completed Pathology: Surgical [PTH] Routine Pth 12/10/21 11:35 Completed Radiology Impressions Abdomen/Pelvis CT 12/06/21 14:17 IMPRESSION: 1. Recent placement of a diverting left lower abdominal colostomy with some peristomal fat herniation. There is soft tissue inflammation and trace fluid surrounding the ostomy without a walled-off fluid collection/abscess. 2. Cholelithiasis. Laboratory Results WBC 9.4 10^3/uL (4.0-10.0) 12/17/21 01:41 RBC 2.72 10^6/uL (4.1-5.3) L 12/17/21 01:41 Hgb 7.8 g/dL (11.5-15.3) L 12/17/21 01:41 Hct 25.5 % (37.0-47.0) L 12/17/21 01:41 MCV 93.8 fl (81-99) 12/17/21 01:41 MCH 28.7 pg (28.0-34.0) 12/17/21 01:41 MCHC 30.6 g/dL (30.0-36.0) 12/17/21 01:41 RDW 14.8 % (12.1-15.1) 12/17/21 01:41 Plt Count 351 10^3/cmm (130-400) 12/17/21 01:41 MPV 9.7 fL (7.4-10.4) 12/17/21 01:41 Neut % (Auto) 66.6 % 12/17/21 01:41 Lymph % (Auto) 20.7 % 12/17/21 01:41 [place] % (Auto) 10.1 % 12/17/21 01:41 Eos % (Auto) 1.8 % 12/17/21 01:41 Baso % (Auto) 0.4 % 12/17/21 01:41 Neut # (Auto) 6.22 10^3/uL (1.8-7.7) 12/17/21 01:41 Lymph # (Auto) 1.9 10^3/uL (0.8-4.8) 12/17/21 01:41 [place] # (Auto) 1.0 10^3/uL (0.2-0.9) H 12/17/21 01:41 Eos # (Auto) 0.2 10^3/uL (0.0-0.8) 12/17/21 01:41 Baso # (Auto) 0.0 10^3/uL (0.0-0.1) 12/17/21 01:41 Nucleated RBC % (auto) 0 % 12/17/21 01:41 Total Counted 100 (0-100) 12/08/21 10:53 Atypical Lymphs % 0.0 % (0-5) 12/08/21 10:53 Absolute Neutrophils 8.8 10^3/cmm (1.4-6.5) H 12/08/21 10:53 Segmented Neutrophils 62 % 12/08/21 10:53 Abs Segm Neuts (Man) 7.3 10/cmm (1.6-7.1) H 12/08/21 10:53 Band Neutrophils 13.0 % 12/08/21 10:53 Abs Band Neuts (Man) 1.5 10^3/cmm (0.0-1.2) H 12/08/21 10:53 Absolute Lymphocytes 2.0 10^3/cmm (1.2-3.4) 12/08/21 10:53 Lymphocytes (Manual) 17 % 12/08/21 10:53 Monocytes (Manual) 2.0 % 12/08/21 10:53 Absolute Monocytes 0.2 10^3/cmm (0.1-0.6) 12/08/21 10:53 Eosinophils (Manual) 3 % 12/08/21 10:53 Absolute Eosinophils 0.3 10^3/cmm (0.0-0.7) 12/08/21 10:53 Basophils (Manual) 0.0 % 12/08/21 10:53 Absolute Basophils 0.0 10^3/cmm (0.0-0.2) 12/08/21 10:53 Metamyelocytes 3.0 % 12/08/21 10:53 Nucleated RBCs # 0.0 /100WBC 12/17/21 01:41 Platelet Estimate Normal (Normal) 12/08/21 10:53 Sodium 141 mmol/L (136-145) 12/17/21 01:41 Potassium 3.2 mmol/L (3.5-5.1) L 12/17/21 01:41 Chloride 103 mmol/L (98-107) 12/17/21 01:41 Carbon Dioxide 25 mmol/L (22-29) 12/17/21 01:41 Anion Gap 16.2 (5-19) 12/17/21 01:41 BUN 4 mg/dL (6-20) L 12/17/21 01:41 Creatinine 0.5 mg/dL (0.5-0.9) 12/17/21 01:41 GFR Calculation 126.3 mL/min (90-130) 12/17/21 01:41 Glucose 103 mg/dL (65-115) 12/17/21 01:41 POC Glucose 126 mg/dL (70-110) H 12/18/21 11:35 Estimat Average Glucose 120 12/07/21 04:17 Hemoglobin A1c 5.8 % (4.0-6.0) 12/07/21 04:17 Calculated Osmolality 289 mOsm/kg (285-295) 12/17/21 01:41 Lactic Acid 1.6 mmol/L (0.5-2.2) 12/06/21 20:55 Calcium 8.1 mg/dL (8.5-10.5) L 12/17/21 01:41 Phosphorus 3.4 mg/dL (2.5-4.5) 12/07/21 04:17 Magnesium 1.4 mg/dL (1.7-2.3) L 12/17/21 01:41 Iron 28 ug/dL (37-145) L 12/06/21 20:55 Iron Cancelled 12/06/21 20:55 TIBC 242 mcg/dl 12/06/21 20:55 TIBC Cancelled 12/06/21 20:55 % Saturation 11.5 % (20-50) L 12/06/21 20:55 % Saturation Cancelled 12/06/21 20:55 Unsat Iron Binding 214 ug/dL (112-347) 12/06/21 20:55 Unsat Iron Binding Cancelled 12/06/21 20:55 Total Bilirubin 0.4 mg/dL (0.15-1.2) 12/11/21 01:45 AST 44 U/L (0-32) H 12/11/21 01:45 ALT 35 U/L (0-33) H 12/11/21 01:45 Alkaline Phosphatase 70 IU/L (35-105) 12/11/21 01:45 Total Protein 6.1 g/dL (6.6-8.7) L 12/11/21 01:45 Albumin 2.8 g/dL (3.5-5.2) L 12/11/21 01:45 Globulin 3.3 g/dL (1.3-4.6) 12/11/21 01:45 Triglycerides 185 mg/dL (0-150) H 12/07/21 04:17 Cholesterol 124 mg/dL (0-200) 12/07/21 04:17 LDL Cholesterol, Calc 61 mg/dL (50-129) 12/07/21 04:17 HDL Cholesterol 26 mg/dL (60-100) L 12/07/21 04:17 LDL/HDL Ratio 2.35 RATIO (0.00-3.22) 12/07/21 04:17 Cholesterol/HDL Ratio 4.77 mg/dL (0.0-4.40) H 12/07/21 04:17 Procalcitonin 0.20 ng/mL (0-0.5) 12/06/21 20:55 Procalcitonin Cancelled 12/06/21 20:55 TSH 0.69 uIU/mL (0.27-4.20) 12/06/21 20:55 Urine Color Yellow (Yellow) 12/06/21 17:44 Urine Appearance Clear (CLEAR) 12/06/21 17:44 Urine pH 7 (5-7) 12/06/21 17:44 Ur Specific [place] 1.000 (1.005-1.030) L 12/06/21 17:44 Urine Protein Trace (Negative) 12/06/21 17:44 Urine Glucose (UA) Norm (Normal) 12/06/21 17:44 Urine Ketones Negative (Negative) 12/06/21 17:44 Urine Blood 3+ (Negative) H 12/06/21 17:44 Urine Nitrate Negative (Negative) 12/06/21 17:44 Urine Bilirubin Neg (Negative) 12/06/21 17:44 Urine Urobilinogen Norm mg/dL (Negative) 12/06/21 17:44 Ur Leukocyte Esterase 1+ (Negative) H 12/06/21 17:44 Urine RBC 0-4 /hpf (0-2) H 12/06/21 17:44 Urine WBC 5-10 /hpf (0-5) H 12/06/21 17:44 Ur Squamous Epith Cells 0-4 /hpf (0-5) H 12/06/21 17:44 Amorphous Sediment Not Reportable 12/06/21 17:44 Urine Bacteria Trace /hpf (NONE) 12/06/21 17:44 Urine Mucus Trace /hpf 12/06/21 17:44 Vancomycin Trough 27.0 ug/mL (10-15) H* 12/12/21 20:57 SARS-CoV-2 Ag (Rapid) Negative (Negative) 12/18/21 10:05 Blood Type O Positive 12/09/21 09:30 Rho(D) Type Positive 12/09/21 09:30 Antibody Screen Negative 12/09/21 09:30 Crossmatch See Detail 12/09/21 09:30 Vitals Last Vital Signs Temp 98 F 12/18/21 07:19 Pulse 73 12/18/21 14:29 Resp 13 12/18/21 14:29 BP 113/67 12/18/21 14:29 Pulse Ox 93 12/18/21 14:29 Discharge Plan Discharge Patient Disposition: Xfer SNF Condition: Stable Prescriptions: New metronidazole 500 mg Tablet 500 mg PO TID 7 Days Qty: 21 0RF sulfamethoxazole-trimethoprim 800-160 mg Tablet 1 tab PO BID 7 Days Qty: 14 0RF Continued trazodone 100 mg tablet 100 mg PO BEDTIME 0RF metformin 500 mg tablet 500 mg PO DAILY 0RF atorvastatin 10 mg tablet 10 mg PO DAILY 0RF cyanocobalamin (vitamin B-12) [Vitamin B-12] 250 mcg Tablet 250 mcg PO DAILY 0RF omeprazole 40 mg capsule,delayed release(DR/EC) 40 mg PO DAILY 0RF triamterene-hydrochlorothiazid 37.5-25 mg capsule 1 cap PO BID 0RF amlodipine 10 mg tablet 10 mg PO DAILY 0RF buspirone 30 mg tablet 30 mg PO QAM 0RF albuterol sulfate 90 mcg/actuation HFA aerosol inhaler 2 puff INHALATION Q4H PRN (Reason: Shortness Of Breath) 0RF potassium chloride 10 mEq capsule, extended release 10 meq PO DAILY Qty: 30 1RF Discharge Orders: Discharge Order (Routine); Ordered 12/18/21 Ordered By: Ramírez Sandy Referrals: [facility] [Outside] Quinten Mukherjee MD [Physician] - 12/30/21 1:15 am () Ingrid Santiago MD [Primary Care Provider] - Discharge Diet: Regular Discharge Activity: Limit activity as instructed Patient Instructions: Diabetes and Diet, Sulfamethoxazole/Trimethoprim (By mouth), Metronidazole (By mouth), Surgical Site Infections (DC), Open Cholecystectomy (DC) Activity Restrictions/Additional Instructions: Patient's lower abdominal midline wound will need be packed with wet-to-dry gauze once daily and as needed. No lifting over 20 pounds, no repetitive bending or twisting, no strenuous pushing / pulling or other heavy activity. Ambulate regularly. May go up and down steps if needed. Discharge Attestations Time Spent in Discharge Care*: less than 30 min Quality Metrics Clinical Quality Measures [ No reported AMI, CVA or VTE this stay] Coding Level of Care Code Acute Chg FW DC note Diagnoses Postoperative wound infection T81.49XA Colostomy in place Z93.3 Diabetes E11.9
== END 2021-12-18 14:15 | disposition skilled nursing facility (03) | DRG 857 ==
LOC: ER 17:03 → OR 17:28 → MEDSURG 19:05
PROVIDERS: Internal Medicine; Student in an Organized Health Care Education/Training Program; Admitting Provider Surgery; Emergency Provider Emergency Medicine; Visit Provider Surgery
PROC: 3E10X8Z Irrigation of Skin and Mucous Membranes using Irrigating Substance (ICD-10-PCS; principal; 2021-12-06 18:25)
PROC: 0D1E0Z4 Bypass Large Intestine to Cutaneous, Open Approach (ICD-10-PCS; principal; 2021-12-10 08:30)
PROC: 0FT40ZZ Resection of Gallbladder, Open Approach (ICD-10-PCS; CPT 47600; 2021-12-10 08:30)
DX: T81.49XA Infection following a procedure, other surgical site, initial encounter (principal); T81.31XA Disruption of external operation (surgical) wound, not elsewhere classified, initial encounter; E87.1 Hypo-osmolality and hyponatremia; T81.83XA Persistent postprocedural fistula, initial encounter; K94.09 Other complications of colostomy; Z90.49 Acquired absence of other specified parts of digestive tract; K57.30 Diverticulosis of large intestine without perforation or abscess without bleeding; E78.5 Hyperlipidemia, unspecified; I10 Essential (primary) hypertension; F17.210 Nicotine dependence, cigarettes, uncomplicated; F10.10 Alcohol abuse, uncomplicated; E11.9 Type 2 diabetes mellitus without complications; Y82.9 Unspecified medical devices associated with adverse incidents; Z79.51 Long term (current) use of inhaled steroids; Z79.84 Long term (current) use of oral hypoglycemic drugs; K80.20 Calculus of gallbladder without cholecystitis without obstruction; D50.9 Iron deficiency anemia, unspecified; B96.4 Proteus (mirabilis) (morganii) as the cause of diseases classified elsewhere; B96.20 Unspecified Escherichia coli [E. coli] as the cause of diseases classified elsewhere; E86.0 Dehydration
CPT/HCPCS: 36415; 36416; 36430; 51702; 74177; 80048; 80053; 80061; 80202; 81001; 82962; 83036; 83540; 83550; 83605; 83735; 84100; 84145; 84443; 85007; 85025; 86403; 86850; 86900; 86920; 87040; 87070; 87075; 87077; 87086; 87186; 87205; 87426; 87641; 88304; 94664; 96372; 97116; 97161; 97165; 97530; 97535; C9113; J0330; J0690; J0696; J0743; J1644; J1815; J1885; J2175; J2250; J2270; J2405; J2543; J2704; J3010; J3370; J3480; J3490; J7030; J7050; J7614; P9040; Q9967

== ENCOUNTER → 2021-12-06 18:25 | Day surgery (SDC) | payer MEDICARE, MEDICAID, SELFPAY | PROVIDERS: Visit Provider Surgery | DX: Z01.818 Encounter for other preprocedural examination (principal) | CPT/HCPCS: J2250; J3010; J3490 ==

== ENCOUNTER 2022-01-17 08:09 | Observation (INO) | payer MEDICARE, MEDICAID, SELFPAY ==
[2022-01-17] VITALS (8 sets, daily range): BP systolic 108–143; BP diastolic 69–90; PULSE 81–111; RESP 16–18; TEMP 36.4–37.6; O2SAT 93–97; BMI 27.4
--- NOTE | 2022-01-17 08:39 | ECG_ITS ---
[facility] Test Date: 2022-01-17 Pat Name: Tangela Mckeon Department: Room: Gender: Female Bundle Wrapper: : 1960 Requested By: Wan Moe Order Number: [id number] [place] MD: Danis Au M.D. Measurements Intervals [place] Rate: 101 P: 37 AK: 185 QRS: -32 QRSD: 90 T: 3 QT: 355 QTc: 462 Interpretive Statements SINUS TACHYCARDIA WITH OCCASIONAL SUPRAVENTRICULAR PREMATURE COMPLEXES LEFT AXIS DEVIATION [QRS AXIS < -30] LOW QRS VOLTAGE IN PRECORDIAL LEADS [QRS DEFLECTION < 1.0 mV IN CHEST LEADS] PATTERN CONSISTENT WITH PULMONARY DISEASE NONSPECIFIC T-WAVE ABNORMALITY Compared to ECG 11/14/2021 14:01:17 Left-axis deviation now present T-wave abnormality now present Sinus rhythm no longer present Myocardial infarct finding no longer present Electronically Signed On 01-17-2022 11:33:34 CDT by Danis Au M.D. [id number]
--- NOTE | 2022-01-17 08:39 | CTR_ITS ---
PROCEDURE INFORMATION: Exam: CT Abdomen And Pelvis With Contrast Exam date and time: 01/17/2022 10:08 AM Age: 61 years old Clinical indication: Abdominal pain; Prior surgery; Surgery type: Colostomy; Additional info: Abd pain TECHNIQUE: Imaging protocol: Computed tomography of the abdomen and pelvis with contrast. Radiation optimization: All CT scans at this facility use at least one of these dose optimization techniques: automated exposure control; mA and/or kV adjustment per patient size (includes targeted exams where dose is matched to clinical indication); or iterative reconstruction. Contrast material: OMNI 300; Contrast volume: 95 ml; Contrast route: INTRAVENOUS (IV); COMPARISON: CT abdomen pelvis w con* [id number] 12/06/2021 2:42 PM RADIATION DOSE METRICS: Total DLP (mGy-cm): 1713.84 FINDINGS: Lungs: Interstitial prominence, chronic granulomatous disease, and right lower lobe parenchymal stranding. Mild pleural thickening. Liver: Fatty infiltration of the liver and calcified granuloma. Gallbladder and bile ducts: Status post cholecystectomy. Pancreas: Mild pancreatic ductal dilatation, without focal mass. Spleen: Granuloma in the mildly enlarged spleen measuring 12.3 cm in length. Adrenal glands: Stable adrenal morphology. Kidneys and ureters: Stable 1.5 cm hyperdense left renal cyst. No hydronephrosis. Stomach and bowel: Wall thickening in the nondistended stomach. Mild small bowel dilatation without a focal transition zone. Scattered diverticula. Appendix: Nonvisualization of the appendix. Intraperitoneal space: Infiltration of mesenteric fat and small quantity of intraperitoneal fluid. Vasculature: Normal caliber of the abdominal aorta. Vascular calcification. Lymph nodes: Subcentimeter lymph nodes. Urinary bladder: Normal morphology of the dilated bladder. Reproductive: Endocervical air. Bones/joints: Mild scoliosis with degenerative change and Schmorl's nodes. Soft tissues: Left colostomy with peristomal hernia. Multifocal inflammatory change in the anterior abdominal wall including 2.5 cm clustered air collection to the left of midline at the L3 level, suggesting abscess, along with a complex 5.8 x 2.5 by 2.3 cm fluid collection with wall thickening in the midline at the level of the superior pelvis, also suggestive of abscess. Additional left anterior abdominal wall skin thickening. CT/CT abdomen pelvis w con* [id number] IMPRESSION: 1. Multifocal inflammatory change in the anterior abdominal wall including 2.5 cm clustered air collection to the left of midline at the L3 level, suggesting abscess, along with a complex 5.8 x 2.5 by 2.3 cm fluid collection with wall thickening in the midline at the level of the superior pelvis, also suggestive of abscess. 2. Wall thickening in the nondistended stomach. 3. Left colostomy with peristomal hernia. 4. Infiltration of mesenteric fat and small quantity of intraperitoneal fluid. 5. Additional findings as described above. The aforementioned findings initiated a critical results communication pathway. An addendum will be issued at the time of clincian notification.
--- NOTE | 2022-01-17 08:46 | W.ED.ABDPA2 ---
HPI - Abdominal Pain General: Chief Complaint: Nausea/Vomiting/Diarrhea Stated Complaint: colostomy complications,N/V Time Seen by Provider: 01/17/22 08:15 Source: patient Mode of arrival: ambulatory History of Present Illness: 61-year-old female who presents to the emergency room with complaints of nausea and abdominal discomfort.Late October patient had a diverticulitis with perforation and was admitted. At that time she underwent sigmoid colectomy with diversion to a colostomy. Postoperatively she returned approximately 2 and half weeks later with abdominal discomfort she had E. coli in paracentesis fluid that was cultured prior to the discharge at the time of the colostomy and she was discharged home on Augmentin. In follow-up there were some complications and she was admitted for postoperative wound infection. She had declined home health which complicated matters. She return to the operating room. There the wound was explored and irrigated there is no abscess found or large fluid collection wound was copiously irrigated and packed.She returned to the operating room on December 10 after a fistula had developed around the colostomy. The colostomy was repositioned in the OR during that same setting she had been found to develop cholecystitis and underwent cholecystectomy. She was discharged 10 days later on December 18. Last several days she has had good colostomy output but has had increasing abdominal discomfort with nausea no vomiting she denies any hematochezia or melena. Denies fevers dysuria urgency or frequency. MD elicited complaint: abdominal pain PFSH ED PFSH: Medical History Alcohol use Cholelithiasis Colostomy in place Diabetes Diverticulitis Diverticulosis Hyperlipidemia Hypertension Hypokalemia Pelvic abscess Perforation of sigmoid colon due to diverticulitis Surgical History H/O exploratory laparotomy History of bilateral inguinal hernia repair History of tonsillectomy History of tympanoplasty L eardrum rupture repair Status post colectomy Family History Father Cancer Colon cancer Social History Smoking and tobacco status: current every day smoker Alcohol intake: current Alcohol type: hard liquor Current occupation: Pt on disability for 2.5 years due to fallen arches. Course Vital Signs: Vital signs: Vital Signs Temperature 97.6 F 01/17/22 08:20 Pulse Rate 100 01/17/22 08:58 Respiratory Rate 16 01/17/22 09:13 Blood Pressure 143/90 01/17/22 08:20 Pulse Oximetry 96 01/17/22 09:13 MDM - Abdominal Pain Medical Decision Making Abdominal wall abscess discussed with Dr. Kendall on-call he asked that we contact Dr. Mukherjee, who has seen the patient multiple times was able to get a hold of him Dr. Carrington will follow along we discussed different options for treatment reviewed all the findings with the patient she is very concerned because of the issues that are developed since her original procedure we will go ahead and admit her to the hospital for IV antibiotics for management of the abscess Dr. Mukherjee will consult to weigh in if he thinks incision and drainages appropriate at some point. Medical Records I reviewed the patient's medical records. Lab Data I reviewed the patient's lab results. : 01/17/22 08:30 01/17/22 08:30 Labs/Radiology: Radiology Impressions Abdomen/Pelvis CT 01/17/22 08:39 IMPRESSION: 1. Multifocal inflammatory change in the anterior abdominal wall including 2.5 cm clustered air collection to the left of midline at the L3 level, suggesting abscess, along with a complex 5.8 x 2.5 by 2.3 cm fluid collection with wall thickening in the midline at the level of the superior pelvis, also suggestive of abscess. 2. Wall thickening in the nondistended stomach. 3. Left colostomy with peristomal hernia. 4. Infiltration of mesenteric fat and small quantity of intraperitoneal fluid. 5. Additional findings as described above. The aforementioned findings initiated a critical results communication pathway. An addendum will be issued at the time of clincian notification. ADDENDUM: 01/17/22 1106 THIS REPORT CONTAINS FINDINGS THAT MAY BE CRITICAL TO PATIENT CARE. The findings were verbally communicated via telephone conference with HIEU Mendoza at 11:05 AM CDT on 01/17/2022. The findings were acknowledged and understood. Laboratory Results WBC 12.9 10^3/uL (4.0-10.0) H 01/17/22 08:30 RBC 3.76 10^6/uL (4.1-5.3) L 01/17/22 08:30 Hgb 10.7 g/dL (11.5-15.3) L 01/17/22 08:30 Hct 33.5 % (37.0-47.0) L 01/17/22 08:30 MCV 89.1 fl (81-99) 01/17/22 08:30 MCH 28.5 pg (28.0-34.0) 01/17/22 08: MCHC 31.9 g/dL (30.0-36.0) 01/17/22 08:30 RDW 14.6 % (12.1-15.1) 01/17/22 08:30 Plt Count 610 10^3/cmm (130-400) H 01/17/22 08:30 MPV 10.7 fL (7.4-10.4) H 01/17/22 08:30 Neut % (Auto) 60.1 % 01/17/22 08:30 Lymph % (Auto) 28.2 % 01/17/22 08:30 Baca % (Auto) 7.9 % 01/17/22 08:30 Eos % (Auto) 2.4 % 01/17/22 08:30 Baso % (Auto) 0.3 % 01/17/22 08:30 Neut # (Auto) 7.72 10^3/uL (1.8-7.7) H 01/17/22 08:30 Lymph # (Auto) 3.6 10^3/uL (0.8-4.8) 01/17/22 08:30 Baca # (Auto) 1.0 10^3/uL (0.2-0.9) H 01/17/22 08:30 Eos # (Auto) 0.3 10^3/uL (0.0-0.8) 01/17/22 08:30 Baso # (Auto) 0.0 10^3/uL (0.0-0.1) 01/17/22 08:30 Nucleated RBC % (auto) 0 % 01/17/22 08:30 Nucleated RBCs # 0.0 /100WBC 01/17/22 08:30 Sodium 135 mmol/L (136-145) L 01/17/22 08:30 Potassium 3.4 mmol/L (3.5-5.1) L 01/17/22 08:30 Chloride 93 mmol/L (98-107) L 01/17/22 08:30 Carbon Dioxide 23 mmol/L (22-29) 01/17/22 08:30 Anion Gap 22.4 (5-19) H 01/17/22 08:30 BUN 6 mg/dL (6-20) 01/17/22 08:30 Creatinine 0.7 mg/dL (0.5-0.9) 01/17/22 08:30 GFR Calculation 85.6 mL/min (90-130) L 01/17/22 08:30 Glucose 157 mg/dL (65-115) H 01/17/22 08:30 Calculated Osmolality 281 mOsm/kg (285-295) L 01/17/22 08:30 Calcium 10.7 mg/dL (8.5-10.5) H 01/17/22 08:30 Total Bilirubin 0.2 mg/dL (0.15-1.2) 01/17/22 08:30 AST 35 U/L (0-32) H 01/17/22 08:30 ALT 20 U/L (0-33) 01/17/22 08:30 Alkaline Phosphatase 112 IU/L (35-105) H 01/17/22 08:30 Total Protein 8.1 g/dL (6.6-8.7) 01/17/22 08:30 Albumin 4.0 g/dL (3.5-5.2) 01/17/22 08:30 Globulin 4.1 g/dL (1.3-4.6) 01/17/22 08:30 Discharge Plan Discharge Patient Disposition: Admitted As Inpatient Clinical Impression: Abdominal wall abscess at site of surgical wound Condition: Stable Prescriptions: No Action trazodone 100 mg tablet 100 mg PO BEDTIME 0RF metformin 500 mg tablet 500 mg PO DAILY 0RF atorvastatin 10 mg tablet 10 mg PO BEDTIME 0RF cyanocobalamin (vitamin B-12) [Vitamin B-12] 250 mcg Tablet 250 mcg PO DAILY 0RF omeprazole 40 mg capsule,delayed release(DR/EC) 40 mg PO DAILY 0RF triamterene-hydrochlorothiazid 37.5-25 mg capsule 1 cap PO BID 0RF amlodipine 10 mg tablet 10 mg PO DAILY 0RF buspirone 30 mg tablet 30 mg PO QAM 0RF albuterol sulfate 90 mcg/actuation HFA aerosol inhaler 2 puff INHALATION Q4H PRN (Reason: Shortness Of Breath) 0RF potassium chloride 20 mEq tablet,ER particles/crystals 40 meq PO DAILY 0RF Referrals: Pamela Saab MD [Primary Care Provider] - Coding Level of Care Code ED Daytime Babysitter for Cristy Donovan
[2022-01-17 08:55] LABS: Basophils % 0.3 %; Eosinophils # 0.3 10^3/uL (0.0-0.8); Eosinophils % 2.4 %; Hematocrit 33.5 % (37.0-47.0); Hemoglobin 10.7 g/dL (11.5-15.3); Lymphocytes # 3.6 10^3/uL (0.8-4.8); Lymphocytes % 28.2 %; Mean Corpuscular HGB Conc 31.9 g/dL (30.0-36.0); Mean Corpuscular Hemoglobin 28.5 pg (28.0-34.0); Mean Corpuscular Volume 89.1 fl (81-99); Mean Platelet Volume 10.7 fL (7.4-10.4); Monocytes % 7.9 %; Neutrophils # 7.72 10^3/uL (1.8-7.7); Neutrophils % 60.1 %; Nucleated Red Blood Cells % 0 %; Platelet Count 610 10^3/cmm (130-400); Red Blood Count 3.76 10^6/uL (4.1-5.3); Red Cell Distribution Width 14.6 % (12.1-15.1); White Blood Count 12.9 10^3/uL (4.0-10.0)
[2022-01-17] MEDS: ondansetron 2 mg/ML SDV 2 mL 4 MG IVP ×2 (09:02→20:13)
--- NOTE | 2022-01-17 09:07 | PC.NURSE ---
0840 Abdominal assessment to include: Colostomy in place.
[2022-01-17] MEDS: lactated ringers 1,000 ML 999 ML IV (09:12)
[2022-01-17] MEDS: morphine 4 mg/mL SDV 1 mL IVP (09:13)
[2022-01-17 09:18] LABS: Alanine Aminotransferase 20 U/L (0-33); Alkaline Phosphatase 112 IU/L (35-105); Anion Gap 22.4 (5-19); Aspartate Amino Transferase 35 U/L (0-32); Blood Urea Nitrogen 6 mg/dL (6-20); Calcium 10.7 mg/dL (8.5-10.5); Carbon Dioxide 23 mmol/L (22-29); Chloride 93 mmol/L (98-107); Globulin 4.1 g/dL (1.3-4.6); Glomerular Filtration Rate 85.6 mL/min (90-130); Glucose 157 mg/dL (65-115); Osmolality Calculated 281 mOsm/kg (285-295); Potassium 3.4 mmol/L (3.5-5.1); Sodium 135 mmol/L (136-145); Total Bilirubin 0.2 mg/dL (0.15-1.2); Total Protein 8.1 g/dL (6.6-8.7)
[2022-01-17] MEDS: iohexol 300 mg/mL 100 mL Btl IV (10:08)
[2022-01-17] MEDS: piperacillin-tazobactam 3.375 GM in sodium chloride 0.9% (plus) 50 ML IV ×2 (11:53→20:13)
[2022-01-17] MEDS: vancomycin 1,000 MG in sodium chloride 0.9% 250 ML 250 MG IV ×2 (11:54→23:46)
[2022-01-17] MEDS: enoxaparin 40 mg/0.4 mL Syringe SUBCUT (13:26)
[2022-01-17] MEDS: potassium chloride ER 20 mEq Tablet 40 MEQ PO (13:27)
[2022-01-17 14:59] LABS: Add Urine Microscopic? YES; Bilirubin Urine Neg (Negative); Blood Urine Neg (Negative); Glucose Urine UA Norm (Normal); Ketones Urine Negative (Negative); Leukocyte Esterase Urine 2+ (Negative); Nitrate Urine Negative (Negative); Protein Urine Neg (Negative); Sulfosalicylic Acid Urine Negative (Negative); Urine Appearance Clear (CLEAR); Urine Color Yellow (Yellow); Urobilinogen Urine Norm (Negative); pH Urine 8 (5-7)
[2022-01-17 15:00] LABS: Add Urine Culture? No; Bacteria Urine TRACE /hpf
[2022-01-17 17:01] LABS: Glucose Point of Care 99 mg/dL (70-110)
--- NOTE | 2022-01-17 18:46 | P.HP_ITS ---
Providers/Chief Complaint Admitting Physician: Ramírez Sandy MD Primary Care Provider: Pamela Saab MD Chief Complaint: colostomy complications,N/V History of Present Illness Tangela Mckeon is a 61 year old female with PMH of HTN ,DM , recent Pierre procedure initially presenetd for perforated sigmoid diverticulitis , failed medical management. She was readmitted for the management of post operative wound infection s/p wound irrigation and was thereafter started on broad spectrum abxs,during the same hospital stay it was later realised that the patient has developed fistula through the subcutaneous tissue from her stoma site to the midline incision, resulting in the open wound s/p debridement of the fistula and colostomy revision to a different site followed by continued I.V Abxs and was later discharged on PO Abxs ( augmentin for another 7-14 days), to SNF , as she was unable to take care of herself at home, came in today with c/o ?nausea and abdominal discomfort. Pertinent Imaging studies: C.T Abdomen and Pelvis w contrast : Multifocal inflammatory change in the anterior abdominal wall including 2.5 cm clustered air collection to the left of midline at the L3 level, suggesting abscess, along with a complex 5.8 x 2.5 by 2.3 cm fluid collection with wall thickening in the midline at the level of the superior pelvis, also suggestive of abscess. Pertinent Labs : WBC : 12.9 H&H: 10.7/33 , PLT :610 , Na : 135, k :3.4 ,BUN/SCR : 6/0.7 , Review of Systems General: Reports: 10 or more systems reviewed and unremarkable except in HPI and below Const: Denies: fever(s), chills, body aches, change in appetite or diaphoresis Card: Denies: palpitations, edema, swelling of feet/ankles, dyspnea on exertion, orthopnea or leg pain with exertion Resp: Denies: dyspnea, productive cough, wheezing or pain on inspiration GI: Denies: abdominal pain, nausea, vomiting, diarrhea or constipation : Denies: flank pain Musc: Denies: back pain, extremity pain or extremity swelling Neuro: Denies: headache(s), difficulty walking or confusion Medications/Allergies Home Medications Medication Instructions Recorded Confirmed Last Taken Type albuterol sulfate 90 mcg/actuation 2 puff INHALATION Q4H PRN 11/14/21 01/17/22 Unknown History aerosol inhaler amlodipine 10 mg tablet 10 mg PO DAILY 11/14/21 01/17/22 01/17/22 History atorvastatin 10 mg tablet 10 mg PO BEDTIME 11/14/21 01/17/22 01/16/22 History buspirone 30 mg tablet 30 mg PO QAM 11/14/21 01/17/22 01/17/22 History cyanocobalamin (vitamin B-12) 250 250 mcg PO DAILY 11/14/21 01/17/22 01/17/22 History mcg tablet (Vitamin B-12) metformin 500 mg tablet 500 mg PO DAILY 11/14/21 01/17/22 01/17/22 History omeprazole 40 mg capsule,delayed 40 mg PO DAILY 11/14/21 01/17/22 01/17/22 History release triamterene 37.5 1 cap PO BID 11/14/21 01/17/22 01/17/22 History mg-hydrochlorothiazide 25 mg capsule trazodone 100 mg tablet 100 mg PO BEDTIME 12/06/21 01/17/22 01/16/22 History potassium chloride 20 mEq 40 meq PO DAILY 01/17/22 01/17/22 01/17/22 History tablet,extended release(part/cryst) Allergies Allergy/AdvReac Type Severity Reaction Status Date / Time doxycycline Allergy ALGY-Anaphy Verified 12/06/21 12:31 laxis levofloxacin [From Levaquin] Allergy ALGY-Anaphy Verified 12/06/21 12:31 laxis PFSH Acute PFSH: Medical History (Updated 01/18/22 @ 06:30 by Quinten Mukherjee MD) Alcohol use Cholelithiasis Colostomy in place Diabetes Diabetes Diverticulitis Diverticulosis Hyperlipidemia Hypertension Hypokalemia Hyponatremia Pelvic abscess Perforation of sigmoid colon due to diverticulitis Surgical History H/O exploratory laparotomy History of bilateral inguinal hernia repair History of tonsillectomy History of tympanoplasty L eardrum rupture repair Status post colectomy Family History Father Cancer Colon cancer Social History Smoking and tobacco status: current every day smoker Alcohol intake: current Alcohol type: hard liquor Current occupation: Pt on disability for 2.5 years due to fallen arches. Vitals/I&O/Wt Last Vital Signs Temp 98.4 F 01/17/22 15:25 Pulse 85 01/17/22 15:41 Resp 18 01/17/22 15:25 BP 121/69 01/17/22 15:25 Pulse Ox 93 01/17/22 15:41 01/17/22 01/17/22 01/17/22 06:59 14:59 22:59 Intake Total 720 / 720 Balance 720 / 720 Weight last 48 hrs Weight 74.843 kg Physical Exam Const: COMMON NORMALS: patient oriented x3 HENMT: COMMON NORMALS: normocephalic and atraumatic HEAD & SCALP: normocephalic and atraumatic Eye: GENERAL EYE: appearance normal, both eyes and all related structures Chest: COMMONS NORMALS: normal inspection of the chest and normal palpation of entire chest wall CHEST: Yes Symmetrical chest wall rise Resp: COMMON NORMALS: normal respiratory effort, No retractions, No use of accessory muscles and clear to auscultation bilaterally EFFORT & INSPECTION: Yes symmetric chest movement AUSCULTATION: clear to auscultation bilaterally Cardio: COMMON NORMALS: regular rate, regular rhythm, S1 normal heart sound present, S2 normal heart sound present, No gallops present (Cardio), No murmurs present (Cardio), No rub (Cardio) and Peripheral pulses 2+ throughout RATE: regular rate RHYTHM: regular rhythm HEART SOUNDS: S1 normal heart sound present and S2 normal heart sound present PERIPHERAL PULSES: Peripheral pulses 2+ throughout GI: COMMON NORMALS: Soft to palpation, non-tender, No hepatosplenomegaly present and no masses AUSCULTATION: Yes normoactive bowel sounds PALPATION: Yes Soft to palpation and Yes No hepatosplenomegaly present RECTAL EXAM: deferred OTHER: Colostomy site clean Extremity: COMMON NORMALS: no clubbing, cyanosis or edema and no pedal edema Neuro: COMMON NORMALS: patient oriented x3 Data : 01/18/22 06:05 01/18/22 06:05 Micro: Microbiology 01/17/22 13:30 Blood Culture - Preliminary Blood SPECIMEN COLLECTED 01/17/22 13:38 Blood Culture - Preliminary Blood SPECIMEN COLLECTED A&P Assessment and plan (1) Abdominal wall abscess at site of surgical wound: Status: Acute (2) Postoperative wound infection: Status: Acute (3) Hypertension: Status: Acute (4) Pelvic abscess: Status: Chronic (5) Colostomy in place: Status: Acute (6) Diabetes: Status: Acute Plan Assessment: #Abdominal wall Abscess V/S ?postoperative change from her debridement following the 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 Continue Broad spectrum ABxs Follow Blood culture Surgery on Board #Possible Pelvic Abscess : Plan as above #DM SSI FSG Cabohydrate Consistent diet #HTN : Continue Amlodipine Code Status :Full Code #DVT PPX:0n Lovenox Attestations Medical Necessity Statement*: Patient needs to be in hospital for the management of abdominal wall abscess, need for I.V Abxs, possible surgical intervention. Anticipated LOS Greater then 2 midnights. Time Spent in Patient Care: Greater than 35 minutes (>than 50% of time spent in counselling and/or direct pt care on unit) . Coding Level of Care Code Acute Television Schedule Coordinator for g Fwd Exam Comprehensive Diagnoses Abdominal wall abscess at site of surgical wound T81.49XA Postoperative wound infection T81.49XA Hypertension I10 Pelvic abscess Colostomy in place Z93.3 Diabetes E11.9
[2022-01-17] MEDS: trazodone 100 mg Tablet PO (20:13)
[2022-01-17] MEDS: atorvastatin 40 mg Tablet 10 MG PO (20:13)
[2022-01-17 20:23] LABS: Glucose Point of Care 100 mg/dL (70-110)
[2022-01-18] VITALS (10 sets, daily range): BP systolic 109–131; BP diastolic 71–79; PULSE 75–99; RESP 16–18; TEMP 36.7–37.3; O2SAT 91–96
[2022-01-18] MEDS: acetaminophen 325 mg Tablet 650 MG PO (00:18)
[2022-01-18] MEDS: piperacillin-tazobactam 3.375 GM in sodium chloride 0.9% (plus) 50 ML IV ×3 (03:25→21:32)
[2022-01-18] MEDS: BuSPIRONE 10 mg Tablet 30 MG PO (05:18)
[2022-01-18 06:28] LABS: Glucose Point of Care 107 mg/dL (70-110)
--- NOTE | 2022-01-18 06:29 | P.CONIM_ITS ---
Providers/Reason For Consult Consulting Physician/Specialty*: General Surgery Quinten Mukherjee MD Reason for Consult*: Possible wound infection. Attending Physician: Ramírez Sandy MD Primary Care Provider: Pamela Saab MD History of Present Illness History of Present Illness Tangela Mckeon is a 61 year old female who underwent a Pierre procedure earlier this year for perforated sigmoid diverticulitis that failed medical management. Her postoperative course was complicated by retraction of her colostomy and then the development of a subcutaneous fistula from the retracted stoma to the midline wound. She was taken back to the operating room for extensive debridement of the subcutaneous fistula and revision of her colostomy to a site more superiorly on the abdominal wall. Following that operation she ended up draining a little bit of material from the inferior aspect of her incision that probably was a residual infection. This wound ended up healing with local wound care. I saw her in the office almost a week ago and she had just a little bit of serous drainage coming from the area but no other signs of infection. The patient presented to the emergency room yesterday because she said she had fairly persistent nausea that was not going away. She denies fevers, etc. A CAT scan revealed some small air bubbles underneath her incision. She was admitted with a presumed wound infection. Medications/Allergies Home Medications Medication Instructions Recorded Confirmed Last Taken Type albuterol sulfate 90 mcg/actuation 2 puff INHALATION Q4H PRN 11/14/21 01/17/22 Unknown History aerosol inhaler amlodipine 10 mg tablet 10 mg PO DAILY 11/14/21 01/17/22 01/17/22 History atorvastatin 10 mg tablet 10 mg PO BEDTIME 11/14/21 01/17/22 01/16/22 History buspirone 30 mg tablet 30 mg PO QAM 11/14/21 01/17/22 01/17/22 History cyanocobalamin (vitamin B-12) 250 250 mcg PO DAILY 11/14/21 01/17/22 01/17/22 History mcg tablet (Vitamin B-12) metformin 500 mg tablet 500 mg PO DAILY 11/14/21 01/17/22 01/17/22 History omeprazole 40 mg capsule,delayed 40 mg PO DAILY 11/14/21 01/17/22 01/17/22 History release triamterene 37.5 1 cap PO BID 11/14/21 01/17/22 01/17/22 History mg-hydrochlorothiazide 25 mg capsule trazodone 100 mg tablet 100 mg PO BEDTIME 12/06/21 01/17/22 01/16/22 History potassium chloride 20 mEq 40 meq PO DAILY 01/17/22 01/17/22 01/17/22 History tablet,extended release(part/cryst) Allergies Allergy/AdvReac Type Severity Reaction Status Date / Time doxycycline Allergy ALGY-Anaphy Verified 12/06/21 12:31 laxis levofloxacin [From Levaquin] Allergy ALGY-Anaphy Verified 12/06/21 12:31 laxis Current Medications Generic Name Dose Route Start Last Admin Trade Name Freq PRN Reason Stop Dose Admin Acetaminophen 650 mg 01/17/22 12:30 01/18/22 00:18 Acetaminophen 325 Mg Tablet PO 650 mg Q6H PRN Administration Mild/Mod Pain Or Temp >/= 101 Atorvastatin Calcium 10 mg 01/17/22 21:00 01/17/22 20:13 Atorvastatin 40 Mg Tablet PO 10 mg BEDTIME FAROOQ Administration Buspirone HCl 30 mg 01/18/22 06:00 01/18/22 05:18 Buspirone 10 Mg Tablet PO 30 mg QAM FAROOQ Administration Enoxaparin Sodium 40 mg 01/17/22 12:30 01/17/22 13:26 Enoxaparin 40 Mg/0.4 Ml Syringe SUBCUT 40 mg Q24H FAROOQ Administration Vancomycin HCl 1,000 mg/ 250 mls @ 250 mls/hr 01/18/22 00:00 01/18/22 00:59 Sodium Chloride IV Infused Q12H FAROOQ Infusion Protocol Piperacillin Sod/Tazobactam 50 mls @ 12.5 mls/hr 01/17/22 20:00 01/18/22 03:25 Sod 3.375 gm/ Sodium Chloride IV 12.5 mls/hr Q8H FAROOQ Administration Protocol Insulin Human Lispro 0 unit 01/17/22 18:00 01/17/22 20:27 Insulin Lispro 100 Unit/1 Ml SUBCUT Not Given WM&BEDTIME FAROOQ Protocol Ondansetron HCl 4 mg 01/17/22 12:30 01/17/22 20:13 Ondansetron 2 Mg/Ml Sdv 2 Ml IVP 4 mg Q8H PRN Administration vomiting, or N/V if npo Trazodone HCl 100 mg 01/17/22 21:00 01/17/22 20:13 Trazodone 100 Mg Tablet PO 100 mg BEDTIME FAROOQ Administration PFSH Acute PFSH: Medical History (Updated 01/18/22 @ 06:30 by Quinten Mukherjee MD) Alcohol use Cholelithiasis Colostomy in place Diabetes Diabetes Diverticulitis Diverticulosis Hyperlipidemia Hypertension Hypokalemia Hyponatremia Pelvic abscess Perforation of sigmoid colon due to diverticulitis Surgical History H/O exploratory laparotomy History of bilateral inguinal hernia repair History of tonsillectomy History of tympanoplasty L eardrum rupture repair Status post colectomy Family History Father Cancer Colon cancer Social History Smoking and tobacco status: current every day smoker Alcohol intake: current Alcohol type: hard liquor Current occupation: Pt on disability for 2.5 years due to fallen arches. Vitals/I&O/Wt Last Vital Signs Temp 98.5 F 01/18/22 04:00 Pulse 83 01/18/22 04:30 Resp 16 01/18/22 04:00 BP 120/79 01/18/22 04:00 Pulse Ox 91 01/18/22 04:00 01/17/22 01/17/22 01/18/22 14:59 22:59 06:59 Intake Total 2140 / 2440 300 / 2440 Output Total 650 / 650 Balance 2140 / 1790 -350 / 1790 Weight last 48 hrs Weight 165 lb Physical Exam Narrative: The stoma is viable. The small opening at the lower midline of the incision appears to have sealed over again. There is no evidence of erythema or other obvious infectious changes along the incision. Data : 01/17/22 08:30 01/17/22 08:30 Micro: Microbiology 01/17/22 13:30 Blood Culture - Preliminary Blood SPECIMEN COLLECTED 01/17/22 13:38 Blood Culture - Preliminary Blood SPECIMEN COLLECTED A&P Assessment and plan (1) Abnormal CT scan: CT reviewed. The patient has some small bubbles of air along the previous incision. While I cannot guarantee this is not infectious, I tend I think this is probably more postoperative change from her debridement following the 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 There certainly is no evidence of a wound infection externally. The patient presented to the emergency room because she had persistent nausea. She says now that seems to be better and she would be agreeable to going home on some antiemetics. I would not disagree with a short term of antibiotics, but again, I am not sure the changes that are being seen on the CAT scan represent an actual wound infection. I already have an appointment for follow-up with the patient on Wednesday of this week in the office. Status: Acute Consult Attestations Medical Necessity Statement: See admitting service's notation. Coding Level of Care Code Acute Intellectual Property Legal Assistant for Cristy Donovan Diagnoses Abnormal CT scan R93.89
[2022-01-18 07:08] LABS: Basophils % 0.4 %; Eosinophils # 0.4 10^3/uL (0.0-0.8); Eosinophils % 5.3 %; Hematocrit 29.5 % (37.0-47.0); Hemoglobin 8.9 g/dL (11.5-15.3); Lymphocytes # 2.1 10^3/uL (0.8-4.8); Lymphocytes % 27.4 %; Mean Corpuscular HGB Conc 30.2 g/dL (30.0-36.0); Mean Corpuscular Hemoglobin 27.2 pg (28.0-34.0); Mean Corpuscular Volume 90.2 fl (81-99); Mean Platelet Volume 9.7 fL (7.4-10.4); Monocytes # 0.9 10^3/uL (0.2-0.9); Monocytes % 11.2 %; Neutrophils % 54.2 %; Nucleated Red Blood Cells % 0 %; Platelet Count 538 10^3/cmm (130-400); Red Blood Count 3.27 10^6/uL (4.1-5.3); Red Cell Distribution Width 13.9 % (12.1-15.1); White Blood Count 7.6 10^3/uL (4.0-10.0)
[2022-01-18 07:27] LABS: Anion Gap 16.1 (5-19); Blood Urea Nitrogen 3 mg/dL (6-20); Calcium 9.8 mg/dL (8.5-10.5); Carbon Dioxide 25 mmol/L (22-29); Chloride 101 mmol/L (98-107); Glomerular Filtration Rate 126.3 mL/min (90-130); Glucose 96 mg/dL (65-115); Osmolality Calculated 284 mOsm/kg (285-295); Potassium 3.1 mmol/L (3.5-5.1); Sodium 139 mmol/L (136-145)
[2022-01-18] MEDS: potassium chloride ER 20 mEq Tablet 40 MEQ PO (08:29)
[2022-01-18] MEDS: amlodipine 10 mg Tablet PO (08:29)
[2022-01-18] MEDS: pantoprazole DR 40 mg Tablet PO (08:29)
[2022-01-18] MEDS: cyanocobalamin 1,000 mcg Tablet 250 MCG PO (08:29)
[2022-01-18] MEDS: morphine 4 mg/mL SDV 1 mL 2 MG IVP ×2 (08:38→16:07)
[2022-01-18] MEDS: ondansetron 2 mg/ML SDV 2 mL 4 MG IVP ×2 (08:38→16:07)
[2022-01-18 10:46] LABS: Glucose Point of Care 131 mg/dL (70-110)
[2022-01-18] MEDS: enoxaparin 40 mg/0.4 mL Syringe SUBCUT (11:03)
[2022-01-18] MEDS: vancomycin 1,000 MG in sodium chloride 0.9% 250 ML 250 MG IV (11:03)
--- NOTE | 2022-01-18 14:08 | PM.PN ---
Subjective Subjective: Patient was seen and examined this morning, no acute events overnight. Medications: Medication Review Details: Generic Name Dose Route Start Last Admin Trade Name Freq PRN Reason Stop Dose Admin Acetaminophen 650 mg 01/17/22 12:30 01/18/22 00:18 Acetaminophen 32 5 Mg Tablet PO 650 mg Q6H PRN Administration Mild/Mod Pain Or Temp >/= 101 Amlodipine Besylat e 10 mg 01/18/22 09:00 01/18/22 08:29 Amlodipine 10 Mg Tablet PO 10 mg DAILY FAROOQ Administration Atorvastatin Calci um 10 mg 01/17/22 21:00 01/17/22 20:13 Atorvastatin 40 Mg Tablet PO 10 mg BEDTIME FAROOQ Administration Buspirone HCl 30 mg 01/18/22 06:00 01/18/22 05:18 Buspirone 10 Mg Tablet PO 30 mg QAM FAROOQ Administration Cyanocobalamin 250 mcg 01/18/22 09:00 01/18/22 08:29 Cyanocobalamin 1 ,000 Mcg Tablet PO 250 mcg DAILY FAROOQ Administration Enoxaparin Sodium 40 mg 01/17/22 12:30 01/18/22 11:03 Enoxaparin 40 Mg /0.4 Ml Syringe SUBCUT 40 mg Q24H FAROOQ Administration Vancomycin HCl 1,0 00 mg/ 250 mls @ 250 mls /hr 01/18/22 00:00 01/18/22 12:09 Sodium Chloride IV Infused Q12H FAROOQ Infusion Protocol Piperacillin Sod/T azobactam 50 mls @ 12.5 mls /hr 01/17/22 20:00 01/18/22 12:05 Sod 3.375 gm/ So dium Chloride IV 12.5 mls/hr Q8H FAROOQ Administration Protocol Insulin Human Lisp ro 0 unit 01/17/22 18:00 01/18/22 10:52 Insulin Lispro 1 00 Unit/1 Ml SUBCUT Not Given WM&BEDTIME FAROOQ Protocol Morphine Sulfate 2 mg 01/17/22 14:24 01/18/22 08:38 Morphine 4 Mg/Ml Sdv 1 Ml IVP 2 mg Q4H PRN Administration SEVERE PAIN Ondansetron HCl 4 mg 01/17/22 12:30 01/18/22 08:38 Ondansetron 2 Mg /Ml Sdv 2 Ml IVP 4 mg Q8H PRN Administration vomiting, or N/V if npo Pantoprazole Sodiu m 40 mg 01/18/22 09:00 01/18/22 08:[address] 40 Mg Tablet PO 40 mg DAILY FAROOQ Administration Potassium Chloride 40 meq 01/18/22 09:00 01/18/22 08:29 Potassium Chlori de Er 20 Meq Table t PO 40 meq DAILY FAROOQ Administration Trazodone HCl 100 mg 01/17/22 21:00 01/17/22 20:13 Trazodone 100 Mg Tablet PO 100 mg BEDTIME FAROOQ Administration Vitals/I&O/Wt Last Vital Signs Temp 98.1 F 01/18/22 11:28 Pulse 90 01/18/22 13:26 Resp 18 01/18/22 11:28 BP 131/74 01/18/22 11:28 Pulse Ox 95 01/18/22 11:28 01/17/22 01/18/22 01/18/22 22:59 06:59 14:59 Intake Total 2140 / 2140 300 / 2440 1620 / 1620 Output Total 650 / 650 Balance 2140 / 2140 -350 / 1790 1620 / 1620 Weight last 48 hrs Weight 74.843 kg Physical Exam Const: COMMON NORMALS: patient oriented x3 HENMT: COMMON NORMALS: normocephalic and atraumatic HEAD & SCALP: normocephalic and atraumatic Eye: GENERAL EYE: appearance normal, both eyes and all related structures Chest: COMMONS NORMALS: normal inspection of the chest and normal palpation of entire chest wall CHEST: Yes Symmetrical chest wall rise Resp: COMMON NORMALS: normal respiratory effort, No retractions, No use of accessory muscles and clear to auscultation bilaterally EFFORT & INSPECTION: Yes symmetric chest movement AUSCULTATION: clear to auscultation bilaterally Cardio: COMMON NORMALS: regular rate, regular rhythm, S1 normal heart sound present, S2 normal heart sound present, No gallops present (Cardio), No murmurs present (Cardio), No rub (Cardio) and Peripheral pulses 2+ throughout RATE: regular rate RHYTHM: regular rhythm HEART SOUNDS: S1 normal heart sound present and S2 normal heart sound present PERIPHERAL PULSES: Peripheral pulses 2+ throughout GI: COMMON NORMALS: Soft to palpation, non-tender, No hepatosplenomegaly present and no masses AUSCULTATION: Yes normoactive bowel sounds PALPATION: Yes Soft to palpation and Yes No hepatosplenomegaly present RECTAL EXAM: deferred OTHER: Colostomy site clean Extremity: COMMON NORMALS: no clubbing, cyanosis or edema and no pedal edema Neuro: COMMON NORMALS: patient oriented x3 Data : 01/18/22 06:05 01/18/22 06:05 Micro: Microbiology 01/17/22 13:38 Blood Culture - Preliminary Blood NEGATIVE TO DATE 01/17/22 13:30 Blood Culture - Preliminary Blood NEGATIVE TO DATE A&P Assessment and plan (1) Abdominal wall abscess at site of surgical wound: Status: Acute (2) Postoperative wound infection: Status: Acute (3) Hypertension: Status: Acute (4) Pelvic abscess: Status: Chronic (5) Colostomy in place: Status: Acute (6) Diabetes: Status: Acute Plan Assessment: #Abdominal wall Abscess V/S ?postoperative change from her debridement following the 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 Continue Broad spectrum ABxs Follow Blood culture Surgery on Board : Less likely abdominal wall abscess likely postoperative changes. #Possible Pelvic Abscess : Plan as above #DM SSI FSG Cabohydrate Consistent diet #HTN : Continue Amlodipine Code Status :Full Code #DVT PPX:0n Lovenox Attestations Medical Necessity Statement*: Patient needs to the hospital for IV antibiotics. Coding Level of Care Code Acute Base [employer] for [facility] Diagnoses Abdominal wall abscess at site of surgical wound T81.49XA Postoperative wound infection T81.49XA Hypertension I10 Pelvic abscess Colostomy in place Z93.3 Diabetes E11.9
[2022-01-18 16:47] LABS: Glucose Point of Care 96 mg/dL (70-110)
[2022-01-18 21:18] LABS: Glucose Point of Care 94 mg/dL (70-110)
[2022-01-18] MEDS: trazodone 100 mg Tablet PO (21:36)
[2022-01-18 23:54] LABS: Vancomycin Trough 11.4 ug/mL (10-15)
[2022-01-19] VITALS (8 sets, daily range): BP systolic 111–129; BP diastolic 69–78; PULSE 80–83; RESP 16–18; TEMP 36.7–37.2; O2SAT 92–95
[2022-01-19] MEDS: vancomycin 1,000 MG in sodium chloride 0.9% 250 ML 250 MG IV (00:42)
[2022-01-19] MEDS: morphine 4 mg/mL SDV 1 mL 2 MG IVP (01:00)
[2022-01-19] MEDS: ondansetron 2 mg/ML SDV 2 mL 4 MG IVP (01:01)
[2022-01-19 04:48] LABS: Basophils % 0.4 %; Eosinophils # 0.4 10^3/uL (0.0-0.8); Eosinophils % 5.1 %; Hematocrit 29.7 % (37.0-47.0); Hemoglobin 8.8 g/dL (11.5-15.3); Lymphocytes # 2.2 10^3/uL (0.8-4.8); Lymphocytes % 28.2 %; Mean Corpuscular HGB Conc 29.6 g/dL (30.0-36.0); Mean Corpuscular Hemoglobin 27.8 pg (28.0-34.0); Mean Platelet Volume 9.3 fL (7.4-10.4); Monocytes # 0.8 10^3/uL (0.2-0.9); Monocytes % 10.5 %; Neutrophils # 4.29 10^3/uL (1.8-7.7); Neutrophils % 54.8 %; Nucleated Red Blood Cells % 0 %; Platelet Count 460 10^3/cmm (130-400); Red Blood Count 3.16 10^6/uL (4.1-5.3); Red Cell Distribution Width 13.9 % (12.1-15.1); White Blood Count 7.8 10^3/uL (4.0-10.0)
[2022-01-19 05:04] LABS: Anion Gap 15.3 (5-19); Blood Urea Nitrogen 3 mg/dL (6-20); Calcium 9.5 mg/dL (8.5-10.5); Carbon Dioxide 22 mmol/L (22-29); Chloride 105 mmol/L (98-107); Glomerular Filtration Rate 102.3 mL/min (90-130); Glucose 100 mg/dL (65-115); Osmolality Calculated 285 mOsm/kg (285-295); Potassium 3.3 mmol/L (3.5-5.1); Sodium 139 mmol/L (136-145)
[2022-01-19] MEDS: piperacillin-tazobactam 3.375 GM in sodium chloride 0.9% (plus) 50 ML IV (05:22)
[2022-01-19] MEDS: BuSPIRONE 10 mg Tablet 30 MG PO (05:23)
[2022-01-19 06:36] LABS: Glucose Point of Care 112 mg/dL (70-110)
[2022-01-19] MEDS: cyanocobalamin 1,000 mcg Tablet 250 MCG PO (07:53)
[2022-01-19] MEDS: pantoprazole DR 40 mg Tablet PO (07:53)
[2022-01-19] MEDS: potassium chloride ER 20 mEq Tablet 40 MEQ PO (07:53)
[2022-01-19] MEDS: amlodipine 10 mg Tablet PO (07:53)
--- NOTE | 2022-01-19 09:52 | PC.CHAP ---
Pastoral Care Encounter/Spiritual Assessment Type of Contact [] Declined facility manager visit [] Patient/Family/Request visit [] Outpatient visit [] Follow-up visit [] Physician referral [] Code/Alert x[] Routine visit [] Staff referral [] Actively dying [] Patient sleeping [] Family support [] [] Out of room [] Palliative care [] [] Receiving care in room [] Pre-surgical visit [] Trauma [] Long length of stay [] ICU visit [] Other: Relational/Emotional Strength [x] Patient feels connected with others/family/visitors/staff [] Distress [] Loneliness/isolation [] Abandonment Spirituality of Patient x] Person of Charo [] Attends Rastafari of their Charo [x] Believes in Prayer [] Reads Bible or Muslim materials [] There are Spiritual issues to be addressed Window Repairer Interventions [x] Prayer [x] Active listening [x] Non-anxious presence [x] Spiritual/emotional support [] Crisis/trauma care [] Spiritual counseling [] Bereavement support [] Provided bereavement packet [] Provided Bible/devotional materials [] Provided toy/stuffed animal, coloring book to patient or family member [] Provided Communion [] Anointing/[place] [] Salvation [x] Completed spiritual assessment [] Other: Impact on Illness or Injury [] Angry [] Fearful [] Anxious [] Often cries [] Exhaustion [] Unable to work [] Unable to attend hindu [] Unable to walk/stand [] Unable to read [] Unable to drive [] Unable to eat/drink [] Unable to sleep [] Unable to be with family [] Patient intubated [] Other: Summary Time spent with patient 10 min
--- NOTE | 2022-01-19 10:15 | PM.DCS ---
Discharge Providers Date of Admission: 01/17/22 12:30 Date of Discharge: January 19, 2022 Attending Provider at Admission: Ramírez Sandy MD Attending Provider at Discharge: Ramírez Sandy MD Primary Care Provider: Pamela Saab MD Diagnoses at Discharge Discharge Diagnosis (1) Abdominal wall abscess at site of surgical wound: Status: Acute (2) Postoperative wound infection: Status: Acute (3) Hypertension: Status: Acute (4) Pelvic abscess: Status: Chronic (5) Colostomy in place: Status: Acute (6) Diabetes: Status: Acute Reason for Visit Reason for Visit: colostomy complications,N/V Hospital Course Hospital Course HPI : Tangela Mckeon is a 61 year old female with PMH of HTN ,DM , recent Pierre procedure initially presenetd? for perforated sigmoid diverticulitis , failed medical management. 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 Pertinent Imaging studies: C.T Abdomen and Pelvis w contrast : Multifocal inflammatory change in the anterior abdominal wall including 2.5 cm clustered air collection to the left of midline at the L3 level, suggesting abscess, along with a complex 5.8 x 2.5 by 2.3 cm fluid collection with wall thickening in the midline at the level of the superior pelvis, also suggestive of abscess. 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 Rouse as an outpatient. Patient was discharged in hemodynamically stable condition to home Physical Exam Const: COMMON NORMALS: patient oriented x3 HENMT: COMMON NORMALS: normocephalic and atraumatic HEAD & SCALP: normocephalic and atraumatic Eye: GENERAL EYE: appearance normal, both eyes and all related structures Chest: COMMONS NORMALS: normal inspection of the chest and normal palpation of entire chest wall CHEST: Yes Symmetrical chest wall rise Resp: COMMON NORMALS: normal respiratory effort, No retractions, No use of accessory muscles and clear to auscultation bilaterally EFFORT & INSPECTION: Yes symmetric chest movement AUSCULTATION: clear to auscultation bilaterally Cardio: COMMON NORMALS: regular rate, regular rhythm, S1 normal heart sound present, S2 normal heart sound present, No gallops present (Cardio), No murmurs present (Cardio), No rub (Cardio) and Peripheral pulses 2+ throughout RATE: regular rate RHYTHM: regular rhythm HEART SOUNDS: S1 normal heart sound present and S2 normal heart sound present PERIPHERAL PULSES: Peripheral pulses 2+ throughout GI: COMMON NORMALS: Soft to palpation, non-tender, No hepatosplenomegaly present and no masses AUSCULTATION: Yes normoactive bowel sounds PALPATION: Yes Soft to palpation and Yes No hepatosplenomegaly present RECTAL EXAM: deferred OTHER: Colostomy site clean Extremity: COMMON NORMALS: no clubbing, cyanosis or edema and no pedal edema Neuro: COMMON NORMALS: patient oriented x3 Discharge Data Studies Completed and Pending Completed Studies During Hospitalization Category Date Time Status CT abdomen pelvis w con* [id number] Stat Cat Scan 01/17/22 08:39 Completed Pending at discharge Category Date Time Status Basic Metabolic Panel AM LABS Lab 01/20/22 04:00 Ordered Blood Culture Routine Lab 01/17/22 13:30 Results Complete Blood Count w/Auto AM LABS Lab 01/20/22 04:00 Ordered Radiology Impressions Abdomen/Pelvis CT 01/17/22 08:39 IMPRESSION: 1. Multifocal inflammatory change in the anterior abdominal wall including 2.5 cm clustered air collection to the left of midline at the L3 level, suggesting abscess, along with a complex 5.8 x 2.5 by 2.3 cm fluid collection with wall thickening in the midline at the level of the superior pelvis, also suggestive of abscess. 2. Wall thickening in the nondistended stomach. 3. Left colostomy with peristomal hernia. 4. Infiltration of mesenteric fat and small quantity of intraperitoneal fluid. 5. Additional findings as described above. The aforementioned findings initiated a critical results communication pathway. An addendum will be issued at the time of clincian notification. ADDENDUM: 01/17/22 1106 THIS REPORT CONTAINS FINDINGS THAT MAY BE CRITICAL TO PATIENT CARE. The findings were verbally communicated via telephone conference with HIEU Mendoza at 11:05 AM CDT on 01/17/2022. The findings were acknowledged and understood. Laboratory Results WBC 7.8 10^3/uL (4.0-10.0) 01/19/22 04:34 RBC 3.16 10^6/uL (4.1-5.3) L 01/19/22 04:34 Hgb 8.8 g/dL (11.5-15.3) L 01/19/22 04:34 Hct 29.7 % (37.0-47.0) L 01/19/22 04:34 MCV 94.0 fl (81-99) 01/19/22 04:34 MCH 27.8 pg (28.0-34.0) L 01/19/22 04:34 MCHC 29.6 g/dL (30.0-36.0) L 01/19/22 04:34 RDW 13.9 % (12.1-15.1) 01/19/22 04:34 Plt Count 460 10^3/cmm (130-400) H 01/19/22 04:34 MPV 9.3 fL (7.4-10.4) 01/19/22 04:34 Neut % (Auto) 54.8 % 01/19/22 04:34 Lymph % (Auto) 28.2 % 01/19/22 04:34 [place] % (Auto) 10.5 % 01/19/22 04:34 Eos % (Auto) 5.1 % 01/19/22 04:34 Baso % (Auto) 0.4 % 01/19/22 04:34 Neut # (Auto) 4.29 10^3/uL (1.8-7.7) 01/19/22 04:34 Lymph # (Auto) 2.2 10^3/uL (0.8-4.8) 01/19/22 04:34 [place] # (Auto) 0.8 10^3/uL (0.2-0.9) 01/19/22 04:34 Eos # (Auto) 0.4 10^3/uL (0.0-0.8) 01/19/22 04:34 Baso # (Auto) 0.0 10^3/uL (0.0-0.1) 01/19/22 04:34 Nucleated RBC % (auto) 0 % 01/19/22 04:34 Nucleated RBCs # 0.0 /100WBC 01/19/22 04:34 Sodium 139 mmol/L (136-145) 01/19/22 04:34 Potassium 3.3 mmol/L (3.5-5.1) L 01/19/22 04:34 Chloride 105 mmol/L (98-107) 01/19/22 04:34 Carbon Dioxide 22 mmol/L (22-29) 01/19/22 04:34 Anion Gap 15.3 (5-19) 01/19/22 04:34 BUN 3 mg/dL (6-20) L 01/19/22 04:34 Creatinine 0.6 mg/dL (0.5-0.9) 01/19/22 04:34 GFR Calculation 102.3 mL/min (90-130) 01/19/22 04:34 Glucose 100 mg/dL (65-115) 01/19/22 04:34 POC Glucose 112 mg/dL (70-110) H 01/19/22 06:26 Calculated Osmolality 285 mOsm/kg (285-295) 01/19/22 04:34 Calcium 9.5 mg/dL (8.5-10.5) 01/19/22 04:34 Total Bilirubin 0.2 mg/dL (0.15-1.2) 01/17/22 08:30 AST 35 U/L (0-32) H 01/17/22 08:30 ALT 20 U/L (0-33) 01/17/22 08:30 Alkaline Phosphatase 112 IU/L (35-105) H 01/17/22 08:30 Total Protein 8.1 g/dL (6.6-8.7) 01/17/22 08:30 Albumin 4.0 g/dL (3.5-5.2) 01/17/22 08:30 Globulin 4.1 g/dL (1.3-4.6) 01/17/22 08:30 Urine Color Yellow (Yellow) 01/17/22 10:33 Urine Appearance Clear (CLEAR) 01/17/22 10:33 Urine pH 8 (5-7) H 01/17/22 10:33 Ur Specific [place] 1.010 (1.005-1.030) 01/17/22 10:33 Urine Protein Neg (Negative) 01/17/22 10:33 Urine Glucose (UA) Norm (Normal) 01/17/22 10:33 Urine Ketones Negative (Negative) 01/17/22 10:33 Urine Blood Neg (Negative) 01/17/22 10:33 Urine Nitrate Negative (Negative) 01/17/22 10:33 Urine Bilirubin Neg (Negative) 01/17/22 10:33 Prot Sulfosalicylic Acd Negative (Negative) 01/17/22 10:33 Urine Urobilinogen Norm mg/dL (Negative) 01/17/22 10:33 Ur Leukocyte Esterase 2+ (Negative) H 01/17/22 10:33 Urine RBC None /hpf (0-2) 01/17/22 10:33 Urine WBC 5-10 /hpf (0-5) H 01/17/22 10:33 Ur Squamous Epith Cells 5-10 /hpf (0-5) H 01/17/22 10:33 Amorphous Sediment Not Reportable 01/17/22 10:33 Urine Bacteria Trace /hpf (NONE) 01/17/22 10:33 Vancomycin Trough 11.4 ug/mL (10-15) 01/18/22 23:20 Vitals Last Vital Signs Temp 98.2 F 01/19/22 07:40 Pulse 81 01/19/22 08:55 Resp 18 01/19/22 07:40 BP 116/78 01/19/22 07:40 Pulse Ox 95 01/19/22 08:55 Discharge Plan Discharge Patient Disposition: Home Condition: Stable Prescriptions: New Augmentin 500-125 mg tablet 1 tab PO BID 7 Days Qty: 14 0RF levofloxacin 750 mg tablet 750 mg PO DAILY 7 Days Qty: 7 0RF ondansetron 4 mg tablet,disintegrating 4 mg PO Q6H PRN (Reason: nausea and vomiting) 7 Days Qty: 30 0RF Continued trazodone 100 mg tablet 100 mg PO BEDTIME 0RF metformin 500 mg tablet 500 mg PO DAILY 0RF atorvastatin 10 mg tablet 10 mg PO BEDTIME 0RF cyanocobalamin (vitamin B-12) [Vitamin B-12] 250 mcg Tablet 250 mcg PO DAILY 0RF omeprazole 40 mg capsule,delayed release(DR/EC) 40 mg PO DAILY 0RF triamterene-hydrochlorothiazid 37.5-25 mg capsule 1 cap PO BID 0RF amlodipine 10 mg tablet 10 mg PO DAILY 0RF buspirone 30 mg tablet 30 mg PO QAM 0RF albuterol sulfate 90 mcg/actuation HFA aerosol inhaler 2 puff INHALATION Q4H PRN (Reason: Shortness Of Breath) 0RF potassium chloride 20 mEq tablet,ER particles/crystals 40 meq PO DAILY 0RF Discharge Orders: Discharge Order (Routine); Ordered 01/19/22 Ordered By: Ramírez Sandy Referrals: Pamela Saab MD [Primary Care Provider] - 02/18/22 10:00 am Quinten Mukherjee MD [Physician] - 01/20/22 11:15 am Discharge Diet: Diabetic Patient Instructions: Amoxicillin/Clavulanate Potassium (By mouth), Ondansetron (By mouth), Levofloxacin (By mouth), Hypertension, Wound Infection (DC), Opioid Safety Discharge Attestations Time Spent in Discharge Care*: greater than 30 min Quality Metrics Clinical Quality Measures [ No reported AMI, CVA or VTE this stay] Coding Level of Care Code Acute Chg FW DC note Exam Comprehensive Diagnoses Abdominal wall abscess at site of surgical wound T81.49XA Postoperative wound infection T81.49XA Hypertension I10 Pelvic abscess Colostomy in place Z93.3 Diabetes E11.9
== END 2022-01-19 11:49 | disposition home or self-care (01) ==
LOC: ER 12:16 → MEDSURG 18:34
PROVIDERS: Admitting Provider Internal Medicine; Emergency Provider Family Medicine; PCP Family Medicine; Visit Provider Internal Medicine
DX: T81.49XA Infection following a procedure, other surgical site, initial encounter (principal); I10 Essential (primary) hypertension; Z93.3 Colostomy status; E11.9 Type 2 diabetes mellitus without complications; E78.5 Hyperlipidemia, unspecified
CPT/HCPCS: 36415; 36416; 74177; 80048; 80053; 80202; 81001; 82962; 85025; 87040; 93005; 96365; 96366; 96367; 96372; 96375; 96376; 99285; G0378; J1650; J2270; J2405; J2543; J3370; J7050; Q9967

== ENCOUNTER → 2022-02-05 14:00 | Outpatient (BNVA) | payer MEDICARE, MEDICAID, SELFPAY | PROVIDERS: PCP Family Medicine; Visit Provider Podiatrist Foot & Ankle Surgery | DX: M76.829 Posterior tibial tendinitis, unspecified leg (principal); M21.611 Bunion of right foot; M21.612 Bunion of left foot; M21.621 Bunionette of right foot; M21.622 Bunionette of left foot | CPT/HCPCS: 99204 ==

== ENCOUNTER 2022-10-19 13:09 | Outpatient (CLI) | payer MEDICARE, MEDICAID, SELFPAY ==
--- NOTE | 2022-10-19 13:22 | CTR_ITS ---
PROCEDURE INFORMATION: Exam: CT Abdomen Without Contrast Exam date and time: 10/19/2022 2:02 PM Age: 62 years old Clinical indication: Left upper quadrant lump for 3 weeks. Has had hernia surgery in that area before. Left upper quadrant mass. Surgery type: Colon, gb, hernia. TECHNIQUE: Imaging protocol: Computed tomography of the abdomen without contrast. Radiation optimization: All CT scans at this facility use at least one of these dose optimization techniques: automated exposure control; mA and/or kV adjustment per patient size (includes targeted exams where dose is matched to clinical indication); or iterative reconstruction. COMPARISON: CT abdomen pelvis w con* [id number] 01/17/2022 10:08 AM RADIATION DOSE METRICS: Total DLP (mGy-cm): 756.97 FINDINGS: Liver: The liver is mildly enlarged measuring 17 cm. Gallbladder and bile ducts: The gallbladder has been removed. Pancreas: The pancreas is unremarkable. Spleen: The spleen is unremarkable. Adrenal glands: The adrenal glands are unremarkable. Kidneys and ureters: A simple left renal cyst measures 0.9 cm. Indeterminate left renal lesion measuring 1.7 cm. Mild left hydronephrosis. No obstructive stone or lesion is seen. The mid to distal left ureter is not included on the current study. Stomach and bowel: Visualized small bowel is grossly unremarkable. Appendix: The appendix is not included on the current study. Intraperitoneal space: No free intraperitoneal air is seen. Vasculature: No abdominal aortic aneurysm. Lymph nodes: Calcified right hilar lymph node. Mild scarring or atelectasis at the right base. Calcified granuloma in the right lower lobe. Coronary arterial calcifications are seen. No pericardial effusion. No hiatal hernia. A periportal lymph node measures 1.0 x 1.8 cm. Bones/joints: No acute fracture is seen. Soft tissues: There is a ventral epigastric hernia containing a loop of colon. This is broad-based and is not appear obstructive or complicated. There is mild subcutaneous edema about this hernia. CT/CT abdomen wo con [id number] IMPRESSION: 1. There is a ventral epigastric hernia containing a loop of colon. This is broad-based and is not appear obstructive or complicated. There is mild subcutaneous edema about this hernia. 2. Mild left hydronephrosis. No obstructive stone or lesion is seen. The mid to distal left ureter is not included on the current study. Indeterminate left renal lesion. Recommend nonemergent MR abdomen renal mass protocol with and without contrast to better characterize. 3. Hepatomegaly with mild periportal lymphadenopathy. 4. Coronary artery disease. COMMENTS: Consistent with the [employer]'s Incidental Findings Committee white paper (J Am Galdino Radiol 2018): Any incidental renal lesion less than 1 cm or classified as too small to characterize, or any incidental cystic renal lesion characterized as simple-appearing, is likely benign. No follow-up imaging is recommended for these lesions per consensus recommendations based on imaging criteria.
[2022-10-19] MEDS: iohexol 350 mg/mL 500 mL Btl (per mL) PO (15:15)
== END 2022-10-19 13:10 | disposition home or self-care (01) ==
PROVIDERS: PCP Family Medicine; Visit Provider Nurse Practitioner Family
DX: I25.10 Atherosclerotic heart disease of native coronary artery without angina pectoris (principal); R16.0 Hepatomegaly, not elsewhere classified; N13.30 Unspecified hydronephrosis; K43.9 Ventral hernia without obstruction or gangrene
CPT/HCPCS: 74150; Q9967

== ENCOUNTER 2022-11-11 11:42 | Outpatient (CLI) | payer MEDICARE, MEDICAID, SELFPAY ==
--- NOTE | 2022-11-11 11:56 | MR_ITS ---
WS: [id number] MRI ABDOMEN without CONTRAST. COMPARISON: Prior CTs dated 10/19/2022, 11/17/2021 and 11/14/2021 Multiplanar, multisequence imaging is performed without contrast. Unable to achieve IV access. Patie nt requested no additional attempts. Kidneys are normal size. There are 2 exophytic cortical based masses from the LEFT kidney. The larges t measures 16 mm from the mid kidney extends laterally. This fluid-filled mass is indeterminate by CT . This is most consistent with a cyst. Follows fluid signal on all sequences. There is no solid compo nent identified. No increase in size since 11/17/2021. Small bilateral extrarenal pelves. No hydronephrosis. No pleural effusion. The liver and spleen are normal. Prior cholecystectomy. No ascites. No adenopath y identified. Aorta is normal. MR/MR abdomen wo con [id number] IMPRESSION: 1. LEFT renal masses follow CSF and fluid on all sequences. Unable to achieve IV access but there is no solid component. Most consistent with simple cysts an d unchanged since 11/17/2021. 2. Prior cholecystectomy. 3. No ascites or adenopathy.
== END 2022-11-11 11:43 | disposition home or self-care (01) ==
LOC: RAD 11:43
PROVIDERS: PCP Family Medicine; Visit Provider Nurse Practitioner Family
DX: N28.9 Disorder of kidney and ureter, unspecified (principal); Z90.49 Acquired absence of other specified parts of digestive tract
CPT/HCPCS: 74181

== ENCOUNTER → 2022-12-03 15:24 | Outpatient (BNVA) | payer MEDICARE, MEDICAID, SELFPAY | PROVIDERS: PCP Family Medicine; Referring Provider Nurse Practitioner Family; Visit Provider Surgery | DX: K43.2 Incisional hernia without obstruction or gangrene (principal); Z90.49 Acquired absence of other specified parts of digestive tract; Z80.0 Family history of malignant neoplasm of digestive organs | CPT/HCPCS: 99203 ==